=== PATIENT | female | born 1950 | race Caucasian/White ===

== ENCOUNTER 2016-11-01 07:11 | Emergency (ER) | payer OTHER ==
[~2016-11-01] VITALS: Ht 162.6 cm; Wt 115.5 kg
[~2016-11-01 07:11] MED LIST: ASPCH81X PO; CHOL100010 PO; CITA40TA12 PO; CLOP1TAB15 PO; CLR10 PO; CYCL10TA6 PO; FERR325T51 PO; GUAISYP5 PO; ISOS120T5 PO; LEVO100T PO; METO50TA16 PO; NTRGSL/4 UT; PANT1TAB48 PO; ROSU40TA PO; TRAM-10 PO
[2016-11-01 07:18] VITALS: TEMP 36.9; Ht 162.6 cm; Wt 115.5 kg
[2016-11-01] MEDS ORDERED: SODIUM CHLORIDE 0.9% 1000ML 1,000 ML IV STA (07:29)
[2016-11-01] MEDS ORDERED: ONDANSETRON INJ 2 MG/ML 2 ML VIAL IV STA (07:29)
--- NOTE | 2016-11-01 08:01 | DIAGNOSTIC IMAGING REPORT ---
CHEST ONE VIEW PORTABLE CLINICAL HISTORY: Evaluate Fever/Sepsis dyspnea COMPARISON STUDY: 04/14/2016 FINDINGS: Parenchymal infiltrate left base. Lungs otherwise are clear. Mild chronic elevation right hemidiaphragm. IMPRESSION: Infiltrate left base. Electronically signed by: Santiago Mora M.D. 11/01/2016 8:00 AM Dictated Date/Time: 11/01/2016 7:58 AM
[2016-11-01 08:02] LABS: BASO % 0.5 %; BASO ABS # 0.04 K/uL (0-0.2); COMPLETE YES; EOS % 2.7 %; HEMATOCRIT 40.7 % (37-47); IG% 0.7 %; LYMPH % 16.9 %; LYMPH ABS # 1.48 K/uL (1.2-3.4); MEAN CELL VOLUME 87.2 fL (80-100); MEAN CORPUSCULAR HEMOGLOBIN 29.1 pg (25-34); MEAN CORPUSCULAR HGB CONC 33.4 g/dl (32-36); MEAN PLATELET VOLUME 9.9 fL (7.4-10.4); MONO % 12.1 %; NEUT % 67.1 %; PLATELET COUNT 457 K/uL (130-400); RED BLOOD COUNT 4.67 M/uL (4.2-5.4); WHITE BLOOD COUNT 8.78 K/uL (4.8-10.8)
[2016-11-01 08:07] LABS: URINE APPEARANCE CLOUDY (CLEAR); URINE COLOR DK YELLOW; URINE EPITHELIAL CELL AUTO >30 /lpf (0-5); URINE NITRITE POS (NEG); URINE PH 5.5 (4.5-7.5); URINE SPECIFIC GRAVITY 1.042 (1.000-1.030); UROBILINOGEN NEG (NEG); ZZUR CULT IF INDIC CLEAN CATCH YES
[2016-11-01 08:12] LABS: MANUAL MICROSCOPIC REQUIRED? NO; REVIEW REQ? YES; URINE BILIRUBIN NEG (NEG)
[2016-11-01 08:17] LABS: URINE MUCUS PRESENT (NONE PRSENT)
[2016-11-01 08:19] LABS: CALCIUM 8.8 mg/dl (8.5-10.1)
[2016-11-01 08:23] LABS: ALKALINE PHOSPHATASE 70 U/L (45-117); ALT/SGPT 40 U/L (12-78); AST/SGOT 26 U/L (15-37); BLOOD UREA NITROGEN 8 mg/dl (7-18); CARBON DIOXIDE 26 mmol/L (21-32); CHLORIDE 105 mmol/L (98-107); CREATININE 0.84 mg/dl (0.60-1.20); GLUCOSE 131 mg/dl (70-99); POTASSIUM 3.5 mmol/L (3.5-5.1); SODIUM 139 mmol/L (136-145)
[2016-11-01] MEDS ORDERED: FERR325T5 PO (08:25)
[2016-11-01] MEDS ORDERED: CEFTRIAXONE SOD INJ 1 GM ADDVIAL IV STA (10:03)
[2016-11-01] MEDS ORDERED: LEVOFLOXACIN 250 MG TAB PO STA (10:06)
[2016-11-01] MEDS ORDERED: AMOX875T PO (10:21)
[2016-11-01] MEDS ORDERED: ONDA4TAB10 SL (10:22)
--- NOTE | 2016-11-01 10:22 | EMERGENCY ROOM VISIT NOTE ---
History Report prepared by Joslyn: Antony Lyon Under the Supervision of: Dr. César Garrett D.O. First contact with patient: 07:25 Chief Complaint: FLU LIKE SX Stated Complaint: FLU History of Present Illness The patient is a 66 year old female who presents to the Emergency Room with complaints of persistent flu-like symptoms that started a week ago. She states that she has had a high fever, chills, and body aches intermittently. Her highest fever was 102.8, per a family member. The patient also notes an occasional productive cough. She did start vomiting today with nausea. She vomited again a few minutes ago in the room. The patient notes that she knows it is cold in the room, but she feels hot. The patient denies any abdominal pain , diarrhea urinary symptoms, wounds, or infections. The patient states that she has seen 2 doctors for her illness, and has been given medications, but her illness has persisted and worsened. She has a history stent placement in her heart. Source of History: patient, family Onset: A week ago Position: other (global - flu-like symptoms) Timing: other (persistent) Associated Symptoms: + chills, + cough, + fevers, + nausea, + vomiting, No abdominal pain, No diarrhea, No urinary symptoms Note: Associated symptoms: Intermittent body aches. Feels hot in room. Denies wounds or infections. Review of Systems See HPI for pertinent positives & negatives. A total of 10 systems reviewed and were otherwise negative. Past Medical & Surgical Medical Problems: (1) CAD (coronary artery disease) (2) Chest pain (3) CKD (chronic kidney disease), stage III (4) Depression (5) Dyslipidemia (6) GERD (gastroesophageal reflux disease) (7) History of carpal tunnel surgery of right wrist (8) HTN (hypertension) (9) Hypothyroidism (10) Migraine (11) NAN (obstructive sleep apnea) Surgical Problems: (1) H/O arthroscopic knee surgery (2) Hx of tubal ligation (3) S/P AVELINA-BSO Family History Cancer FH: heart disease Social History Smoking Status: Former Smoker Alcohol Use: other Drug Use: none Marital Status: Housing Status: lives with significant other Occupation Status: employed Current/Historical Medications Scheduled Amoxicillin & Pot Clavulanate (Augmentin 875-125 mg), 875 MG PO BID Aspirin (Aspirin Chewable), 81 MG PO QAM Cholecalciferol (Vitamin D), 1,000 UNITS PO DAILY Citalopram Hydrobromide (Celexa), 40 MG PO DAILY Clopidogrel (Plavix), 75 MG PO QAM Ferrous Sulfate (Ferrous Sulfate), 325 MG PO BID Isosorbide Mononitrate Ext Rel (Imdur Ext Rel), 120 MG PO QAM Levothyroxine Sodium (Synthroid), 100 MCG PO QAM Metoprolol Tartrate (Lopressor) (Lopressor), 50 MG PO BID Nitroglycerin (Nitrostat), 0.4 MG UT PRN Ondasetron Odt (Zofran Odt), 4 MG SL Q6H Pantoprazole (Protonix), 80 MG PO DAILY Rosuvastatin Calcium (Crestor), 40 MG PO DAILY Scheduled PRN Cyclobenzaprine Hcl (Flexeril), 10 MG PO HS PRN for Muscle Spasms Loratadine (Claritin), 10 MG PO DAILY PRN for ALLERGIES Allergies Coded Allergies: No Known Allergies (Verified , 11/01/16) Physical Exam Vital Signs Date Time Temp Pulse Resp B/P Pulse Ox O2 Delivery O2 Flow Rate FiO2 11/01/16 10:11 82 18 113/66 93 Room Air 11/01/16 08:45 78 16 110/63 98 Room Air 11/01/16 07:18 36.9 94 19 113/82 94 Room Air Physical Exam CONSTITUTIONAL/VITAL SIGNS: Reviewed / noted above. GENERAL: Non-toxic in appearance. INTEGUMENTARY: Warm, dry, and [place]. HEAD: Normocephalic. EYES: without scleral icterus or trauma. ENT/OROPHARYNX: clear and moist. LYMPHADENOPATHY/NECK: Is supple without lymphadenopathy or meningismus. RESPIRATORY: Lungs clear and equal. CARDIOVASCULAR: Regular rate and rhythm. GI/ABDOMEN: Soft and nontender. No organomegaly or pulsatile mass. No rebound or guarding. Normal bowel sounds. EXTREMITIES: Warm and well perfused. BACK: No CVA tenderness. NEUROLOGICAL: Intact without focal deficits. PSYCHIATRIC: normal affect. MUSCULOSKELETAL: Normally developed with good muscle tone. Medical Decision & Procedures ER Provider Diagnostic Interpretation: X ray results and stated below per my interpretation and radiology interpretation. CHEST ONE VIEW PORTABLE CLINICAL HISTORY: Evaluate Fever/Sepsis dyspnea COMPARISON STUDY: 04/14/2016 FINDINGS: Parenchymal infiltrate left base. Lungs otherwise are clear. Mild chronic elevation right hemidiaphragm. IMPRESSION: Infiltrate left base. Electronically signed by: Santiago Mora M.D. 11/01/2016 8:00 AM Dictated Date/Time: 11/01/2016 7:58 AM Laboratory Results 11/01/16 07:40 Red Blood Count 4.67, Mean Corpuscular Volume 87.2, Mean Corpuscular Hemoglobin 29.1, Mean Corpuscular Hemoglobin Concent 33.4, Mean Platelet Volume 9.9, Neutrophils (%) (Auto) 67.1, Lymphocytes (%) (Auto) 16.9, Monocytes (%) (Auto) 12.1, Eosinophils (%) (Auto) 2.7, Basophils (%) (Auto) 0.5, Neutrophils # (Auto ) 5.90, Lymphocytes # (Auto) 1.48, Monocytes # (Auto) 1.06, Eosinophils # (Auto ) 0.24, Basophils # (Auto) 0.04 11/01/16 07:40 Test 11/01/16 07:40 11/01/16 07:42 11/01/16 07:43 White Blood Count 8.78 K/uL (4.8-10.8) Red Blood Count 4.67 M/uL (4.2-5.4) Hemoglobin 13.6 g/dL (12.0-16.0) Hematocrit 40.7 % (37-47) Mean Corpuscular Volume 87.2 fL (80-100) Mean Corpuscular Hemoglobin 29.1 pg (25-34) Mean Corpuscular Hemoglobin Concent 33.4 g/dl (32-36) Platelet Count 457 K/uL (130-400) Mean Platelet Volume 9.9 fL (7.4-10.4) Neutrophils (%) (Auto) 67.1 % Lymphocytes (%) (Auto) 16.9 % Monocytes (%) (Auto) 12.1 % Eosinophils (%) (Auto) 2.7 % Basophils (%) (Auto) 0.5 % Neutrophils # (Auto) 5.90 K/uL (1.4-6.5) Lymphocytes # (Auto) 1.48 K/uL (1.2-3.4) Monocytes # (Auto) 1.06 K/uL (0.11-0.59) Eosinophils # (Auto) 0.24 K/uL (0-0.5) Basophils # (Auto) 0.04 K/uL (0-0.2) RDW Standard Deviation 43.9 fL (36.4-46.3) RDW Coefficient of Variation 13.8 % (11.5-14.5) Immature Granulocyte % (Auto) 0.7 % Immature Granulocyte # (Auto) 0.06 K/uL (0.00-0.02) Anion Gap 8.0 mmol/L (3-11) Est Creatinine Clear Calc Drug Dose 83.3 ml/min Estimated GFR () 84.5 Estimated GFR (Non- 72.9 BUN/Creatinine Ratio 9.0 (10-20) Calcium Level 8.8 mg/dl (8.5-10.1) Total Bilirubin 0.4 mg/dl (0.2-1) Direct Bilirubin 0.1 mg/dl (0-0.2) Aspartate Amino Transf (AST/SGOT) 26 U/L (15-37) Alanine Aminotransferase (ALT/SGPT) 40 U/L (12-78) Alkaline Phosphatase 70 U/L (45-117) Total Creatine Kinase 52 U/L (26-192) Creatine Kinase MB < 0.5 ng/ml (0.5-3.6) Creatine Kinase MB Ratio (0-3.0) Total Protein 8.3 gm/dl (6.4-8.2) Albumin 3.0 gm/dl (3.4-5.0) Lipase 117 U/L (73-393) Influenza Type A Antigen Neg for Influ A (NEG) Influenza Type B Antigen Neg for Influ B (NEG) Urine Color DK YELLOW Urine Appearance CLOUDY (CLEAR) Urine pH 5.5 (4.5-7.5) Urine Specific [place] 1.042 (1.000-1.030) Urine Protein 2+ (NEG) Urine Glucose (UA) NEG (NEG) Urine Ketones 1+ (NEG) Urine Occult Blood 1+ (NEG) Urine Nitrite POS (NEG) Urine Bilirubin NEG (NEG) Urine Urobilinogen NEG (NEG) Urine Leukocyte Esterase SMALL (NEG) Urine WBC (Auto) 5-10 /hpf (0-5) Urine RBC (Auto) 0-4 /hpf (0-4) Urine Hyaline Casts (Auto) 1-5 /lpf (0-5) Urine Epithelial Cells (Auto) >30 /lpf (0-5) Urine Bacteria (Auto) NEG (NEG) Urine Renal Epithelial Cells /lpf (0-5) Urine Crystals CALCIUM OXALATE (NONE Urine Pathogenic Casts /lpf (0) Urine Mucus PRESENT (NONE PRSENT) Urine Yeast (Auto) BUDDING (NONE PRSENT) Laboratory results as stated above per my review. Medications Administered Medications (Trade) Dose Ordered Sig/Minal Route Start Time Stop Time Status Last Admin Dose Admin Sodium Chloride (Nss 1000ml) 1,000 ml @ 999 mls/hr Q1H1M STAT IV 11/01/16 07:29 11/01/16 08:29 DC 11/01/16 07:29 999 MLS/HR Ondansetron HCl (Zofran Inj) 4 mg NOW STAT IV 11/01/16 07:29 11/01/16 07:31 DC 11/01/16 08:03 4 MG Ceftriaxone Sodium (Rocephin Inj) 1 gm NOW STAT IV 11/01/16 10:03 11/01/16 10:04 DC 11/01/16 10:13 1 GM ED Course 0729: Ordered Zofran Inj 4 mg IV, NSS 1000 ml @ 999 mls/hr IV. 0758: Previous medical records were reviewed. The patient was evaluated in room B12B. A complete history and physical examination was performed. 1003: Ordered Rocephin Inj 1 gm IV. 1006: Ordered Levaquin Tab 500 mg PO. 1024: On reevaluation, the patient is resting comfortably. I discussed the results and findings with the patient. She verbalized agreement of the treatment plan. She will be discharged home. 1030: Ordered Augmentin Tab 875 mg PO. Medical Decision Prior records/ancillary studies reviewed. Triage Nursing notes reviewed. Additional history obtained from the family. Differential diagnosis: Etiologies such as gastroenteritis, food borne illness, infections, appendicitis , diverticulitis, inflammatory bowel disease, obstruction, GI bleed, biliary pathology, as well as others were entertained. This is a 66-year-old female who presents to the ED with a chief complaint of flulike symptoms. The patient has had some high fevers and body aches for the past week or so. She is also developed some nausea and vomiting today. She reports an intermittently productive cough. Her temperature has been up as high as 102.8. Her physical exam was relatively unremarkable. She did vomit just prior to me entering the room. Urine was suggestive of UTI. CBC was unremarkable. Complete metabolic panel was normal. Lipase is negative. Chest x-ray suggests a left base infiltrate. The patient is currently on Levaquin. She was started on Augmentin. She was given IV Rocephin. She was treated here with IV fluids and IV Zofran. She states she is feeling better. Flu swab was negative. She will be given a prescription for Zofran and Augmentin. She is felt to be stable for discharge. Impression Primary Impression: Pneumonia Additional Impression: UTI (urinary tract infection) Scribe Attestation The scribe's documentation has been prepared under my direction and personally reviewed by me in its entirety. I confirm that the note above accurately reflects all work, treatment, procedures, and medical decision making performed by me. Departure Information Dispostion Home / Self-Care Prescriptions Ondasetron Odt (ZOFRAN ODT) 4 Mg Tab 4 MG SL Q6H for Nausea, #20 TAB Prov: César Garrett D.O. 11/01/16 Amoxicillin & Pot Clavulanate (Augmentin 875-125 mg) 1 Tab Tab 875 MG PO BID, #14 TAB Prov: César Garrett D.O. 11/01/16 Referrals Santiago Pelayo M.D. (PCP) Patient Instructions My [facility], Pneumonia, UTI Additional Instructions Augmentin as prescribed. Zofran: Allow one tablet to dissolve under the tongue every 6 hours as needed for nausea or vomiting. Follow-up with your doctor for further care and evaluation in 1-2 days. Return to the emergency department for worsening or new symptoms or any concerns. You have been examined and treated today on an emergency basis only. This is not a substitute for, or an effort to provide, complete comprehensive medical care. It is impossible to recognize and treat all injuries or illnesses in a single emergency department visit. It is therefore important that you follow up closely with your doctor. Call as soon as possible for an appointment. Problem Qualifiers
[2016-11-01] MEDS ORDERED: AMOXICILLIN/CLAVULANATE TAB 875 MG TAB PO ONE (10:30)
[2016-11-01 11:03] VITALS: BP 94/70; PULSE 85; O2SAT 95
== END 2016-11-01 11:15 | disposition home or self-care (01) ==
LOC: C.EDB 07:12
DX: J18.9 Pneumonia, unspecified organism (principal); N39.0 Urinary tract infection, site not specified; I25.10 Atherosclerotic heart disease of native coronary artery without angina pectoris; N18.3 Chronic kidney disease, stage 3 (moderate); E78.5 Hyperlipidemia, unspecified; E03.9 Hypothyroidism, unspecified; I12.9 Hypertensive chronic kidney disease with stage 1 through stage 4 chronic kidney disease, or unspecified chronic kidney disease; G47.33 Obstructive sleep apnea (adult) (pediatric); K21.9 Gastro-esophageal reflux disease without esophagitis; F32.9 Major depressive disorder, single episode, unspecified; Z79.02 Long term (current) use of antithrombotics/antiplatelets; Z79.82 Long term (current) use of aspirin; Z79.899 Other long term (current) drug therapy; Z82.49 Family history of ischemic heart disease and other diseases of the circulatory system; F17.200 Nicotine dependence, unspecified, uncomplicated

== ENCOUNTER 2017-10-18 07:42 | Inpatient (IN) | payer OTHER ==
[~2017-10-18] VITALS: Ht 162.6 cm; Wt 115.8 kg
[2017-10-18] VITALS (11 sets, daily range): BP systolic 97–138; BP diastolic 58–79; PULSE 68–80; TEMP 36.5–36.7; O2SAT 98–100; Ht 162.6 cm; Wt 115.8 kg
[~2017-10-18 07:42] MED LIST changes: +FERR325T5 PO; -FERR325T51 PO; -GUAISYP5 PO; +PANT1TAB3 PO; -PANT1TAB48 PO; -TRAM-10 PO
[2017-10-18] MEDS ORDERED: NITROGLYCERIN 2% OINTMENT 30GM TUBE EXT STA (07:56)
[2017-10-18] MEDS ORDERED: MoRPHine SULFATE 4 MG/ML 1 ML CARP\\VIAL IV STA (07:56)
--- NOTE | 2017-10-18 08:00 | EMERGENCY ROOM VISIT NOTE ---
History First contact with patient: 07:48 Chief Complaint: CHEST PAIN Stated Complaint: CHEST PAIN Nursing Triage Summary: pt has cardiac hx with 4 stents placed in past pt reports not feeling well last few weeks, working a lot of over time pt has had intermittent chest pain today pt has had constant chest pain last few hours short of breath no nausea or vomiting pt reports getting diaphoretic before pain started pt given 4 baby asa prehospital History of Present Illness The patient is a 67 year old female who presents to the Emergency Room via ambulance accompanied by female with complaints of "chest pain". The patient states that she has a significant cardiac history to include 4 stent placements in the past. She states that she follows locally with Santiago Mckeon PA-C. She states that her last appointment was in July. She takes Plavix daily. She has not been feeling well over the past few weeks, noting intermittent chest pain. She states that today around 5 AM she developed chest pain and took 1 of her nitroglycerin sublingual tablets. This helped alleviate the pain slightly. The pain does not radiate and she points to the substernal region as the location of which she describes as more of a pressure and rates the severity as an 8/10. She has also had 4 baby aspirin today. She notes some shortness of breath of which is not new. Review of Systems A complete 10-point Review of Systems was discussed with the patient, with pertinent positives and negatives listed in the History of Present Illness. All remaining Review of Systems questions can be considered negative unless otherwise specified. Past Medical/Surgical History Medical Problems: (1) CAD (coronary artery disease) (2) Chest pain (3) CKD (chronic kidney disease), stage III (4) Depression (5) Dyslipidemia (6) GERD (gastroesophageal reflux disease) (7) History of carpal tunnel surgery of right wrist (8) HTN (hypertension) (9) Hypothyroidism (10) Migraine (11) NAN (obstructive sleep apnea) Surgical Problems: (1) H/O arthroscopic knee surgery (2) Hx of tubal ligation (3) S/P AVELINA-BSO Family History Cancer FH: heart disease Social History Smoking Status: Former Smoker Alcohol Use: other Drug Use: none Marital Status: Housing Status: lives with significant other Occupation Status: employed Current/Historical Medications Scheduled Aspirin (Aspirin Chewable), 81 MG PO QAM Cholecalciferol (Vitamin D), 1,000 UNITS PO DAILY Citalopram Hydrobromide (Celexa), 40 MG PO DAILY Clopidogrel (Plavix), 75 MG PO QAM Ferrous Sulfate (Ferrous Sulfate), 325 MG PO BID Isosorbide Mononitrate Ext Rel (Imdur Ext Rel), 120 MG PO QAM Levothyroxine Sodium (Synthroid), 100 MCG PO QAM Metoprolol Tartrate (Lopressor) (Lopressor), 50 MG PO BID Nitroglycerin (Nitrostat), 0.4 MG UT PRN Pantoprazole (Protonix), 80 MG PO DAILY Rosuvastatin Calcium (Crestor), 40 MG PO DAILY Scheduled PRN Cyclobenzaprine Hcl (Flexeril), 10 MG PO HS PRN for Muscle Spasms Loratadine (Claritin), 10 MG PO DAILY PRN for ALLERGIES Physical Exam Vital Signs Date Time Temp Pulse Resp B/P (MAP) Pulse Ox O2 Delivery O2 Flow Rate FiO2 10/18/17 07:58 100 Room Air 10/18/17 07:56 76 10/18/17 07:53 37.0 75 20 127/79 100 Room Air 10/18/17 07:53 100 Room Air Physical Exam VITAL SIGNS - Vital signs and nursing notes were reviewed. Stable. GENERAL -67-year-old female appearing her stated age who is in no acute distress. The patient is slightly tearful. Communicates well with provider and answers questions appropriately. SKIN - Without rashes. No meningeal or petechial rash. HEAD - NC/AT. EYES - PERRL with EOMI bilaterally. Sclera anicteric. EARS - No deformities of external structures noted on gross examination bilaterally. NOSE - Midline and without cyanosis. No epistaxis or purulent drainage noted. MOUTH/OROPHARYNX - Without perioral cyanosis. LUNGS - Chest wall symmetric without accessory muscle use, intercostals retractions, or central cyanosis. Normal vesicular breath sounds CTA B/L. No wheezes, rales, or rhonchi appreciated. CARDIAC - RRR with S1/S2. No murmur, rubs, or gallops appreciated. EXTREMITIES - No clubbing or peripheral cyanosis. No pretibial edema present.+5/ 5 strength noted in UE/LE bilaterally. NEUROLOGIC - Cranial nerves II through XII grossly intact. Sensory intact to light touch throughout. PSYCH - A&O, and cooperates fully with examiner. Pt is very pleasant and interacts well with examiner. Medical Decision & Procedures ER Provider Diagnostic Interpretation: CHEST ONE VIEW PORTABLE CLINICAL HISTORY: chest pain dyspnea COMPARISON STUDY: 11/01/2016 FINDINGS: Focal consolidative infiltrate medial aspect left base. Lungs otherwise are clear. Mild stable cardia megaly. Diaphragms are smooth. IMPRESSION: Focal consolidative infiltrate medial aspect left base. If this does not resolve following appropriate clinical treatment, CT of the chest would be suggested to exclude parenchymal nodule. The above report was generated using voice recognition software. It may contain grammatical, syntax or spelling errors. Electronically signed by: Santiago Mora M.D. 10/18/2017 8:29 AM Dictated Date/Time: 10/18/2017 8:28 AM Laboratory Results 10/18/17 08:10 Red Blood Count 3.38, Mean Corpuscular Volume 74.9, Mean Corpuscular Hemoglobin 22.5, Mean Corpuscular Hemoglobin Concent 30.0, Mean Platelet Volume 9.9, Neutrophils (%) (Auto) 61.4, Lymphocytes (%) (Auto) 27.9, Monocytes (%) (Auto) 7.5, Eosinophils (%) (Auto) 2.4, Basophils (%) (Auto) 0.6, Neutrophils # (Auto) 3.01, Lymphocytes # (Auto) 1.37, Monocytes # (Auto) 0.37, Eosinophils # (Auto) 0.12, Basophils # (Auto) 0.03 10/18/17 08:10 Test 10/18/17 08:10 10/18/17 08:30 10/18/17 09:03 White Blood Count 4.91 K/uL (4.8-10.8) Red Blood Count 3.38 M/uL (4.2-5.4) Hemoglobin 7.6 g/dL (12.0-16.0) Hematocrit 25.3 % (37-47) Mean Corpuscular Volume 74.9 fL (80-100) Mean Corpuscular Hemoglobin 22.5 pg (25-34) Mean Corpuscular Hemoglobin Concent 30.0 g/dl (32-36) Platelet Count 324 K/uL (130-400) Mean Platelet Volume 9.9 fL (7.4-10.4) Neutrophils (%) (Auto) 61.4 % Lymphocytes (%) (Auto) 27.9 % Monocytes (%) (Auto) 7.5 % Eosinophils (%) (Auto) 2.4 % Basophils (%) (Auto) 0.6 % Neutrophils # (Auto) 3.01 K/uL (1.4-6.5) Lymphocytes # (Auto) 1.37 K/uL (1.2-3.4) Monocytes # (Auto) 0.37 K/uL (0.11-0.59) Eosinophils # (Auto) 0.12 K/uL (0-0.5) Basophils # (Auto) 0.03 K/uL (0-0.2) RDW Standard Deviation 43.1 fL (36.4-46.3) RDW Coefficient of Variation 15.6 % (11.5-14.5) Immature Granulocyte % (Auto) 0.2 % Immature Granulocyte # (Auto) 0.01 K/uL (0.00-0.02) Large Platelets 1+ Hypochromasia PRESENT Absolute Reticulocyte Count 0.06 10^6/uL (0.02-0.10) Percent Reticulocyte Count 1.7 % (0.5-2.0) Prothrombin Time 10.4 SECONDS (9.0-12.0) Prothromb Time International Ratio 1.0 (0.9-1.1) Activated Partial Thromboplast Time 19.4 SECONDS (21.0-31.0) Partial Thromboplastin Ratio 0.7 Anion Gap 8.0 mmol/L (3-11) Est Creatinine Clear Calc Drug Dose 69.2 ml/min Estimated GFR () 66.4 Estimated GFR (Non- 57.3 BUN/Creatinine Ratio 11.0 (10-20) Calcium Level 8.3 mg/dl (8.5-10.1) Magnesium Level 2.0 mg/dl (1.8-2.4) Total Bilirubin 0.4 mg/dl (0.2-1) Aspartate Amino Transf (AST/SGOT) 28 U/L (15-37) Alanine Aminotransferase (ALT/SGPT) 29 U/L (12-78) Alkaline Phosphatase 55 U/L (45-117) Troponin I < 0.015 ng/ml (0-0.045) Pro-B-Type Natriuretic Peptide 204 pg/ml (0-900) Total Protein 6.9 gm/dl (6.4-8.2) Albumin 3.1 gm/dl (3.4-5.0) Globulin 3.8 gm/dl (2.5-4.0) Albumin/Globulin Ratio 0.8 (0.9-2) Thyroid Stimulating Hormone (TSH) 5.400 uIu/ml (0.300-4.500) Urine Color YELLOW Urine Appearance CLEAR (CLEAR) Urine pH 6.0 (4.5-7.5) Urine Specific [place] 1.011 (1.000-1.030) Urine Protein NEG (NEG) Urine Glucose (UA) NEG (NEG) Urine Ketones NEG (NEG) Urine Occult Blood NEG (NEG) Urine Nitrite NEG (NEG) Urine Bilirubin NEG (NEG) Urine Urobilinogen NEG (NEG) Urine Leukocyte Esterase LARGE (NEG) Urine WBC (Auto) >30 /hpf (0-5) Urine RBC (Auto) 0-4 /hpf (0-4) Urine Hyaline Casts (Auto) 1-5 /lpf (0-5) Urine Epithelial Cells (Auto) >30 /lpf (0-5) Urine Bacteria (Auto) 4+ (NEG) Transferrin % Saturation % (15-50) Medications Administered Medications (Trade) Dose Ordered Sig/Minal Route Start Time Stop Time Status Last Admin Dose Admin Nitroglycerin (Nitroglycerin 2% Oint) 0.5 inch NOW STAT EXT 10/18/17 07:56 10/18/17 07:59 DC 10/18/17 07:56 0.5 INCH Morphine Sulfate (MoRPHine SULFATE INJ) 2 mg STK-MED ONCE .ROUTE 10/18/17 08:20 10/18/17 08:21 DC 10/18/17 08:27 2 MG Medical Decision Patient was seen and evaluated as above in room a 12. Review was performed of nursing notes and vital signs. After obtaining a thorough history and physical examination the above work up was performed. Patient has an extensive cardiac history to include 4 stents. She has not been feeling well over the past few weeks. Chest pain since 5 AM. She had he had nitroglycerin and aspirin. She was given a small amount of Nitropaste and morphine here. Her hemoglobin was found to be significantly decreased. Rectal exam does not reveal any positive Hemoccult testing. There was a small blue rosendo which I do not believe to be positive. She was type and cross 1 unit. 1 unit Held. Chest x-ray does reveal a small infiltrate but she does not present with typical pneumonia symptoms. Metabolic panel reveals no emergent process. TSH is elevated. Urine reveals 4+ urine bacteria. No nitrites. She will be admitted for further evaluation and management of her chest pain, anemia, and presentation. Case was also discussed with the admission team. EKG per my interpretation reveals a normal sinus rhythm, rate of 75 bpm. No ectopy or ischemic change. Case was discussed with the attending physician. In the evaluation and treatment of this patient the following differential diagnoses were entertained: OR, PE, CHF, pneumonia, anemia, GI bleed, among others. Impression Primary Impression: Chest pain Additional Impressions: Anemia Infiltrate noted on imaging study Departure Information Dispostion Admitted as an inpatient Condition GOOD Referrals No Doctor, Assigned (PCP) Patient Instructions My [facility] Problem Qualifiers
[2017-10-18] MEDS ORDERED: MoRPHine SULFATE 2 MG/ML CARP ONE (08:20)
[2017-10-18 08:22] LABS: BASO % 0.6 %; BASO ABS # 0.03 K/uL (0-0.2); EOS % 2.4 %; EOS ABS # 0.12 K/uL (0-0.5); HEMATOCRIT 25.3 % (37-47); HEMOGLOBIN 7.6 g/dL (12.0-16.0); IG# 0.01 K/uL (0.00-0.02); LYMPH % 27.9 %; LYMPH ABS # 1.37 K/uL (1.2-3.4); MEAN CELL VOLUME 74.9 fL (80-100); MEAN CORPUSCULAR HEMOGLOBIN 22.5 pg (25-34); MEAN PLATELET VOLUME 9.9 fL (7.4-10.4); MONO % 7.5 %; MONO ABS # 0.37 K/uL (0.11-0.59); NEUT % 61.4 %; NEUT ABS # 3.01 K/uL (1.4-6.5); PLATELET COUNT 324 K/uL (130-400); RED CELL DISTRIBUTION WIDTH CV 15.6 % (11.5-14.5); RED CELL DISTRIBUTION WIDTH SD 43.1 fL (36.4-46.3); WHITE BLOOD COUNT 4.91 K/uL (4.8-10.8)
--- NOTE | 2017-10-18 08:31 | DIAGNOSTIC IMAGING REPORT ---
CHEST ONE VIEW PORTABLE CLINICAL HISTORY: chest pain dyspnea COMPARISON STUDY: 11/01/2016 FINDINGS: Focal consolidative infiltrate medial aspect left base. Lungs otherwise are clear. Mild stable cardia megaly. Diaphragms are smooth. IMPRESSION: Focal consolidative infiltrate medial aspect left base. If this does not resolve following appropriate clinical treatment, CT of the chest would be suggested to exclude parenchymal nodule. The above report was generated using voice recognition software. It may contain grammatical, syntax or spelling errors. Electronically signed by: Santiago Mora M.D. 10/18/2017 8:29 AM Dictated Date/Time: 10/18/2017 8:28 AM
[2017-10-18 08:38] LABS: ALBUMIN 3.1 gm/dl (3.4-5.0); ALT/SGPT 29 U/L (12-78); AST/SGOT 28 U/L (15-37); BLOOD UREA NITROGEN 11 mg/dl (7-18); CALCIUM 8.3 mg/dl (8.5-10.1); CARBON DIOXIDE 22 mmol/L (21-32); CREATININE 1.02 mg/dl (0.60-1.20); GLUCOSE 101 mg/dl (70-99); SODIUM 140 mmol/L (136-145)
[2017-10-18 08:49] LABS: ALKALINE PHOSPHATASE 55 U/L (45-117); TOTAL PROTEIN 6.9 gm/dl (6.4-8.2)
[2017-10-18 08:58] LABS: PTT PATIENT 19.4 SECONDS (21.0-31.0)
[2017-10-18 09:14] LABS: RETIC COUNT % 1.7 % (0.5-2.0)
[2017-10-18] MEDS ORDERED: ONDANSETRON INJ 2 MG/ML 2 ML VIAL IV PRN (09:45)
--- NOTE | 2017-10-18 11:07 | Gastrointestinal Consultation ---
Gastrointestinal Consultation Date of Consultation: Oct 18, 2017 Attending Physician: Steven Consulting Physician: Geovanna Reason for Consultation: anemia History of Present Illness Patient is a 67 year old female w/ history HTN, CKD and other below who presented to [facility] ED with CP, SOB, generalized weakness x 3 weeks. Found to have marked anemia w/ HGB 7.6 down from baseline 11 in June 2017. Pt was seen and evaluated, chart reviewed. Family at bedside. She notes she has chronic SOB, weakness which has progressively worsened over the past three weeks. She is on iron therapy for history of JOSE which she does have some compliance issues with but takes on most days. Does have dark stools, formed 2- 3 times daily. No report of melena. No BRBPR. No nausea, vomiting. She does have chronic upper abdominal pain, epigastric, worse after PO intake and with palpation. Does have regurgitation. No change in appetite. Continues to have mild CP, SOB. No fever, chills. NSAIDs: aleve 1-2 tabs once a month AC/Platelets: ASA daily, Plavix daily, ETOH: 5-6 beers 3-4 times a week Chest XR: Focal consolidative infiltrate medial aspect left base. If this does not resolve following appropriate clinical treatment, CT of the chest would be suggested to exclude parenchymal nodule. Colonoscopy 08/03/15: Diverticulosis in the sigmoid colon.One 3 mm polyp in the sigmoid colon. Resected and retrieved.The examined portion of the ileum was normal EGD 06/10/15: Mild ring. Hiatal hernia. The pt may have dysphagia due to ring, reflux related dysmotility, or food trapping in hiatal hernia. The ring was not dilated due to need for Plavix therapy. EGD 01/02/13: Esophagitis. Schatzki's ring. Hiatal hernia. Erosive duodenitis. EGD 09/04/12: Small ulcer at GE junction. Large hiatal hernia. Duodenitis. Past Medical/Surgical History Medical Problems: (1) Anemia Status: Acute (2) Coronary artery disease Status: Acute (3) Infiltrate noted on imaging study Status: Acute (4) Pneumonia Status: Acute (5) Unstable angina Status: Acute (6) UTI (urinary tract infection) Status: Acute Past Medical History: hypothyroidism, sleep apnea, HTN, CAD, HTN, obesity, GERD, vit-D deficiency, CKD , depression Past Surgical History: EGD Colonoscopy hysterectomy cholecystectomy cardiac cath breast biopsy carpal tunnel repair Family History Cancer FH: heart disease Social History Smoking Status: Former Smoker Alcohol Use: other Drug Use: none Marital Status: Housing Status: lives with significant other Occupation Status: employed Allergies Coded Allergies: No Known Allergies (Verified , 11/01/16) Current Medications Home Meds and Scripts Medications Dose Route/Sig Max Daily Dose Days Date Category Ferrous Sulfate 325 Mg Tab 325 Mg PO BID 11/01/16 Reported Vitamin D (Cholecalciferol) 1,000 Unit Tab 1,000 Units PO DAILY 04/14/16 Reported Protonix (Pantoprazole) 40 Mg Tab 80 Mg PO DAILY 30 04/14/16 Reported Celexa (Citalopram Hydrobromide) 40 Mg Tab 40 Mg PO DAILY 04/14/16 Reported Crestor (Rosuvastatin Calcium) 40 Mg Tab 40 Mg PO DAILY 04/14/16 Reported Flexeril (Cyclobenzaprine Hcl) 10 Mg Tab 10 Mg PO HS PRN 04/14/16 Reported Aspirin Chewable (Aspirin) 81 Mg Chew 81 Mg PO QAM 07/30/15 Reported Claritin (Loratadine) 10 Mg Tab 10 Mg PO DAILY PRN 07/30/15 Reported Synthroid (Levothyroxine Sodium) 100 Mcg Tab 100 Mcg PO QAM 07/30/15 Reported Imdur Ext Rel (Isosorbide Mononitrate) 120 Mg Ertab 120 Mg PO QAM 07/30/15 Reported Lopressor (Metoprolol Tartrate) 50 Mg Tab 50 Mg PO BID 07/30/15 Reported Plavix (Clopidogrel Bisulfate) 75 Mg Tab 75 Mg PO QAM 07/30/15 Reported Nitrostat (Nitroglycerin) 0.4 Mg Tab 0.4 Mg UT PRN 12/28/12 Reported Review of Systems Constitutional: + weakness, + fatigue, No fever, No chills Respiratory: + shortness of breath, No cough Cardiac: + chest pain, No edema Abdomen: + pain, No nausea, No vomiting, No diarrhea, No constipation, No GI bleeding Skin: No rash, No itch Physical Exam Date Time Temp Pulse Resp B/P (MAP) Pulse Ox O2 Delivery O2 Flow Rate FiO2 10/18/17 10:53 36.5 79 18 113/75 10/18/17 10:32 36.6 75 18 120/73 (89) 100 Room Air 10/18/17 10:01 78 16 109/74 95 Room Air 10/18/17 09:58 79 10/18/17 09:12 76 14 97 10/18/17 09:01 108/79 10/18/17 08:42 76 15 100 10/18/17 08:31 112/64 10/18/17 08:29 145/77 10/18/17 08:12 76 15 99 10/18/17 07:58 100 Room Air 10/18/17 07:56 76 10/18/17 07:53 37.0 75 20 127/79 100 Room Air 10/18/17 07:53 100 Room Air 10/18/17 07:49 127/79 General Appearance: no apparent distress, + pertinent finding (family at bedside, unit of RBCs transfusing) Eyes: PERRL ENT: hearing grossly normal Neck: supple, no adenopathy Respiratory/Chest: lungs clear, normal breath sounds Cardiovascular: regular rate, rhythm, no JVD Abdomen: normal bowel sounds, soft, no organomegaly, no pulsatile mass, + tenderness (mild epigastric pain w/ palpation) Neurologic/Psych: alert, normal mood/affect, oriented x 3 Skin: no jaundice, warm/dry, no rash, + pallor Laboratory Results Last 24 Hours Test 10/18/17 08:10 10/18/17 08:30 10/18/17 09:45 10/18/17 10:44 White Blood Count 4.91 K/uL Red Blood Count 3.38 M/uL Hemoglobin 7.6 g/dL Hematocrit 25.3 % Mean Corpuscular Volume 74.9 fL Mean Corpuscular Hemoglobin 22.5 pg Mean Corpuscular Hemoglobin Concent 30.0 g/dl Platelet Count 324 K/uL Mean Platelet Volume 9.9 fL Neutrophils (%) (Auto) 61.4 % Lymphocytes (%) (Auto) 27.9 % Monocytes (%) (Auto) 7.5 % Eosinophils (%) (Auto) 2.4 % Basophils (%) (Auto) 0.6 % Neutrophils # (Auto) 3.01 K/uL Lymphocytes # (Auto) 1.37 K/uL Monocytes # (Auto) 0.37 K/uL Eosinophils # (Auto) 0.12 K/uL Basophils # (Auto) 0.03 K/uL RDW Standard Deviation 43.1 fL RDW Coefficient of Variation 15.6 % Immature Granulocyte % (Auto) 0.2 % Immature Granulocyte # (Auto) 0.01 K/uL Large Platelets 1+ Hypochromasia PRESENT Absolute Reticulocyte Count 0.06 10^6/uL Percent Reticulocyte Count 1.7 % Prothrombin Time 10.4 SECONDS Prothromb Time International Ratio 1.0 Activated Partial Thromboplast Time 19.4 SECONDS Partial Thromboplastin Ratio 0.7 D-Dimer 470 ug/L FEU Sodium Level 140 mmol/L Potassium Level 4.0 mmol/L Chloride Level 110 mmol/L Carbon Dioxide Level 22 mmol/L Anion Gap 8.0 mmol/L Blood Urea Nitrogen 11 mg/dl Creatinine 1.02 mg/dl Est Creatinine Clear Calc Drug Dose 69.2 ml/min Estimated GFR () 66.4 Estimated GFR (Non- 57.3 BUN/Creatinine Ratio 11.0 Random Glucose 101 mg/dl Calcium Level 8.3 mg/dl Magnesium Level 2.0 mg/dl Iron Level 12 mcg/dl Total Iron Binding Capacity 470 mcg/dl Transferrin 359 mg/dl Transferrin % Saturation 2 % Ferritin 4.9 ng/ml Total Bilirubin 0.4 mg/dl Aspartate Amino Transf (AST/SGOT) 28 U/L Alanine Aminotransferase (ALT/SGPT) 29 U/L Alkaline Phosphatase 55 U/L Troponin I < 0.015 ng/ml Pro-B-Type Natriuretic Peptide 204 pg/ml Total Protein 6.9 gm/dl Albumin 3.1 gm/dl Globulin 3.8 gm/dl Albumin/Globulin Ratio 0.8 Thyroid Stimulating Hormone (TSH) 5.400 uIu/ml Urine Color YELLOW Urine Appearance CLEAR Urine pH 6.0 Urine Specific [place] 1.011 Urine Protein NEG Urine Glucose (UA) NEG Urine Ketones NEG Urine Occult Blood NEG Urine Nitrite NEG Urine Bilirubin NEG Urine Urobilinogen NEG Urine Leukocyte Esterase LARGE Urine WBC (Auto) >30 /hpf Urine RBC (Auto) 0-4 /hpf Urine Hyaline Casts (Auto) 1-5 /lpf Urine Epithelial Cells (Auto) >30 /lpf Urine Bacteria (Auto) 4+ Vitamin B12 Level 353 pg/mL Folate 8.02 ng/mL Impression Patient is a 67 year old female w/ CKD, CAD w/ history of cardiac cath presented to [facility] w/ CP, SOB, weakness admitted w/ marked anemia, hgb 7.8 down from baseline 11 in June. Is on chronic iron therapy, with intermittent formed black stools. No BRB, hematemesis, coffee ground emesis. No evidence of acute GI blood loss, heme negative stools in the ED. Negative troponin. Plan Daily H&H Transfuse PRN Continue iron therapy EGD, arranged as OP Colonoscopy as scheduled GI to sign off. Please call with any acute changes, questions or concerns. GI willing to arrange for inpatient evaluation if there is evidence of acute GI blood loss.
[2017-10-18] MEDS ORDERED: LEVO75TA5 PO (11:11)
--- NOTE | 2017-10-18 12:38 | History and Physical ---
History & Physical Date & Time of Service: Oct 18, 2017 ~ 0946 Chief Complaint: Chest Pain Primary Care Physician: Santiago Pelayo M.D. History of Present Illness Source: patient 67-year-old female who presents to the ED with chest pain. Patient reports she was up getting for work whenever she developed a midsternal chest pressure. She rates the pain as a #8/10. She denies any radiation of the pain into the jaw shoulder or arm. She reports associated diaphoresis. No lightheadedness, dizziness, shortness of breath, or nausea. Patient took a sublingual nitroglycerin at home and reports improvement in the pain however it did not resolve the pain. She was given nitroglycerin paste in the ED and then IV morphine and is currently chest pain-free. Patient reports she has not been feeling well for the past couple of weeks. She reports increasing fatigue and weakness. She has had a dry nonproductive cough for 2 weeks. She attributes this to sinus issues. No abdominal pain, vomiting, or diarrhea. She denies bright red bleeding per rectum. She has intermittently dark stools which she attributes to iron use. No fevers or chills. She denies any urinary symptoms. In the ED, patient was found to have a hemoglobin of 7.6, down from 10.9 on outpatient labs from June 2017. Stools are heme-negative in the ED. Initial troponin is negative and EKG does not show any acute ST changes. Vital signs are stable. Patient was given IV morphine and topical nitro. She reports she is currently chest pain-free. Past Medical/Surgical History Medical Problems: (1) CAD (coronary artery disease) Permanent Comment: per outpatient cardiology note: cath 05/2007 - 50% LAD lesion 10/2008 - abnormal coronary CT that lead to cath that showed 70% proximal mid and LAD stenosis, s/p 2 BMS to LAD Plavix held for colonoscopy 12/2008 which resulted in acute AK, cath at that times showed critical lesion in between the two stents and underwent PCI with BMS Plavix held again for colonscopy 06/2009 which resulted in acute AK again, cath at that time showed patent stents with jailed diagonal branch as likely culprit 10/2009 - presented with chest pain, cath at that times showed stable non occlusive CAD 10/2010 - unstable angina, cath at that time showed left main with mild luminal irregularities, LAD with extensive stenting, jailing of diagonal branch, moderate ostial stenosis of a septal operating room specialist, and an indeterminate stenosis distal to the stents not amendable to PCI, nondominant LCX with up to 30% disease, large dominant RCA with up to 30% proximal stenosis and mild luminal irregularities of the PDA and PLB's 05/2014 - unchanged CAD from prior cath Status: Chronic (2) CKD (chronic kidney disease), stage III Status: Chronic (3) Depression Status: Chronic (4) Dyslipidemia Status: Chronic (5) GERD (gastroesophageal reflux disease) Status: Chronic (6) History of carpal tunnel surgery of right wrist Status: Chronic (7) HTN (hypertension) Status: Chronic (8) Hypothyroidism Status: Chronic (9) Migraine Status: Chronic (10) NAN (obstructive sleep apnea) Status: Chronic Surgical Problems: (1) H/O arthroscopic knee surgery Status: Chronic (2) Hx of cholecystectomy Status: Chronic (3) Hx of tubal ligation Status: Chronic (4) S/P AVELINA-BSO Status: Chronic Family History FH: lung cancer FATHER FH: ovarian cancer MOTHER Social History Smoking Status: Former Smoker Alcohol Use: occasionally Immunizations History of Influenza Vaccine: Yes Influenza Vaccine Date: Apr 01, 2017 History of Tetanus Vaccine?: Yes Tetanus Immunization Date: Jan 05, 2009 History of Pneumococcal: Yes Pneumococcal Date: Jun 16, 2017 Allergies Coded Allergies: No Known Allergies (Verified , 11/01/16) Home Medications Scheduled Aspirin (Aspirin Chewable), 81 MG PO QAM Cholecalciferol (Vitamin D), 2,000 UNITS PO DAILY Citalopram Hydrobromide (Celexa), 40 MG PO DAILY Clopidogrel (Plavix), 75 MG PO QAM Ferrous Sulfate (Ferrous Sulfate), 325 MG PO TIDM Isosorbide Mononitrate Ext Rel (Imdur Ext Rel), 120 MG PO QAM Levofloxacin (Levaquin), 1 TAB PO DAILY Levothyroxine Sodium (Levothyroxine Sodium), 1 TAB PO DAILY Metoprolol Tartrate (Lopressor) (Lopressor), 50 MG PO BID Nitroglycerin (Nitrostat), 0.4 MG UT PRN Pantoprazole Sodium (Protonix), 40 MG PO BID Rosuvastatin Calcium (Crestor), 40 MG PO DAILY Scheduled PRN Loratadine (Claritin), 10 MG PO DAILY PRN for ALLERGIES Review of Systems ROS per HPI, all other systems reviewed and negative Physical Exam Vital Signs Date Time Temp Pulse Resp B/P (MAP) Pulse Ox O2 Delivery O2 Flow Rate FiO2 10/18/17 12:04 36.7 78 18 107/68 98 10/18/17 11:30 36.6 77 18 97/62 100 10/18/17 11:15 36.5 77 18 123/79 100 10/18/17 10:53 36.5 79 18 113/75 10/18/17 10:32 36.6 75 18 120/73 (89) 100 Room Air 10/18/17 10:01 78 16 109/74 95 Room Air 10/18/17 09:58 79 10/18/17 09:12 76 14 97 10/18/17 09:01 108/79 10/18/17 08:42 76 15 100 10/18/17 08:31 112/64 10/18/17 08:29 145/77 10/18/17 08:12 76 15 99 10/18/17 07:58 100 Room Air 10/18/17 07:56 76 10/18/17 07:53 37.0 75 20 127/79 100 Room Air 10/18/17 07:53 100 Room Air 10/18/17 07:49 127/79 General Appearance: WD/WN, no apparent distress, + obese Head: normocephalic, atraumatic Eyes: normal inspection, EOMI, sclerae normal ENT: hearing grossly normal, + pertinent finding (Mucous membranes moist) Neck: supple, no JVD, trachea midline Respiratory/Chest: no respiratory distress, + decreased breath sounds ( Bilateral bases), + pertinent finding (Midsternal chest wall tenderness on palpation) Cardiovascular: regular rate, rhythm, no edema, normal peripheral pulses Abdomen/GI: normal bowel sounds, non tender, soft, no organomegaly Extremities/Musculoskelatal: normal inspection, no calf tenderness, normal capillary refill Neurologic/Psych: no motor/sensory deficits, alert, normal mood/affect, oriented x 3 Skin: normal color, warm/dry Diagnostics Laboratory Results Results Past 24 Hours Test 10/18/17 08:10 10/18/17 08:30 10/18/17 09:45 Range/Units White Blood Count 4.91 4.8-10.8 K/uL Red Blood Count 3.38 4.2-5.4 M/uL Hemoglobin 7.6 12.0-16.0 g/dL Hematocrit 25.3 37-47 % Mean Corpuscular Volume 74.9 80-100 fL Mean Corpuscular Hemoglobin 22.5 25-34 pg Mean Corpuscular Hemoglobin Concent 30.0 32-36 g/dl Platelet Count 324 130-400 K/uL Mean Platelet Volume 9.9 7.4-10.4 fL Neutrophils (%) (Auto) 61.4 % Lymphocytes (%) (Auto) 27.9 % Monocytes (%) (Auto) 7.5 % Eosinophils (%) (Auto) 2.4 % Basophils (%) (Auto) 0.6 % Neutrophils # (Auto) 3.01 1.4-6.5 K/uL Lymphocytes # (Auto) 1.37 1.2-3.4 K/uL Monocytes # (Auto) 0.37 0.11-0.59 K/uL Eosinophils # (Auto) 0.12 0-0.5 K/uL Basophils # (Auto) 0.03 0-0.2 K/uL RDW Standard Deviation 43.1 36.4-46.3 fL RDW Coefficient of Variation 15.6 11.5-14.5 % Immature Granulocyte % (Auto) 0.2 % Immature Granulocyte # (Auto) 0.01 0.00-0.02 K/uL Large Platelets 1+ Hypochromasia PRESENT Absolute Reticulocyte Count 0.06 0.02-0.10 10^6/uL Percent Reticulocyte Count 1.7 0.5-2.0 % Prothrombin Time 10.4 9.0-12.0 SECONDS Prothromb Time International Ratio 1.0 0.9-1.1 Activated Partial Thromboplast Time 19.4 21.0-31.0 SECONDS Partial Thromboplastin Ratio 0.7 D-Dimer 470 0-500 ug/L FEU Sodium Level 140 136-145 mmol/L Potassium Level 4.0 3.5-5.1 mmol/L Chloride Level 110 98-107 mmol/L Carbon Dioxide Level 22 21-32 mmol/L Anion Gap 8.0 3-11 mmol/L Blood Urea Nitrogen 11 7-18 mg/dl Creatinine 1.02 0.60-1.20 mg/dl Est Creatinine Clear Calc Drug Dose 69.2 ml/min Estimated GFR () 66.4 Estimated GFR (Non- 57.3 BUN/Creatinine Ratio 11.0 10-20 Random Glucose 101 70-99 mg/dl Calcium Level 8.3 8.5-10.1 mg/dl Magnesium Level 2.0 1.8-2.4 mg/dl Iron Level 12 35-150 mcg/dl Total Iron Binding Capacity 470 250-450 mcg/dl Transferrin 359 200-360 mg/dl Transferrin % Saturation 2 15-50 % Ferritin 4.9 8.0-388.0 ng/ml Total Bilirubin 0.4 0.2-1 mg/dl Aspartate Amino Transf (AST/SGOT) 28 15-37 U/L Alanine Aminotransferase (ALT/SGPT) 29 12-78 U/L Alkaline Phosphatase 55 45-117 U/L Troponin I < 0.015 0-0.045 ng/ml Pro-B-Type Natriuretic Peptide 204 0-900 pg/ml Total Protein 6.9 6.4-8.2 gm/dl Albumin 3.1 3.4-5.0 gm/dl Globulin 3.8 2.5-4.0 gm/dl Albumin/Globulin Ratio 0.8 0.9-2 Thyroid Stimulating Hormone (TSH) 5.400 0.300-4.500 uIu/ml Free Thyroxine 1.12 0.80-1.60 ng/dl Urine Color YELLOW Urine Appearance CLEAR CLEAR Urine pH 6.0 4.5-7.5 Urine Specific [place] 1.011 1.000-1.030 Urine Protein NEG NEG Urine Glucose (UA) NEG NEG Urine Ketones NEG NEG Urine Occult Blood NEG NEG Urine Nitrite NEG NEG Urine Bilirubin NEG NEG Urine Urobilinogen NEG NEG Urine Leukocyte Esterase LARGE NEG Urine WBC (Auto) >30 0-5 /hpf Urine RBC (Auto) 0-4 0-4 /hpf Urine Hyaline Casts (Auto) 1-5 0-5 /lpf Urine Epithelial Cells (Auto) >30 0-5 /lpf Urine Bacteria (Auto) 4+ NEG Vitamin B12 Level 353 211-911 pg/mL Folate 8.02 >5.38 ng/mL Microbiology Results 10/18/17 Urine Culture, Received Pending Diagnostic Radiology CXR IMPRESSION: Focal consolidative infiltrate medial aspect left base. If this does not resolve following appropriate clinical treatment, CT of the chest would be suggested to exclude parenchymal nodule. Impression Assessment and Plan ANEMIA -Admit to telemetry -Patient presenting from home with an episode of chest pain; in the ED found to have a hemoglobin of 7.6 which is down from 10.9 in June 2017 -Stools heme-negative in the ED -No signs of GI bleeding -Has history of iron deficiency anemia, will increase iron replacement to 3 times daily -Recent GI studies: Colonoscopy 08/03/15: Diverticulosis in the sigmoid colon. One 3 mm polyp in the sigmoid colon which was resected. EGD 06/10/15: Mild ring. Hiatal hernia; ring was not dilated due to need for Plavix therapy -GI consulted, case discussed with Grecia ALLEN CHEST PAIN, HISTORY CAD -Noted reproducible pain on exam -Possibly due to symptomatic anemia -Initial troponin negative, EKG without acute ST changes -Continue to cycle cardiac enzymes, check resting echo -Noted negative d-dimer -Continue aspirin, Plavix, statin, beta-[place], nitrate POSSIBLE PNEUMONIA AND UTI -CXR shows a possible left basilar infiltrate, patient has been coughing 2 weeks -UA suggest possible UTI -Will place on Levaquin -Do not suspect sepsis HYPOTHYROIDISM -Mildly high TSH with normal free T4 -Continue levothyroxine DVT PROPHYLAXIS -SCDs due to anemia DISPO -In my clinical judgment this beneficiary meets acute admission criteria, established by [facility], that includes being hospitalized through two midnights. ATTENDING ADDENDUM Patient seen and examined care coordinated with Louisa Can PA-C In agreement with above H&P 67 yo presented with chest heaviness , DESOUZA EKG and cardiac markers remains negative HB~7 no report of GI bleed hx of chronic Fe deficiency anemia , on Fe supplement-pt say her stool been dark due to iron tablets monitor in tele follow H&H resting echo GI eval requested for Anemia work up Please refer to documentation by Louisa Can PA-C for further discussion of other issues Anita Harris MD Resuscitation Status VTE Prophylaxis Will order VTE Prophylaxis: Yes
[2017-10-18] MEDS: LEVOFLOXACIN 750 MG TAB PO SCH (13:08)
[2017-10-18] MEDS: ACETAMINOPHEN 325 MG TAB PO PRN (13:58)
--- NOTE | 2017-10-18 15:51 | ECHOCARDIOGRAM REPORT ---
*NOTICE TO RECEIVING REPUBLICAN AGENCY This information is strictly Confidential and protected under [place] law. [place] law prohibits you from making any further disclosure of this information unless further disclosure is expressly permitted by the written consent of the person to whom it pertains or is authorized by law. A general authorization for the release of medical or other information is not sufficient for this purpose. Hospital accepts no responsibility if the information is made available to any other person, INCLUDING THE PATIENT. Interpretation Summary * Name: JOHAN DONNELLY Study Date: 10/18/2017 01:21 PM BP: 108/61 mmHg * Patient Location: .MS2W\[id number]\W250\S\2 HR: 77 * : 1950 (M/d/yyyy) Gender: Female Height: 64 in * Age: 67 yrs Ethnicity: CA Weight: 264 lb * Ordering Physician: Louisa Can * Referring Physician: Self, Referred * Performed By: Sheela Marquis RDCS * * Reason For Study: Chest Pain * BSA: 2.2 m2 * -- Conclusions -- * No regional wall motion abnormalities noted. * Left ventricular systolic function is normal. * The left ventricular ejection Fraction = 60-65%. * There is normal left ventricular wall thickness. * Grade I diastolic dysfunction, (abnormal relaxation pattern). * There is mild mitral regurgitation. Procedure Details * A complete two-dimensional transthoracic echocardiogram was performed (2D, M-mode, Doppler and color flow Doppler). Left Ventricle * The left ventricle is normal in size. * There is normal left ventricular wall thickness. * Left ventricular systolic function is normal. * Ejection Fraction = 60-65%. * The left ventricular wall motion is normal. * No regional wall motion abnormalities noted. Right Ventricle * The right ventricle is normal size. * The right ventricular systolic function is normal as assessed by tricuspid annular plane systolic excursion (TAPSE) (normal >1.5 cm). Atria * The left atrial size is normal. * Right atrial size is normal. * There is no evidence of atrial septal defect, but resolution does not allow assessment for a patent foramen ovale. Mitral Valve * The mitral valve is normal. * There is no mitral valve stenosis. * There is mild mitral regurgitation. Tricuspid Valve * The tricuspid valve is normal. * There is no tricuspid stenosis. * Significant tricuspid regurgitation is absent. Aortic Valve * The aortic valve is trileaflet. * Aortic stenosis is absent. * There is no significant aortic regurgitation. Pulmonic Valve * The pulmonary valve is not well seen, but the Doppler examination is normal without significant regurgitation or stenosis. Great Vessels * The aortic root and proximal ascending aorta are normal sized. Pericardium/Pleural * There is no pericardial effusion. Great Vessels * Normal inferior vena cava diameter and respiratory variation suggests normal central venous pressure. Left Ventricular Diastolic Function * Grade I diastolic dysfunction, (abnormal relaxation pattern). MMode 2D Measurements and Calculations IVSd 1.1 cm IVSs 1.3 cm LVIDd 4.8 cm LVIDs 2.9 cm LVPWd 1.1 cm LVPWs 1.7 cm IVS/LVPW 1.0 FS 38.8 % EDV(Teich) 106.1 ml ESV(Teich) 32.7 ml EF(Teich) 69.1 % EDV(cubed) 108.7 ml ESV(cubed) 24.9 ml EF(cubed) 77.1 % % IVS thick 13.4 % % LVPW thick 46.0 % LV mass(C)d 201.6 grams LV mass(C)dI 91.6 grams/m\S\2 LV mass(C)s 148.4 grams LV mass(C)sI 67.4 grams/m\S\2 SV(Teich) 73.3 ml SI(Teich) 33.3 ml/m\S\2 SV(cubed) 83.8 ml SI(cubed) 38.1 ml/m\S\2 Ao root diam 2.8 cm Ao root area 6.1 cm\S\2 ACS 1.6 cm LA dimension 3.1 cm LA/Ao 1.1 LVAd ap4 27.8 cm\S\2 LVLd ap4 8.8 cm EDV(MOD-sp4) 73.4 ml EDV(sp4-el) 74.3 ml LVAs ap4 15.6 cm\S\2 LVLs ap4 7.0 cm ESV(MOD-sp4) 29.7 ml ESV(sp4-el) 29.8 ml EF(MOD-sp4) 59.6 % EF(sp4-el) 59.9 % LVAd ap2 32.8 cm\S\2 LVLd ap2 8.4 cm EDV(MOD-sp2) 106.6 ml EDV(sp2-el) 109.3 ml LVAs ap2 15.5 cm\S\2 LVLs ap2 6.0 cm ESV(MOD-sp2) 33.8 ml ESV(sp2-el) 34.0 ml EF(MOD-sp2) 68.3 % EF(sp2-el) 68.9 % LVLd %diff -5.20 % EDV(MOD-bp) 88.4 ml LVLs %diff -16.50 % ESV(MOD-bp) 34.2 ml EF(MOD-bp) 61.4 % SV(MOD-sp4) 43.7 ml SI(MOD-sp4) 19.9 ml/m\S\2 SV(MOD-sp2) 72.9 ml SI(MOD-sp2) 33.1 ml/m\S\2 SV(MOD-bp) 54.3 ml SI(MOD-bp) 24.7 ml/m\S\2 SV(sp4-el) 44.5 ml SI(sp4-el) 20.2 ml/m\S\2 SV(sp2-el) 75.3 ml SI(sp2-el) 34.2 ml/m\S\2 Doppler Measurements and Calculations MV E max finn 107.3 cm/sec MV A max finn 105.2 cm/sec MV E/A 1.0 MV dec time 0.21 sec Ao V2 max 167.2 cm/sec Ao max PG 11.2 mmHg Ao max PG (full) 7.2 mmHg LV V1 max PG 3.9 mmHg LV V1 max 99.3 cm/sec PA V2 max 85.7 cm/sec PA max PG 3.0 mmHg TR max finn 189.5 cm/sec
[2017-10-18] MEDS: FERROUS SULFATE 325 MG TAB PO SCH (16:42)
[2017-10-18] MEDS ORDERED: FERROUS SULFATE 325 MG TAB PO SCH (17:00)
[2017-10-18] MEDS: METOPROLOL TARTRATE 50 MG TAB PO SCH (20:38)
[2017-10-19 01:19] LABS: BASO % 0.7 %; BASO ABS # 0.04 K/uL (0-0.2); EOS % 2.2 %; EOS ABS # 0.13 K/uL (0-0.5); HEMATOCRIT 26.6 % (37-47); HEMOGLOBIN 8.2 g/dL (12.0-16.0); IG# 0.01 K/uL (0.00-0.02); LYMPH % 20.4 %; LYMPH ABS # 1.23 K/uL (1.2-3.4); MEAN CELL VOLUME 75.1 fL (80-100); MEAN CORPUSCULAR HEMOGLOBIN 23.2 pg (25-34); MEAN CORPUSCULAR HGB CONC 30.8 g/dl (32-36); MEAN PLATELET VOLUME 9.3 fL (7.4-10.4); MONO % 8.3 %; NEUT % 68.2 %; NEUT ABS # 4.12 K/uL (1.4-6.5); PLATELET COUNT 282 K/uL (130-400); RED CELL DISTRIBUTION WIDTH CV 15.9 % (11.5-14.5); WHITE BLOOD COUNT 6.03 K/uL (4.8-10.8)
[2017-10-19] MEDS ORDERED: LEVOTHYROXINE 75 MCG TAB PO SCH (06:30)
[2017-10-19 07:15] VITALS: BP 104/71; PULSE 62; TEMP 36.8; O2SAT 100
[2017-10-19 08:00] VITALS: O2SAT 98
[2017-10-19] MEDS: ACETAMINOPHEN 325 MG TAB PO PRN (08:25)
[2017-10-19] MEDS: FERROUS SULFATE 325 MG TAB PO SCH ×2 (08:26→11:28)
[2017-10-19] MEDS: METOPROLOL TARTRATE 50 MG TAB PO SCH (08:28)
[2017-10-19] MEDS ORDERED: CHOLECALCIFEROL 1000 INTER.UNIT TAB PO SCH (09:00)
[2017-10-19] MEDS ORDERED: ROSUVASTATIN CALCIUM 20 MG TAB PO SCH (09:00)
[2017-10-19] MEDS ORDERED: PANTOprazole SOD 40 MG TAB PO SCH (09:00)
[2017-10-19] MEDS ORDERED: ASPIRIN 81 MG ECTAB PO SCH (09:00)
[2017-10-19] MEDS ORDERED: CLOPIDOGREL BISULFATE 75 MG TAB PO SCH (09:00)
[2017-10-19] MEDS ORDERED: ISOSORBIDE MONONITRATE 60 MG TABCR PO SCH (09:00)
[2017-10-19] MEDS ORDERED: CITALOPRAM 40 MG TAB PO SCH (09:00)
[2017-10-19] MEDS: LEVOFLOXACIN 750 MG TAB PO SCH (11:27)
[2017-10-19 11:30] VITALS: BP 96/62; PULSE 61; TEMP 36.7; O2SAT 97
[2017-10-19 15:06] VITALS: BP 107/72; PULSE 59; TEMP 36.6; O2SAT 99
[2017-10-19] MEDS ORDERED: FRRS300 PO (15:25)
[2017-10-19] MEDS ORDERED: PANT40TA PO (15:25)
--- NOTE | 2017-10-19 15:28 | Discharge Instructions ---
Discharge Instructions Date of Service Oct 19, 2017. Admission Reason for Admission: Chest Pain, Anemia Discharge Discharge Diagnosis / Problem: IRON DEFICIENCY ANEMIA /UTI /LEFT LOWER LOBE PNEUMONIA Discharge Goals Goal(s): Increase independence, Diagnostic testing, Therapeutic intervention Activity Recommendations Activity Limitations: resume your previous activity . Instructions / Follow-Up Instructions / Follow-Up HOSPITAL FOLLOW UP WITH DR LESTER FRENCH ( DR EDWARDS'S SCHEDULE IS FULL ) ON Monday10/23/17 @ 12: 45 PM GASTROENTEROLOGY WILL CONTACT YOU FOR OUT PATIENT EGD PLEASE TAKE IRON TABLET 3 TIMES DAILY TAKE OVER THE COUNTER STOOL SOFTENER -COLACE /MIRALAX TO PREVENT CONSTIPATION DUE TO IRON SUPPLEMENT Current Hospital Diet Patient's current hospital diet: AHA Diet (Heart Healthy) Discharge Diet Recommended Diet: AHA Diet (Heart Healthy) Pending Studies Studies pending at discharge: no Medical Emergencies . Who to Call and When: Medical Emergencies: If at any time you feel your situation is an emergency, please call 911 immediately. . Non-Emergent Contact Non-Emergency issues call your: Primary Care Provider . . "Provider Documentation" section prepared by Anita Harris. .
--- NOTE | 2017-10-19 15:32 | Discharge Summary ---
Discharge Summary Date of Service Oct 19, 2017. Discharge Summary Admission Date: Oct 18, 2017 at 10:34 Discharge Date: Oct 19, 2017 Discharge Disposition: Home Principal Diagnosis: IRON DEFICIENCY ANEMIA /UTI/ COMMUNITY ACQUIRED PNEUMONIA /LEFT LOWER LOBE INVOLVEMENT Procedures: ECHO : No regional wall motion abnormalities noted. Left ventricular systolic function is normal. The left ventricular ejection Fraction = 60-65%. There is normal left ventricular wall thickness. Grade I diastolic dysfunction, (abnormal relaxation pattern). There is mild mitral regurgitation. Consultations: [facility]OLOG[facility] Medication Reconciliation New Medications: Levofloxacin (Levaquin) 500 Mg Tab 1 TAB PO DAILY for 5 Days, #5 TABS Pantoprazole Sodium (Protonix) 40 Mg Tab 40 MG PO BID, #30 TAB Ferrous Sulfate (Ferrous Sulfate) 325 Mg Tab 325 MG PO TIDM for 30 Days, #90 TAB take with food Continued Medications: Aspirin (Aspirin Chewable) 81 Mg Chew 81 MG PO QAM Cholecalciferol (Vitamin D) 1,000 Unit Tab 2000 UNITS PO DAILY Citalopram Hydrobromide (Celexa) 40 Mg Tab 40 MG PO DAILY Clopidogrel (Plavix) 75 Mg Tab 75 MG PO QAM, TAB Isosorbide Mononitrate Ext Rel (Imdur Ext Rel) 120 Mg Ertab 120 MG PO QAM, TAB Levothyroxine Sodium (Levothyroxine Sodium) 75 Mcg Tab 1 TAB PO DAILY for 30 Days, #30 TAB 5 Refills Loratadine (Claritin) 10 Mg Tab 10 MG PO DAILY PRN for ALLERGIES, TAB Metoprolol Tartrate (Lopressor) (Lopressor) 50 Mg Tab 50 MG PO BID, TAB Nitroglycerin (Nitrostat) 0.4 Mg Tab 0.4 MG UT PRN, BTL Rosuvastatin Calcium (Crestor) 40 Mg Tab 40 MG PO DAILY Discontinued Medications: Ferrous Sulfate (Ferrous Sulfate) 325 Mg Tab 325 MG PO BID Pantoprazole (Protonix) 40 Mg Tab 80 MG PO DAILY for 30 Days, #60 TAB 3 Refills Referrals At Discharge Follow up Referrals: Physician Referral - 10/23/17 with Eveline Eldridge D.O. Admission Information HPI (per Admitting provider): 67-year-old female who presents to the ED with chest pain. Patient reports she was up getting for work whenever she developed a midsternal chest pressure. She rates the pain as a #8/10. She denies any radiation of the pain into the jaw shoulder or arm. She reports associated diaphoresis. No lightheadedness, dizziness, shortness of breath, or nausea. Patient took a sublingual nitroglycerin at home and reports improvement in the pain however it did not resolve the pain. She was given nitroglycerin paste in the ED and then IV morphine and is currently chest pain-free. Patient reports she has not been feeling well for the past couple of weeks. She reports increasing fatigue and weakness. She has had a dry nonproductive cough for 2 weeks. She attributes this to sinus issues. No abdominal pain, vomiting, or diarrhea. She denies bright red bleeding per rectum. She has intermittently dark stools which she attributes to iron use. No fevers or chills. She denies any urinary symptoms. In the ED, patient was found to have a hemoglobin of 7.6, down from 10.9 on outpatient labs from June 2017. Stools are heme-negative in the ED. Initial troponin is negative and EKG does not show any acute ST changes. Vital signs are stable. Patient was given IV morphine and topical nitro. She reports she is currently chest pain-free. Physical Exam (per Admitting): General Appearance: WD/WN, no apparent distress, + obese Head: normocephalic, atraumatic Eyes: normal inspection, EOMI, sclerae normal ENT: hearing grossly normal, + pertinent finding (Mucous membranes moist) Neck: supple, no JVD, trachea midline Respiratory/Chest: no respiratory distress, + decreased breath sounds ( Bilateral bases), + pertinent finding (Midsternal chest wall tenderness on palpation) Cardiovascular: regular rate, rhythm, no edema, normal peripheral pulses Abdomen/GI: normal bowel sounds, non tender, soft, no organomegaly Extremities/Musculoskelatal: normal inspection, no calf tenderness, normal capillary refill Neurologic/Psych: no motor/sensory deficits, alert, normal mood/affect, oriented x 3 Skin: normal color, warm/dry Hospital Course ANEMIA -Admit to telemetry -Patient presenting from home with an episode of chest pain; in the ED found to have a hemoglobin of 7.6 which is down from 10.9 in June 2017 -Stools heme-negative in the ED -No signs of GI bleeding -Has history of iron deficiency anemia, will increase iron replacement to 3 times daily -Recent GI studies: Colonoscopy 08/03/15: Diverticulosis in the sigmoid colon. One 3 mm polyp in the sigmoid colon which was resected. EGD 06/10/15: Mild ring. Hiatal hernia; ring was not dilated due to need for Plavix therapy -GI consulted, case discussed with Grecia ALLEN CHEST PAIN, HISTORY CAD -Noted reproducible pain on exam -Possibly due to symptomatic anemia -Initial troponin negative, EKG without acute ST changes -Continue to cycle cardiac enzymes, check resting echo -Noted negative d-dimer -Continue aspirin, Plavix, statin, beta-saskia, nitrate POSSIBLE PNEUMONIA AND UTI -CXR shows a possible left basilar infiltrate, patient has been coughing 2 weeks -UA suggest possible UTI -Will place on Levaquin -Do not suspect sepsis HYPOTHYROIDISM -Mildly high TSH with normal free T4 -Continue levothyroxine DVT PROPHYLAXIS -SCDs due to anemia Total time spent on discharge = 35 MIN This includes examination of the patient, discharge planning, medication reconciliation, and communication with other providers. Discharge Instructions Discharge Instructions Date of Service Oct 19, 2017. Admission Reason for Admission: Chest Pain, Anemia Discharge Discharge Diagnosis / Problem: IRON DEFICIENCY ANEMIA / Discharge Goals Goal(s): Increase independence, Diagnostic testing, Therapeutic intervention Activity Recommendations Activity Limitations: resume your previous activity . Instructions / Follow-Up Instructions / Follow-Up HOSPITAL FOLLOW UP WITH DR EVELINE FRENCH ( DR EDWARDS'S SCHEDULE IS FULL ) ON Monday10/23/17 @ 12: 45 PM GASTROENTEROLOGY WILL CONTACT YOU FOR OUT PATIENT EGD PLEASE TAKE IRON TABLET 3 TIMES DAILY TAKE OVER THE COUNTER STOOL SOFTENER -COLACE /MIRALAX TO PREVENT CONSTIPATION DUE TO IRON SUPPLEMENT Current Hospital Diet Patient's current hospital diet: AHA Diet (Heart Healthy) Discharge Diet Recommended Diet: AHA Diet (Heart Healthy) Pending Studies Studies pending at discharge: no Medical Emergencies . Who to Call and When: Medical Emergencies: If at any time you feel your situation is an emergency, please call 911 immediately. . Non-Emergent Contact Non-Emergency issues call your: Primary Care Provider . . "Provider Documentation" section prepared by Anita Harris. .
[2017-10-19] MEDS ORDERED: LEVO-459 PO (15:44)
[2017-10-19 15:55] VITALS: BP 107/72; PULSE 59; TEMP 36.6; O2SAT 99
--- NOTE | 2017-10-21 14:08 | EDITING REQUIRED CODING QUERY ---
CODING QUERY To promote full compliance with coding requirements relating to patient care, provider participation is requested in all cases of home advisor uncertainty. Please assist us with the question(s) below: Coding Question(s): Dr. Harris, The H&P states, "POSSIBLE PNEUMONIA AND UTI -CXR shows a possible left basilar infiltrate, patient has been coughing x2 weeks -UA suggest possible UTI -Will place on Levaquin" Please clarify if: ( X ) Pneumonia was present and treated ( ) Pneumonia was ruled out ( ) Other, please explain And if: ( X ) UTI was present and treated ( ) UTI was ruled out ( ) Other, please explain. Physician's Response(s): Thank you for your time, JANELL Jacobson, [employer]
== END 2017-10-19 16:10 | disposition home or self-care (01) | DRG 811 ==
LOC: EDBD 07:42 → C.EDA 07:43 → UNDOADMIN 09:40 → C.MS2W 09:40 → ENRESERV 09:50 → C.MS2W 10:34
PROVIDERS: ADMIT Hospitalist; ATTEND Hospitalist
DX: D50.9 Iron deficiency anemia, unspecified (principal); J18.9 Pneumonia, unspecified organism; N39.0 Urinary tract infection, site not specified; R07.9 Chest pain, unspecified; I25.10 Atherosclerotic heart disease of native coronary artery without angina pectoris; I12.9 Hypertensive chronic kidney disease with stage 1 through stage 4 chronic kidney disease, or unspecified chronic kidney disease; N18.3 Chronic kidney disease, stage 3 (moderate); E03.9 Hypothyroidism, unspecified; Z91.14 Patient's other noncompliance with medication regimen; Z95.5 Presence of coronary angioplasty implant and graft; Z87.891 Personal history of nicotine dependence; Z79.82 Long term (current) use of aspirin; Z79.02 Long term (current) use of antithrombotics/antiplatelets; Z79.899 Other long term (current) drug therapy

== ENCOUNTER 2020-11-02 10:11 | Inpatient (IN) ==
--- NOTE | 2020-11-02 10:32 | Emergency Department Note ---
History of Present Illness General Chief complaint: Shortness of Breath/Dyspnea Stated complaint: RESPIRATORY DIFFICULTY Time Seen by Provider: 11/02/20 10:17 Source: patient History of Present Illness Provider complaint: Short of breath and chest discomfort Onset (ago): week(s) 1 Location: chest and left Radiation: non-radiation Severity: moderate Pain Consistency: + intermittent Quality: + other (Pressure) Relieved By: + none Associated symptoms: + chest pain, + cough (Dry cough for a week) and + shortness of breath; no fever/chills, no malaise and no nausea/vomiting This is a 70-year-old female who presents with chest discomfort and shortness of breath for the past week. Her symptoms have been intermittent but got worse today while sitting at work. She describes her chest discomfort as a pressure on the left side of her chest without radiation. No modifying factors. No associated diaphoresis or nausea or lightheadedness. She denies any history of lung disease. She does have a cardiac history. She has had swelling in her legs which is chronic and she takes Lasix. She denies any pain in her legs. She has had no fever, abdominal pain, vomiting, loss of taste or smell, diarrhea or urinary symptoms. She has had both of her COVID-19 vaccinations in August. She does state she has had a dry cough for the past week. She is not sure if her stool is discolored as it is always dark from taking iron. Home Medications Medication Instructions Recorded Confirmed Type aspirin 81 mg PO QAM 09/19/18 11/02/20 History cholecalciferol (vitamin D3) 2,000 unit PO QAM 09/19/18 11/02/20 History [Vitamin D3] citalopram 20 mg PO BID 09/19/18 11/02/20 History clopidogrel 75 mg PO QAM 09/19/18 11/02/20 History ferrous sulfate 325 mg PO BID 09/19/18 11/02/20 History isosorbide mononitrate 60 mg PO QAM 09/19/18 11/02/20 History levothyroxine 75 mcg PO QAM 09/19/18 11/02/20 History metoprolol tartrate 100 mg PO HS 09/19/18 11/02/20 History nitroglycerin 0.4 mg SUBLINGUAL UD PRN 09/19/18 11/02/20 History rosuvastatin 40 mg PO QAM 09/19/18 11/02/20 History ezetimibe [Zetia] 10 mg PO HS 11/15/18 11/02/20 History pantoprazole 40 mg PO BID 11/15/18 11/02/20 History furosemide 20 mg PO DAILY PRN 12/14/18 11/02/20 History potassium chloride 10 meq PO DAILY PRN 12/14/18 11/02/20 History ascorbic acid (vitamin C) [Vitamin 500 mg PO Q12H 11/02/20 11/02/20 History C] sucralfate 1 g PO BID 11/02/20 11/02/20 History Allergies Allergy/AdvReac Type Severity Reaction Status Date / Time No Known Allergies Allergy Verified 11/02/20 12:57 Past Med/Surg History Medical History (Updated 11/02/20 @ 16:40 by Alek Hernández MD) Anemia Anxiety CAD (coronary artery disease) "per outpatient cardiology note: cath 05/2007 - 50% LAD lesion 10/2008 - abnormal coronary CT that lead to cath that showed 70% proximal mid and LAD stenosis, s/p 2 BMS to LAD Plavix held for colonoscopy 12/2008 which resulted in acute AR, cath at that times showed critical lesion in between the two stents and underwent PCI with BMS Plavix held again for colonscopy 06/2009 which resulted in acute AR again, cath at that time showed patent stents with jailed diagonal branch as likely culprit 10/2009 - presented with chest pain, cath at that times showed stable non occlusive CAD 10/2010 - unstable angina, cath at that time showed left main with mild luminal irregularities, LAD with extensive stenting, jailing of diagonal branch, moderate ostial stenosis of a septal mother's helper, and an indeterminate stenosis distal to the stents not amendable to PCI, nondominant LCX with up to 30% disease, large dominant RCA with up to 30% proximal stenosis and mild luminal irregularities of the PDA and PLB's 05/2014 - unchanged CAD from prior cath " On 04/09/15 16:39 Louisa Can wrote "cath 05/2007 - 50% LAD lesion 10/2008 - abnormal coronary CT that lead to cath that showed 70% proximal mid and LAD stenosis, s/p 2 BMS to LAD Plavix held for colonoscopy 12/2008 which resulted in acute AR, cath at that times showed critical lesion in between the two stents and underwent PCI with BMS Plavix held again for colonscopy 06/2009 which resulted in acute AR again, cath at that time showed patent stents with jailed diagonal branch as likely culprit 10/2009 - presented with chest pain, cath at that times showed stable non o cclusive CAD 10/2010 - unstable angina, cath at that time showed left main with mild luminal irregularities, LAD with extensive stenting, jailing of diagonal branch, moderate ostial stenosis of a septal mother's helper, and an indeterminate stenosis distal to the stents not amendable to PCI, nondominant LCX with up to 30% disease, large dominant RCA with up to 30% proximal stenosis and mild luminal irregularities of the PDA and PLB's 05/2014 - unchanged CAD from prior cath " On 04/09/15 16:07 Louisa Can wrote "cath 05/2007 - 50% LAD lesion" Chronic kidney disease STAGE 3 CKD (chronic kidney disease), stage III Depression Depression GERD (gastroesophageal reflux disease) GERD (gastroesophageal reflux disease) Hiatal hernia History of bleeding ulcers History of colon polyps HTN (hypertension) Hyperlipidemia Hypertension Hypothyroidism Hypothyroidism Migraine Myocardial infarction x3--last 2011? follows with Dr. Mckeon On anticoagulant therapy plavix daily Sleep apnea does not use cpap as ordered Surgical History History of arthroscopy of left knee History of bilateral tubal ligation History of cardiac cath (multiple) last 2012? History of carpal tunnel surgery of right wrist History of cholecystectomy History of colonoscopy History of esophagogastroduodenoscopy (EGD) History of heart artery stent x3, last placed in 2012 History of left breast biopsy benign History of total hysterectomy with bilateral salpingo-oophorectomy (BSO) Family History Grandmother (Maternal) Family history of diabetes mellitus Grandfather (Maternal) Family history of diabetes mellitus Other Cancer Heart disease No family history of adverse response to anesthesia Social History Smoking Status: Former smoker Second Hand Exposure: Yes (ROOMMATE SMOKES); Hx Alcohol Use: Yes Alcohol type: beer Hx Substance Use: No Preferred Language: Maltese Communication Ability: Effective Tin Flopper Required: No Beliefs That Will Affect Care: None Current Living Situation: Spouse Current Living Situation Comment: Lives with a friend Other Information That Helps Us Care for You: No Feels Safe at Home: Yes Assistive Devices: Denture - Upper, Denture - Lower and Glasses Review of Systems See HPI for pertinent positives & negatives. and A total of 10 systems reviewed and were otherwise negative Physical Exam Vital Signs Vital Signs - 24 hr 11/02/20 10:13 11/02/20 10:18 11/02/20 10:28 Temperature 36.8 C Temperature Source Oral Pulse Rate 82 76 Pulse Rate from SpO2 Sensor 81 Pulse Rhythm Regular Pulse Strength Normal Respiratory Rate 15 20 20 Respiratory Effort / Characteristics Short of Breath SOB on Exertion Respiratory Depth Normal Respiratory Pattern Regular Blood Pressure 134/71 134/71 Blood Pressure Mean 92 92 Blood Pressure Position Lying Pulse Oximetry 95 100 99 Oxygen Delivery Method Room Air Room Air Sepsis Recent Fever Within 48 Hours No Sepsis New/Unexplained Change in Mental Status No Sepsis Action Taken by Nursing No Action Required 11/02/20 10:36 11/02/20 10:40 11/02/20 10:50 Temperature Temperature Source Pulse Rate 77 79 80 Pulse Rate from SpO2 Sensor 78 81 Pulse Rhythm Pulse Strength Respiratory Rate 16 19 23 Respiratory Effort / Characteristics Respiratory Depth Respiratory Pattern Blood Pressure Blood Pressure Mean Blood Pressure Position Pulse Oximetry 100 99 Oxygen Delivery Method Sepsis Recent Fever Within 48 Hours Sepsis New/Unexplained Change in Mental Status Sepsis Action Taken by Nursing 11/02/20 10:54 11/02/20 11:00 11/02/20 11:10 Temperature Temperature Source Pulse Rate 73 78 Pulse Rate from SpO2 Sensor 74 78 Pulse Rhythm Pulse Strength Respiratory Rate 17 14 Respiratory Effort / Characteristics Respiratory Depth Respiratory Pattern Blood Pressure Blood Pressure Mean Blood Pressure Position Pulse Oximetry 99 99 Oxygen Delivery Method Room Air Sepsis Recent Fever Within 48 Hours Sepsis New/Unexplained Change in Mental Status Sepsis Action Taken by Nursing 11/02/20 11:20 11/02/20 11:30 11/02/20 11:36 Temperature Temperature Source Pulse Rate 86 76 81 Pulse Rate from SpO2 Sensor 86 82 Pulse Rhythm Pulse Strength Respiratory Rate 27 H 13 25 H Respiratory Effort / Characteristics Respiratory Depth Respiratory Pattern Blood Pressure 120/76 Blood Pressure Mean 90 Blood Pressure Position Pulse Oximetry 100 100 Oxygen Delivery Method Sepsis Recent Fever Within 48 Hours Sepsis New/Unexplained Change in Mental Status Sepsis Action Taken by Nursing 11/02/20 11:40 11/02/20 11:50 11/02/20 12:00 Temperature Temperature Source Pulse Rate 76 82 85 Pulse Rate from SpO2 Sensor 76 81 82 Pulse Rhythm Pulse Strength Respiratory Rate 18 13 19 Respiratory Effort / Characteristics Respiratory Depth Respiratory Pattern Blood Pressure Blood Pressure Mean Blood Pressure Position Pulse Oximetry 97 99 99 Oxygen Delivery Method Sepsis Recent Fever Within 48 Hours Sepsis New/Unexplained Change in Mental Status Sepsis Action Taken by Nursing 11/02/20 12:10 11/02/20 12:15 11/02/20 12:20 Temperature Temperature Source Pulse Rate 78 87 81 Pulse Rate from SpO2 Sensor 79 82 80 Pulse Rhythm Pulse Strength Respiratory Rate 7 L 17 14 Respiratory Effort / Characteristics Respiratory Depth Respiratory Pattern Blood Pressure 119/92 Blood Pressure Mean 101 Blood Pressure Position Pulse Oximetry 99 100 99 Oxygen Delivery Method Sepsis Recent Fever Within 48 Hours Sepsis New/Unexplained Change in Mental Status Sepsis Action Taken by Nursing Constitutional: Vital signs reviewed. Eyes: Pupils are equal round reactive to light. Conjunctiva are noninjected. ENT: Pharynx is clear without erythema or exudate. Mucous membranes are dry. Neck supple without meningeal signs. Respiratory: Clear to auscultation bilaterally. Breath sounds are equal bilaterally. Cardiovascular: Regular rate and rhythm. No rubs or gallops. GI: Soft, nondistended and nontender. Bowel sounds are present. Musculoskeletal: Bilateral lower extremity edema. No lower extremity tenderness. Integumentary: No cyanosis. or jaundice. Neurological: The patient is awake and alert. No focal deficits. Psychiatric: Normal affect. Not anxious appearing. Critical Care Time Critical Care Time: Yes Total Critical Care Time: 35 I have personally spent approximately 35 minutes of critical care time in the direct management of this patient. This includes bedside care, interpretation of diagnostic studies, and testing, discussion with consultants, patient, and family members, and other required patient management activities. These minutes are in excess of all separately billable procedures. Medical Decision Making Differential Diagnosis Unstable angina, AR, pneumonia, COVID-19, CHF exacerbation Medical Records Attestation: I reviewed the patient's medical records. I did perform a limited focused review of portions of the patient's old chart on the electronic medical record. The patient was seen here by myself in August for shortness of breath and low hemoglobin. She was assessed in the emergency department and referred for outpatient treatment. Home Medications Current Medication List: was personally reviewed by me Laboratory Data Attestation: I reviewed the patient's lab results. Result diagrams: 11/02/20 10:55 11/02/20 10:55 Lab Results 11/02/20 11/02/20 11/02/20 Range/Units 10:45 10:45 10:55 WBC 5.71 (4.8-10.8) K/uL RBC 3.42 L (4.2-5.4) M/uL Hgb 6.6 L* (12.0-16.0) g/dL Hct 22.4 L (37-47) % MCV 65.5 L (80-100) fL MCH 19.3 L (25-34) pg MCHC 29.5 L (32-36) g/dL RDW Std Deviation 39.4 (36.4-46.3) fL RDW Coeff of Ree 16.4 H (11.5-14.5) % Plt Count 370 (130-400) K/uL MPV 9.9 (7.4-10.4) fL Immature Gran % (Auto) 0.2 % Neut % (Auto) 67.4 % Lymph % (Auto) 19.4 % Kinney % (Auto) 10.3 % Eos % (Auto) 1.8 % Baso % (Auto) 0.9 % Neut # (Auto) 3.85 (1.4-6.5) K/uL Lymph # (Auto) 1.11 L (1.2-3.4) K/uL Kinney # (Auto) 0.59 (0.11-0.59) K/uL Eos # (Auto) 0.10 (0-0.5) K/uL Baso # (Auto) 0.05 (0-0.2) K/uL Immature Gran # (Auto) 0.01 (0.00-0.02) K/uL Hypochromasia Present Microcytosis Present PT (9.0-12.0) Seconds INR (0.9-1.1) APTT (21.0-31.0) Seconds PTT Ratio Sodium (136-145) mmol/L Potassium (3.5-5.1) mmol/L Chloride (98-107) mmol/L Carbon Dioxide (21-32) mmol/L Anion Gap (3-11) BUN (7-18) mg/dl Creatinine (0.6-1.2) mg/dl Est Cr Clr Drug Dosing ml/min Est GFR ( Amer) Est GFR (Non-Af Amer) BUN/Creatinine Ratio (10-20) Glucose (70-99) mg/dl Calcium (8.5-10.1) mg/dl Total Bilirubin (0.2-1) mg/dl AST (15-37) U/L ALT (12-78) U/L Alkaline Phosphatase (45-117) U/L Troponin I (0-0.045) ng/ml NT-Pro-B Natriuret Pep (0-900) pg/ml Total Protein (6.4-8.2) gm/dl Albumin (3.4-5.0) gm/dl Globulin (2.5-4.0) gm/dl Albumin/Globulin Ratio (0.9-2) Urine Color Urine Appearance (Clear) Urine pH (4.5-7.5) Ur Specific [place] (1.000-1.030) Urine Protein (Negative) Urine Glucose (UA) (Negative) Urine Ketones (Negative) Urine Blood (Negative) Urine Nitrite (Negative) Urine Bilirubin (Negative) Urine Urobilinogen (Negative) Ur Leukocyte Esterase (Negative) Urine WBC (Auto) (0-5) /hpf Urine RBC (Auto) (0-4) /hpf U Hyaline Cast (Auto) (0-5) /lpf U Epithel Cells (Auto) (0-5) /lpf Urine Bacteria (Auto) (Negative) COVID-19 Eval Order CovFluRsv at [facility] SARS-CoV-2 (PCR) NEGATIVE (Negative) Influenza Type A (PCR) Negative (Neg) Influenza Type B (PCR) Negative (Neg) RSV (RT-PCR) Negative (Neg) Blood Type Antibody Screen Crossmatch 11/02/20 11/02/20 11/02/20 Range/Units 10:55 10:55 11:36 WBC (4.8-10.8) K/uL RBC (4.2-5.4) M/uL Hgb (12.0-16.0) g/dL Hct (37-47) % MCV (80-100) fL MCH (25-34) pg MCHC (32-36) g/dL RDW Std Deviation (36.4-46.3) fL RDW Coeff of Ree (11.5-14.5) % Plt Count (130-400) K/uL MPV (7.4-10.4) fL Immature Gran % (Auto) % Neut % (Auto) % Lymph % (Auto) % [place] % (Auto) % Eos % (Auto) % Baso % (Auto) % Neut # (Auto) (1.4-6.5) K/uL Lymph # (Auto) (1.2-3.4) K/uL [place] # (Auto) (0.11-0.59) K/uL Eos # (Auto) (0-0.5) K/uL Baso # (Auto) (0-0.2) K/uL Immature Gran # (Auto) (0.00-0.02) K/uL Hypochromasia Microcytosis PT 10.4 (9.0-12.0) Seconds INR 1.0 (0.9-1.1) APTT < 20.0 L (21.0-31.0) Seconds PTT Ratio 0.8 Sodium 139 (136-145) mmol/L Potassium 3.4 L (3.5-5.1) mmol/L Chloride 106 (98-107) mmol/L Carbon Dioxide 26 (21-32) mmol/L Anion Gap 7.0 (3-11) BUN 12 (7-18) mg/dl Creatinine 1.05 (0.6-1.2) mg/dl Est Cr Clr Drug Dosing 64.7 ml/min Est GFR ( Amer) 62.8 Est GFR (Non-Af Amer) 54.1 BUN/Creatinine Ratio 11.5 (10-20) Glucose 103 H (70-99) mg/dl Calcium 8.4 L (8.5-10.1) mg/dl Total Bilirubin 0.8 (0.2-1) mg/dl AST 16 (15-37) U/L ALT 23 (12-78) U/L Alkaline Phosphatase 64 (45-117) U/L Troponin I < 0.015 (0-0.045) ng/ml NT-Pro-B Natriuret Pep 313 (0-900) pg/ml Total Protein 7.4 (6.4-8.2) gm/dl Albumin 3.2 L (3.4-5.0) gm/dl Globulin 4.2 H (2.5-4.0) gm/dl Albumin/Globulin Ratio 0.8 L (0.9-2) Urine Color Yellow Urine Appearance Clear (Clear) Urine pH 6.0 (4.5-7.5) Ur Specific [place] 1.009 (1.000-1.030) Urine Protein Negative (Negative) Urine Glucose (UA) Negative (Negative) Urine Ketones Negative (Negative) Urine Blood Negative (Negative) Urine Nitrite Negative (Negative) Urine Bilirubin Negative (Negative) Urine Urobilinogen Negative (Negative) Ur Leukocyte Esterase Trace H (Negative) Urine WBC (Auto) 5-10 H (0-5) /hpf Urine RBC (Auto) 0-4 (0-4) /hpf U Hyaline Cast (Auto) 0 (0-5) /lpf U Epithel Cells (Auto) 10-20 H (0-5) /lpf Urine Bacteria (Auto) 2+ H (Negative) COVID-19 Eval Order SARS-CoV-2 (PCR) (Negative) Influenza Type A (PCR) (Neg) Influenza Type B (PCR) (Neg) RSV (RT-PCR) (Neg) Blood Type Antibody Screen Crossmatch 11/02/20 Range/Units 11:50 WBC (4.8-10.8) K/uL RBC (4.2-5.4) M/uL Hgb (12.0-16.0) g/dL Hct (37-47) % MCV (80-100) fL MCH (25-34) pg MCHC (32-36) g/dL RDW Std Deviation (36.4-46.3) fL RDW Coeff of Ree (11.5-14.5) % Plt Count (130-400) K/uL MPV (7.4-10.4) fL Immature Gran % (Auto) % Neut % (Auto) % Lymph % (Auto) % Kinney % (Auto) % Eos % (Auto) % Baso % (Auto) % Neut # (Auto) (1.4-6.5) K/uL Lymph # (Auto) (1.2-3.4) K/uL [place] # (Auto) (0.11-0.59) K/uL Eos # (Auto) (0-0.5) K/uL Baso # (Auto) (0-0.2) K/uL Immature Gran # (Auto) (0.00-0.02) K/uL Hypochromasia Microcytosis PT (9.0-12.0) Seconds INR (0.9-1.1) APTT (21.0-31.0) Seconds PTT Ratio Sodium (136-145) mmol/L Potassium (3.5-5.1) mmol/L Chloride (98-107) mmol/L Carbon Dioxide (21-32) mmol/L Anion Gap (3-11) BUN (7-18) mg/dl Creatinine (0.6-1.2) mg/dl Est Cr Clr Drug Dosing ml/min Est GFR ( Amer) Est GFR (Non-Af Amer) BUN/Creatinine Ratio (10-20) Glucose (70-99) mg/dl Calcium (8.5-10.1) mg/dl Total Bilirubin (0.2-1) mg/dl AST (15-37) U/L ALT (12-78) U/L Alkaline Phosphatase (45-117) U/L Troponin I (0-0.045) ng/ml NT-Pro-B Natriuret Pep (0-900) pg/ml Total Protein (6.4-8.2) gm/dl Albumin (3.4-5.0) gm/dl Globulin (2.5-4.0) gm/dl Albumin/Globulin Ratio (0.9-2) Urine Color Urine Appearance (Clear) Urine pH (4.5-7.5) Ur Specific [place] (1.000-1.030) Urine Protein (Negative) Urine Glucose (UA) (Negative) Urine Ketones (Negative) Urine Blood (Negative) Urine Nitrite (Negative) Urine Bilirubin (Negative) Urine Urobilinogen (Negative) Ur Leukocyte Esterase (Negative) Urine WBC (Auto) (0-5) /hpf Urine RBC (Auto) (0-4) /hpf U Hyaline Cast (Auto) (0-5) /lpf U Epithel Cells (Auto) (0-5) /lpf Urine Bacteria (Auto) (Negative) COVID-19 Eval Order SARS-CoV-2 (PCR) (Negative) Influenza Type A (PCR) (Neg) Influenza Type B (PCR) (Neg) RSV (RT-PCR) (Neg) Blood Type A Positive Antibody Screen NEGATIVE Crossmatch See Detail Imaging Data Radiologist's Impression: Chest X-Ray 11/02/20 10:25 XR chest 1V portable CLINICAL HISTORY: Dyspnea COMPARISON STUDY: 08/13/2020 FINDINGS: The heart is borderline enlarged. There is a persistent hiatal hernia. There is mild stable interstitial thickening. There is no lobar consolidation. There are no significant pleural effusions.[ IMPRESSION: 1. Stable borderline cardiomegaly and mild interstitial prominence. 2. No evidence of focal pulmonary consolidation 3. Hiatal hernia ACT 112: Negative or not required by law. Electronically signed by: Barney Koroma M.D. 11/02/2020 10:37 AM ECG Data Attestation: I personally reviewed and interpreted this ECG as follows: Indication: + chest pain and + SOB/dyspnea Rate (beats per minute): 69 Rhythm: + normal sinus ECG [place]: + Normal ECG ST segments: + Nonspecific ST abnormalities (Anterior laterally); no ST elevation ECG Findings: no PVCs Comparison ECG Date: from (August 13, 2020) Change: no significant change MDM Narrative I did evaluate the patient as noted above. The patient is presenting with shortness of breath for the past several days. She is also developed a cough for the past several days. She also has had intermittent chest pressure which she does not have currently. IV access was established. I did place an order for continuous cardiac monitoring. The monitor showed normal sinus rhythm at a rate of 70 bpm. I did order and personally review the patient's 12-lead EKG as described above. She has nonspecific ST-T wave changes which are unchanged from her previous EKG from August of this year. I did order and personally reviewed the images of the patient's chest x-ray as described above. She has mild stable cardiomegaly. No pneumonia is noted. I did order a urine analysis. She does not have an infection. I did order and review the patient's blood work as noted in the electronic medical record. The patient has a hemoglobin of 6.6. Electrolytes are unremarkable other than a potassium of 3.4. Troponin is negative. I did perform a rectal examination. She had trace heme positive stool on only one quarter of the Hemoccult. She had light brown stool and no gross blood was noted. I did discuss the test results with the patient. I did recommend transfusion. I did obtain informed consent from the patient. She has had transfusions in the past. I did order 2 units of packed RBCs. She remained hemodynamically stable in the emergency department. I did discuss the case with the hospitalist and behavioral health case manager. Covid testing was negative. Impression & Plan Severe anemia, Acute GI bleeding, Acute hypokalemia Discharge Plan Visit Data Chief Complaint: Shortness of Breath/Dyspnea Stated Complaint: RESPIRATORY DIFFICULTY ED Provider: Alek Hernández Discharge Problem: Severe anemia, Acute GI bleeding, Acute hypokalemia Patient Disposition: Admitted As Inpatient Discharge Instructions Interventions: ED Discharge Assessment Last Done: 11/02/20 13:49
--- NOTE | 2020-11-02 10:38 | XRay Report ---
XR chest 1V portable CLINICAL HISTORY: Dyspnea COMPARISON STUDY: 08/13/2020 FINDINGS: The heart is borderline enlarged. There is a persistent hiatal hernia. There is mild stable interstitial thickening. There is no lobar consolidation. There are no significant pleural effusions .[ IMPRESSION: 1. Stable borderline cardiomegaly and mild interstitial prominence. 2. No evidence of focal pulmonary consolidation 3. Hiatal hernia ACT 112: Negative or not required by law. Electronically signed by: Barney Koroma M.D. 11/02/2020 10:37 AM
[2020-11-02 11:09] LABS: Hematocrit (blood only) 22.4 % (37-47); Hemoglobin 6.6 g/dL (12.0-16.0); Mean Corpuscular Hemoglobin 19.3 pg (25-34); Mean Corpuscular Hgb Conc 29.5 g/dL (32-36); Mean Corpuscular Volume 65.5 fL (80-100); Mean Platelet Volume 9.9 fL (7.4-10.4); Platelet Count 370 K/uL (130-400); RDW Coefficient of Variation 16.4 % (11.5-14.5); RDW Standard Deviation 39.4 fL (36.4-46.3); Red Blood Count 3.42 M/uL (4.2-5.4); White Blood Count 5.71 K/uL (4.8-10.8)
[2020-11-02] MEDS ORDERED: SODIUM CHLORIDE 0.9% 250 ML IV PRN ×2 (11:13→14:59)
[2020-11-02 11:24] LABS: Partial Thromboplastin Ratio 0.8; Prothrombin Time 10.4 Seconds (9.0-12.0)
[2020-11-02 11:26] LABS: Alanine Aminotransferase 23 U/L (12-78); Albumin Level 3.2 gm/dl (3.4-5.0); Aspartate Aminotransferase 16 U/L (15-37); BUN Creatinine Ratio 11.5 (10-20); Blood Urea Nitrogen 12 mg/dl (7-18); Calcium 8.4 mg/dl (8.5-10.1); Carbon Dioxide 26 mmol/L (21-32); Chloride 106 mmol/L (98-107); Creatinine Clr Calc Pharmacy 64.7 ml/min; Est GFR (African American) 62.8; Est GFR (Non-African American) 54.1; Glucose 103 mg/dl (70-99); Potassium 3.4 mmol/L (3.5-5.1); Sodium 139 mmol/L (136-145)
[2020-11-02 11:29] LABS: Partial Thromboplastin Time < 20.0 Seconds (21.0-31.0)
[2020-11-02 11:31] LABS: Albumin Globulin Ratio 0.8 (0.9-2); Alkaline Phosphatase 64 U/L (45-117); Bilirubin,Total 0.8 mg/dl (0.2-1); Globulin 4.2 gm/dl (2.5-4.0); NT Pro B Type Natriuretic Pept 313 pg/ml (0-900); Total Protein 7.4 gm/dl (6.4-8.2); Troponin I < 0.015 ng/ml (0-0.045)
[2020-11-02 11:36] LABS: Basophils # (auto) 0.05 K/uL (0-0.2); Basophils % (auto) 0.9 %; Eosinophils % (auto) 1.8 %; Hypochromasia Present; Immature Granulocytes # (auto) 0.01 K/uL (0.00-0.02); Immature Granulocytes % (auto) 0.2 %; Lymphocytes # (auto) 1.11 K/uL (1.2-3.4); Lymphocytes % (auto) 19.4 %; Microcytosis Present; Monocytes # (auto) 0.59 K/uL (0.11-0.59); Monocytes % (auto) 10.3 %; Neutrophils # (auto) 3.85 K/uL (1.4-6.5); Neutrophils % (auto) 67.4 %
[2020-11-02 11:39] LABS: Influenza A virus by PCR Negative (Neg); Influenza B virus by PCR Negative (Neg); RSV by PCR Negative (Neg); SARS CoV2 RNA(COVID-19) InHosp NEGATIVE (Negative)
[2020-11-02 11:49] LABS: Appearance Urine Clear (Clear); Bacteria Urine Automated 2+ (Negative); Bilirubin Urine Negative (Negative); Blood Urine Negative (Negative); Cast Urine Automated 0 /lpf (0-5); Color Urine Yellow; Glucose Urine UA Negative (Negative); Ketones Urine Negative (Negative); Leukocyte Esterase Urine Trace (Negative); Nitrite Urine Negative (Negative); Protein Urine Negative (Negative); RBC Urine Automated 0-4 /hpf (0-4); Specific Gravity Urine 1.009 (1.000-1.030); Urobilinogen Urine Negative (Negative)
--- NOTE | 2020-11-02 12:29 | History & Physical Report ---
Date of Service November 02, 2020 Assessment & Plan (1) Symptomatic anemia: (2) UTI (urinary tract infection): (3) CAD (coronary artery disease): (4) HTN (hypertension): (5) CKD (chronic kidney disease), stage III: (6) GERD (gastroesophageal reflux disease): (7) Hypothyroidism: (8) Dyslipidemia: (9) Depression: (10) NAN (obstructive sleep apnea): This is a 70yo F with a PMH of chronic anemia in setting of known hiatal hernia, Jhon's ulcers, gastritis, duodenitis in the past, CAD status post stent on aspirin and Plavix, esophageal dysmotility, CKD 3, hypertension, depression, NAN and other medical problems listed below who presents with symptomatic anemia. Symptomatic anemia, multifactorial Hgb of 6.6 today (baseline hgb ~90 History of multifactorial anemia in setting of CKD, iron deficiency, dual antiplatelet therapy for CAD and suspected ETOH abuse Most recent EGD from 10/05/20 for dilatation of upper esophagus. No erosions noted in stomach or duodenum noted GI has discussed possible need for IV Venofer in the past. Currently taking ferrous sulfate twice daily ED physician consented for blood transfusion. We will transfuse 2 units PRBCs with 40 mg IV Lasix in between Repeat H&H scheduled for 1800 this evening Routine GI consult Urinary tract infection Abnormal UA. Started empiric Rocephin with urine culture pending CAD S/p bare metal stents in 2008 on aspirin and plavix Had recent negative cardiac stress test in August 2020 with resting echo revealing preserved EF, no evidence of valvular disease ECG with ST changes in V3-V6 noted on previous EKG. Initial troponin negative. Continue trending, monitor on telemetry Continue aspirin, Plavix, statin, beta-[place] Hypertension Normotensive. Continue metoprolol tartrate with hold parameters Hypothyroidism Continue levothyroxine Hyperlipidemia Continue statin Depression Continue SSRI NAN Not currently using DVT Ppx: SCDs only in setting of severe anemia Code status: FULL PCP: Pierce Dispo: Admitted to [facility]. Plan to return home once medically stable. Patient seen in collaboration with Dr. Giron. Please see addendum. History of Present Illness Chief Complaint: Shortness of breath Primary Care Provider: Santiago Pelayo MD This is a 70yo F with a PMH of chronic anemia in setting of known hiatal hernia, Jhon's ulcers, gastritis, duodenitis in the past, CAD status post stent on aspirin and Plavix, esophageal dysmotility, CKD 3, hypertension, depression, NAN and other medical problems listed below who presents with shortness of breath x4 days. History of multifactorial anemia in setting of CKD, iron deficiency, dual antiplatelet therapy for CAD and suspected ETOH abuse. Have discussed possible need for IV Venofer with GI in the past as well as possible hematology consult in the future. History of CAD s/p bare metal stents in 2008 on aspirin and plavix. Had recent negative cardiac stress test in August 2020 with resting echo revealing preserved EF, no evidence of valvular disease. Most recent EGD from 10/05/20 for dilatation of upper esophagus. No erosions noted in stomach or duodenum noted. For the past few days, patient has felt short of breath when doing basic chores like laundry. Also notes generalized weakness. Denies any lightheadedness, visual changes or chest pain. Stool is dark but patient takes chronic iron supplementation. Denies any bright red blood per rectum. No constipation or d iarrhea. Does experience some tightness in chest with exertion that is similar to times in the past when her blood count has been low and she is required transfusion. Denies any fever, chills, headache, palpitations, wheezing, nausea, vomiting, abdominal pain, dysuria or hematuria. Allergies Allergy/AdvReac Type Severity Reaction Status Date / Time No Known Allergies Allergy Verified 11/02/20 12:57 Home Medications Medication Instructions Recorded Confirmed Type aspirin 81 mg PO QAM 09/19/18 11/02/20 History cholecalciferol (vitamin D3) 2,000 unit PO QAM 09/19/18 11/02/20 History [Vitamin D3] citalopram 20 mg PO BID 09/19/18 11/02/20 History clopidogrel 75 mg PO QAM 09/19/18 11/02/20 History ferrous sulfate 325 mg PO BID 09/19/18 11/02/20 History isosorbide mononitrate 60 mg PO QAM 09/19/18 11/02/20 History levothyroxine 75 mcg PO QAM 09/19/18 11/02/20 History metoprolol tartrate 100 mg PO HS 09/19/18 11/02/20 History nitroglycerin 0.4 mg SUBLINGUAL UD PRN 09/19/18 11/02/20 History rosuvastatin 40 mg PO QAM 09/19/18 11/02/20 History ezetimibe [Zetia] 10 mg PO HS 11/15/18 11/02/20 History pantoprazole 40 mg PO BID 11/15/18 11/02/20 History furosemide 20 mg PO DAILY PRN 12/14/18 11/02/20 History potassium chloride 10 meq PO DAILY PRN 12/14/18 11/02/20 History ascorbic acid (vitamin C) [Vitamin 500 mg PO Q12H 11/02/20 11/02/20 History C] sucralfate 1 g PO BID 11/02/20 11/02/20 History Past Med/Surg History Medical History (Updated 11/02/20 @ 13:52 by Danica Momin PA-C) Anemia Anxiety CAD (coronary artery disease) "per outpatient cardiology note: cath 05/2007 - 50% LAD lesion 10/2008 - abnormal coronary CT that lead to cath that showed 70% proximal mid and LAD stenosis, s/p 2 BMS to LAD Plavix held for colonoscopy 12/2008 which resulted in acute AL, cath at that times showed critical lesion in between the two stents and underwent PCI with BMS Plavix held again for colonscopy 06/2009 which resulted in acute AL again, c ath at that time showed patent stents with jailed diagonal branch as likely culprit 10/2009 - presented with chest pain, cath at that times showed stable non occlusive CAD 10/2010 - unstable angina, cath at that time showed left main with mild luminal irregularities, LAD with extensive stenting, jailing of diagonal branch, moderate ostial stenosis of a septal dip guider stoves, and an indeterminate stenosis distal to the stents not amendable to PCI, nondominant LCX with up to 30% disease, large dominant RCA with up to 30% proximal stenosis and mild luminal irregularities of the PDA and PLB's 05/2014 - unchanged CAD from prior cath " On 04/09/15 16:39 Louisa Can wrote "cath 05/2007 - 50% LAD lesion 10/2008 - abnormal coronary CT that lead to cath that showed 70% proximal mid and LAD stenosis, s/p 2 BMS to LAD Plavix held for colonoscopy 12/2008 which resulted in acute AL, cath at that times showed critical lesion in between the two stents and underwent PCI with BMS Plavix held again for colonscopy 06/2009 which resulted in acute AL again, cath at that time showed patent stents with jailed diagonal branch as likely culprit 10/2009 - presented with chest pain, cath at that times showed stable non occlusive CAD 10/2010 - unstable angina, cath at that time showed left main with mild luminal irregularities, LAD with extensive stenting, jailing of diagonal branch, moderate ostial stenosis of a septal dip guider stoves, and an indeterminate stenosis distal to the stents not amendable to PCI, nondominant LCX with up to 30% disease, large dominant RCA with up to 30% proximal stenosis and mild luminal irregularities of the PDA and PLB's 05/2014 - unchanged CAD from prior cath " On 04/09/15 16:07 Louisa Can wrote "cath 05/2007 - 50% LAD lesion" Chronic kidney disease STAGE 3 CKD (chronic kidney disease), stage III Depression Depression GERD (gastroesophageal reflux disease) GERD (gastroesophageal reflux disease) Hiatal hernia History of bleeding ulcers History of colon polyps HTN (hypertension) Hyperlipidemia Hypertension Hypothyroidism Hypothyroidism Migraine Myocardial infarction x3--last 2011? follows with Dr. Mckeon On anticoagulant therapy plavix daily Sleep apnea does not use cpap as ordered Surgical History History of arthroscopy of left knee History of bilateral tubal ligation History of cardiac cath (multiple) last 2012? History of carpal tunnel surgery of right wrist History of cholecystectomy History of colonoscopy History of esophagogastroduodenoscopy (EGD) History of heart artery stent x3, last placed in 2012 History of left breast biopsy benign History of total hysterectomy with bilateral salpingo-oophorectomy (BSO) Family History Grandmother (Maternal) Family history of diabetes mellitus Grandfather (Maternal) Family history of diabetes mellitus Other Cancer Heart disease No family history of adverse response to anesthesia Social History Smoking Status: Former smoker Second Hand Exposure: Yes (ROOMMATE SMOKES); Hx Alcohol Use: Yes Alcohol type: beer Hx Substance Use: No Preferred Language: Italian Communication Ability: Effective Right Of Way Man Required: No Beliefs That Will Affect Care: None Current Living Situation: Spouse Current Living Situation Comment: Lives with a friend Other Information That Helps Us Care for You: No Feels Safe at Home: Yes Assistive Devices: Denture - Upper, Denture - Lower and Glasses Review of Systems Review of Systems: At least ten systems reviewed and negative except as noted in the HPI. Physical Exam Physical Exam: General Appearance: WD/WN, vitals as above, NAD, sitting up in bed, obese, pleasant, conversing easily Head: normocephalic, atraumatic Eyes: normal inspection, PERRL, conjunctivae normal, anicteric sclerae ENT: external ear and nose normal, oropharynx normal Neck: normal visual inspection, trachea midline, no thyromegaly Respiratory: normal respiratory effort, lungs clear to auscultation, no wheeze, rales, rhonchi. No accessory muscle use Cardiovascular: regular rate, rhythm, no murmur appreciated, normal peripheral pulses, no BLE edema. Vessels: no JVD Chest: normal inspection of chest Abdomen/GI: normal bowel sounds, soft, nontender, no hepatosplenomegaly Extremities/Musculoskeletal: no cyanosis or clubbing, extremities motor strength 5/5 Neurologic: PERRL, EOMI, accommodation nl, no face palsy, no dysarthria, CN's II-XI intact bilaterally and moves all extremities Psychiatric: A+Ox3, euthymic affect Skin: no rashes, normal color, warm/dry Results & Data Results & Data ([facility]) Vital Signs (Past 12 Hours) Vital Signs Temp Pulse Resp BP Pulse Ox 11/02/20 12:00 85 19 99 11/02/20 11:50 82 13 99 11/02/20 11:40 76 18 97 11/02/20 11:36 81 25 H 120/76 100 11/02/20 11:30 76 13 11/02/20 11:20 86 27 H 100 11/02/20 11:10 78 14 99 11/02/20 11:00 73 17 99 11/02/20 10:50 80 23 99 11/02/20 10:40 79 19 11/02/20 10:36 77 16 100 11/02/20 10:28 20 99 11/02/20 10:18 36.8 C 76 20 134/71 100 11/02/20 10:13 82 15 134/71 95 Laboratory Results Short CBC 11/02/20 11/02/20 Range/Units 10:55 10:55 WBC 5.71 (4.8-10.8) K/uL Hgb 6.6 L* (12.0-16.0) g/dL Hct 22.4 L (37-47) % Plt Count 370 (130-400) K/uL Creatinine 1.05 (0.6-1.2) mg/dl BMP 11/02/20 10:55 Sodium 139 Potassium 3.4 L Chloride 106 Carbon Dioxide 26 BUN 12 Creatinine 1.05 Glucose 103 H Calcium 8.4 L Cardiac Enzymes 11/02/20 Range/Units 10:55 Troponin I < 0.015 (0-0.045) ng/ml Liver Function 11/02/20 Range/Units 10:55 Total Bilirubin 0.8 (0.2-1) mg/dl AST 16 (15-37) U/L ALT 23 (12-78) U/L Alkaline Phosphatase 64 (45-117) U/L Albumin 3.2 L (3.4-5.0) gm/dl Urine 11/02/20 Range/Units 11:36 Urine Color Yellow Urine Appearance Clear (Clear) Urine pH 6.0 (4.5-7.5) Ur Specific [place] 1.009 (1.000-1.030) Urine Protein Negative (Negative) Urine Glucose (UA) Negative (Negative) Diagnostic Findings Chest X-Ray 11/02/20 10:25 XR chest 1V portable CLINICAL HISTORY: Dyspnea COMPARISON STUDY: 08/13/2020 FINDINGS: The heart is borderline enlarged. There is a persistent hiatal hernia. There is mild stable interstitial thickening. There is no lobar consolidation. There are no significant pleural effusions.[ IMPRESSION: 1. Stable borderline cardiomegaly and mild interstitial prominence. 2. No evidence of focal pulmonary consolidation 3. Hiatal hernia ACT 112: Negative or not required by law. Electronically signed by: Barney Koroma M.D. 11/02/2020 10:37 AM Code Status & VTE Plan VTE Prophylaxis Plan VTE Prophylaxis will be ordered: Yes Supervising Physician Co-Signing Physician Notes Attending addendum The patient was seen and examined in medical telemetry unit She was admitted with symptomatic anemia and the hemoglobin was noted to be 6.4 She has been having black stool but thinks that is due to iron pill that she has been taking She denies any chest pain or palpitation On examination No apparent distress at rest Hemodynamically stable Chestclear to auscultate bilaterally HeartS1-S2 regular Abdomenbenign Extremitiestrace edema bilaterally Admission labs, EKG and imaging studies reviewed Symptomatic anemia likely secondary to recurrent GI bleed and is complicated by CKD and use of aspirin and Plavix Has been receiving 2 units of blood transfusion GI has been consulted for possible EGD tomorrow Agree with assessment and plan as outlined above by BORA Andrews DR
[2020-11-02] MEDS ORDERED: POTASSIUM CHLORIDE CRTAB 20 MEQ TABCR PO STA (13:44)
--- NOTE | 2020-11-02 14:21 | Electrocardiogram Report ---
Test Reason : Blood Pressure : / mmHG Vent. Rate : 074 BPM Atrial Rate : 074 BPM P-R Int : 192 ms QRS Dur : 090 ms QT Int : 426 ms P-R-T Axes : 027 024 024 degrees QTc Int : 472 ms Normal sinus rhythm Normal ECG When compared with ECG of 13-AUG-2020 19:41, No significant change was found Confirmed by Vinicio Roberts ([id number]) on 11/02/2020 2:21:20 PM Referred By: REFERRED SELF Confirmed By:Vinicio Roberts
[2020-11-02] MEDS ORDERED: NITROGLYCERIN SL 0.4 MG/TAB TAB SL PRN (14:23)
[2020-11-02] MEDS ORDERED: POLYETHYLENE (MIRALAX) 17 GM PACK PO PRN (14:23)
[2020-11-02] MEDS ORDERED: ONDANSETRON INJ 2 MG/ML 2 ML VIAL IV PRN (14:23)
[2020-11-02] MEDS ORDERED: ACETAMINOPHEN 325 MG TAB PO PRN (14:23)
--- NOTE | 2020-11-02 14:50 | Gastrointestinal Consultation ---
Date of Consultation November 02, 2020 Assessment & Plan (1) Symptomatic anemia: NPO after midnight. EGD tomorrow. Appreciate primary care services management of fluid/electrolyte replacement and agree with PPI. Dependent on the results of the EGD, will likely have pt undergo colonoscopy on Monday. Attg add: I interviewed and examined pt, reviewed chart and labs. Pt underwent EGD with dilation on 10/15, dilation done on ASA and Plavix and resulted in appropriate mucosal tear. Pt with self limited oozing post dilation. She is now admit with symptomatic anemia. Will plan EGD eval for UGI source of anemia. No need to hold ASA and Plavix. Carafate BID and PPI BID. Present on Admission?: Yes History of Present Illness Reason for Consultation: Anemia Requesting Physician: Danica Thomas PA-C/Dr. Giron Attending Physician: Brit Giron MD History of Present Illness Ms. Shani Newton is a 70 yr old female pt of Dr. Pelayo with a hx of chronic anemia, large hiatal hernia with prior Jhon's ulcers, CAD status post stent on aspirin and Plavix, esophageal dysmotility, CKD 3, HTN, depression, NAN who presented to the ED today for SOB x 4 days. She denies any abd pain, nausea, vomiting, melena or hematochezia. On arrival, Hb is 6.6 (down from 10.2 in August and 9.1 on September 04). She is awake, alert, oriented, receiving a unit of blood and BID IV PPI. She denies any abdominal pain, nausea, vomiting, or blood in her BMs. She is on a po iron supplement, so stools are dark but no change in the stool form or consistency. Allergies Allergy/AdvReac Type Severity Reaction Status Date / Time No Known Allergies Allergy Verified 11/02/20 12:57 Home Medications Medication Instructions Recorded Confirmed Type aspirin 81 mg PO QAM 09/19/18 11/02/20 History cholecalciferol (vitamin D3) 2,000 unit PO QAM 09/19/18 11/02/20 History [Vitamin D3] citalopram 20 mg PO BID 09/19/18 11/02/20 History clopidogrel 75 mg PO QAM 09/19/18 11/02/20 History ferrous sulfate 325 mg PO BID 09/19/18 11/02/20 History isosorbide mononitrate 60 mg PO QAM 09/19/18 11/02/20 History levothyroxine 75 mcg PO QAM 09/19/18 11/02/20 History metoprolol tartrate 100 mg PO HS 09/19/18 11/02/20 History nitroglycerin 0.4 mg SUBLINGUAL UD PRN 09/19/18 11/02/20 History rosuvastatin 40 mg PO QAM 09/19/18 11/02/20 History ezetimibe [Zetia] 10 mg PO HS 11/15/18 11/02/20 History pantoprazole 40 mg PO BID 11/15/18 11/02/20 History furosemide 20 mg PO DAILY PRN 12/14/18 11/02/20 History potassium chloride 10 meq PO DAILY PRN 12/14/18 11/02/20 History ascorbic acid (vitamin C) [Vitamin 500 mg PO Q12H 11/02/20 11/02/20 History C] sucralfate 1 g PO BID 11/02/20 11/02/20 History Patient History Medical History (Updated 11/02/20 @ 16:40 by Alek Hernández MD) Anemia Anxiety CAD (coronary artery disease) "per outpatient cardiology note: cath 05/2007 - 50% LAD lesion 10/2008 - abnormal coronary CT that lead to cath that showed 70% proximal mid and LAD stenosis, s/p 2 BMS to LAD Plavix held for colonoscopy 12/2008 which resulted in acute OH, cath at that times showed critical lesion in between the two stents and underwent PCI with BMS Plavix held again for colonscopy 06/2009 which resulted in acute OH again, cath at that time showed patent stents with jailed diagonal branch as likely culprit 10/2009 - presented with chest pain, cath at that times showed stable non occlusive CAD 10/2010 - unstable angina, cath at that time showed left main with mild luminal irregularities, LAD with extensive stenting, jailing of diagonal branch, moderate ostial stenosis of a septal octave board assembler, and an indeterminate stenosis distal to the stents not amendable to PCI, nondominant LCX with up to 30% disease, large dominant RCA with up to 30% proximal stenosis and mild luminal irregularities of the PDA and PLB's 05/2014 - unchanged CAD from prior cath " On 04/09/15 16:39 Louisa Can wrote "cath 05/2007 - 50% LAD lesion 10/2008 - abnormal coronary CT that lead to cath that showed 70% proximal mid and LAD stenosis, s/p 2 BMS to LAD Plavix held for colonoscopy 12/2008 which resulted in acute OH, cath at that times showed critical lesion in between the two stents and underwent PCI with BMS Plavix held again for colonscopy 06/2009 which resulted in acute OH again, cath at that time showed patent stents with jailed diagonal branch as likely culprit 10/2009 - presented with chest pain, cath at that times showed stable non occlusive CAD 10/2010 - unstable angina, cath at that time showed left main with mild luminal irregularities, LAD with extensive stenting, jailing of diagonal branch, moderate ostial stenosis of a septal octave board assembler, and an indeterminate stenosis distal to the stents not amendable to PCI, nondominant LCX with up to 30% disease, large dominant RCA with up to 30% proximal stenosis and mild luminal irregularities of the PDA and PLB's 05/2014 - unchanged CAD from prior cath " On 04/09/15 16:07 Louisa Can wrote "cath 05/2007 - 50% LAD lesion" Chronic kidney disease STAGE 3 CKD (chronic kidney disease), stage III Depression Depression GERD (gastroesophageal reflux disease) GERD (gastroesophageal reflux disease) Hiatal hernia History of bleeding ulcers History of colon polyps HTN (hypertension) Hyperlipidemia Hypertension Hypothyroidism Hypothyroidism Migraine Myocardial infarction x3--last 2011? follows with Dr. Mckeon On anticoagulant therapy plavix daily Sleep apnea does not use cpap as ordered Surgical History History of arthroscopy of left knee History of bilateral tubal ligation History of cardiac cath (multiple) last 2012? History of carpal tunnel surgery of right wrist History of cholecystectomy History of colonoscopy History of esophagogastroduodenoscopy (EGD) History of heart artery stent x3, last placed in 2012 History of left breast biopsy benign History of total hysterectomy with bilateral salpingo-oophorectomy (BSO) Family History Grandmother (Maternal) Family history of diabetes mellitus Grandfather (Maternal) Family history of diabetes mellitus Other Cancer Heart disease No family history of adverse response to anesthesia Social History Smoking Status: Former smoker Second Hand Exposure: Yes (ROOMMATE SMOKES); Hx Alcohol Use: Yes Alcohol type: beer Hx Substance Use: No Preferred Language: Spanish Communication Ability: Effective 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 No fever or weight loss Eyes: No eye redness, or pain, no recent vision changes Resp: No SOB, no cough Cardio: No palpitations/irregular beats, no chest pain GI: No abdominal pain, no nausea/vomiting : Denies pain on urination Skin: No jaundice, itching or new rashes Physical Exam Constitutional: WD/WN, vitals as above + obese Eyes: PERRL, conjunctivae normal, anicteric sclerae ENMT: external ear and nose normal, oropharynx normal Neck: trachea midline, no thyromegaly Respiratory: normal respiratory effort, lungs clear to auscultation Cardiovascular: RRR, no murmur, no edema Gastrointestinal (Abdomen): normal bowel sounds, soft, nontender, no hepatosplenomegaly Musculoskeletal: no cyanosis or clubbing, extremities motor strength 5/5 Skin: no rashes, warm and dry Neurologic: patellar DTR's 2+ bilat, sensation intact Psychiatric: A+Ox3, euthymic affect Lymphatic: no cervical or axillary lymphadenopathy Results & Data ([facility]) Vital Signs (Past 12 Hours) Vital Signs Temp Pulse Resp BP Pulse Ox 11/02/20 14:30 36.5 C 74 18 110/70 99 11/02/20 14:07 36.7 C 80 18 123/79 100 11/02/20 13:47 36.8 C 11/02/20 13:46 74 16 102/51 L 100 11/02/20 13:40 74 14 97 11/02/20 13:30 81 12 115/72 94 11/02/20 13:26 36.8 C 77 18 111/65 95 11/02/20 13:24 80 15 111/65 97 11/02/20 13:10 80 24 97 11/02/20 13:00 83 15 97 11/02/20 12:50 85 23 92 11/02/20 12:40 82 23 98 11/02/20 12:30 82 15 99 11/02/20 12:20 81 14 99 11/02/20 12:15 87 17 119/92 100 11/02/20 12:10 78 7 L 99 11/02/20 12:00 85 19 99 11/02/20 11:50 82 13 99 11/02/20 11:40 76 18 97 11/02/20 11:36 81 25 H 120/76 100 11/02/20 11:30 76 13 11/02/20 11:20 86 27 H 100 11/02/20 11:10 78 14 99 11/02/20 11:00 73 17 99 11/02/20 10:50 80 23 99 11/02/20 10:40 79 19 11/02/20 10:36 77 16 100 11/02/20 10:28 20 99 11/02/20 10:18 36.8 C 76 20 134/71 100 11/02/20 10:13 82 15 134/71 95 Laboratory Results WBC 5.7, Hb 613, Hct 38, Plats 253, Na 143, K 2.7, Ch 107, CO2 31, BUN 7, Cr 1.13, glucose 120. Diagnostic Findings CXR: 1. Stable borderline cardiomegaly and mild interstitial prominence. 2. No evidence of focal pulmonary consolidation 3. Hiatal herni
[2020-11-02] MEDS ORDERED: FUROSEMIDE 40 MG in SYRINGE 0 ML IV ONE (15:30)
[2020-11-02] MEDS: cefTRIAXone SODIUM 2,000 MG in DEXTROSE 5% 50 ML IV SCH (17:29)
[2020-11-02] MEDS ORDERED: SUCRALFATE 1 GM TAB PO SCH (21:00)
[2020-11-02 21:19] LABS: Hematocrit (blood only) 29.3 % (37-47); Hemoglobin 8.9 g/dL (12.0-16.0)
[2020-11-02] MEDS: EZETIMIBE 10 MG TABLET PO SCH (21:58)
[2020-11-02] MEDS: CITALOPRAM 20 MG TAB PO SCH (21:58)
[2020-11-02] MEDS: ASCORBIC ACID 500 MG TAB PO SCH (21:58)
[2020-11-02] MEDS: FERROUS SULFATE 325 MG TAB PO SCH (21:59)
[2020-11-02] MEDS: PANTOprazole 40 MG TAB PO SCH (21:59)
[2020-11-02] MEDS: METOPROLOL TARTRATE 100 MG TAB PO SCH (21:59)
[2020-11-03] MEDS: LEVOTHYROXINE SODIUM 75 MCG TABLET PO SCH (05:55)
[2020-11-03 06:33] LABS: Hematocrit (blood only) 28.1 % (37-47); Hemoglobin 8.5 g/dL (12.0-16.0); Mean Corpuscular Hemoglobin 20.8 pg (25-34); Mean Corpuscular Hgb Conc 30.2 g/dL (32-36); Mean Corpuscular Volume 68.7 fL (80-100); Mean Platelet Volume 9.4 fL (7.4-10.4); Platelet Count 332 K/uL (130-400); Red Blood Count 4.09 M/uL (4.2-5.4); White Blood Count 5.87 K/uL (4.8-10.8)
[2020-11-03 07:22] LABS: BUN Creatinine Ratio 14.5 (10-20); Calcium 8.5 mg/dl (8.5-10.1); Creatinine Clr Calc Pharmacy 63.3 ml/min; Est GFR (Non-African American) 53.5; Potassium 4.1 mmol/L (3.5-5.1)
[2020-11-03] MEDS ORDERED: LIDOCAINE HCL 2% 2 ML VIAL/AMP(20MG/ML) INFIL ONE (08:25)
[2020-11-03] MEDS ORDERED: PROPOFOL IV EMULSION 10 MG/ML 20 ML VIAL IV ONE (08:25)
[2020-11-03] MEDS ORDERED: MIDAZOLAM HCL 1 MG/ML 2ML VIAL ONE (08:25)
[2020-11-03] MEDS ORDERED: ONDANSETRON INJ 2 MG/ML 2 ML VIAL ONE (08:27)
--- NOTE | 2020-11-03 08:35 | History & Physical Report ---
Date of Service November 03, 2020 Assessment & Plan Admission and Anticipated Discharge Date Admission Date: November 02, 2020 History of Present Illness Primary Care Provider: Santiago Pelayo MD No new complaints this am CV: RRR Resp: CTA Abd: soft Labs: Hgb 8's A/p: Anemia -- EGD Allergies Allergy/AdvReac Type Severity Reaction Status Date / Time No Known Allergies Allergy Verified 11/03/20 08:16 Home Medications Medication Instructions Recorded Confirmed Type aspirin 81 mg PO QAM 09/19/18 11/02/20 History cholecalciferol (vitamin D3) 2,000 unit PO QAM 09/19/18 11/02/20 History [Vitamin D3] citalopram 20 mg PO BID 09/19/18 11/02/20 History clopidogrel 75 mg PO QAM 09/19/18 11/02/20 History ferrous sulfate 325 mg PO BID 09/19/18 11/02/20 History isosorbide mononitrate 60 mg PO QAM 09/19/18 11/02/20 History levothyroxine 75 mcg PO QAM 09/19/18 11/02/20 History metoprolol tartrate 100 mg PO HS 09/19/18 11/02/20 History nitroglycerin 0.4 mg SUBLINGUAL UD PRN 09/19/18 11/02/20 History rosuvastatin 40 mg PO QAM 09/19/18 11/02/20 History ezetimibe [Zetia] 10 mg PO HS 11/15/18 11/02/20 History pantoprazole 40 mg PO BID 11/15/18 11/02/20 History furosemide 20 mg PO DAILY PRN 12/14/18 11/02/20 History potassium chloride 10 meq PO DAILY PRN 12/14/18 11/02/20 History ascorbic acid (vitamin C) [Vitamin 500 mg PO Q12H 11/02/20 11/02/20 History C] sucralfate 1 g PO BID 11/02/20 11/02/20 History Past Med/Surg History Medical History (Updated 11/02/20 @ 16:40 by Alek Hernández MD) Anemia Anxiety CAD (coronary artery disease) "per outpatient cardiology note: cath 05/2007 - 50% LAD lesion 10/2008 - abnormal coronary CT that lead to cath that showed 70% proximal mid and LAD stenosis, s/p 2 BMS to LAD Plavix held for colonoscopy 12/2008 which resulted in acute OK, cath at that times showed critical lesion in between the two stents and underwent PCI with BMS Plavix held again for colonscopy 06/2009 which resulted in acute OK again, c ath at that time showed patent stents with jailed diagonal branch as likely culprit 10/2009 - presented with chest pain, cath at that times showed stable non occlusive CAD 10/2010 - unstable angina, cath at that time showed left main with mild luminal irregularities, LAD with extensive stenting, jailing of diagonal branch, moderate ostial stenosis of a septal ceramic coater machine, and an indeterminate stenosis distal to the stents not amendable to PCI, nondominant LCX with up to 30% disease, large dominant RCA with up to 30% proximal stenosis and mild luminal irregularities of the PDA and PLB's 05/2014 - unchanged CAD from prior cath " On 04/09/15 16:39 Louisa Can wrote "cath 05/2007 - 50% LAD lesion 10/2008 - abnormal coronary CT that lead to cath that showed 70% proximal mid and LAD stenosis, s/p 2 BMS to LAD Plavix held for colonoscopy 12/2008 which resulted in acute OK, cath at that times showed critical lesion in between the two stents and underwent PCI with BMS Plavix held again for colonscopy 06/2009 which resulted in acute OK again, cath at that time showed patent stents with jailed diagonal branch as likely culprit 10/2009 - presented with chest pain, cath at that times showed stable non occlusive CAD 10/2010 - unstable angina, cath at that time showed left main with mild luminal irregularities, LAD with extensive stenting, jailing of diagonal branch, moderate ostial stenosis of a septal ceramic coater machine, and an indeterminate stenosis distal to the stents not amendable to PCI, nondominant LCX with up to 30% disease, large dominant RCA with up to 30% proximal stenosis and mild luminal irregularities of the PDA and PLB's 05/2014 - unchanged CAD from prior cath " On 04/09/15 16:07 Louisa Can wrote "cath 05/2007 - 50% LAD lesion" Chronic kidney disease STAGE 3 CKD (chronic kidney disease), stage III Depression Depression GERD (gastroesophageal reflux disease) GERD (gastroesophageal reflux disease) Hiatal hernia History of bleeding ulcers History of colon polyps HTN (hypertension) Hyperlipidemia Hypertension Hypothyroidism Hypothyroidism Migraine Myocardial infarction x3--last 2011? follows with Dr. Mckeon On anticoagulant therapy plavix daily Sleep apnea does not use cpap as ordered Surgical History History of arthroscopy of left knee History of bilateral tubal ligation History of cardiac cath (multiple) last 2012? History of carpal tunnel surgery of right wrist History of cholecystectomy History of colonoscopy History of esophagogastroduodenoscopy (EGD) History of heart artery stent x3, last placed in 2012 History of left breast biopsy benign History of total hysterectomy with bilateral salpingo-oophorectomy (BSO) Family History Grandmother (Maternal) Family history of diabetes mellitus Grandfather (Maternal) Family history of diabetes mellitus Other Cancer Heart disease No family history of adverse response to anesthesia Social History Smoking Status: Former smoker Second Hand Exposure: Yes (ROOMMATE SMOKES); Hx Alcohol Use: Yes Alcohol type: beer Hx Substance Use: No Preferred Language: Congolese Communication Ability: Effective Wheel Buffer Required: No Beliefs That Will Affect Care: None Current Living Situation: Spouse Current Living Situation Comment: Lives with a friend Other Information That Helps Us Care for You: No Feels Safe at Home: Yes Assistive Devices: None Results & Data ([facility]) Vital Signs (Past 12 Hours) Vital Signs Temp Pulse Pulse Pulse Resp BP BP 11/03/20 08:17 37 C 65 16 106/75 11/03/20 06:15 36.6 C 62 14 97/66 L 11/03/20 03:13 36.8 C 65 18 98/64 L 11/03/20 00:10 76 11/02/20 23:34 36.7 C 68 18 97/62 L Pulse Ox 11/03/20 08:17 96 11/03/20 06:15 96 11/03/20 03:13 97 11/03/20 00:10 11/02/20 23:34 97 Code Status & VTE Plan VTE Prophylaxis Plan VTE Prophylaxis will be ordered: Yes
--- NOTE | 2020-11-03 08:36 | Anesthesiology Consultation ---
Date of Service November 03, 2020 Assessment & Plan Chart Review Chart Review: Acceptable Risk for Surgery Consults Requested none pt had EGD/dilation recently with submucosal tear and resultant anemia. Here for repeat EGD ASA ASA4 Proposed Anesthesia Anesthesia Type: MAC History Surgery Operation Date: 11/03/20 16:55 Proposed Procedures p Esophagogastroduodenoscopy Dr Douglas - Criss Austin MD Height/Weight Height: 5 ft 4 in Weight: 118.2 kg Allergies Allergy/AdvReac Type Severity Reaction Status Date / Time No Known Allergies Allergy Verified 11/03/20 08:16 Medications Home Medications Medication Instructions Recorded Confirmed Last Taken aspirin 81 mg PO QAM 09/19/18 11/02/20 11/02/20 cholecalciferol (vitamin D3) 2,000 unit PO QAM 09/19/18 11/02/20 11/02/20 [Vitamin D3] citalopram 20 mg PO BID 09/19/18 11/02/20 11/01/20 clopidogrel 75 mg PO QAM 09/19/18 11/02/20 11/02/20 ferrous sulfate 325 mg PO BID 09/19/18 11/02/20 11/02/20 isosorbide mononitrate 60 mg PO QAM 09/19/18 11/02/20 11/02/20 levothyroxine 75 mcg PO QAM 09/19/18 11/02/20 11/02/20 metoprolol tartrate 100 mg PO HS 09/19/18 11/02/20 11/02/20 nitroglycerin 0.4 mg SUBLINGUAL UD PRN 09/19/18 11/02/20 Unknown rosuvastatin 40 mg PO QAM 09/19/18 11/02/20 11/02/20 ezetimibe [Zetia] 10 mg PO HS 11/15/18 11/02/20 11/02/20 pantoprazole 40 mg PO BID 11/15/18 11/02/20 11/02/20 furosemide 20 mg PO DAILY PRN 12/14/18 11/02/20 12/11/18 08:00 potassium chloride 10 meq PO DAILY PRN 12/14/18 11/02/20 12/17/18 08:00 ascorbic acid (vitamin C) [Vitamin 500 mg PO Q12H 11/02/20 11/02/20 Unknown C] sucralfate 1 g PO BID 11/02/20 11/02/20 Unknown Active Medications Generic Name Dose Route Start Last Admin Trade Name Samy PRN Reason Stop Dose Admin Ascorbic Acid 500 mg 11/02/20 21:00 11/02/20 21:58 Ascorbic Acid 500 Mg Tab PO 12/02/20 20:59 500 mg Q12 FUNMI Administration Citalopram Hydrobromide 20 mg 11/02/20 21:00 11/02/20 21:58 Citalopram 20 Mg Tab PO 12/02/20 20:59 20 mg BID FUNMI Administration Ezetimibe 10 mg 11/02/20 21:00 11/02/20 21:58 Ezetimibe 10 Mg Tablet PO 12/02/20 20:59 10 mg HS FUNMI Administration Ferrous Sulfate 325 mg 11/02/20 21:00 11/02/20 21:59 Ferrous Sulfate 325 Mg Tab PO 12/02/20 20:59 325 mg BID FUNMI Administration Ceftriaxone Sodium 2,000 mg/ 70 mls @ 100 mls/hr 11/02/20 14:30 11/02/20 19 :17 Dextrose IV 11/07/20 14:29 Infused Q24H FUNMI Infusion Protocol Levothyroxine Sodium 75 mcg 11/03/20 06:30 11/03/20 05:55 Levothyroxine Sodium 75 Mcg Tablet PO 12/03/20 06:29 75 mcg DAILYBB FUNMI Administration Metoprolol Tartrate 100 mg 11/02/20 21:00 11/02/20 21:59 Metoprolol Tartrate 100 Mg Tab PO 12/02/20 20:59 100 mg HS FUNMI Administration Pantoprazole Sodium 40 mg 11/02/20 21:00 11/02/20 21:59 Pantoprazole 40 Mg Tab PO 12/02/20 20:59 40 mg BID FUNMI Administration NPO Date Last Intake of Fluids: 11/03/20 Time Last Intake of Fluids: 06:00 Last Intake of Fluids Comment: small sip of water with medication Date Last Intake of Solids: 11/02/20 Time Last Intake of Solids: 17:00 Past Medical History Medical History (Updated 11/02/20 @ 16:40 by Alek Hernández MD) Anemia Anxiety CAD (coronary artery disease) "per outpatient cardiology note: cath 05/2007 - 50% LAD lesion 10/2008 - abnormal coronary CT that lead to cath that showed 70% proximal mid and LAD stenosis, s/p 2 BMS to LAD Plavix held for colonoscopy 12/[address] which resulted in acute [address], cath at that times showed critical lesion in between the two stents and underwent PCI with BMS Plavix held again for colonscopy 06/2009 which resulted in acute CT again, cath at that time showed patent stents with jailed diagonal branch as likely culprit 10/2009 - presented with chest pain, cath at that times showed stable non occlusive CAD 10/2010 - unstable angina, cath at that time showed left main with mild luminal irregularities, LAD with extensive stenting, jailing of diagonal branch, moderate ostial stenosis of a septal granite fabricator, and an indeterminate stenosis distal to the stents not amendable to PCI, nondominant LCX with up to 30% disease, large dominant RCA with up to 30% proximal stenosis and mild luminal irregularities of the PDA and PLB's 05/2014 - unchanged CAD from prior cath " On 04/09/15 16:39 Louisa Can wrote "cath 05/2007 - 50% LAD lesion 10/2008 - abnormal coronary CT that lead to cath that showed 70% proximal mid and LAD stenosis, s/p 2 BMS to LAD Plavix held for colonoscopy 12/2008 which resulted in acute CT, cath at that times showed critical lesion in between the two stents and underwent PCI with BMS Plavix held again for colonscopy 06/2009 which resulted in acute CT again, cath at that time showed patent stents with jailed diagonal branch as likely culprit 10/2009 - presented with chest pain, cath at that times showed stable non occlusive CAD 10/2010 - unstable angina, cath at that time showed left main with mild luminal irregularities, LAD with extensive stenting, jailing of diagonal branch, moderate ostial stenosis of a septal granite fabricator, and an indeterminate stenosis distal to the stents not amendable to PCI, nondominant LCX with up to 30% disease, large dominant RCA with up to 30% proximal stenosis and mild luminal irregularities of the PDA and PLB's 05/2014 - unchanged CAD from prior cath " On 04/09/15 16:07 Louisa Can wrote "cath 05/2007 - 50% LAD lesion" Chronic kidney disease STAGE 3 CKD (chronic kidney disease), stage III Depression Depression GERD (gastroesophageal reflux disease) GERD (gastroesophageal reflux disease) Hiatal hernia History of bleeding ulcers History of colon polyps HTN (hypertension) Hyperlipidemia Hypertension Hypothyroidism Hypothyroidism Migraine Myocardial infarction x3--last 2011? follows with Dr. Mckeon On anticoagulant therapy plavix daily Sleep apnea does not use cpap as ordered Exercise / Class Metabolic Activity II 4-5 Yardwork/Stairs/Walk up hill Past Family History Family History Grandmother (Maternal) Family history of diabetes mellitus Grandfather (Maternal) Family history of diabetes mellitus Other Cancer Heart disease No family history of adverse response to anesthesia Past Surgical History Surgical History History of arthroscopy of left knee History of bilateral tubal ligation History of cardiac cath (multiple) last 2012? History of carpal tunnel surgery of right wrist History of cholecystectomy History of colonoscopy History of esophagogastroduodenoscopy (EGD) History of heart artery stent x3, last placed in 2012 History of left breast biopsy benign History of total hysterectomy with bilateral salpingo-oophorectomy (BSO) Past Anesthesia History No Hx of Anesthesia Complications and No Family Hx of Anesthesia Complications History of PONV No Hx of PONV and No Hx of Motion Sickness Social History Smoking Status: Former smoker tobacco type: cigarettes Hx Alcohol Use: Yes Alcohol type: beer alcohol intake frequency: a few times a week Alcohol Intake Frequency Comment: once or twice a week Hx Substance Use: No substance use type: does not use Physical Exam Vital Signs Last Vital Signs Temp 37 C 11/03/20 08:17 Pulse 65 11/03/20 08:17 Resp 16 11/03/20 08:17 BP 106/75 11/03/20 08:17 Pulse Ox 96 11/03/20 08:17 Constitutional + obese ENMT Mouth: + dentures; no TMJ abnormality Thyromental Distance: > or= 3.5 Finger Breadths Mallampati Class: III Neck normal visual inspection, trachea midline, + short neck and + thick neck; neck extension not limited Respiratory normal respiratory effort Auscultation: lungs clear to auscultation bilaterally and + diminished lung sounds Cardiovascular Rate/Rhythm: regular rate and regular rhythm Heart Sounds: no murmur Musculoskeletal Spine: normal cervical ROM Extremities: full ROM of extremities Neurologic moves all extremities Psychiatric Orientation: alert and oriented x 3 Testing Laboratory Results 11/03/20 06:21 11/03/20 06:21 PT 10.4 Seconds (9.0-12.0) 11/02/20 10:55 INR 1.0 (0.9-1.1) 11/02/20 10:55 APTT < 20.0 Seconds (21.0-31.0) L 11/02/20 10:55 Urine Color Yellow 11/02/20 11:36 Urine Appearance Clear (Clear) 11/02/20 11:36 Urine pH 6.0 (4.5-7.5) 11/02/20 11:36 Ur Specific [place] 1.009 (1.000-1.030) 11/02/20 11:36 Urine Protein Negative (Negative) 11/02/20 11:36 Urine Glucose (UA) Negative (Negative) 11/02/20 11:36 Urine Ketones Negative (Negative) 11/02/20 11:36 Urine Nitrite Negative (Negative) 11/02/20 11:36 Ur Leukocyte Esterase Trace (Negative) H 11/02/20 11:36 Urine WBC (Auto) 5-10 /hpf (0-5) H 11/02/20 11:36 Urine RBC (Auto) 0-4 /hpf (0-4) 11/02/20 11:36 U Hyaline Cast (Auto) 0 /lpf (0-5) 11/02/20 11:36 U Epithel Cells (Auto) 10-20 /lpf (0-5) H 11/02/20 11:36 Urine Bacteria (Auto) 2+ (Negative) H 11/02/20 11:36 Blood Type A Positive 11/02/20 11:50 Antibody Screen NEGATIVE 11/02/20 11:50 11/02/20 COVID PCR neg Electrocardiogram Date: 11/02/20 Findings: + NSR @ (74) Chest X-Ray Date: 11/02/20 Findings: + NAD and + cardiomegaly +hiatal hernia Echocardiogram Date: 11/23/18 EF: >70% LV Function: normal (gr1 diastolic dysfunction) RWMA: + none Other Findings: + LVH Valvular Disease: + no significant valvular disease
[2020-11-03] MEDS ORDERED: ETOMIDATE 2 MG/ML 20 ML VIAL IV ONE (09:12)
--- NOTE | 2020-11-03 09:30 | Anesthesiology Progress Note ---
Date of Service November 03, 2020 Anesthesia Post Procedure Vital Signs Vital Signs: Temp Pulse Pulse Pulse Resp BP BP 11/03/20 09:17 69 16 118/72 11/03/20 09:05 67 11/03/20 08:17 37 C 65 16 106/75 11/03/20 06:15 36.6 C 62 14 97/66 L 11/03/20 03:13 36.8 C 65 18 11/03/20 00:10 76 11/02/20 23:34 36.7 C 68 18 97/62 L 11/02/20 19:18 79 11/02/20 19:00 37 C 70 20 100/59 L 11/02/20 18:00 37.4 C 75 14 119/78 11/02/20 17:34 37.0 C 84 14 113/75 11/02/20 17:15 36.4 C L 80 16 139/86 11/02/20 16:59 37.3 C 85 16 129/78 11/02/20 16:00 36.9 C 70 18 109/73 11/02/20 15:00 36.4 C L 79 18 116/76 11/02/20 14:30 36.5 C 74 18 110/70 11/02/20 14:07 36.7 C 80 18 123/79 11/02/20 13:47 36.8 C 11/02/20 13:46 74 16 102/51 L 11/02/20 13:40 74 14 11/02/20 13:30 81 12 115/72 11/02/20 13:26 36.8 C 77 18 111/65 11/02/20 13:24 80 15 111/65 11/02/20 13:10 80 24 11/02/20 13:00 83 15 11/02/20 12:50 85 23 11/02/20 12:40 82 23 11/02/20 12:30 82 15 11/02/20 12:20 81 14 11/02/20 12:15 87 17 119/92 11/02/20 12:10 78 7 L 11/02/20 12:00 85 19 11/02/20 11:50 82 13 11/02/20 11:40 76 18 11/02/20 11:36 81 25 H 120/76 11/02/20 11:30 76 13 11/02/20 11:20 86 27 H 11/02/20 11:10 78 14 11/02/20 11:00 73 17 11/02/20 10:50 80 23 11/02/20 10:40 79 19 11/02/20 10:36 77 16 11/02/20 10:28 20 11/02/20 10:18 36.8 C 76 20 134/71 11/02/20 10:13 82 15 134/71 BP Pulse Ox 11/03/20 09:17 99 11/03/20 09:05 11/03/20 08:17 96 11/03/20 06:15 96 11/03/20 03:13 98/64 L 97 11/03/20 00:10 11/02/20 23:34 97 11/02/20 19:18 11/02/20 19:00 96 11/02/20 18:00 98 11/02/20 17:34 98 11/02/20 17:15 100 11/02/20 16:59 98 11/02/20 16:00 97 11/02/20 15:00 99 11/02/20 14:30 99 11/02/20 14:07 100 11/02/20 13:47 11/02/20 13:46 100 11/02/20 13:40 97 11/02/20 13:30 94 11/02/20 13:26 95 11/02/20 13:24 97 11/02/20 13:10 97 11/02/20 13:00 97 11/02/20 12:50 92 11/02/20 12:40 98 11/02/20 12:30 99 11/02/20 12:20 99 11/02/20 12:15 100 11/02/20 12:10 99 11/02/20 12:00 99 11/02/20 11:50 99 11/02/20 11:40 97 11/02/20 11:36 100 11/02/20 11:30 11/02/20 11:20 100 11/02/20 11:10 99 11/02/20 11:00 99 11/02/20 10:50 99 11/02/20 10:40 11/02/20 10:36 100 11/02/20 10:28 99 11/02/20 10:18 100 11/02/20 10:13 95 Transfer of Care Handoff Completed per policy Notes Mental Status: alert / awake / arousable Patient Amnestic to Procedure: Yes Nausea / Vomiting: adequately controlled Pain: adequately controlled Airway Patency, RR, SpO2: stable & adequate BP & HR: stable & adequate Hydration State: stable & adequate Anesthetic Complications: no major complications apparent and Pt Satisfied with anesthetic care
--- NOTE | 2020-11-03 09:30 | GI REPORT ---
Patient Name: Shani Newton Procedure Date: 11/03/2020 8:53 AM Date of : 1950 Admit Type: Inpatient Age: 70 Gender: Female Attending MD: Criss Austin MD Procedure: Small bowel enteroscopy Providers: Criss Austin MD Referring MD: Brit Giron Indications: Iron deficiency anemia Medicines: See the Anesthesia note for documentation of the administered medications Complications: No immediate complications. Estimated Blood Loss: Estimated blood loss: none. Procedure: Pre-Anesthesia Assessment: - ASA Grade Assessment: IV - A patient with severe systemic disease that is a constant threat to life. After obtaining informed consent, the endoscope was passed under direct vision. Throughout the procedure, the patient's blood pressure, pulse, and oxygen saturations were monitored continuously. The Endoscope was introduced through the mouth, and advanced to the proximal jejunum. The scope was introduced through the mouth, and advanced to the. The Colonoscope was introduced through the and advanced to the. The small bowel enteroscopy was accomplished without difficulty. The patient tolerated the procedure well. Findings: The esophageal mucosa was normal. There was no evidence of the tear done during prior dilation. There was a faint ring at the GE junction. There was a large hiatal hernia. There were a few faint Jhon's erosions. The stomach mucosa was normal. The duodenum was normal. The jejunum was normal. Impression: It is unlikely that bleeding related to trauma from prior dilation caused pt's anemia. Jhon's erosions are mild, but this is also not a likely cause of pt's anemia. Recommendation: Discharge pt to floor. Given pt's long standing iron deficiency, it may be possible that pt has chronic bleeding from small bowel AVM's. Will plan for colonoscopy. Criss Austin M.D. Criss Austin MD 11/03/2020 9:29:45 AM This report has been signed electronically. Note Initiated On: 11/03/2020 8:53 AM Number of Addenda: 0 I attest to the content of the Intraoperative Record and orders documented therein, exceptions below {[id number]}
[2020-11-03] MEDS: ASCORBIC ACID 500 MG TAB PO SCH ×2 (10:15→21:07)
[2020-11-03] MEDS: FERROUS SULFATE 325 MG TAB PO SCH ×2 (10:15→21:07)
[2020-11-03] MEDS: PANTOprazole 40 MG TAB PO SCH ×2 (10:16→21:08)
[2020-11-03] MEDS: ASPIRIN 81 MG ECTAB PO SCH (10:27)
[2020-11-03] MEDS: CLOPIDOGREL BISULFATE 75 MG TAB PO SCH (10:27)
[2020-11-03] MEDS: ROSUVASTATIN CALCIUM 20 MG TAB PO SCH (10:27)
[2020-11-03] MEDS: CHOLECALCIFEROL 1,000 UNITS 25 MCG TAB PO SCH (10:27)
[2020-11-03] MEDS: ISOSORBIDE MONO EXTENDED REL 60 MG TABCR PO SCH (10:28)
[2020-11-03] MEDS: CITALOPRAM 20 MG TAB PO SCH ×2 (10:29→21:07)
--- NOTE | 2020-11-03 11:13 | Hospitalist Progress Note ---
Date of Service November 03, 2020 Assessment & Plan (1) Symptomatic anemia: Symptomatic anemia, multifactorial Hgb of 6.6 today (baseline hgb ~90 History of multifactorial anemia in setting of CKD, iron deficiency, dual antiplatelet therapy for CAD and suspected ETOH abuse Most recent EGD from 10/05/20 for dilatation of upper esophagus. No erosions noted in stomach or duodenum noted GI has discussed possible need for IV Venofer in the past. Currently taking ferrous sulfate twice daily ED physician consented for blood transfusion. We will transfuse 2 units PRBCs with 40 mg IV Lasix in between Received 2 unit of blood transfusion Hemoglobin is stable at 8.5 Has iron deficiency anemia with low iron, increasing TIBC and low ferritin. Vitamin B12 and folate level have been normal Will give iron sucrose infusion 300 mg today and recommended to have weekly infusion for couple of weeks Appreciate GI input and recommendation Status post EGD there any evidence of active bleeding areas Will have colonoscopy tomorrow (2) UTI (urinary tract infection): Urinary tract infection Abnormal UA. Started empiric Rocephin with urine culture pending (3) CAD (coronary artery disease): CAD S/p bare metal stents in 2008 on aspirin and plavix Had recent negative cardiac stress test in August 2020 with resting echo revealing preserved EF, no evidence of valvular disease ECG with ST changes in V3-V6 noted on previous EKG. Initial troponin negative. Continue trending, monitor on telemetry Continue aspirin, Plavix, statin, beta-[place] No acute cardiac symptoms (4) HTN (hypertension): Remains on the lower side of normal (5) CKD (chronic kidney disease), stage III: Creatinine remains normal and electrolytes are normal to (6) GERD (gastroesophageal reflux disease): (7) Hypothyroidism: (8) Dyslipidemia: (9) Depression: (10) NAN (obstructive sleep apnea): This is a 70yo F with a PMH of chronic anemia in setting of known hiatal hernia, Jhon's ulcers, gastritis, duodenitis in the past, CAD status post stent on aspirin and Plavix, esophageal dysmotility, CKD 3, hypertension, depression, NAN and other medical problems listed below who presents with symptomatic anemia. Hypertension Normotensive. Continue metoprolol tartrate with hold parameters BP remains lower side of normal Hypothyroidism Continue levothyroxine Hyperlipidemia Continue statin Depression Continue SSRI NAN Not currently using any CPAP and/or BiPAP DVT Ppx: SCDs only in setting of severe anemia Code status: FULL PCP: Pierce Dispo: Admitted to [facility]. Plan to return home once medically stable. Admission and Anticipated Discharge Date Admission Date: November 02, 2020 Subjective 11/03/2020 The patient was seen and examined in medical telemetry unit She is a status post EGD without any evidence of acute bleeding sites She denies any symptoms following the procedure She will have her colonoscopy tomorrow Review of Systems Review of Systems: All systems reviewed and are unremarkable except as noted below Gastrointestinal: no abdominal pain, no bloating, no nausea and no vomiting Physical Exam Physical Exam: Lying in bed comfortably Constitutional: well developed, well nourished and + obese; not ill appearing Eyes: PERRL, conjunctivae normal, anicteric sclerae ENMT: external ear and nose normal, oropharynx normal Neck: trachea midline, no thyromegaly Respiratory: no respiratory distress Auscultation: lungs clear to auscultation bilaterally Cardiovascular: Rate/Rhythm: regular rate and regular rhythm Heart Sounds: no murmur Extremities: + edema (Trace edema bilaterally) Gastrointestinal (Abdomen): Inspection/Auscultation: normal bowel sounds; abdomen not distended Percussion/Palpation: abdomen soft; abdomen nontender Musculoskeletal: No acute arthritis in any joint Neurologic: Alert, awake and oriented x3. No focal sensory and motor deficit appreciated Psychiatric: A+Ox3, euthymic affect Lymphatic: no cervical or axillary lymphadenopathy Results & Data Results & Data ([facility]) Vital Signs (Past 12 Hours) Vital Signs Temp Pulse Pulse Pulse Resp BP BP 11/03/20 09:56 85 18 116/69 11/03/20 09:48 62 20 119/71 11/03/20 09:31 62 18 110/64 11/03/20 09:17 69 16 118/72 11/03/20 09:05 67 11/03/20 08:17 37 C 65 16 106/75 11/03/20 06:15 36.6 C 62 14 97/66 L 11/03/20 03:13 36.8 C 65 18 98/64 L 11/03/20 00:10 76 11/02/20 23:34 36.7 C 68 18 97/62 L Pulse Ox 11/03/20 09:56 97 11/03/20 09:48 99 11/03/20 09:31 99 11/03/20 09:17 99 11/03/20 09:05 11/03/20 08:17 96 11/03/20 06:15 96 11/03/20 03:13 97 11/03/20 00:10 11/02/20 23:34 97 Laboratory Results Short CBC 11/02/20 11/02/20 11/03/20 Range/Units 10:55 20:53 06:21 WBC 5.71 5.87 (4.8-10.8) K/uL Hgb 6.6 L* 8.9 L 8.5 L (12.0-16.0) g/dL Hct 22.4 L 29.3 L 28.1 L (37-47) % Plt Count 370 332 (130-400) K/uL BMP 11/02/20 11/03/20 10:55 06:21 Sodium 139 139 Potassium 3.4 L 4.1 D Chloride 106 107 Carbon Dioxide 26 26 BUN 12 15 Creatinine 1.05 1.06 Glucose 103 H 100 H Calcium 8.4 L 8.5 Cardiac Enzymes 11/02/20 11/02/20 11/02/20 Range/Units 10:55 20:52 22:48 Troponin I < 0.015 < 0.015 < 0.015 (0-0.045) ng/ml Liver Function 11/02/20 Range/Units 10:55 Total Bilirubin 0.8 (0.2-1) mg/dl AST 16 (15-37) U/L ALT 23 (12-78) U/L Alkaline Phosphatase 64 (45-117) U/L Albumin 3.2 L (3.4-5.0) gm/dl Urine 11/02/20 Range/Units 11:36 Urine Color Yellow Urine Appearance Clear (Clear) Urine pH 6.0 (4.5-7.5) Ur Specific [place] 1.009 (1.000-1.030) Urine Protein Negative (Negative) Urine Glucose (UA) Negative (Negative) Medications Administered Current Inpatient Medications Acetaminophen (Acetaminophen 325 Mg Tab) 650 mg PO Q4H PRN PRN Reason: Pain or Fever Stop: 12/02/20 14:22 Ascorbic Acid (Ascorbic Acid 500 Mg Tab) 500 mg PO Q12 FUNMI Stop: 12/02/20 20:59 Last Admin: 11/03/20 10:15 Dose: Not Given Documented by: Aspirin (Aspirin 81 Mg Ectab) 81 mg PO [facility] Stop: 12/03/20 08:59 Last Admin: 11/03/20 10:27 Dose: 81 mg Documented by: Citalopram Hydrobromide (Citalopram 20 Mg Tab) 20 mg PO BID [facility] Stop: 12/02/20 20:59 Last Admin: 11/03/20 10:29 Dose: Not Given Documented by: Clopidogrel Bisulfate (Clopidogrel Bisulfate 75 Mg Tab) 75 mg PO [facility] Stop: 12/03/20 08:59 Last Admin: 11/03/20 10:27 Dose: 75 mg Documented by: Ezetimibe (Ezetimibe 10 Mg Tablet) [address] [facility] Stop: 12/02/20 20:59 Last Admin: 11/02/20 21:58 Dose: 10 mg Documented by: Ferrous Sulfate (Ferrous Sulfate 325 Mg Tab) 325 mg PO BID [facility] Stop: 12/02/20 20:59 Last Admin: 11/03/20 10:15 Dose: Not Given Documented by: Ceftriaxone Sodium 2,000 mg/ (Dextrose) 70 mls @ 100 mls/hr IV Q24H [facility]; Protocol Stop: 11/07/20 14:29 Last Infusion: 11/02/20 19:17 Dose: Infused Documented by: Isosorbide Mononitrate (Isosorbide [place] Extended Rel 60 Mg Tabcr) 60 mg PO [facility] Stop: 12/03/20 08:59 Last Admin: 11/03/20 10:28 Dose: 60 mg Documented by: Levothyroxine Sodium (Levothyroxine Sodium 75 Mcg Tablet) 75 mcg PO DAILYPSYCHIATRIC Stop: 12/03/20 06:29 Last Admin: 11/03/20 05:55 Dose: 75 mcg Documented by: Metoprolol Tartrate (Metoprolol Tartrate 100 Mg Tab) [address] [facility] Stop: 12/02/20 20:59 Last Admin: 11/02/20 21:59 Dose: 100 mg Documented by: Nitroglycerin (Nitroglycerin Sl 0.4 Mg/Tab Tab) 0.4 mg SL UD PRN PRN Reason: Chest Pain Stop: 12/02/20 14:22 Ondansetron HCl (Ondansetron Inj 2 Mg/Ml 2 Ml Vial) 4 mg IV Q6H PRN PRN Reason: Nausea Stop: 12/02/20 14:22 Pantoprazole Sodium (Pantoprazole 40 Mg Tab) 40 mg PO BID [facility] Stop: 12/02/20 20:59 Last Admin: 11/03/20 10:16 Dose: Not Given Documented by: Polyethylene Glycol (Polyethylene (Miralax) 17 Gm Pack) 17 gm PO DAILY PRN PRN Reason: Constipation Stop: 12/02/20 14:22 Rosuvastatin Calcium (Rosuvastatin Calcium 20 Mg Tab) [facility]: 12/03/20 08:59 Last Admin: 11/03/20 10:27 Dose: 40 mg Documented by: Vitamin D (Cholecalciferol 1,000 Units 25 Mcg Tab) 2,000 [facility] Stop: 12/03/20 08:59 Last Admin: 11/03/20 10:27 Dose: 2,000 units Documented by:
[2020-11-03] MEDS ORDERED: IRON SUCROSE 300 MG in SODIUM CHLORIDE 0.9% 250 ML IV ONE (11:30)
[2020-11-03] MEDS: cefTRIAXone SODIUM 2,000 MG in DEXTROSE 5% 50 ML IV SCH (13:17)
[2020-11-03] MEDS ORDERED: bisacodyL 5 MG TABEC PO ONE (13:29)
[2020-11-03] MEDS ORDERED: LAVAGE SOLUTION 4000ML PO SCH (13:30)
[2020-11-03] MEDS: METOPROLOL TARTRATE 100 MG TAB PO SCH (21:05)
[2020-11-03] MEDS: EZETIMIBE 10 MG TABLET PO SCH (21:07)
[2020-11-04] MEDS: LEVOTHYROXINE SODIUM 75 MCG TABLET PO SCH (06:13)
[2020-11-04 08:30] LABS: Hematocrit (blood only) 27.5 % (37-47); Hemoglobin 8.1 g/dL (12.0-16.0); Mean Corpuscular Hemoglobin 20.5 pg (25-34); Mean Corpuscular Hgb Conc 29.5 g/dL (32-36); Mean Corpuscular Volume 69.6 fL (80-100); Platelet Count 317 K/uL (130-400); RDW Coefficient of Variation 19.4 % (11.5-14.5); RDW Standard Deviation 47.9 fL (36.4-46.3); Red Blood Count 3.95 M/uL (4.2-5.4); White Blood Count 4.91 K/uL (4.8-10.8)
[2020-11-04 09:03] LABS: BUN Creatinine Ratio 10.6 (10-20); Calcium 8.6 mg/dl (8.5-10.1); Creatinine Clr Calc Pharmacy 67.2 ml/min; Est GFR (African American) 66.6; Est GFR (Non-African American) 57.4; Potassium 3.8 mmol/L (3.5-5.1)
[2020-11-04] MEDS: ISOSORBIDE MONO EXTENDED REL 60 MG TABCR PO SCH (09:03)
[2020-11-04] MEDS: PANTOprazole 40 MG TAB PO SCH ×2 (09:03→20:37)
[2020-11-04] MEDS: ASCORBIC ACID 500 MG TAB PO SCH ×2 (09:03→20:36)
[2020-11-04] MEDS: FERROUS SULFATE 325 MG TAB PO SCH ×2 (09:03→20:36)
[2020-11-04] MEDS: CITALOPRAM 20 MG TAB PO SCH ×2 (09:03→20:36)
[2020-11-04] MEDS: CHOLECALCIFEROL 1,000 UNITS 25 MCG TAB PO SCH (09:04)
[2020-11-04] MEDS: ROSUVASTATIN CALCIUM 20 MG TAB PO SCH (09:04)
--- NOTE | 2020-11-04 11:01 | Anesthesiology Consultation ---
Date of Service November 04, 2020 Assessment & Plan Chart Review Chart Review: Acceptable Risk for Surgery Consults Requested none ASA ASA4 Proposed Anesthesia Anesthesia Type: MAC Risk / Benefits Reviewed With: PT / POA / Parent / Guardian, Accepts Plan and Informed Consent Obtained History Surgery Operation Date: 11/03/20 16:55 Proposed Procedures p Esophagogastroduodenoscopy Dr Misael Austin MD Operation Date: 11/04/20 17:15 Proposed Procedures p Colonoscopy Dr Geovanna Austin MD Height/Weight Height: 5 ft 4 in Weight: 118.3 kg Allergies Allergy/AdvReac Type Severity Reaction Status Date / Time No Known Allergies Allergy Verified 11/03/20 08:16 Medications Home Medications Medication Instructions Recorded Confirmed Last Taken aspirin 81 mg PO QAM 09/19/18 11/02/20 11/02/20 cholecalciferol (vitamin D3) 2,000 unit PO QAM 09/19/18 11/02/20 11/02/20 [Vitamin D3] citalopram 20 mg PO BID 09/19/18 11/02/20 11/01/20 clopidogrel 75 mg PO QAM 09/19/18 11/02/20 11/02/20 ferrous sulfate 325 mg PO BID 09/19/18 11/02/20 11/02/20 isosorbide mononitrate 60 mg PO QAM 09/19/18 11/02/20 11/02/20 levothyroxine 75 mcg PO QAM 09/19/18 11/02/20 11/02/20 metoprolol tartrate 100 mg PO 09/19/18 11/02/20 11/02/20 nitroglycerin 0.4 mg SUBLINGUAL UD PRN 09/19/18 11/02/20 Unknown rosuvastatin 40 mg PO QAM 09/19/18 11/02/20 11/02/20 ezetimibe [Zetia] 10 mg PO HS 11/15/18 11/02/20 11/02/20 pantoprazole 40 mg PO BID 11/15/18 11/02/20 11/02/20 furosemide 20 mg PO DAILY PRN 12/14/18 11/02/20 12/11/18 08:00 potassium chloride 10 meq PO DAILY PRN 06/11/02/20 12/17/18 08:00 ascorbic acid (vitamin C) [Vitamin 500 mg PO Q12H 11/02/20 11/02/20 Unknown C] sucralfate 1 g PO BID 11/02/20 11/02/20 Unknown Active Medications Generic Name Dose Route Start Last Admin Trade Name Samy PRN Reason Stop Dose Admin Ascorbic Acid 500 mg 11/02/20 21:00 11/04/20 09:03 Ascorbic Acid 500 Mg Tab PO 12/02/20 20:59 500 mg Q12 FUNMI Administration Aspirin 81 mg 11/03/20 09:00 11/03/20 10:27 Aspirin 81 Mg Ectab PO 12/03/20 08:59 81 mg QAM FUNMI Administration Citalopram Hydrobromide 20 mg 11/02/20 21:00 11/04/20 09:03 Citalopram 20 Mg Tab PO 12/02/20 20:59 20 mg BID FUNMI Administration Clopidogrel Bisulfate 75 mg 11/03/20 09:00 11/03/20 10:27 Clopidogrel Bisulfate 75 Mg Tab PO 12/03/20 08:59 75 mg QAM FUNMI Administration Ezetimibe 10 mg 11/02/20 21:00 11/03/20 21:07 Ezetimibe 10 Mg Tablet PO 12/02/20 20:59 10 mg HS FUNMI Administration Ferrous Sulfate 325 mg 11/02/20 21:00 11/04/20 09:03 Ferrous Sulfate 325 Mg Tab PO 12/02/20 20:59 325 mg BID FUNMI Administration Ceftriaxone Sodium 2,000 mg/ 70 mls @ 100 mls/hr 11/02/20 14:30 11/03/20 14:04 Dextrose IV 11/07/20 14:29 Infused Q24H FUNMI Infusion Protocol Isosorbide Mononitrate 60 mg 11/03/20 09:00 11/04/20 09:03 Isosorbide [place] Extended Rel 60 Mg Tabcr PO 12/03/20 08:59 60 mg QAM FUNMI Administration Levothyroxine Sodium 75 mcg 11/03/20 06:30 11/04/20 06:13 Levothyroxine Sodium 75 Mcg Tablet PO 12/03/20 06:29 75 mcg DAILYBB FUNMI Administration Metoprolol Tartrate 100 mg 11/02/20 21:00 11/03/20 21:05 Metoprolol Tartrate 100 Mg Tab PO 12/02/20 20:59 Not Given HS FUNMI Pantoprazole Sodium 40 mg 11/02/20 21:00 11/04/20 09:03 Pantoprazole 40 Mg Tab PO 12/02/20 20:59 40 mg BID FUNMI Administration Rosuvastatin Calcium 40 mg 11/03/20 09:00 11/04/20 09:04 Rosuvastatin Calcium 20 Mg Tab PO 12/03/20 08:59 40 mg QAM FUNMI Administration Vitamin D 2,000 units 11/03/20 09:00 11/04/20 09:04 Cholecalciferol 1,000 Units 25 Mcg Tab PO 12/03/20 08:59 2,000 units QAM FUNMI Administration NPO Date Last Intake of Fluids: 11/04/20 Time Last Intake of Fluids: 09:00 Last Intake of Fluids Comment: SIP OF WATER WITH PILLS Date Last Intake of Solids: 11/02/20 Time Last Intake of Solids: 18:00 Past Medical History Medical History Anemia Anxiety CAD (coronary artery disease) "per outpatient cardiology note: cath 05/2007 - 50% LAD lesion 10/2008 - abnormal coronary CT that lead to cath that showed 70% proximal mid and LAD stenosis, s/p 2 BMS to LAD Plavix held for colonoscopy 12/2008 which resulted in acute OH, cath at that times showed critical lesion in between the two stents and underwent PCI with BMS Plavix held again for colonscopy 06/2009 which resulted in acute OH again, cath at that time showed patent stents with jailed diagonal branch as likely culprit 10/2009 - presented with chest pain, cath at that times showed stable non occlusive CAD 10/2010 - unstable angina, cath at that time showed left main with mild luminal irregularities, LAD with extensive stenting, jailing of diagonal branch, moderate ostial stenosis of a septal rn transplant, and an indeterminate stenosis distal to the stents not amendable to PCI, nondominant LCX with up to 30% disease, large dominant RCA with up to 30% proximal stenosis and mild luminal irregularities of the PDA and PLB's 05/2014 - unchanged CAD from prior cath " On 04/09/15 16:39 Louisa Can wrote "cath 05/2007 - 50% LAD lesion 10/2008 - abnormal coronary CT that lead to cath that showed 70% proximal mid and LAD stenosis, s/p 2 BMS to LAD Plavix held for colonoscopy 12/2008 which resulted in acute OH, cath at that times showed critical lesion in between the two stents and underwent PCI with BMS Plavix held again for colonscopy 06/2009 which resulted in acute OH again, cath at that time showed patent stents with jailed diagonal branch as likely culprit 10/2009 - presented with chest pain, cath at that times showed stable non occlusive CAD 10/2010 - unstable angina, cath at that time showed left main with mild luminal irregularities, LAD with extensive stenting, jailing of diagonal branch, moderate ostial stenosis of a septal rn transplant, and an indeterminate stenosis distal to the stents not amendable to PCI, nondominant LCX with up to 30% disease, large dominant RCA with up to 30% proximal stenosis and mild luminal irregularities of the PDA and PLB's 05/2014 - unchanged CAD from prior cath " On 04/09/15 16:07 Louisa Can wrote "cath 05/2007 - 50% LAD lesion" Chronic kidney disease STAGE 3 CKD (chronic kidney disease), stage III Depression Depression GERD (gastroesophageal reflux disease) GERD (gastroesophageal reflux disease) Hiatal hernia History of bleeding ulcers History of colon polyps HTN (hypertension) Hyperlipidemia Hypertension Hypothyroidism Hypothyroidism Migraine Myocardial infarction x3--last 2011? follows with Dr. Mckeon On anticoagulant therapy plavix daily Sleep apnea does not use cpap as ordered Exercise / Class Metabolic Activity II 4-5 Yardwork/Stairs/Walk up hill Past Family History Family History Grandmother (Maternal) Family history of diabetes mellitus Grandfather (Maternal) Family history of diabetes mellitus Other Cancer Heart disease No family history of adverse response to anesthesia Past Surgical History Surgical History History of arthroscopy of left knee History of bilateral tubal ligation History of cardiac cath (multiple) last 2012? History of carpal tunnel surgery of right wrist History of cholecystectomy History of colonoscopy History of esophagogastroduodenoscopy (EGD) History of heart artery stent x3, last placed in 2012 History of left breast biopsy benign History of total hysterectomy with bilateral salpingo-oophorectomy (BSO) Past Anesthesia History No Hx of Anesthesia Complications and No Family Hx of Anesthesia Complications History of PONV No Hx of PONV and No Hx of Motion Sickness Social History Smoking Status: Former smoker tobacco type: cigarettes Hx Alcohol Use: Yes Alcohol type: beer alcohol intake frequency: a few times a week Alcohol Intake Frequency Comment: once or twice a week Hx Substance Use: No substance use type: does not use Physical Exam Vital Signs Last Vital Signs Temp 37.0 C 11/04/20 10:53 Pulse 73 11/04/20 10:53 Resp 20 11/04/20 10:53 BP 109/73 11/04/20 10:53 Pulse Ox 94 11/04/20 10:53 Constitutional + obese ENMT Mouth: + dentures; no TMJ abnormality Thyromental Distance: > or= 3.5 Finger Breadths Mallampati Class: III Neck normal visual inspection, trachea midline, + short neck and + thick neck; neck extension not limited Respiratory normal respiratory effort Auscultation: lungs clear to auscultation bilaterally and + diminished lung sounds Cardiovascular Rate/Rhythm: regular rate and regular rhythm Heart Sounds: no murmur Musculoskeletal Spine: normal cervical ROM Extremities: full ROM of extremities Neurologic moves all extremities Psychiatric Orientation: alert and oriented x 3 Testing Laboratory Results 11/04/20 08:08 11/04/20 08:08 PT 10.4 Seconds (9.0-12.0) 11/02/20 10:55 INR 1.0 (0.9-1.1) 11/02/20 10:55 APTT < 20.0 Seconds (21.0-31.0) L 11/02/20 10:55 Urine Color Yellow 11/02/20 11:36 Urine Appearance Clear (Clear) 11/02/20 11:36 Urine pH 6.0 (4.5-7.5) 11/02/20 11:36 Ur Specific [place] 1.009 (1.000-1.030) 11/02/20 11:36 Urine Protein Negative (Negative) 11/02/20 11:36 Urine Glucose (UA) Negative (Negative) 11/02/20 11:36 Urine Ketones Negative (Negative) 11/02/20 11:36 Urine Nitrite Negative (Negative) 11/02/20 11:36 Ur Leukocyte Esterase Trace (Negative) H 11/02/20 11:36 Urine WBC (Auto) 5-10 /hpf (0-5) H 11/02/20 11:36 Urine RBC (Auto) 0-4 /hpf (0-4) 11/02/20 11:36 U Hyaline Cast (Auto) 0 /lpf (0-5) 11/02/20 11:36 U Epithel Cells (Auto) 10-20 /lpf (0-5) H 11/02/20 11:36 Urine Bacteria (Auto) 2+ (Negative) H 11/02/20 11:36 Blood Type A Positive 11/02/20 11:50 Antibody Screen NEGATIVE 11/02/20 11:50 11/02/20 11:36 Urine Culture - Final Urine,Clean Catch Escherichia coli Electrocardiogram Date: 11/02/20 Findings: + NSR @ (74) Chest X-Ray Date: 11/02/20 Findings: + NAD and + cardiomegaly +hiatal hernia Echocardiogram Date: 11/23/18 EF: >70% LV Function: normal (gr1 diastolic dysfunction) RWMA: + none Other Findings: + LVH Valvular Disease: + no significant valvular disease
--- NOTE | 2020-11-04 11:46 | History & Physical Bridge Note ---
Date of Service November 04, 2020 History & Physical Bridge Note I have examined the patient, reviewed the History & Physical and in the interval since the performance of the History & Physical I have noted the following changes of clinical significance: no changes noted
[2020-11-04] MEDS ORDERED: PROPOFOL IV EMULSION 10 MG/ML 20 ML VIAL IV ONE ×2 (11:47→12:45)
[2020-11-04] MEDS ORDERED: LIDOCAINE HCL 2% 2 ML VIAL/AMP(20MG/ML) INFIL ONE (11:47)
--- NOTE | 2020-11-04 13:01 | GI REPORT ---
Patient Name: Shani Newton Procedure Date: 11/04/2020 11:45 AM Date of : 1950 Admit Type: Inpatient Age: 70 Gender: Female Attending MD: Criss Austin MD Procedure: Colonoscopy Providers: Criss Austin MD Referring MD: BALA HAYES Indications: Iron deficiency anemia Medicines: See the Anesthesia note for documentation of the administered medications Complications: No immediate complications. Estimated Blood Loss: Estimated blood loss: none. Procedure: Pre-Anesthesia Assessment: - ASA Grade Assessment: IV - A patient with severe systemic disease that is a constant threat to life. After I obtained informed consent, the scope was passed under direct vision. Throughout the procedure, the patient's blood pressure, pulse, and oxygen saturations were monitored continuously. The Colonoscope was introduced through the anus and advanced to the terminal ileum. The colonoscopy was performed without difficulty. The patient tolerated the procedure. The quality of the bowel preparation was good. Findings: Hemorrhoids were found on perianal exam. Multiple small and large-mouthed diverticula were found in the entire colon. Tattoos in the ascending and transverse colon. There appeared to be a small polyp remnant at the tattoo site at the transverse colon that was removed by biopsy forceps. There was a medium sized non bleeding AVM in the cecum that was cauterized with APC. Two clips applied to APC site. There was a 5 mm polyp in the cecum removed with a cold snare. The ileum. Recommendation: - Discharge patient to floor. Criss Austin M.D. Criss Austin MD 11/04/2020 1:01:20 PM This report has been signed electronically. Note Initiated On: 11/04/2020 11:45 AM Number of Addenda: 0 I attest to the content of the Intraoperative Record and orders documented therein, exceptions below {[id number]}
--- NOTE | 2020-11-04 13:03 | Anesthesiology Progress Note ---
Date of Service November 04, 2020 Anesthesia Post Procedure Vital Signs Vital Signs: Temp Pulse Pulse Pulse Resp BP BP 11/04/20 12:49 73 16 114/55 L 11/04/20 10:53 37.0 C 73 20 109/73 11/04/20 07:30 73 11/04/20 06:31 36.7 C 69 12 156/83 H 11/04/20 03:55 36.9 C 74 14 135/73 11/03/20 23:59 78 11/03/20 22:34 36.9 C 70 16 105/64 11/03/20 21:08 67 93/63 L 11/03/20 19:36 36.9 C 71 12 130/86 11/03/20 16:32 68 11/03/20 15:14 36.5 C 69 18 103/66 Pulse Ox 11/04/20 12:49 94 11/04/20 10:53 94 11/04/20 07:30 11/04/20 06:31 90 11/04/20 03:55 93 11/03/20 23:59 11/03/20 22:34 96 11/03/20 21:08 11/03/20 19:36 98 11/03/20 16:32 11/03/20 15:14 97 Transfer of Care Handoff Completed per policy Notes Mental Status: alert / awake / arousable Patient Amnestic to Procedure: Yes Nausea / Vomiting: adequately controlled Pain: adequately controlled Airway Patency, RR, SpO2: stable & adequate BP & HR: stable & adequate Hydration State: stable & adequate Anesthetic Complications: no major complications apparent and Pt Satisfied with anesthetic care
[2020-11-04] MEDS: ASPIRIN 81 MG ECTAB PO SCH (13:46)
[2020-11-04] MEDS: CLOPIDOGREL BISULFATE 75 MG TAB PO SCH (13:46)
--- NOTE | 2020-11-04 13:56 | Hospitalist Progress Note ---
Date of Service November 04, 2020 Assessment & Plan (1) Symptomatic anemia: Symptomatic anemia, multifactorial Hgb of 6.6 today (baseline hgb ~90 History of multifactorial anemia in setting of CKD, iron deficiency, dual antiplatelet therapy for CAD and suspected ETOH abuse Most recent EGD from 10/05/20 for dilatation of upper esophagus. No erosions noted in stomach or duodenum noted GI has discussed possible need for IV Venofer in the past. Currently taking ferrous sulfate twice daily ED physician consented for blood transfusion. We will transfuse 2 units PRBCs with 40 mg IV Lasix in between Received 2 unit of blood transfusion Hemoglobin is stable at 8.1 Has iron deficiency anemia with low iron, increasing TIBC and low ferritin. 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 GI recommended to discharge on Augmentin 875mg BID for 3 days (2) UTI (urinary tract infection): Urinary tract infection Abnormal UA. Urine cx grew Ecoli. Continue IV Rocephin Will transition to PO on diascharge (3) CAD (coronary artery disease): CAD S/p bare metal stents in 2008 on aspirin and plavix Had recent negative cardiac stress test in August 2020 with resting echo revealing preserved EF, no evidence of valvular disease ECG with ST changes in V3-V6 noted on previous EKG. Initial troponin negative. Continue trending, monitor on telemetry Continue aspirin, Plavix, statin, beta-saskia No acute cardiac symptoms (4) HTN (hypertension): Remains on the lower side of normal (5) CKD (chronic kidney disease), stage III: Creatinine remains normal and electrolytes are normal to (6) GERD (gastroesophageal reflux disease): (7) Hypothyroidism: (8) Dyslipidemia: (9) Depression: (10) NAN (obstructive sleep apnea): This is a 70yo F with a PMH of chronic anemia in setting of known hiatal hernia, Jhon's ulcers, gastritis, duodenitis in the past, CAD status post stent on aspirin and Plavix, esophageal dysmotility, CKD 3, hypertension, depression, NAN and other medical problems listed below who presents with symptomatic anemia. Hypertension Normotensive. Continue metoprolol tartrate with hold parameters BP remains lower side of normal Hypothyroidism Continue levothyroxine Hyperlipidemia Continue statin Depression Continue SSRI NAN Not currently using any CPAP and/or BiPAP DVT Ppx: SCDs only in setting of severe anemia Code status: FULL PCP: Pierce Dispo: Admitted to [facility]. Plan to return home once medically stable. Admission and Anticipated Discharge Date Admission Date: November 02, 2020 Subjective Pt was seen and examined for follow up of weakness Sitting in bed with no distress Pt said that she feels fine Denies any chest pain, palpitation, dizziness and SOB Review of Systems Review of Systems: All systems reviewed & are unremarkable except as noted in Subjective Physical Exam Physical Exam: General- No acute distress Head- atraumatic Eyes- PERRL, EOMI, ENT- oropharynx clear Neck- supple, no JVD Lungs- clear to auscultation Heart- regular rhythm; no murmur Abdomen- normal bowel sounds, soft, nontender Extremities- no calf tenderness Neuro- alert, oriented x 3; PERRL, EOMI; no facial palsy; no dysarthria Skin- warm & dry Results & Data Results & Data ([facility]) Vital Signs (Past 12 Hours) Vital Signs Temp Pulse Pulse Pulse Resp BP BP 11/04/20 13:19 70 14 138/85 11/04/20 13:04 67 14 143/85 H 11/04/20 12:49 73 16 114/55 L 11/04/20 10:53 37.0 C 73 20 109/73 11/04/20 07:30 73 11/04/20 06:31 36.7 C 69 12 156/83 H 11/04/20 03:55 36.9 C 74 14 135/73 Pulse Ox 11/04/20 13:19 96 11/04/20 13:04 96 11/04/20 12:49 94 11/04/20 10:53 94 11/04/20 07:30 11/04/20 06:31 90 11/04/20 03:55 93
[2020-11-04] MEDS: metroNIDAZOLE 500 MG/100 ML BAG IV SCH ×2 (14:27→21:44)
[2020-11-04] MEDS ORDERED: IRON SUCROSE 300 MG in SODIUM CHLORIDE 0.9% 250 ML IV ONE (15:00)
[2020-11-04] MEDS: cefTRIAXone SODIUM 2,000 MG in DEXTROSE 5% 50 ML IV SCH (15:38)
[2020-11-04] MEDS: EZETIMIBE 10 MG TABLET PO SCH (20:36)
[2020-11-04] MEDS: METOPROLOL TARTRATE 100 MG TAB PO SCH (20:40)
[2020-11-05] MEDS: metroNIDAZOLE 500 MG/100 ML BAG IV SCH ×2 (06:05→13:16)
[2020-11-05] MEDS: LEVOTHYROXINE SODIUM 75 MCG TABLET PO SCH (06:06)
[2020-11-05] MEDS: PANTOprazole 40 MG TAB PO SCH (08:38)
[2020-11-05] MEDS: ISOSORBIDE MONO EXTENDED REL 60 MG TABCR PO SCH (08:39)
[2020-11-05] MEDS: CITALOPRAM 20 MG TAB PO SCH (08:39)
[2020-11-05] MEDS: ASCORBIC ACID 500 MG TAB PO SCH (08:39)
[2020-11-05] MEDS: FERROUS SULFATE 325 MG TAB PO SCH (08:39)
[2020-11-05] MEDS: ASPIRIN 81 MG ECTAB PO SCH (08:39)
[2020-11-05] MEDS: CLOPIDOGREL BISULFATE 75 MG TAB PO SCH (08:40)
[2020-11-05] MEDS: ROSUVASTATIN CALCIUM 20 MG TAB PO SCH (08:40)
[2020-11-05] MEDS: CHOLECALCIFEROL 1,000 UNITS 25 MCG TAB PO SCH (08:40)
--- NOTE | 2020-11-05 09:54 | Gastroenterology Progress Note ---
Date of Service November 05, 2020 Assessment & Plan Admission and Anticipated Discharge Date Admission Date: November 02, 2020 Subjective No complaints. No overt GIB overnight. No abd pain. Sharan clears. 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 Full liquids x1-2 days, then resume diet as tolerated. Iron/folic acid supplements, consider outpt IV iron. - Please discharge on Augmentin 875 BID x 3 days. - No need for f/u in GI clinic, but will arrange VCE to complete w/u Iron def anemia Results & Data ([facility]) Vital Signs (Past 12 Hours) Vital Signs Temp Pulse Pulse Resp BP BP Pulse Ox 11/05/20 08:04 37.2 C 70 19 110/64 96 11/05/20 07:30 67 11/05/20 04:19 37.1 C 97 H 20 98/53 L 94 11/05/20 00:00 70 11/04/20 22:52 36.9 C 73 18 96/51 L 92
--- NOTE | 2020-11-05 09:56 | Gastroenterology Progress Note ---
Date of Service November 05, 2020 Assessment & Plan (1) Symptomatic anemia: OP VCE to assess the small bowel for AVMs. Our office will contact her to arrange. OK for DC from GI standpoint. GI will sign off. Present on Admission?: Yes Admission and Anticipated Discharge Date Admission Date: November 02, 2020 Subjective 11/03/2020 Admitted for symptomatic anemia Hb 6.1 + 2 units of RBCs ->8.1 EGD with large hiatal hernia but w/o cause of anemia. Colonoscopy with bleeding cecal AVM cauterized and clipped, also 5mm cecal polyp removed. Pt feels "great." Review of Systems Review of Systems: ROS: Gen: Denies weakness, fevers, weight loss Eyes: No eye redness, or pain, no recent vision changes Resp: No SOB, no cough Cardio: No palpitations/irregular beats, no chest pain GI: No abdominal pain, no nausea/vomiting : Denies pain on urination Skin: No jaundice, itching or new rashes Physical Exam Constitutional: WD/WN, vitals as above + obese Eyes: PERRL, conjunctivae normal, anicteric sclerae ENMT: external ear and nose normal, oropharynx normal Neck: trachea midline, no thyromegaly Respiratory: normal respiratory effort, lungs clear to auscultation Cardiovascular: RRR, no murmur, no edema Gastrointestinal (Abdomen): normal bowel sounds, soft, nontender, no hepatosplenomegaly Musculoskeletal: no cyanosis or clubbing, extremities motor strength 5/5 Skin: no rashes, warm and dry Neurologic: patellar DTR's 2+ bilat, sensation intact Psychiatric: A+Ox3, euthymic affect Lymphatic: no cervical or axillary lymphadenopathy Results & Data ([facility]) Vital Signs (Past 12 Hours) Vital Signs Temp Pulse Pulse Resp BP BP Pulse Ox 11/05/20 08:04 37.2 C 70 19 110/64 96 11/05/20 07:30 67 11/05/20 04:19 37.1 C 97 H 20 98/53 L 94 11/05/20 00:00 70 11/04/20 22:52 36.9 C 73 18 96/51 L 92 Laboratory Results WBC 6.1, Hb 8.1, Hct 27, Plts 302.
[2020-11-05 10:35] LABS: Hematocrit (blood only) 27.4 % (37-47); Hemoglobin 8.1 g/dL (12.0-16.0); Mean Corpuscular Hemoglobin 20.9 pg (25-34); Mean Corpuscular Hgb Conc 29.6 g/dL (32-36); Mean Corpuscular Volume 70.8 fL (80-100); Mean Platelet Volume 9.5 fL (7.4-10.4); Platelet Count 302 K/uL (130-400); RDW Coefficient of Variation 19.9 % (11.5-14.5); RDW Standard Deviation 49.3 fL (36.4-46.3); Red Blood Count 3.87 M/uL (4.2-5.4); White Blood Count 6.49 K/uL (4.8-10.8)
[2020-11-05] MEDS: cefTRIAXone SODIUM 2,000 MG in DEXTROSE 5% 50 ML IV SCH (12:54)
--- NOTE | 2020-11-05 15:01 | Hospitalist Progress Note ---
Date of Service November 05, 2020 Assessment & Plan (1) Symptomatic anemia: Symptomatic anemia, multifactorial Hgb of 6.6 today (baseline hgb ~90 History of multifactorial anemia in setting of CKD, iron deficiency, dual antiplatelet therapy for CAD and suspected ETOH abuse Most recent EGD from 10/05/20 for dilatation of upper esophagus. No erosions noted in stomach or duodenum noted GI has discussed possible need for IV Venofer in the past. Currently taking ferrous sulfate twice daily ED physician consented for blood transfusion. We will transfuse 2 units PRBCs with 40 mg IV Lasix in between Received 2 unit of blood transfusion Hemoglobin is stable at 8.1 Has iron deficiency anemia with low iron, increasing TIBC and low ferritin. 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 GI recommended to discharge on Augmentin 875mg BID for 3 days (2) UTI (urinary tract infection): Urinary tract infection Abnormal UA. Urine cx grew Ecoli. Continue IV Rocephin Will transition to PO Augmentin on discharge on discharge (3) CAD (coronary artery disease): CAD S/p bare metal stents in 2008 on aspirin and plavix Had recent negative cardiac stress test in August 2020 with resting echo revealing preserved EF, no evidence of valvular disease ECG with ST changes in V3-V6 noted on previous EKG. Initial troponin negative. Continue trending, monitor on telemetry Continue aspirin, Plavix, statin, beta-saskia No acute cardiac symptoms (4) HTN (hypertension): Remains on the lower side of normal (5) CKD (chronic kidney disease), stage III: Creatinine remains normal and electrolytes are normal to (6) GERD (gastroesophageal reflux disease): (7) Hypothyroidism: (8) Dyslipidemia: (9) Depression: (10) NAN (obstructive sleep apnea): This is a 70yo F with a PMH of chronic anemia in setting of known hiatal hernia, Jhon's ulcers, gastritis, duodenitis in the past, CAD status post stent on aspirin and Plavix, esophageal dysmotility, CKD 3, hypertension, depression, NAN and other medical problems listed below who presents with symptomatic anemia. Hypertension Normotensive. Continue metoprolol tartrate with hold parameters BP remains lower side of normal Hypothyroidism Continue levothyroxine Hyperlipidemia Continue statin Depression Continue SSRI NAN Not currently using any CPAP and/or BiPAP DVT Ppx: SCDs only in setting of severe anemia Code status: FULL PCP: Pierce Dispo: Admitted to [facility]. Plan to return home once medically stable. Admission and Anticipated Discharge Date Admission Date: November 02, 2020 Subjective Pt was seen and examined for follow up of weakness Sitting in bed with no distress Denies any chest pain, palpitation, dizziness and SOB Review of Systems Review of Systems: All systems reviewed & are unremarkable except as noted in Subjective Physical Exam Physical Exam: General- No acute distress Head- atraumatic Eyes- PERRL, EOMI, ENT- oropharynx clear Neck- supple, no JVD Lungs- clear to auscultation Heart- regular rhythm; no murmur Abdomen- normal bowel sounds, soft, nontender Extremities- no calf tenderness Neuro- alert, oriented x 3; PERRL, EOMI; no facial palsy; no dysarthria Skin- warm & dry Results & Data Results & Data ([facility]) Vital Signs (Past 12 Hours) Vital Signs Temp Pulse Pulse Pulse Pulse Resp BP 11/05/20 13:52 37.2 C 68 70 69 19 98/53 L 11/05/20 08:04 37.2 C 70 19 11/05/20 07:30 67 11/05/20 04:19 37.1 C 97 H 20 98/53 L BP Pulse Ox 11/05/20 13:52 110/64 96 11/05/20 08:04 110/64 96 11/05/20 07:30 11/05/20 04:19 94
--- NOTE | 2020-11-08 08:20 | Discharge Summary ---
Date of Service November 05, 2020 Admission HPI Per Admitting Provider This is a 70yo F with a PMH of chronic anemia in setting of known hiatal hernia, Jhon's ulcers, gastritis, duodenitis in the past, CAD status post stent on aspirin and Plavix, esophageal dysmotility, CKD 3, hypertension, depression, NAN and other medical problems listed below who presents with shortness of breath x4 days. History of multifactorial anemia in setting of CKD, iron deficiency, dual antiplatelet therapy for CAD and suspected ETOH abuse. Have discussed possible need for IV Venofer with GI in the past as well as possible hematology consult in the future. History of CAD s/p bare metal stents in 2008 on aspirin and plavix. Had recent negative cardiac stress test in August 2020 with resting echo revealing preserved EF, no evidence of valvular disease. Most recent EGD from 10/05/20 for dilatation of upper esophagus. No erosions noted in stomach or duodenum noted. For the past few days, patient has felt short of breath when doing basic chores like laundry. Also notes generalized weakness. Denies any lightheadedness, visual changes or chest pain. Stool is dark but patient takes chronic iron supplementation. Denies any bright red blood per rectum. No constipation or diarrhea. Does experience some tightness in chest with exertion that is similar to times in the past when her blood count has been low and she is required transfusion. Denies any fever, chills, headache, palpitations, wheezing, nausea, vomiting, abdominal pain, dysuria or hematuria. Admission Exam Per Admitting Provider General Appearance: WD/WN, vitals as above, NAD, sitting up in bed, obese, pleasant, conversing easily Head: normocephalic, atraumatic Eyes: normal inspection, PERRL, conjunctivae normal, anicteric sclerae ENT: external ear and nose normal, oropharynx normal Neck: normal visual inspection, trachea midline, no thyromegaly Respiratory: normal respiratory effort, lungs clear to auscultation, no wheeze, rales, rhonchi. No accessory muscle use Cardiovascular: regular rate, rhythm, no murmur appreciated, normal peripheral pulses, no BLE edema. Vessels: no JVD Chest: normal inspection of chest Abdomen/GI: normal bowel sounds, soft, nontender, no hepatosplenomegaly Extremities/Musculoskeletal: no cyanosis or clubbing, extremities motor strength 5/5 Neurologic: PERRL, EOMI, accommodation nl, no face palsy, no dysarthria, CN's II-XI intact bilaterally and moves all extremities Psychiatric: A+Ox3, euthymic affect Skin: no rashes, normal color, warm/dry Principal Diagnosis Symptomatic anemia: UTI (urinary tract infection): CAD (coronary artery disease): HTN (hypertension): CKD (chronic kidney disease), stage III: Discharge Exam General- No acute distress Head- atraumatic Eyes- PERRL, EOMI, ENT- oropharynx clear Neck- supple, no JVD Lungs- clear to auscultation Heart- regular rhythm; no murmur Abdomen- normal bowel sounds, soft, nontender Extremities- no calf tenderness Neuro- alert, oriented x 3; PERRL, EOMI; no facial palsy; no dysarthria Skin- warm & dry Discharge Data Allergies Allergy/AdvReac Type Severity Reaction Status Date / Time No Known Allergies Allergy Verified 11/03/20 08:16 Consultations 11/02/20 11:59 ED Decision to Admit Stat 11/02/20 14:23 Consult Gastroenterology Routine Procedures Performed Operation Date: 11/03/20 16:55 Actual Procedures p Small Bowel Enteroscopy EGD(Left) - Criss Austin MD Operation Date: 11/04/20 17:15 Actual Procedures p Colonoscopy Polypectomy - Criss Austin MD Hospital Course (1) Symptomatic anemia: Symptomatic anemia, multifactorial Hgb of 6.6 today (baseline hgb ~90 History of multifactorial anemia in setting of CKD, iron deficiency, dual a ntiplatelet therapy for CAD and suspected ETOH abuse Most recent EGD from 10/05/20 for dilatation of upper esophagus. No erosions noted in stomach or duodenum noted GI has discussed possible need for IV Venofer in the past. Currently taking ferrous sulfate twice daily ED physician consented for blood transfusion. We will transfuse 2 units PRBCs with 40 mg IV Lasix in between Received 2 unit of blood transfusion Hemoglobin is stable at 8.1 Has iron deficiency anemia with low iron, increasing TIBC and low ferritin. 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 GI recommended to discharge on Augmentin 875mg BID for 3 days (2) UTI (urinary tract infection): Urinary tract infection Abnormal UA. Urine cx grew Ecoli. Continue IV Rocephin Will transition to PO Augmentin on discharge on discharge (3) CAD (coronary artery disease): CAD S/p bare metal stents in 2008 on aspirin and plavix Had recent negative cardiac stress test in August 2020 with resting echo revealing preserved EF, no evidence of valvular disease ECG with ST changes in V3-V6 noted on previous EKG. Initial troponin negative. Continue trending, monitor on telemetry Continue aspirin, Plavix, statin, beta-saskia No acute cardiac symptoms (4) HTN (hypertension): Remains on the lower side of normal (5) CKD (chronic kidney disease), stage III: Creatinine remains normal and electrolytes are normal to (6) GERD (gastroesophageal reflux disease): (7) Hypothyroidism: (8) Dyslipidemia: (9) Depression: (10) NAN (obstructive sleep apnea): This is a 70yo F with a PMH of chronic anemia in setting of known hiatal hernia, Jhon's ulcers, gastritis, duodenitis in the past, CAD status post stent on aspirin and Plavix, esophageal dysmotility, CKD 3, hypertension, depression, NAN and other medical problems listed below who presents with symptomatic anemia. Hypertension Normotensive. Continue metoprolol tartrate with hold parameters BP remains lower side of normal Hypothyroidism Continue levothyroxine Hyperlipidemia Continue statin Depression Continue SSRI NAN Not currently using any CPAP and/or BiPAP DVT Ppx: SCDs only in setting of severe anemia Code status: FULL PCP: Pierce Dispo: Admitted to [facility]. Plan to return home once medically stable. Total Time Total Time Spent Total Time Spent (In Minutes): 35 minutes Total Time Includes: Examination of the Patient, Discharge Planning, Medication Reconciliation, Communication With Other Providers and Other Discharge Plan Discharge Items Patient Disposition: Home - Self-Care Reason For Visit: SOB, SEVERE ANEMIA, CP Discharge Diagnosis: Symptomatic anemia: UTI (urinary tract infection): CAD (coronary artery disease): HTN (hypertension): CKD (chronic kidney disease), stage III: Activity: Resume your previous activity Non-emergency contact: Primary Care Provider Call non-emergency contact if: you have any medication questions Follow-up/Referrals: Santiago Pelayo MD [Primary Care Provider] - (Date & Time 11/09/2020 11:20 AM Provider Santiago Pelayo MD Department [facility] ) Diet: Full liquid and Heart Healthy Addtl Attending Provider Instructions: Follow up with your primary care provider Dr. Pelayo on 11/09/2020 11:20 AM at the [facility] Continue Full liquid diet for today and tomorrow then advanced diet as tolerated Your physician will need to arrange for iron infusion Continue monitor CBC outpatient Complete the course of the antibiotic Pending Studies at Discharge: No Stand-Alone Forms: [facility] [employer], Work/School Release (Inpt), Smoking Cessation Medications and DC Order Prescriptions: Continued pantoprazole 40 mg Tablet,Delayed Release (Dr/Ec) 40 mg PO BID RF: 0 ezetimibe [Zetia] 10 mg Tablet 10 mg PO HS RF: 0 clopidogrel 75 mg Tablet 75 mg PO QAM RF: 0 levothyroxine 75 mcg Tablet 75 mcg PO QAM RF: 0 ferrous sulfate 325 mg (65 mg iron) tablet,delayed release (DR/EC) 325 mg PO BID RF: 0 rosuvastatin 40 mg Tablet 40 mg PO QAM RF: 0 citalopram 40 mg Tablet 20 mg PO BID RF: 0 aspirin 81 mg Tablet,Delayed Release (Dr/Ec) 81 mg PO QAM RF: 0 cholecalciferol (vitamin D3) [Vitamin D3] 2,000 unit Tablet 2,000 unit PO QAM RF: 0 isosorbide mononitrate 60 mg Tablet Extended Release 24 Hr 60 mg PO QAM RF: 0 metoprolol tartrate 50 mg Tablet 100 mg PO HS RF: 0 nitroglycerin 0.4 mg Tablet, Sublingual 0.4 mg sublingual UD PRN (Reason: Chest Pain) RF: 0 potassium chloride 10 mEq Capsule, Extended Release 10 meq PO DAILY PRN (Reason: Edema) RF: 0 furosemide 20 mg Tablet 20 mg PO DAILY PRN (Reason: Edema) RF: 0 sucralfate 1 gram Tablet 1 g PO BID RF: 0 ascorbic acid (vitamin C) [Vitamin C] 500 mg Capsule, Extended Release 500 mg PO Q12H RF: 0 Discharge Orders: Discharge Order (Routine); Ordered 11/05/20 Ordered By: Chiqui Benjamin Admission Data Admit Date/Time: 11/02/20 12:28 Attending Provider: Chiqui Benjamin Admit Provider: Brit Giron Primary Care Provider: Santiago Pelayo Other Providers: Brit Giorn ; Criss Austin Other Interventions: Discharge Summary Assessment (RN) Last Done: 11/05/20 13:52
== END 2020-11-05 15:07 | disposition home or self-care (01) | DRG 300 ==
LOC: ED 10:11 → 2W 12:28 → SUATTDRO 12:28 → 2W 13:49
DX: Z87.19 Personal history of other diseases of the digestive system; E78.5 Hyperlipidemia, unspecified; I25.10 Atherosclerotic heart disease of native coronary artery without angina pectoris; I12.9 Hypertensive chronic kidney disease with stage 1 through stage 4 chronic kidney disease, or unspecified chronic kidney disease; K44.9 Diaphragmatic hernia without obstruction or gangrene; E87.6 Hypokalemia; E03.9 Hypothyroidism, unspecified; D62 Acute posthemorrhagic anemia; F32.9 Major depressive disorder, single episode, unspecified; G47.33 Obstructive sleep apnea (adult) (pediatric); K92.2 Gastrointestinal hemorrhage, unspecified; Z87.891 Personal history of nicotine dependence; N39.0 Urinary tract infection, site not specified; Q27.30 Arteriovenous malformation, site unspecified; K21.9 Gastro-esophageal reflux disease without esophagitis; B96.20 Unspecified Escherichia coli [E. coli] as the cause of diseases classified elsewhere; N18.30 Chronic kidney disease, stage 3 unspecified; Z79.82 Long term (current) use of aspirin

== ENCOUNTER 2024-01-07 16:36 | Inpatient (IN) ==
--- OUTSIDE RECORDS SUMMARY | 2024-01-07 16:41 | External Medical Summary | Summary of Care ---
Author Name Unknown Organization [facility] Address [address] [place] [address] Phone [phone] Care Team Providers Care Packing Clerk Name Role Phone Santiago Pelayo MD Primary Care Provider Reason for Visit * Reason Comments Follow Up Knee Pain L knee * Precert (Within 30 days (routine)) - Authorized Specialty Diagnoses / Procedures Referred By Contac t Referred To Contact Orthopedics Diagnoses Unilateral primary osteoarthritis, left knee Procedures NE GEL-SYN INJECTION 0.1 MG Adama Herrera MD [address] [facility] [place] [address] Adama Herrera MD [address] [facility] [place] [address] Referral ID Status Reason Start Date Expiration Date V isits Requested Visits Authorized [id number] Authorized Precert 10/24/2023 07/02/[phone] Encounter Details Date Type Department Care Team (Latest Contact Info) Description 12/15/2023 2:15 PM EDT Office Visit Orthopaedics [facility] [address] [place] [address] Adama Herrera MD [address] [facility] [place] [address] Primary osteoarthritis of left knee* Allergies No known active allergiesdocumented as of this encounter (statuses as of 12/15/2023) Medications Medication Sig Dispensed Refills Start Date End Date Status Vitamin C 500 MG Oral Tablet (Ascorbic Acid)Indications:Iron deficiency anemia, unspecified iron deficiency anemia type Take by mouth 1 Tablet in the morning AND 1 Tablet before bedtime. Take along with Iron pill (Ferrous Sulfate). 60 Tablet 5 04/07/2022 Active Cetirizine HCl 10 MG Oral Tablet (ZyrTEC) Take 1 Tablet by mouth in the morning. 90 Tablet 1 08/11/2022 Active valACYclovir HCl 1 GM Oral Tablet (Valtrex) Take 2 Tablets by mouth in the morning and 2 Tablets before bedtime. for cold sores. 4 Tablet 11 08/11/2022 Active Citalopram Hydrobromide 40 MG Oral Tablet (CeleXA)Indications:M ajor depressive disorder, single episode, in remission (HCC) TAKE ONE TABLET BY MOUTH EVERY MORNING. 90 Tablet 3 12/29/2022 4 Active Potassium Chloride Gertrudis ER 10 MEQ Oral Tablet Extended ReleaseIndications:Hy pokalemia TAKE ONE TABLET BY MOUTH EVERY TIME YOU TAKE FUROSEMIDE 100 Tablet 3 10/26/2022 4 Active Metoprolol Succinate ER 50 MG Oral Tablet Extended Release 24 Hour (toPROL XL)Indications:Athero sclerosis of [place] coronary artery of [place] heart without angina pectoris Take 2 Tablets by mouth daily in the morning. 180 Tablet 3 04/07/2023 Active Ferrous Sulfate 325 (65 Fe) MG Oral Tablet (Feosol) TAKE ONE TABLET BY MOUTH TWICE A DAY IN THE MORNING AND BEFORE BEDTIME 200 Tablet 3 04/18/2023 4 Active Levothyroxine Sodium 75 MCG Oral Tablet (Levoxyl)Indications: Hypothyroidism, unspecified type TAKE 1 TABLET BY MOUTH DAILY AT LEAST 30 MINUTES PRIOR TO FIRST MEAL OF THE DAY OR OTHER MEDICATIONS 90 Tablet 3 07/24/2023 5 Active Pantoprazole Sodium 40 MG Oral Tablet Delayed Release (Protonix)Indications :Gastroesophageal reflux disease with esophagitis and hemorrhage TAKE ONE TABLET BY MOUTH TWICE A DAY 180 Tablet 3 07/24/2023 5 Active Isosorbide Mononitrate ER 60 MG Oral Tablet Extended Release 24 Hour (Imdur)Indications:S/ P angioplasty with stent TAKE ONE TABLET BY MOUTH EVERY MORNING 90 Tablet 3 07/24/2023 5 Active Clopidogrel Bisulfate 75 MG Oral Tablet (pLAVix)Indications:S /P angioplasty with stent,Atypical chest pain TAKE ONE TABLET BY MOUTH EVERY MORNING 90 Tablet 3 07/24/2023 5 Active Rosuvastatin Calcium 40 MG Oral Tablet (Crestor)Indications: Dyslipidemia, goal LDL below 70 TAKE ONE TABLET BY MOUTH EVERY MORNING 90 Tablet 3 07/24/2023 5 Active Ezetimibe 10 MG Oral Tablet (Zetia)Indications:Dy slipidemia, goal LDL below 70 TAKE ONE TABLET BY MOUTH EVERY DAY 90 Tablet 3 08/25/2023 5 Active traMADol HCl 50 MG Oral Tablet (Ultram)Indications:O steoarthritis of left knee, unspecified osteoarthritis type Take 1 Tablet by mouth every 6 hours as needed for Pain, Moderate. 30 Tablet 10/12/2023 Active Nitroglycerin 0.4 MG Sublingual Tablet Sublingual (Nitrostat)Indication s:Coronary atherosclerosis due to calcified coronary lesion PLACE 1 TABLET UNDER THE TONGUE EVERY 5 MINUTES UP TO 3 DOSES NEEDED FOR CHEST PAIN. 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 2 tabs daily for 1 week then 1 daily 12/06/2023 Active Zepbound 2.5 MG/0.5ML Subcutaneous Solution Auto-injector (Tirzepatide-Weight Management)Indication s:Morbid obesity with BMI of 40.0-44.9, adult (HCC) Inject 2.5mg once per week 6 mL 3 12/06/2023 Active Hospital, Clinic, or Other Facility Administered Medication Ordered Dose Route Frequency Start Date End Date Status sodium hyaluronate (Gelsyn-3) 16.8 MG/2ML inj 16.8 mgIndications:Primary osteoarthritis of left knee 16.8 mg IX ONCE 12/15/2023 12/15/19 24 Ended documented as of this encounter (statuses as of 12/15/2023) Active Problems Problem Noted Date Diagnosed Date Morbid obesity with BMI of 40.0-44.9, adult 12/2022 Peripheral vascular disease 09/02/2022 Other specified hypothyroidism 08/11/2022 Angiodysplasia of the colon 04/06/2022 Prediabetes 10/11/2021 Overview: Per Prediabetes protocol 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 stage 3a chronic kidney disease 11/10/2020 Overview: Per CKD protocol Stage 3a chronic kidney disease 05/11/2020 Overview: Per CKD protocol Major depressive disorder, single episode, in [place] 04/25/2019 Gastroesophageal reflux disease with esophagitis 04/25/2019 [place] (myocardial infarction) 04/25/2019 Overview: NSTEMI 06/2009 Celiac disease 04/25/2019 Hiatal hernia 12/27/2017 Iron deficiency anemia 06/21/2017 Atherosclerosis of [place] co ronary artery without angina pectoris 06/22/2015 Vitamin D deficiency 11/11/2014 Hypothyroidism 11/11/2014 Generalized OA 11/22/2011 Other specified forms of chronic ischemic heart disease 07/02/2009 DYSLIPIDEMIA, GOAL LDL BELOW 100 06/16/2009 Overview: Per Lipid Taxonomy. S/P angioplasty with stent 10/31/2008 ADVANCE DIRECTIVE INFORMATION 10/12/2005 Overview: No, Advance Directive brochure given to patient. The patient is reassured that these symptoms do not appear to represent a serious or threatening condition. REVIEWED BY Dianna Walls LPN HTN, goal below 140/90 12/21/2001 Menopause 12/21/2001 Sleep apnea documented as of this encounter (statuses as of 12/15/2023) Resolved Problems Problem Noted Date Diagnosed Date Resolved Date Morbid obesity with body mas s index (BMI) of 45.0 to 49.9 in adult 10/29/2018 04/04/2022 Overview: Body Mass Index: 40.10 kg/mAbnormal 1.651 m (5' 5") as of 02/09/2022 109.3 kg (241 lb) as of 02/09/2022 Prediabetes 07/16/2018 08/13/2020 Overview: Per Prediabetes protocol #1 Body mass index (BMI) of 45. 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 0 to 44.9 in adult 04/03/2017 04/16/2018 Overview: Per Obesity protocol #1 Kidney disease, chronic, sta ge III (GFR 30-59 ml/min) 12/05/2014 02/06/2015 Kidney disease, chronic, sta ge III (GFR 30-59 ml/min) 08/26/2013 05/14/2020 Overview: Per CKD protocol #1 Benign neoplasm of colon 08/15/2011 Overview: hyperplastic/repeat colonoscopy in 3 years Hypopotassemia 03/28/2010 12/13/2016 Elevation of level of transa minase or lactic acid dehydrogenase (LDH) 03/28/2010 12/13/2016 Obesity, morbid (more than 1 00 lbs over ideal weight or BMI > 40) 09/29/2009 12/13/2016 Overview: Per Obesity Taxonomy ICD-10 update of inactive term Benign neoplasm of colon 07/21/2009 Overview: adenomatous polyp--repeat 2 years Herpes zoster 07/02/2009 12/13/2016 EXAMINATION OF PARTICIPANT I N CLINICAL TRIAL-Genomics 10/22/2008 10/16/2009 Overview: Renamed Per Clinical Trials Billing Project. Study Titile: Genomic Markers for Patients with Cardiovascular Disease Project #[id number] PI: Alma Smiley MD Please call [phone] with study related questions GENOMICS CARDIO RESEARCH OTHER*[id number] 10/22/2008 08/09/2016 Overview: Renamed Per Clinical Trials Billing Project. Study Titile: Genomic Markers for Patients with Cardiovascular Disease Project #[id number] PI: Alma Smiley MD Please call [phone] with study related questions Benign neoplasm of colon 10/26/2007 Overview: hyperplastic; repeat colonoscopy in 1 yr ACUTE CYSTITIS 05/30/2006 08/28/2008 Overview: Resolved per Benign Acute Dxs Protocol #3 Abdominal pain, generalized 05/30/2006 12/13/2016 Nausea with vomiting 05/30/2006 017 Esophageal reflux 05/30/2006 05/29/2019 Overview: history Overweight (BMI 25.0-29.9) 05/30/2006 0 09/29/2009 Overview: Per Obesity Taxonomy Menopause 10/12/2005 07/31/2008 Overview: Resolved per Duplicate Protocol #2. Dyslipidemia, goal to be determined 10/12/2005 06/16/2009 Overview: Per Lipid Taxonomy. Cholecystitis 07/01/2003 12/13/2016 Overview: ICD-10 update of inactive term Family history of malignant neoplasm of ovary 12/11/1912/13/2016 Overview: mother COMMON MIGRAINE WITHOUT MENT ION OF INTRACTABLE MIGRAINE 10/29/2018 documented as of this encounter (statuses as of 12/15/2023) Immunizations Name Administration Dates Next Due COVID-19 mRNA, LNP-s, No Pre serve, 2-Dose Series (Pfizer) 09/04/2020 H1N1 2009 Influenza, IM 07/13/2009 Influenza, Whole Virus 04/12/1999 Pneumococcal Conjugate Vacc, 13 Valent (Prevnar) 12/13/2016 Pneumococcal Polysaccharide PPV23 (Pneumovax) 06/16/2017,01/05/2009 Seasonal Influenza, PF, 6 M & above, IM , (FluLaval or Fluzone) 03/31/2021,03/22/2018 03/22/2019 Seasonal Influenza, Quadriva lent Hd (Fluzone Hd) 04/07/2023,04/01/2022 Seasonal Influenza, Quadriva lent, No Preserve, IM 03/27/2020,03/27/2019,04/01/2017 Seasonal Influenza, Split, I IV3, With Preserve, Inj 03/25/2016,03/16/2015,03/11/2014,06/04,03/11/2013,03/15/2012,03/21/20 11,04/20/2010,04/14/2009,05/03/2008,1 08/13/1999 Seasonal Influenza, Trivalen t, High Dose, No Preserve, IM 03/27/2019 TDAP (age 10 and older)(Boostrix) 10/29/2018 TDAP, Age 7 and older, IM (Adacel) 01/05/2009 Varicella Zoster Vaccine (Adult) 03/07/2013 Zoster Vaccine Recombinant (Shingrix) 09/24/2021 ,12/04/2020 documented as of this encounter Social History Tobacco Use Types Packs/Day Years Used Date Smoking Tobacco: Former Cigarettes 0.5 10 0 01/20/1971 - 01/20/1981 Smokeless Tobacco: Never Alcohol Use Standard Drinks/Week Comments Yes 0 (1 standard drink = 0.6 oz pur e alcohol) rarely a beer or vodka PHQ-2 Answer Date Recorded PHQ Adult Total Score 0 04/06/2022 Hunger Vital Sign Answer Date Recorded Within the past 12 months, y ou worried that your food would run out before you got the money to buy more. Never true 04/06/20 22 Within the past 12 months, t he food you bought just didn't last and you didn't have money to get more. Never true 04/06/2022 Sex and Gender Information Value Date Recorded Sex Assigned at Female 10/29/2018 8:17 AM EDT Gender Identity Female 10/29/2018 8:17 AM EDT Sexual Orientation Straight 10/29/2018 8: 17 AM EDT Job Start Date Occupation Industry Not on file Not on file Not on file documented as of this encounter Progress Notes * Adama Herrera MD - 12/15/2023 1:58 PM EDT For procedure only visit Pt Name: Shani Newton Diagnosis: OA left knee. The patient is here for the Third of a series of Gelsyn injections. There is no sign of infection in the injected knee. A timeout was called immediately prior to the procedure, to confirm the correct patient, procedure,and site. The site was marked by the physician prior to the procedure. Site was identified: knee: Left Procedure: Under sterile fashion, a 2 ml vial of Gelsyn was injected intra- articularly into the knee. Patient tolerated this well. Assessment: OA LEFT knee. Plan: The patient will follow up in 1 Week for reinjection. Note: prior to injection limited aspiration into the syringe performed on the L knee showed straw color joint fluid confirming intra-articular location of needle for injection. Patient was already experience benefit. Telephone follow-up 6-8 weeks Adama Herrera MD 11/28/2023 2:54 PM documented in this encounter Nursing Notes * Eveline Stahl LPN - 12/15/2023 1:52 PM EDT -f/u L Knee -THIRD of a series Gelsyn injection -Pt denies pain today Susanne Will LPN documented in this encounter Plan of Treatment Upcoming Encounters Date Type Department Care Team (Late st Contact Info) Description 01/11/2024 7:15 AM EDT Imaging Radiology [facility] [address] [facility] [place] [id number] 02/09/2024 10:20 AM EDT Office Visit Nutrition & Weight Management, [facility] [place] [address] Yaneth Liu PA-C [address] [place] [address] 02/09/2024 3:45 PM EDT Telemedicine Orthopaedics [facility] [address] [place] [address] Adama Herrera MD [address] [place] [address] 02/27/2024 2:30 PM EDT Imaging Radiology, [place] [address] [facility], [place] [address] Health Maintenance Due Date Last Done Comments Cologuard 1996 Fecal Occult Blood Test 1996 Sigmoidoscopy 1996 COVID-19 Vaccine ( season) 2023 09/25/2020, 09/04/2020 Depression Monitoring 04/06/2023 04/06/2022 DXA Scan 06/06/2023 06/06/2016, 10/01, 10/13/2007 CKD HGB USE SMARTSET 03347 08/03/202308/03, 02/17/2022, 09/24/2021, Additional history exists HbA1c 08/03/2023 08/03/2022, 09/01, 08/11/2020, Additional history exists TSH 08/03/2023 08/03/2022, 09/01, 08/04/2020, Additional history exists Mammogram 10/11/2023 10/10/2022, 10/01, 07/05/2019, Additional history exists Albumin/Creatinine Ratio 12/02/2023 023, 11/09/2020, 10/29/2018, Additional history exists CKD PHOS USE SMARTSET [id number] 12/02/2023 06/0 07/2022, 07/09/2018, 06/16/2017, Additional history exists GFR 12/05/2023 06/05/2023, 0 07/2022, 08/03/2022, Additional history exists DTaP,Tdap,and Td Vaccines (3 - Td or Tdap) 10/29/2028 10/29/2018, 01/05/2009 Colonoscopy 08/18/2033 08/18/2023, 08/03, 02/22/2022, Additional history exists Colorectal Cancer Screening 08/18/2033 Pneumococcal Vaccine: 65+ Years Completed 06/16/2017, 12/13/2016, 01/05/2009 Zoster Vaccines Completed 09/24/2021, 10/2020, 03/07/2013 Influenza Vaccine (FLU shot) Completed 04/07/2023, 04/01/2022, 03/31/2021, Additional history exists RETIRED - COLONOSCOPY-ANNUAL AGES 18-100 Discontinued 08/18/2023, 08/18/2023, 02/22/2022, Additional history exists GARDASIL-HPV IMMUNIZATION SERIES Aged Out No longer eligible based on patient's age to complete this topic Hepatitis B Aged Out No longer eligi ble based on patient's age to complete this topic MENINGOCOCCAL (MENACTRA/MENVEO) Aged Out No longer eligible based on patient's age to complete this topic documented as of this encounter Medical Devices Implanted Type Area Air Traffic Coordinator Device Identifier Shelf Expiration Date Model / Serial / Lot Lens Intraoc 21.0 - [id number] - [id number] Implanted:Qty: 1 on 02/04/2020 by Cedric Drew MD at OR [facility] Left: Eye [employer] 08/02/2024 [id number] / [id number] / [id number] Lens Intraoc 21.0 - [id number] - [id number] Implanted:Qty: 1 on 02/13/2020 by Cedric Drew MD at OR [facility] Right: Eye [employer] 08/30/2024 [id number] / [id number] / [id number] Clip Quick 2.8mm 230cm - [id number] Implanted:Qty: 1 on 02/22/2022 by Criss Austin MD at ENDOSCOPY [facility] [employer] 05/02/2024 HX-202UR.A / / 1YK Clip Quick 2.8mm 230cm - [id number] Implanted:Qty: 1 on 02/22/2022 by Criss Austin MD at ENDOSCOPY [facility] [employer] 05/02/2024 HX-202UR.A / / 1YK Clip Quick 2.8mm 230cm - [id number] Implanted:Qty: 1 on 02/22/2022 by Criss Austin MD at ENDOSCOPY [facility] [employer] 05/02/2024 HX-UR.A / / YK Clip Quick 2.8mm 230cm - [id number] Implanted:Qty: 1 on 02/22/2022 by Criss Austin MD at ENDOSCOPY [facility] [employer] 05/02/2024 HX-UR.A / / 1YK Clip Quick 2.8mm 230cm - [id number] Implanted:Qty: 1 on 02/22/2022 by Criss Austin MD at ENDOSCOPY [facility] [employer] 05/02/2024 HX-UR.A / / YK Clip Quick 2.8mm 230cm - [id number] Implanted:Qty: 1 on 02/22/2022 by Criss Austin MD at ENDOSCOPY [facility] [employer] 05/02/2024 HX-UR.A / / [id number] documented as of this encounter Visit Diagnoses Diagnosis Primary osteoarthritis of left knee- Primary Primary localized osteoarthrosis, lower leg documented in this encounter Administered Medications Inactive Administered Medications - up to 3 most recent administrations Medication Order MAR Action Action Date Dose Rate Site sodium hyaluronate (Gelsyn-3) 16.8 MG/2ML inj 16.8 mg 16.8 mg, Intra-Articular, ONCE, On Mon12/15/23 at 1430, For 1 dose Given 12/15/2023 2:17 PM EDT 16.8 mg K nee Left documented in this encounter Advance Directives * Full Code (Latest Code Status on File) Date Activated Date Inactivated Comments 10/31/2008 10:26 AM 11/01/2008 3:23 PM Care Teams Packing Clerk Relationship Specialty Start Date End Date Santiago Pelayo MD [address] [place] [address] PCP - General Family Medicine 08/27/18 documented as of this encounter
--- OUTSIDE RECORDS SUMMARY | 2024-01-07 16:41 | External Medical Summary | Summary of Care ---
Author Name Unknown Organization [facility] Address [address] [place] [address] Phone [phone] Care Team Providers Care Letter Stamping Machine Operator Name Role Phone Santiago Pelayo MD Primary Care Provider Reason for Visit * Reason Comments Follow Up L knee * Precert (Within 30 days (routine)) - Authorized Specialty Diagnoses / Procedures Referred By Contac t Referred To Contact Orthopedics Diagnoses Unilateral primary osteoarthritis, left knee Procedures OH GEL-SYN INJECTION 0.1 MG Adama Herrera MD [address] [place] [address] Adama Herrera MD [address] [place] [address] Referral ID Status Reason Start Date Expiration Date V isits Requested Visits Authorized [id number] Authorized Precert 10/24/2023 07/02/2099 [id number] Encounter Details Date Type Department Care Team (Latest Contact Info) Description 12/05/2023 2:15 PM EDT Office Visit Orthopaedics [facility] [address] [place] [address] Adama Herrera MD [address] [place] [address] Primary osteoarthritis of left knee* Allergies No known active allergiesdocumented as of this encounter (statuses as of 12/18/2023) Medications Medication Sig Dispensed Refills Start Date End Date Status Vitamin C 500 MG Oral Tablet (Ascorbic Acid)Indications:Ir on deficiency anemia, unspecified iron deficiency anemia type Take by mouth 1 Tablet in the morning AND 1 Tablet before bedtime. Take along with Iron pill (Ferrous Sulfate). 60 Tablet 5 2 Active Cetirizine HCl 10 MG Oral Tablet (ZyrTEC) Take 1 Tablet by mouth in the morning. 90 Tablet 1 3 Active valACYclovir HCl 1 GM Oral Tablet (Valtrex) Take 2 Tablets by mouth in the morning and 2 Tablets before bedtime. for cold sores. 4 Tablet 11 3 Active Citalopram Hydrobromide 40 MG Oral Tablet (CeleXA)Indications :Major depressive disorder, single episode, in remission (HCC) TAKE ONE TABLET BY MOUTH EVERY MORNING. 90 Tablet 3 3 01/28/20 24 Active Potassium Chloride Gertrudis ER 10 MEQ Oral Tablet Extended ReleaseIndications: Hypokalemia TAKE ONE TABLET BY MOUTH EVERY TIME YOU TAKE FUROSEMIDE 100 Tablet 3 3 01/05/20 24 Active Metoprolol Succinate ER 50 MG Oral Tablet Extended Release 24 Hour (toPROL XL)Indications:Athe rosclerosis of [place] coronary artery of [place] heart without angina pectoris Take 2 Tablets by mouth daily in the morning. 180 Tablet 3 3 Active Ferrous Sulfate 325 (65 Fe) MG Oral Tablet (Feosol) TAKE ONE TABLET BY MOUTH TWICE A DAY IN THE MORNING AND BEFORE BEDTIME 200 Tablet 3 3 04/17/20 24 Active Levothyroxine Sodium 75 MCG Oral Tablet (Levoxyl)Indication s:Hypothyroidism, unspecified type TAKE 1 TABLET BY MOUTH DAILY AT LEAST 30 MINUTES PRIOR TO FIRST MEAL OF THE DAY OR OTHER MEDICATIONS 90 Tablet 3 4 07/23/19 25 Active Pantoprazole Sodium 40 MG Oral Tablet Delayed Release (Protonix)Indicatio ns:Gastroesophageal reflux disease with esophagitis and hemorrhage TAKE ONE TABLET BY MOUTH TWICE A DAY 180 Tablet 3 4 07/23/19 25 Active Isosorbide Mononitrate ER 60 MG Oral Tablet Extended Release 24 Hour (Imdur)Indications: S/P angioplasty with stent TAKE ONE TABLET BY MOUTH EVERY MORNING 90 Tablet 3 4 07/23/19 25 Active Clopidogrel Bisulfate 75 MG Oral Tablet (pLAVix)Indications :S/P angioplasty with stent,Atypical chest pain TAKE ONE TABLET BY MOUTH EVERY MORNING 90 Tablet 3 4 07/23/19 25 Active Rosuvastatin Calcium 40 MG Oral Tablet (Crestor)Indication s:Dyslipidemia, goal LDL below 70 TAKE ONE TABLET BY MOUTH EVERY MORNING 90 Tablet 3 4 07/23/19 25 Active Ezetimibe 10 MG Oral Tablet (Zetia)Indications: Dyslipidemia, goal LDL below 70 TAKE ONE TABLET BY MOUTH EVERY DAY 90 Tablet 3 4 08/24/19 25 Active traMADol HCl 50 MG Oral Tablet (Ultram)Indications :Osteoarthritis of left knee, unspecified osteoarthritis type Take 1 Tablet by mouth every 6 hours as needed for Pain, Moderate. 30 Tablet 4 Active Nitroglycerin 0.4 MG Sublingual Tablet Sublingual (Nitrostat)Indicati ons:Coronary atherosclerosis due to calcified coronary lesion PLACE 1 TABLET UNDER THE TONGUE EVERY 5 MINUTES UP TO 3 DOSES NEEDED FOR CHEST PAIN. IF NO RELIEF CALL 911 OR GO TO ER 75 Tablet 1 4 Active Vitamin D3 1.25 MG (24458 UT) Oral CapsuleIndications: Hypovitaminosis D TAKE 1 CAPSULE BY MOUTH WEEKLY 12 Capsule 1 4 11/04/19 25 Active buPROPion HCl ER (XL) 300 MG Oral Tablet Extended Release 24 Hour (Wellbutrin XL)Indications:Adriana r depressive disorder, single episode, in remission (HCC) TAKE ONE TABLET BY MOUTH EVERY MORNING 90 Tablet 1 4 11/06/19 25 Active Furosemide 20 MG Oral Tablet (Lasix)Indications: Atypical chest pain,Edema of both lower legs due to peripheral venous insufficiency TAKE ONE TABLET BY MOUTH EVERY DAY NEEDED FOR FLUID RETENTION 100 Tablet 3 3 12/06/19 24 Discontinued Hospital, Clinic, or Other Facility Administered Medication Ordered Dose Route Frequency Start Date End Date Status sodium hyaluronate (Gelsyn-3) 16.8 MG/2ML inj 16.8 mgIndications:Primary osteoarthritis of left knee 16.8 mg IX ONCE 12/05/2023 12/05/2023 Discontinued documented as of this encounter (statuses as of 12/18/2023) Active Problems Problem Noted Date Diagnosed Date [...] Gastroesophageal reflux disease with esophagitis 04/25/2019 Old [place] (myocardial infarction) 04/25/2019 Overview: NSTEMI 06/2009 Celiac disease 04/25/2019 Hiatal hernia 12/27/2017 Iron deficiency anemia 06/21/2017 Atherosclerosis of [place] co ronary artery without angina pectoris 06/22/2015 [...] as of this encounter (statuses as of 12/18/2023) Resolved Problems Problem Noted Date Diagnosed Date [...] Markers for Patients with Cardiovascular Disease Project #[id number] PI: Alma Smiley MD Please call [phone] with study related questions GENOMICS CARDIO RESEARCH OTHER*[id number] 10/22/2008 08/09/2016 Overview: Renamed Per Clinical Trials Billing Project. Study Titile: Genomic Markers for Patients with Cardiovascular Disease Project #[id number] PI: Alma Smiley MD Please call [phone] with study related questions Benign neoplasm of [...] as of this encounter (statuses as of 12/18/2023) Immunizations Name Administration Dates Next Due COVID-19 mRNA, LNP-s, No Pre serve, 2-Dose Series (Hunite) 09/04/2020 H1N1 2009 Influenza, IM 07/13/2009 Influenza, [...] Progress Notes * Adama Herrera MD - 12/05/2023 2:15 PM EDT For procedure only visit Pt Name: Shani Newton Diagnosis: OA left knee. The patient is here for the SECOND of a series of Gelsyn injections. There [...] confirming intra-articular location of needle for injection. Adama Herrera MD 11/28/2023 2:54 PM documented in this encounter Nursing Notes * Eveline Stahl LPN - 12/05/2023 2:17 PM EDT R knee Gelsyn injection today Susanne Will LPN * Eveline Stahl LPN - 12/05/2023 2:04 PM EDT -f/u L Knee -10/02/23 steroid injection -SECOND of a series Gelsyn injection -Pt DENIES pain today L knee -Pt is unaccompanied today Susanne Will LPN documented in this encounter Miscellaneous Notes * Addendum Note - Eveline Stahl LPN - 12/05/2023 2:19 PM EDTAddended by: EVELINE STAHL on: 12/05/2023 02:19 PM Modules accepted: Orders documented in this encounter Plan of Treatment Upcoming Encounters Date Type Department Care Team (Late st Contact Info) Description 01/11/2024 7:15 AM EDT [facility] [address] [facility] [place] [address] 02/09/2024 10:20 AM EDT Office Visit Nutrition & Weight Management, [facility] [address] [facility] [place] [address] Yaneth Liu PA-C [address] [place] [address] 02/09/2024 3:45 PM EDT Telemedicine Orthopaedics [facility] [address] [facility] [place] [address] Adama Herrera MD [address] [place] [address] 02/27/2024 2:30 PM EDT Imaging Radiology, [place] [id number] [place] [address] Health Maintenance Due Date Last Done Comments Cologuard 1996 Fecal Occult Blood Test 1996 Sigmoidoscopy 1996 COVID-19 Vaccine ( season) 2023 09/25/2020, 09/04/2020 Depression Monitoring 04/06/2023 04/06/2022 DXA Scan 06/06/2023 06/06/2016, 10/01, 10/13/2007 CKD HGB USE SMARTSET 56289 08/03/202308/03, 02/17/2022, 09/24/2021, Additional history exists HbA1c 08/03/2023 08/03/2022, 2 10/2021, 08/11/2020, Additional history exists TSH 08/03/2023 08/03/2022, 09/01, 08/04/2020, Additional history exists Mammogram 10/11/2023 10/10/2022, 10/01, 07/05/2019, Additional history exists Albumin/Creatinine Ratio 12/02/2023 023, 11/09/2020, 10/29/2018, Additional history exists CKD PHOS USE SMARTSET 74143 12/02/2023 060 07/2022, 07/09/2018, 06/16/2017, Additional history exists GFR 12/05/2023 06/05/2023, 07/2022, 08/03/2022, Additional history exists DTaP,Tdap,and Td [...] this encounter Medical Devices Implanted Type Area Wood Heel Flap Inserter Device Identifier Shelf Expiration Date Model / Serial / Lot Lens Intraoc 21.0 - [id number] - [id number] Implanted:Qty: 1 on 02/04/2020 by Cedric Drew MD at OR [facility] Left: Eye [employer] 08/02/2024 [id number] / [id number] / [id number] Lens Intraoc 21.0 - [id number] - [id number] Implanted:Qty: 1 on 02/13/2020 by Cedric Drew MD at [facility] Right: Eye [employer] 08/30/2024 [id number] / [id number] / [id number] Clip Quick 2.8mm 230cm - [id number] Implanted:Qty: 1 on 02/22/2022 by Criss Austin MD at ENDOSCOPY [facility] [employer] [facility] 05/02/2024-UR.A / / 1YK Clip Quick 2.8mm 230cm - [id number] Implanted:Qty: 1 on 02/22/2022 by Criss Austin MD at ENDOSCOPY [facility] [employer] [facility] 05/02/2024-UR.A / / 1YK Clip Quick 2.8mm 230cm - [id number] Implanted:Qty: 1 on 02/22/2022 by Criss Austin MD at ENDOSCOPY [facility] [employer] [facility] 05/02/2024-UR.A / / 1YK Clip Quick 2.8mm 230cm - [id number] Implanted:Qty: 1 on 02/22/2022 by Criss Austin MD at ENDOSCOPY [facility] [employer] [facility] 05/02/2024-UR.A / / 1YK Clip Quick 2.8mm 230cm - [id number] Implanted:Qty: 1 on 02/22/2022 by Criss Austin MD at ENDOSCOPY [facility] [employer] [facility] 05/02/2024 HX-UR.A / / 1YK Clip Quick 2.8mm 230cm - [id number] Implanted:Qty: 1 on 02/22/2022 by Criss Austin MD at ENDOSCOPY [facility] [employer] [facility] 05/02/2024 HX-202UR.A YK documented as of this encounter Visit Diagnoses Diagnosis Primary osteoarthritis of left knee- Primary Primary localized osteoarthrosis, lower leg documented in this encounter Advance Directives * Full Code (Latest Code Status on File) Date Activated Date Inactivated Comments 10/31/2008 10:26 AM 11/01/2008 3:23 PM Care Teams Letter Stamping Machine Operator Relationship Specialty Start Date End Date Santiago Pelayo MD [address] [place] [address] PCP - General Family Medicine 08/27/18 documented as of this encounter
--- OUTSIDE RECORDS SUMMARY | 2024-01-07 16:41 | External Medical Summary | Summary of Care ---
Author Name Unknown Organization [facility] Address [address] [place] [place] [place] [address] Phone [phone] Care Team Providers Care Soil Sampler Name Role Phone Ranjith Pelayo MD Primary Care Provider [phone] Reason for Visit * Reason Comments Medication Refill Encounter Details Date Type Department Care Team (Late st Contact Info) Description 12/28/2023 Refill Cardiology, [facility] [address] [facility] [place] [address] Ranjith Loera PA-C [address] [place] [address] Hypokalemia Allergies No known active allergiesdocumented as of this encounter (statuses as of 12/28/2023) Medications Medication Sig Dispensed Refills Start Date End Date Status Vitamin C 500 MG Oral Tablet (Ascorbic Acid)Indications:Iro n deficiency anemia, unspecified iron deficiency anemia type [...] Active Citalopram Hydrobromide 40 MG Oral Tablet (CeleXA)Indications: Major depressive disorder, single episode, in remission (HCC) TAKE ONE TABLET BY MOUTH EVERY MORNING. 90 Tablet 3 12/29/2022 01/28/20 24 Active Metoprolol Succinate ER 50 MG Oral Tablet Extended Release 24 Hour (toPROL XL)Indications:Ather osclerosis of [place] coronary artery of [place] heart without angina pectoris Take 2 Tablets by mouth daily in the morning. 180 Tablet 3 04/07/2023 Active Ferrous Sulfate 325 (65 Fe) MG Oral Tablet (Feosol) TAKE ONE TABLET BY MOUTH TWICE A DAY IN THE MORNING AND BEFORE BEDTIME 200 Tablet 3 04/18/2023 04/17/20 24 Active Levothyroxine Sodium 75 MCG Oral Tablet (Levoxyl)Indications :Hypothyroidism, unspecified type TAKE 1 TABLET BY MOUTH DAILY AT LEAST 30 MINUTES PRIOR TO FIRST MEAL OF THE DAY OR OTHER MEDICATIONS 90 Tablet 3 07/24/2023 07/23/19 25 Active Pantoprazole Sodium 40 MG Oral Tablet Delayed Release (Protonix)Indication s:Gastroesophageal reflux disease with esophagitis and hemorrhage TAKE ONE TABLET BY MOUTH TWICE A DAY 180 Tablet 3 07/24/2023 07/23/19 25 Active Isosorbide Mononitrate ER 60 MG Oral Tablet Extended Release 24 Hour (Imdur)Indications:S /P angioplasty with stent TAKE ONE TABLET BY MOUTH EVERY MORNING 90 Tablet 3 07/24/2023 07/23/19 25 Active Clopidogrel Bisulfate 75 MG Oral Tablet (pLAVix)Indications: S/P angioplasty with stent,Atypical chest pain TAKE ONE TABLET BY MOUTH EVERY MORNING 90 Tablet 3 07/24/2023 07/23/19 25 Active Rosuvastatin Calcium 40 MG Oral Tablet (Crestor)Indications :Dyslipidemia, goal LDL below 70 TAKE ONE TABLET BY MOUTH EVERY MORNING 90 Tablet 3 07/24/2023 07/23/19 25 Active Ezetimibe 10 MG Oral Tablet (Zetia)Indications:D yslipidemia, goal LDL below 70 TAKE ONE TABLET BY MOUTH EVERY DAY 90 Tablet 3 08/25/2023 08/24/19 25 Active traMADol HCl 50 MG Oral Tablet (Ultram)Indications: Osteoarthritis of left knee, unspecified osteoarthritis type Take 1 Tablet by mouth every 6 hours as needed for Pain, Moderate. 30 Tablet 10/12/2023 Active Nitroglycerin 0.4 MG Sublingual Tablet Sublingual (Nitrostat)Indicatio ns:Coronary atherosclerosis due to calcified coronary lesion PLACE 1 TABLET UNDER THE TONGUE EVERY 5 MINUTES UP TO 3 DOSES NEEDED FOR CHEST PAIN. IF NO RELIEF CALL 911 OR GO TO ER 75 Tablet 1 10/12/2023 Active Vitamin D3 1.25 MG (64544 UT) Oral CapsuleIndications:H ypovitaminosis D TAKE 1 CAPSULE BY MOUTH WEEKLY 12 Capsule 1 11/04/2023 11/04/19 25 Active buPROPion HCl ER (XL) 300 MG Oral Tablet Extended Release 24 Hour (Wellbutrin XL)Indications:Major depressive disorder, single episode, in remission (HCC) TAKE ONE TABLET BY MOUTH EVERY MORNING 90 Tablet 1 11/06/2023 11/06/19 25 Active Furosemide 20 MG Oral Tablet (Lasix)Indications:A typical chest pain,Edema of both lower legs due to peripheral venous insufficiency 2 tabs daily for 1 week then 1 daily 12/06/2023 Active Zepbound 2.5 MG/0.5ML Subcutaneous Solution Auto-injector (Tirzepatide-Weight Management)Indicatio ns:Morbid obesity with BMI of 40.0-44.9, adult (HCC) Inject 2.5mg once per week 6 mL 3 12/06/2023 Active Potassium Chloride Gertrudis ER 10 MEQ Oral Tablet Extended ReleaseIndications:H ypokalemia TAKE ONE TABLET BY MOUTH EVERY TIME YOU TAKE FUROSEMIDE 100 Tablet 3 12/28/2023 12/28/19 25 Active Potassium Chloride Gertrudis ER 10 MEQ Oral Tablet Extended ReleaseIndications:H ypokalemia TAKE ONE TABLET BY MOUTH EVERY TIME YOU TAKE FUROSEMIDE 100 Tablet 3 10/26/2022 12/28/19 24 Discontinu ed(Refill) documented as of this encounter (statuses as of 12/28/2023) Active Problems Problem Noted Date Diagnosed Date [...] Gastroesophageal reflux disease with esophagitis 04/25/2019 Old [place] (myocardial infarction) 04/25/2019 Overview: NSTEMI 06/2009 Celiac disease 04/25/2019 Hiatal hernia 12/27/2017 Iron deficiency anemia 06/21/2017 Atherosclerosis of [place] co ronary artery without angina pectoris 06/22/2015 [...] as of this encounter (statuses as of 12/28/2023) Resolved Problems Problem Noted Date Diagnosed Date [...] Markers for Patients with Cardiovascular Disease Project #[id number] PI: Alma Smiley MD Please call [phone] with study related questions GENOMICS CARDIO RESEARCH OTHER*[id number] 10/22/2008 08/09/2016 Overview: Renamed Per Clinical Trials Billing Project. Study Titile: Genomic Markers for Patients with Cardiovascular Disease Project #[phone] PI: Alma Smiley MD Please call [phone] with study related questions Benign neoplasm of [...] as of this encounter (statuses as of 12/28/2023) Immunizations Name Administration Dates Next Due COVID-19 mRNA, LNP-s, No Pre serve, 2-Dose Series (OraMetrix) 09/04/2020 H1N1 2009 Influenza, IM 07/13/2009 Pneumococcal Conjugate Vacc, 13 Valent (Prevnar) 12/13/2016 Pneumococcal Polysaccharide PPV23 (Pneumovax) 06/16/2017,01/05/2009 Seasonal Influenza, PF, 6 M & above, IM , (FluLaval or Fluzone) 03/31/2021,03/22/2018 03/22/2019 Seasonal Influenza, Quadriva lent Hd (Fluzone Hd) 04/07/2023,04/01/2022 Seasonal Influenza, Quadriva lent, No Preserve, IM 03/27/2020,03/27/2019,04/01/2017 Seasonal Influenza, Split, I IV3, With Preserve, Inj 03/25/2016,03/16/2015,03/11/2014,06/04,03/11/2013,03/15/2012,03/21/20 11,04/20/2010,04/14/2009,05/03/2008 Seasonal Influenza, Trivalen t, High Dose, No [...] on file documented as of this encounter Miscellaneous Notes * Telephone Encounter - Ranjith Loera PA-C - 12/28/2023 9:06 AM EDTSigned Prescriptions: Disp Refills Potassium Chloride Gertrudis ER 10 MEQ Oral Tab*100 Ta*3 Sig: TAKE ONE TABLET BY MOUTH EVERY TIME YOU TAKE FUROSEMIDE Authorizing Provider: RANJITH LOERA S * Telephone Encounter - Lilliam Castillo CMA - 12/28/2023 8:21 AM EDTPending Prescriptions: Disp Refills Potassium Chloride Gertrudis ER 10 MEQ Oral Tab*100 Ta*3 Sig: TAKE ONE TABLET BY MOUTH EVERY TIME YOU TAKE FUROSEMIDE * Telephone Encounter - Lilliam Castillo CMA - 12/28/2023 8:20 AM EDT Did you pend patient's preferred pharmacy and medication before forwarding?yes Pharmacy: [facility] Pending Prescriptions: Disp Refills Potassium Chloride Gertrudis ER 10 MEQ Oral Ta*100 Ta*3 Sig: TAKE ONE TABLET BY MOUTH EVERY TIME YOU TAKE FUROSEMIDE Last Visit: 08/04/2023 (in office), 08/04/2020 (telemedicine) Next Visit: Visit date not found If no future appointments scheduled, and last appointment is greater than a year ago, please schedule patient for a follow-up appointment Last date the medication was ordered: 10-26-2022 Is this request for a controlled substance?No Urine Drug Screen:No results found. However, due to the size of the patient record, not all encounters were searched. Please check Results Review for a complete set of results. Patient Phone Numbers Labs: Lab Results Component Value Date/Time CREAT 1.1 (H) 06/05/2023 12:49 PM CREAT 1.2 (H) 02/28/2020 08:35 AM POTASSIUM 3.9 06/05/2023 12:49 PM POTASSIUM 4.2 02/28/2020 08:35 AM POTASSIUM 4.5 09/30/1996 11:10 AM TSH 2.37 08/03/2022 08:33 AM TSH 3.93 12/19/2018 03:32 PM TSH 3.88 09/30/1996 11:10 AM LDLCALC 128 12/01/2022 09:26 AM LDLCALC 160 (H) 07/09/2018 07:39 AM LDLDIRECT 114 02/17/2022 12:29 PM LDLDIRECT 172 (H) 02/28/2020 08:35 AM ALT 21 06/05/2023 12:49 PM ALT 29 02/28/2020 08:35 AM HGBA1C 5.8 (H) 08/03/2022 08:33 AM HGBA1C 5.6 02/28/2020 08:34 AM documented in this encounter Plan of Treatment Upcoming Encounters Date Type Department Care Team (Late st Contact Info) Description 01/11/2024 7:15 AM EDT [facility] [address] [place] [address] 02/09/2024 10:20 AM EDT Office Visit Nutrition & Weight Management, [facility] [address] [place] [address] Yaneth Liu PA-C [address] [place] [address] 02/09/2024 3:45 PM EDT Telemedicine Orthopaedics [facility] [address] [place] [address] Adama Herrera MD [address] [place] [address] 02/27/2024 2:30 PM EDT [address] [address] Health Maintenance Due Date Last Done Comments Cologuard 1996 Fecal Occult Blood Test 1996 Sigmoidoscopy 1996 COVID-19 Vaccine (3 2022- season) 2023 09/25/2020, 09/04/2020 Depression Monitoring 04/06/2023 04/06/2022 DXA Scan 06/06/2023 06/06/2016, 10/01, 10/13/2007 CKD HGB USE SMARTSET 13417 08/03/202308/03, 02/17/2022, 09/24/2021, Additional history exists HbA1c 08/03/2023 08/03/2022, 09/01, 08/11/2020, Additional history exists TSH 08/03/2023 08/03/2022, 09/01, 08/04/2020, Additional history exists Mammogram 10/11/2023 10/10/2022, 10/01, 07/05/2019, Additional history exists Albumin/Creatinine Ratio 12/02/2023 023, 11/09/2020, 10/29/2018, Additional history exists CKD PHOS USE SMARTSET 00909 12/02/2023 06/0 07/2022, 07/09/2018, 06/16/2017, Additional history exists GFR 12/05/2023 06/05/2023, 06/0 07/2022, 08/03/2022, Additional history exists DTaP,Tdap,and Td Vaccines (3 - Td or Tdap) 10/29/2028 10/29/2018, 01/05/2009 Colonoscopy 08/18/2033 08/18/2023, 08/03, 02/22/2022, Additional history exists Colorectal Cancer Screening 08/18/2033 Pneumococcal Vaccine: 65+ Years Completed 06/16/2017, 12/13/2016, 01/05/2009 Zoster Vaccines Completed 09/24/2021, 060 10/2020, 03/07/2013 Influenza Vaccine (FLU shot) Completed [...] this encounter Medical Devices Implanted Type Area Downstream Biomanufacturing Technician Device Identifier Shelf Expiration Date Model / Serial / Lot Lens Intraoc 21.0 - [id number] - [id number] Implanted:Qty: 1 on 02/04/2020 by Cedric Drew MD at [facility] Left: Eye [employer] 08/02/2024 [id number] / [id number] / [id number] Lens Intraoc 21.0 - [id number] - [id number] Implanted:Qty: 1 on 02/13/2020 by Cedric Drew MD at [facility] Right: Eye [employer] 08/30/2024 [id number] / [id number] / [id number] Clip Quick 2.8mm 230cm - [id number] Implanted:Qty: 1 on 02/22/2022 by Criss Austin MD at ENDOSCOPY [facility] [employer] 05/02/2024 HX-202UR.A / / 1YK Clip Quick 2.8mm 230cm - [id number] Implanted:Qty: 1 on 02/22/2022 by Criss Austin MD at ENDOSCOPY [facility] [employer] 05/02/2024 HX-202UR.A / / 1YK Clip Quick 2.8mm 230cm - [id number] Implanted:Qty: 1 on 02/22/2022 by Criss Austin MD at ENDOSCOPY [facility] [employer] 05/02/2024 HX-UR.A / / 1YK Clip Quick 2.8mm 230cm - [id number] Implanted:Qty: 1 on 02/22/2022 by Criss Austin MD at ENDOSCOPY [facility] [employer] 05/02/2024 HX-202UR.A / / 1YK Clip Quick 2.8mm 230cm - [id number] Implanted:Qty: 1 on 02/22/2022 by Criss Austin MD at ENDOSCOPY [facility] Colon [employer] 05/02/2024 HX-202UR.A / / 1YK Clip Quick 2.8mm 230cm - [id number] Implanted:Qty: 1 on 02/22/2022 by Criss Austin MD at ENDOSCOPY [facility] Colon [employer] 05/02/2024 HX-202UR.A / / [id number] documented as of this encounter Visit Diagnoses Diagnosis Hypokalemia Hypopotassemia documented in this encounter Advance Directives * Full Code (Latest Code Status on File) Date Activated Date Inactivated Comments 10/31/2008 10:26 AM 11/01/2008 3:23 PM Care Teams Soil Sampler Relationship Specialty Start Date End Date Ranjith Pelayo MD [address] [place] [address] PCP - General Family Medicine 08/27/18 documented as of this encounter
--- OUTSIDE RECORDS SUMMARY | 2024-01-07 16:41 | External Medical Summary | Summary of Care ---
Author Name Unknown Organization [facility] Address [address] [place] [address] Phone [phone] Care Team Providers Care Cementer Hand Name Role Phone Santiago Pelayo MD Primary Care Provider Reason for Visit * Reason Comments Follow Up L knee * Precert (Within 30 days (routine)) - Authorized Specialty Diagnoses / Procedures Referred By Contac t Referred To Contact Orthopedics Diagnoses Unilateral primary osteoarthritis, left knee Procedures [place] GEL-SYN INJECTION 0.1 MG Kelsie Herrera MD [address] [place] [address] Kelsie Herrera MD [address] [place] [address] Referral ID Status Reason Start Date Expiration Date V isits Requested Visits Authorized [id number] Authorized Precert 10/24/2023 07/02/[phone] Encounter Details Date Type Department Care Team (Latest Contact Info) Description 12/05/2023 2:15 PM EDT Office Visit Orthopaedics [facility] [address] [place] [address] Kelsie Herrera MD [address] [place] [address] Primary osteoarthritis of left knee* Allergies No known active allergiesdocumented as of this encounter (statuses as of 12/19/2023) Medications Medication Sig Dispensed Refills Start Date [...] Release 24 Hour (toPROL XL)Indications:Athe rosclerosis of [place] coronary artery of [place] heart without angina pectoris Take 2 Tablets [...] 1 4 Active Vitamin D3 1.25 MG (76874 UT) Oral CapsuleIndications: Hypovitaminosis D TAKE 1 [...] of left knee 16.8 mg IX ONCE 12/19/2023 12/19/2023 Active sodium hyaluronate (Gelsyn-3) 16.8 MG/2ML inj 16.8 mgIndications:Primary osteoarthritis of left knee 16.8 mg IX ONCE 12/05/2023 12/05/2023 Discontinued documented as of this encounter (statuses as of 12/19/2023) Active Problems Problem Noted Date Diagnosed Date [...] Gastroesophageal reflux disease with esophagitis 04/25/2019 Old [place] (myocardial infarction) 04/25/2019 Overview: NSTEMI 06/2009 Celiac disease 04/25/2019 Hiatal hernia 12/27/2017 Iron deficiency anemia 06/21/2017 Atherosclerosis of [place] co ronary artery without angina pectoris 06/22/2015 [...] as of this encounter (statuses as of 12/19/2023) Resolved Problems Problem Noted Date Diagnosed Date [...] Markers for Patients with Cardiovascular Disease Project #[id number] PI: Alma Smiley MD Please call [phone] with study related questions GENOMICS CARDIO RESEARCH OTHER*[id number] 10/22/2008 08/09/2016 Overview: Renamed Per Clinical Trials Billing Project. Study Titile: Genomic Markers for Patients with Cardiovascular Disease Project #[id number] PI: Alma Smiley MD Please call [phone] with study related questions Benign neoplasm of [...] as of this encounter (statuses as of 12/19/2023) Immunizations Name Administration Dates Next Due COVID-19 [...] as of this encounter Progress Notes * Kelsie Herrera MD - 12/05/2023 2:15 PM EDT [...] confirming intra-articular location of needle for injection. Kelsie Herrera MD 11/28/2023 2:54 PM documented in [...] encounter Miscellaneous Notes * Addendum Note - Kelsie Herrera MD - 12/19/2023 10:32 AM EDT Addended by: KELSIE HERRERA on: 12/19/2023 10:32 AM Modules accepted: Orders * Addendum Note - Eveline Stahl LPN - 12/18/2023 8:23 AM EDTAddended by: EVELINE STAHL on: 12/18/2023 08:23 AM Modules accepted: Orders * Addendum Note - Eveline Stahl LPN - 12/05/2023 2:19 PM EDTAddended by: EVELINE STAHL on: 12/05/2023 02:19 PM Modules accepted: Orders documented in this encounter Plan of Treatment Upcoming Encounters Date Type Department Care Team (Late st Contact Info) Description 01/11/2024 7:15 AM EDT Imaging Radiology [facility] [address] [place] [address] 02/09/2024 10:20 AM EDT Office Visit Nutrition & Weight Management, [facility] [address] [place] [address] Yaneth Liu PA-C [address] [place] [address] 02/09/2024 3:45 PM EDT Telemedicine [facility]opaedics [facility] [place] [address] Kelsie Herrera MD [address] [place] [address] 02/27/2024 2:30 PM EDT Imaging Radiology, [place] [address] [facility] [place] [address] Health Maintenance Due Date Last Done Comments Cologuard 1996 Fecal Occult Blood Test 1996 Sigmoidoscopy 1996 COVID-19 Vaccine ( season) 2023 09/25/2020, 09/04/2020 Depression Monitoring 04/06/2023 04/06/2022 DXA Scan 06/06/2023 06/06/2016, 10/01, 10/13/2007 CKD HGB USE SMARTSET 54079 08/03/202308/03, 02/17/2022, 09/24/2021, Additional history exists HbA1c 08/03/2023 08/03/2022, 09/01, 08/11/2020, Additional history exists TSH 08/03/2023 08/03/2022, 09/01, 08/04/2020, Additional history exists Mammogram 10/11/2023 10/10/2022, 10/01, 07/05/2019, Additional history exists Albumin/Creatinine Ratio 12/02/2023 023, 11/09/2020, 10/29/2018, Additional history exists CKD PHOS USE SMARTSET 26943 12/02/2023 06/0 07/2022, 07/09/2018, 06/16/2017, Additional history [...] this encounter Medical Devices Implanted Type Area Child Support Case Officer Device Identifier Shelf Expiration Date Model / Serial / Lot Lens Intraoc 21.0 - [id number] - [id number] Implanted:Qty: 1 on 02/04/2020 by Cedric Drew MD at OR [facility] Left: Eye [employer] 08/02/2024 [id number] / [id number] / [id number] Lens Intraoc 21.0 - [id number] - [id number] Implanted:Qty: 1 on 02/13/2020 by Cedric Drew MD at [facility] Right: Eye [employer] 08/30/2024 [id number] / [id number] / [id number] Clip Quick 2.8mm 230cm - [id number] Implanted:Qty: 1 on 02/22/2022 by Criss Austin MD at ENDOSCOPY [facility] Colon [employer] 05/02/2024 HX-202UR.A / / 1YK Clip Quick 2.8mm 230cm - [id number] Implanted:Qty: 1 on 02/22/2022 by Criss Austin MD at ENDOSCOPY [facility] Colon [employer] 05/02/2024 HX-202UR.A / / 1YK Clip Quick 2.8mm 230cm - [id number] Implanted:Qty: 1 on 02/22/2022 by Criss Austin MD at ENDOSCOPY [facility] Colon [employer] 05/02/2024 HX-202UR.A / / 1YK Clip Quick 2.8mm 230cm - [id number] Implanted:Qty: 1 on 02/22/2022 by Criss Austin MD at ENDOSCOPY [facility] Colon [employer] 05/02/2024 HX-202UR.A / / 1YK Clip Quick 2.8mm 230cm - [id number] Implanted:Qty: 1 on 02/22/2022 by Criss Austin MD at ENDOSCOPY [facility] Colon [employer] 05/02/2024 HX-202UR.A / / 1YK Clip Quick 2.8mm 230cm - [id number] Implanted:Qty: 1 on 02/22/2022 by Criss Austin MD at ENDOSCOPY [facility] Colon [employer] 05/02/2024 HX-202UR.A / / 1YK documented as of this encounter Visit Diagnoses Diagnosis Primary osteoarthritis of left knee- Primary Primary localized osteoarthrosis, lower leg documented in this encounter Advance Directives * Full Code (Latest Code Status on File) Date Activated Date Inactivated Comments 10/31/2008 10:26 AM 11/01/2008 3:23 PM Care Teams Cementer Hand Relationship Specialty Start Date End Date Santiago Pelayo MD [address] [place] [address] PCP - General Family Medicine 08/27/18 documented as of this encounter
--- OUTSIDE RECORDS SUMMARY | 2024-01-07 16:41 | External Medical Summary | Summary of Care ---
Author Name Unknown Organization [facility] Address [address] [place] [address] Phone [phone] Care Team Providers Care Oyster Grader Name Role Phone Santiago Pelayo MD Primary Care Provider Reason for Visit * Reason Comments Follow Up L knee * Precert (Within 30 days (routine)) - Authorized Specialty Diagnoses / Procedures Referred By Contac t Referred To Contact Orthopedics Diagnoses Unilateral primary osteoarthritis, left knee Procedures [place] GEL-SYN INJECTION 0.1 MG Adama Herrera MD [address] [place] [address] Adama Herrera MD [address] [place] [address] Referral ID Status Reason Start Date Expiration Date V isits Requested Visits Authorized [id number] Authorized Precert 10/24/2023 07/02/2099 999 999 Encounter Details Date Type Department Care Team (Latest Contact Info) Description 12/05/2023 2:15 PM EDT Office Visit Orthopaedics [facility] [address] [place] [address] Adama Herrera MD [address] [place] [address] Primary osteoarthritis of left knee* Allergies No [...] Release 24 Hour (toPROL XL)Indications:Athe rosclerosis of [place] coronary artery of [place] heart without angina pectoris Take 2 Tablets [...] 1 4 Active Vitamin D3 1.25 MG (09322 UT) Oral CapsuleIndications: Hypovitaminosis D TAKE 1 [...] Gastroesophageal reflux disease with esophagitis 04/25/2019 Old [place] (myocardial infarction) 04/25/2019 Overview: NSTEMI 06/2009 Celiac disease 04/25/2019 Hiatal hernia 12/27/2017 Iron deficiency anemia 06/21/2017 Atherosclerosis of [place] co ronary artery without angina pectoris 06/22/2015 [...] Markers for Patients with Cardiovascular Disease Project #[id number] PI: Alma Smiley MD Please call [phone] with study related questions GENOMICS CARDIO RESEARCH OTHER*[id number] 10/22/2008 08/09/2016 Overview: Renamed Per Clinical Trials Billing Project. Study Titile: Genomic Markers for Patients with Cardiovascular Disease Project #[id number] PI: Alma Smiley MD Please call [phone] with study related questions Benign neoplasm of [...] mRNA, LNP-s, No Pre serve, 2-Dose Series ([employer]) 09/04/2020 H1N1 2009 Influenza, IM 07/13/2009 Influenza, [...] 01/11/2024 7:15 AM EDT Imaging Radiology [facility] [address] [place] [address] 02/09/2024 10:20 AM EDT Office Visit Nutrition & Weight Management, [facility] [address] [place] [address] Yaneth Liu PA-C [address] [place] [address] 02/09/2024 3:45 PM EDT Telemedicine Orthopaedics [facility] [address] [place] [address] Adama Herrera MD [address] [place] [address] 02/27/2024 2:30 PM EDT [address] [address] Health Maintenance Due Date Last Done Comments Cologuard 1996 Fecal Occult Blood Test 1996 Sigmoidoscopy 1996 COVID-19 Vaccine ( season) 2023 09/25/2020, 09/04/2020 Depression Monitoring 04/06/2023 04/06/2022 DXA Scan 06/06/2023 06/06/2016, 10/01, 10/13/2007 CKD HGB USE SMARTSET 58978 08/03/202308/03, 02/17/2022, 09/24/2021, Additional history exists HbA1c 08/03/2023 08/03/2022, 09/01, 08/11/2020, Additional history exists TSH 08/03/2023 08/03/2022, 09/01, 08/04/2020, Additional history exists Mammogram 10/11/2023 10/10/2022, 10/01, 07/05/2019, Additional history exists Albumin/Creatinine Ratio 12/02/2023 023, 11/09/2020, 10/29/2018, Additional history exists CKD PHOS USE SMARTSET 50930 12/02/2023 06/0 07/2022, 07/09/2018, 06/16/2017, Additional history exists GFR 12/05/2023 06/05/2023, 06/0 07/2022, 08/03/2022, Additional history exists DTaP,Tdap,and Td Vaccines (3 - Td or Tdap) 10/29/2028 10/29/2018, 01/05/2009 Colonoscopy 08/18/2033 08/18/2023, 08/03, 02/22/2022, Additional history exists Colorectal Cancer Screening 08/18/2033 Pneumococcal Vaccine: 65+ Years Completed 06/16/2017, 12/13/2016, 01/05/2009 Zoster Vaccines Completed 09/24/2021, 06/0 10/2020, 03/07/2013 Influenza Vaccine (FLU shot) Completed [...] this encounter Medical Devices Implanted Type Area Ceramic Sprayer Device Identifier Shelf Expiration Date Model / Serial / Lot Lens Intraoc 21.0 - [id number] - [id number] Implanted:Qty: 1 on 02/04/2020 by Cedric Drew MD at [facility] Left: Eye [employer] 08/02/2024 [id number] / [id number] / [id number] Lens Intraoc 21.0 - [id number] - [id number] Implanted:Qty: 1 on 02/13/2020 by Cedric Drew MD at [facility] Right: Eye [employer] 08/30/2024 [id number] / [id number] / [id number] Clip Quick 2.8mm 230cm - [id number] Implanted:Qty: 1 on 02/22/2022 by Criss Austin MD at ENDOSCOPY [facility] [employer] [facility] 05/02/2024 HX-UR.A / / 1YK Clip Quick 2.8mm 230cm - [id number] Implanted:Qty: 1 on 02/22/2022 by Criss Austin MD at ENDOSCOPY [facility] [employer] [facility] 05/02/2024 HX-202UR.A / / 1YK Clip Quick 2.8mm 230cm - [id number] Implanted:Qty: 1 on 02/22/2022 by Criss Austin MD at ENDOSCOPY [facility] [address] Colon [employer] 05/02/2024 HX-202UR.A / / 1YK Clip Quick 2.8mm 230cm - [id number] Implanted:Qty: 1 on 02/22/2022 by Criss Austin MD at ENDOSCOPY [facility] [employer] 05/02/2024 HX-UR.A / / 1YK Clip Quick 2.8mm 230cm - [id number] Implanted:Qty: 1 on 02/22/2022 by Criss Austin MD at ENDOSCOPY [facility] Colon [employer] 05/02/2024 HX-202UR.A YK Clip Quick 2.8mm 230cm - [id number] Implanted:Qty: 1 on 02/22/2022 by Criss Austin MD at ENDOSCOPY [facility] [address] Colon [employer] 05/02/2024 HX-202UR.A / 1YK documented as of this encounter Visit Diagnoses Diagnosis Primary osteoarthritis of left knee- Primary Primary localized osteoarthrosis, lower leg documented in this encounter Advance Directives * Full Code (Latest Code Status on File) Date Activated Date Inactivated Comments 10/31/2008 10:26 AM 11/01/2008 3:23 PM Care Teams Oyster Grader Relationship Specialty Start Date End Date Santiago Pelayo MD [address] [place] [address] PCP - General Family Medicine 08/27/18 documented as of this encounter
--- OUTSIDE RECORDS SUMMARY | 2024-01-07 16:42 | External Medical Summary | Summary of Care ---
Author Name Unknown Organization [facility] Address [address] [place] [address] Phone [phone] Care Team Providers Care Telephone Sales Agent Name Role Phone Santiago Pelayo MD Primary Care Provider [phone] Reason for Visit * Reason Comments Follow Up Knee Pain L knee * Precert (Within 30 days (routine)) - Authorized Specialty Diagnoses / Procedures Referred By Contac t Referred To Contact Orthopedics Diagnoses Unilateral primary osteoarthritis, left knee Procedures [place] GEL-SYN INJECTION 0.1 MG Adama Herrera MD [address] [facility] [place] [address] Adama Herrera MD [address] [facility] [place] [address] Referral ID Status Reason Start Date Expiration Date V isits Requested Visits Authorized [id number] Authorized Precert 10/24/2023 07/02/2099 999 999 Encounter Details Date Type Department Care Team (Latest Contact Info) Description 12/15/2023 2:15 PM EDT Office Visit Orthopaedics [facility] [address] [place] [address] Adama Herrera MD [address] [facility] [place] [address] Primary osteoarthritis of left knee* Allergies No [...] Release 24 Hour (toPROL XL)Indications:Athero sclerosis of [place] coronary artery of [place] heart without angina pectoris Take 2 Tablets [...] 1 10/12/2023 Active Vitamin D3 1.25 MG (26707 UT) Oral CapsuleIndications:Hy povitaminosis D TAKE 1 [...] left knee 16.8 mg IX ONCE 12/15/2023 12/16/19 24 Active documented as of this encounter (statuses as [...] Gastroesophageal reflux disease with esophagitis 04/25/2019 Old [place] (myocardial infarction) 04/25/2019 Overview: NSTEMI 06/2009 Celiac disease 04/25/2019 Hiatal hernia 12/27/2017 Iron deficiency anemia 06/21/2017 Atherosclerosis of [place] co ronary artery without angina pectoris 06/22/2015 [...] Markers for Patients with Cardiovascular Disease Project #[id number] PI: Alma Smiley MD Please call [phone] with study related questions GENOMICS CARDIO RESEARCH OTHER*[id number] 10/22/2008 08/09/2016 Overview: Renamed Per Clinical Trials Billing Project. Study Titile: Genomic Markers for Patients with Cardiovascular Disease Project #[id number] PI: Alma Smiley MD Please call [phone] with study related questions Benign neoplasm of [...] ([employer]) 09/04/2020 H1N1 2009 Influenza, IM 07/13/2009 Pneumococcal [...] Description 01/11/2024 7:15 AM EDT Imaging Radiology [address], [place] [address] [place] [address] 02/09/2024 10:20 AM EDT Office Visit Nutrition & Weight Management, [facility] [address] [place] [address] Yaneth Liu PA-C [address] [place] [address] 02/09/2024 3:45 PM EDT Telemedicine Orthopaedics [facility] [address] [place] [address] Adama Herrera MD [address] [place] [address] 02/27/2024 2:30 PM EDT Imaging Radiology, [facility] [address] [address] Health Maintenance Due Date Last Done Comments Cologuard 1996 Fecal Occult Blood Test 1996 Sigmoidoscopy 1996 COVID-19 Vaccine ( season) 2023 09/25/2020, 09/04/2020 Depression Monitoring 04/06/2023 04/06/2022 DXA Scan 06/06/2023 06/06/2016, 10/01, 10/13/2007 CKD HGB USE SMARTSET 76836 08/03/202308/03, 02/17/2022, 09/24/2021, Additional history exists HbA1c 08/03/2023 08/03/2022, 09/01, 08/11/2020, Additional history exists TSH 08/03/2023 08/03/2022, 09/01, 08/04/2020, Additional history exists Mammogram 10/11/2023 10/10/2022, 10/01, 07/05/2019, Additional history exists Albumin/Creatinine Ratio 12/02/2023 023, 11/09/2020, 10/29/2018, Additional history exists CKD PHOS USE SMARTSET 44012 12/02/2023 060 07/2022, 07/09/2018, 06/16/2017, Additional history [...] this encounter Medical Devices Implanted Type Area Coverage Analyst Device Identifier Shelf Expiration Date Model / Serial / Lot Lens Intraoc 21.0 - [id number] - [id number] Implanted:Qty: 1 on 02/04/2020 by Cedric Drew MD at OR [facility] Left: Eye [employer] 08/02/2024 [id number] / [id number] / [id number] Lens Intraoc 21.0 - [id number] - [id number] Implanted:Qty: 1 on 02/13/2020 by Cedric Drew MD at OR [facility] Right: Eye [employer] 08/30/2024 [id number] / [id number] / [id number] Clip Quick 2.8mm 230cm - [id number] Implanted:Qty: 1 on 02/22/2022 by Criss Austin MD at ENDOSCOPY [facility] Colon [employer] 05/02/2024-UR.A / / 1YK Clip Quick 2.8mm 230cm - [id number] Implanted:Qty: 1 on 02/22/2022 by Criss Austin MD at ENDOSCOPY [facility] [employer] 05/02/2024-.A / / 1YK Clip Quick 2.8mm 230cm - [id number] Implanted:Qty: 1 on 02/22/2022 by Criss Austin MD at ENDOSCOPY [facility] [employer] 05/02/2024-.A / / YK Clip Quick 2.8mm 230cm - [id number] Implanted:Qty: 1 on 02/22/2022 by Criss Austin MD at ENDOSCOPY [facility] [employer] 05/02/2024 HX-UR.A / / 1YK Clip Quick 2.8mm 230cm - [id number] Implanted:Qty: 1 on 02/22/2022 by Criss Austin MD at ENDOSCOPY [facility] [employer] 05/02/2024-.A / / 1YK Clip Quick 2.8mm 230cm - [id number] Implanted:Qty: 1 on 02/22/2022 by Criss Austin MD at ENDOSCOPY [facility] [employer] 05/02/2024 HX-UR.A / / 1YK documented as of this encounter Visit Diagnoses Diagnosis Primary osteoarthritis of left knee- Primary Primary localized osteoarthrosis, lower leg documented in this encounter Advance Directives * Full Code (Latest Code Status on File) Date Activated Date Inactivated Comments 10/31/2008 10:26 AM 11/01/2008 3:23 PM Care Teams Telephone Sales Agent Relationship Specialty Start Date End Date Santiago Pelayo MD [address] [place] [address] PCP - General Family Medicine 08/27/18 documented as of this encounter
--- OUTSIDE RECORDS SUMMARY | 2024-01-07 16:42 | External Medical Summary | Summary of Care ---
Author Name Unknown Organization [facility] Address [address] [place] [address] Phone [phone] Care Team Providers Care Pressing Machine Tender Name Role Phone Santiago Pelayo MD Primary Care Provider Reason for Visit * Reason Comments Follow Up L knee * Precert (Within 30 days (routine)) - Authorized Specialty Diagnoses / Procedures Referred By Contac t Referred To Contact Orthopedics Diagnoses Unilateral primary osteoarthritis, left knee Procedures OR GEL-SYN INJECTION 0.1 MG Adama Herrera MD [address] [place] [address] Adama Herrera MD [address] [place] [address] Referral ID Status Reason Start Date Expiration Date V isits Requested Visits Authorized [id number] Authorized Precert 10/24/2023 07/02/2099 [id number] Encounter Details Date Type Department Care Team (Latest Contact Info) Description 12/05/2023 2:15 PM EDT Office Visit Orthopaedics [facility] [address] [place] [address] Adama Herrera MD [address] [place] [address] Primary osteoarthritis of left knee* Allergies No known active allergiesdocumented as of this encounter (statuses as of 12/05/2023) Medications Medication Sig Dispensed Refills Start Date [...] FUROSEMIDE 100 Tablet 3 10/26/2022 4 Active Furosemide 20 MG Oral Tablet (Lasix)Indications:At ypical chest pain,Edema of both lower legs due to peripheral venous insufficiency TAKE ONE TABLET BY MOUTH EVERY DAY NEEDED FOR FLUID RETENTION 100 Tablet 3 10/26/2022 4 Active Metoprolol Succinate ER 50 MG Oral Tablet Extended Release 24 Hour (toPROL XL)Indications:Athero sclerosis of [place] coronary artery of [place] heart without angina pectoris Take 2 Tablets [...] TWICE A DAY 180 Tablet 3 07/24/2023 Active Isosorbide Mononitrate ER 60 MG Oral Tablet Extended Release 24 Hour (Imdur)Indications:S/ P angioplasty with stent TAKE ONE TABLET BY MOUTH EVERY MORNING 90 Tablet 3 07/24/2023 Active Clopidogrel Bisulfate 75 MG Oral Tablet [...] MOUTH EVERY DAY 90 Tablet 3 08/25/2023 Active traMADol HCl 50 MG Oral Tablet [...] 1 10/12/2023 Active Vitamin D3 1.25 MG (47021 UT) Oral CapsuleIndications:Hy povitaminosis D TAKE 1 CAPSULE BY MOUTH WEEKLY 12 Capsule 1 11/04/2023 Active buPROPion HCl ER (XL) 300 MG Oral Tablet Extended Release 24 Hour (Wellbutrin XL)Indications:Major depressive disorder, single episode, in remission (HCC) TAKE ONE TABLET BY MOUTH EVERY MORNING 90 Tablet 1 11/06/2023 5 Active Hospital, Clinic, or Other Facility Administered Medication Ordered Dose Route Frequency Start Date End Date Status sodium hyaluronate (Gelsyn-3) 16.8 MG/2ML inj 16.8 mgIndications:Primary osteoarthritis of left knee 16.8 mg IX ONCE 12/05/2023 12/06/19 24 Active documented as of this encounter (statuses as of 12/05/2023) Active Problems Problem Noted Date Diagnosed Date [...] Gastroesophageal reflux disease with esophagitis 04/25/2019 [place] (myocardial infarction) 04/25/2019 Overview: NSTEMI 06/2009 Celiac disease 04/25/2019 Hiatal hernia 12/27/2017 Iron deficiency anemia 06/21/2017 Atherosclerosis of [place] co ronary artery without angina pectoris 06/22/2015 [...] as of this encounter (statuses as of 12/05/2023) Resolved Problems Problem Noted Date Diagnosed Date [...] Markers for Patients with Cardiovascular Disease Project #[id number] PI: Alma Smiley MD Please call [phone] with study related questions GENOMICS CARDIO RESEARCH OTHER*[id number] 10/22/2008 08/09/2016 Overview: Renamed Per Clinical Trials Billing Project. Study Titile: Genomic Markers for Patients with Cardiovascular Disease Project #[id number] PI: Alma Smiley MD Please call [phone] with study related questions Benign neoplasm of [...] as of this encounter (statuses as of 12/05/2023) Immunizations Name Administration Dates Next Due COVID-19 mRNA, LNP-s, No Pre serve, 2-Dose Series ([employer]ION) 09/04/2020 H1N1 2009 Influenza, IM 07/13/2009 Pneumococcal [...] Notes * Eveline Stahl LPN - 12/05/2023 2:04 PM EDT -f/u L Knee -10/02/23 steroid injection -SECOND of a series Gelsyn injection -Pt DENIES pain today L knee -Pt is unaccompanied today Susanne Will LPN documented in this encounter Plan of Treatment Upcoming Encounters Date Type Department Care Team (Late st Contact Info) Description 12/06/2023 6:00 PM EDT Office Visit [facility] [address] [place] [id number] Santiago Pelayo MD [address] [place] [address] 12/15/2023 2:15 PM EDT Office Visit Orthopaedics [facility] [address] [place] [address] Adama Herrera MD [address] [place] [address] 01/11/2024 7:15 AM EDT [facility] [address] [place] [address] 02/09/2024 10:20 AM EDT Office Visit Nutrition & Weight Management, [facility] [address] [place] [address] Yaneth Liu PA-C [address] [place] [address] 02/27/2024 2:30 PM EDT Imaging Radiology, [place] [address] [facility] [place] [address] Health Maintenance Due Date Last Done Comments Cologuard 1996 Fecal Occult Blood Test 1996 Sigmoidoscopy 1996 COVID-19 Vaccine ( season) 2023 09/25/2020, 09/04/2020 DXA Scan 06/06/2023 06/06/2016, 10/01, 10/13/2007 CKD HGB USE SMARTSET 22627 08/03/202308/03, 02/17/2022, 09/24/2021, Additional history exists HbA1c 08/03/2023 08/03/2022, 09/01, 08/11/2020, Additional history exists TSH 08/03/2023 08/03/2022, 09/01, 08/04/2020, Additional history exists Mammogram 10/11/2023 10/10/2022, 10/01, 07/05/2019, Additional history exists Albumin/Creatinine Ratio 12/02/20232 023, 11/09/2020, 10/29/2018, Additional history exists CKD PHOS USE SMARTSET 60758 12/02/2023 060 07/2022, 07/09/2018, 06/16/2017, Additional history [...] this encounter Medical Devices Implanted Type Area Counter Intelligence Agent Device Identifier Shelf Expiration Date Model / Serial / Lot Lens Intraoc 21.0 - [id number] - [id number] Implanted:Qty: 1 on 02/04/2020 by Cedric Drew MD at [facility] Left: Eye [employer] 08/02/2024 [id number] / [id number] / [id number] Lens Intraoc 21.0 - [id number] - [id number] Implanted:Qty: 1 on 02/13/2020 by Cedric Drew MD at OR [facility] Right: Eye [employer] 08/30/2024 [id number] / [id number] / [id number] Clip Quick 2.8mm 230cm - [id number] Implanted:Qty: 1 on 02/22/2022 by Criss Austin MD at ENDOSCOPY [facility] Colon [employer] 05/02/2024 HX-202UR.A / / 1YK Clip Quick 2.8mm 230cm - [id number] Implanted:Qty: 1 on 02/22/2022 by Criss Austin MD at ENDOSCOPY [facility] Colon [employer] 05/02/2024 HX-202UR.A / / 1YK Clip Quick 2.8mm 230cm - [id number] Implanted:Qty: 1 on 02/22/2022 by Criss Austin MD at ENDOSCOPY [facility] [employer] 05/02/2024 HX-202UR.A / / YK Clip Quick 2.8mm 230cm - [id number] Implanted:Qty: 1 on 02/22/2022 by Criss Austin MD at ENDOSCOPY [facility] Colon [employer] 05/02/2024 HX-202UR.A / / YK Clip Quick 2.8mm 230cm - [id number] Implanted:Qty: 1 on 02/22/2022 by Criss Austin MD at ENDOSCOPY [facility] Colon [employer] 05/02/2024 HX-202UR.A / / 1YK Clip Quick 2.8mm 230cm - [id number] Implanted:Qty: 1 on 02/22/2022 by Criss Austin MD at ENDOSCOPY [facility] Colon [employer] 05/02/2024 HX-202UR.A / / [id number] documented as of this encounter Visit Diagnoses Diagnosis Primary osteoarthritis of left knee- Primary Primary localized osteoarthrosis, lower leg documented in this encounter Advance Directives * Full Code (Latest Code Status on File) Date Activated Date Inactivated Comments 10/31/2008 10:26 AM 11/01/2008 3:23 PM Care Teams Pressing Machine Tender Relationship Specialty Start Date End Date Santiago Pelayo MD [address] [place] [address] PCP - General Family Medicine 08/27/18 documented as of this encounter
--- OUTSIDE RECORDS SUMMARY | 2024-01-07 16:42 | External Medical Summary | Summary of Care ---
Author Name Unknown Organization [facility] Address [address] [place] [address] Phone [phone] Care Team Providers Care Prize Coordinator Name Role Phone Santiago Pelayo MD Primary Care Provider Reason for Visit * Reason Comments Follow Up Pt states that he is here for a 2 months return Encounter Details Date Type Department Care Team (Late st Contact Info) Description 12/06/2023 6:00 PM EDT Office Visit [facility] [address] [place] [address] Santiago Pelayo MD [address] [place] [address] Morbid obesity with BMI of 40.0-44.9, adult (HCC)*; Atypical chest pain; Edema of both lower legs due to peripheral venous insufficiency; Other fatigue Allergies No known active allergiesdocumented as of this encounter (statuses as of 12/06/2023) Medications Medication Sig Dispensed Refills Start Date [...] Release 24 Hour (toPROL XL)Indications:Athe rosclerosis of [place] coronary artery of [place] heart without angina pectoris Take 2 Tablets [...] 1 4 Active Vitamin D3 1.25 MG (68851 UT) Oral CapsuleIndications: Hypovitaminosis D TAKE 1 [...] daily for 1 week then 1 daily 4 Active Zepbound 2.5 MG/0.5ML Subcutaneous Solution Auto-injector (Tirzepatide-Weight Management)Indicati ons:Morbid obesity with BMI of 40.0-44.9, adult (HCC) Inject 2.5mg once per week 6 mL 3 4 Active Furosemide 20 MG Oral Tablet (Lasix)Indications: Atypical chest pain,Edema of both lower legs due to peripheral venous insufficiency TAKE ONE TABLET BY MOUTH EVERY DAY NEEDED FOR FLUID RETENTION 100 Tablet 3 3 12/06/19 24 Discontinued documented as of this encounter (statuses as of 12/06/2023) Active Problems Problem Noted Date Diagnosed Date [...] Gastroesophageal reflux disease with esophagitis 04/25/2019 [place] (myocardial infarction) 04/25/2019 Overview: NSTEMI 06/2009 Celiac disease 04/25/2019 Hiatal hernia 12/27/2017 Iron deficiency anemia 06/21/2017 Atherosclerosis of [place] co ronary artery without angina pectoris 06/22/2015 [...] as of this encounter (statuses as of 12/06/2023) Resolved Problems Problem Noted Date Diagnosed Date [...] Markers for Patients with Cardiovascular Disease Project #[id number] PI: Alma Smiley MD Please call [phone] with study related questions GENOMICS CARDIO RESEARCH OTHER*[id number] 10/22/2008 08/09/2016 Overview: Renamed Per Clinical Trials Billing Project. Study Titile: Genomic Markers for Patients with Cardiovascular Disease Project #[id number] PI: Alma Smiley MD Please call [phone] with study related questions Benign neoplasm of [...] as of this encounter (statuses as of 12/06/2023) Immunizations Name Administration Dates Next Due COVID-19 mRNA, LNP-s, No Pre serve, 2-Dose Series ([employer]) 09/04/2020 H1N1 2009 Influenza, IM 07/13/2009 Pneumococcal [...] 0 01/20/1971 - 01/20/1981 Smokeless Tobacco: Never Tobacco Cessation:Counseling Given: Not Answered Alcohol Use Standard Drinks/Week Comments Yes 0 [...] on file documented as of this encounter Last Filed Vital Signs Vital Sign Reading Time Taken Comments Blood Pressure 102/78 12/06/2023 6:02 PM EDT Pulse 65 12/06/2023 6:02 PM EDT Temperature 35.9 C (96.6 F) 12/06/2023 6:02 PM ED T Respiratory Rate 16 12/06/2023 6:02 PM EDT Oxygen Saturation 96% 12/06/2023 6:02 PM EDT Inhaled Oxygen Concentration - - Weight 117.8 kg (259 lb 9.6 oz) 12/06/2023 6:02 PM EDT Height 165.1 cm (5' 5") 12/06/2023 6:02 PM EDT Body Mass Index 43.2 12/06/2023 6:02 PM EDT documented in this encounter Progress Notes * Santiago Pelayo MD - 12/06/2023 6:40 PM EDT Subjective: Shani Newton is a 73 year old female. Chief Complaint Patient presents with Follow Up Pt states that he is here for a 2 months return HPI: 73-year-old returns to further discuss the possibility of using a G LP 1 med. She has long history of obesity with current BMI of 43 and this has been pretty typical over the last few years. Shehas some concomitant diagnoses that include osteoarthritis in particular of her knees. She also hasa hiatal hernia which could potentially be less likely symptomatic should she lose weight. She alsohas a history of sleep apnea as determined by sleep study but she never started CPAP. She also hasknown pre diabetes but not diabetes. Um recently she has been retaining more fluid she notes it in her lower legs but also she feels as if there may be some increased fluid in her lungs as her breathing is not quite as good. She knows that the temperatures have been much higher and she questions whether that is playing a role. She does not feel that her diet has changed in particular salt intake. No change in medications other than she has been getting Synvisc injections in the left knee. 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 Take along with Iron pill (Ferrous Sulfate). 60 Tablet 5 Cetirizine HCl 10 MG Oral Tablet (ZyrTEC) Take 1 Tablet by mouth in the morning. 90 Tablet 1 valACYclovir HCl 1 GM Oral Tablet (Valtrex) Take 2 Tablets by mouth in the morning and 2 Tablets before bedtime. for cold sores. 4 Tablet 11 Citalopram Hydrobromide 40 MG Oral Tablet (CeleXA) TAKE ONE TABLET BY MOUTH EVERY MORNING. 90 Tablet 3 Potassium Chloride Gertrudis ER 10 MEQ Oral Tablet Extended Release TAKE ONE TABLET BY MOUTH EVERY TIME YOU TAKE FUROSEMIDE 100 Tablet 3 Metoprolol Succinate ER 50 MG Oral Tablet Extended Release 24 Hour (toPROL XL) Take 2 Tablets by mouth daily in the morning. 180 Tablet 3 Ferrous Sulfate 325 (65 Fe) MG Oral Tablet (Feosol) TAKE ONE TABLET BY MOUTH TWICE A DAY IN THE MORNING AND BEFORE BEDTIME 200 Tablet 3 Levothyroxine Sodium 75 MCG Oral Tablet (Levoxyl) TAKE 1 TABLET BY MOUTH DAILY AT LEAST 30 MINUTES PRIOR TO FIRST MEAL OF THE DAY OR OTHER MEDICATIONS 90 Tablet 3 Pantoprazole Sodium 40 MG Oral Tablet Delayed Release (Protonix) TAKE ONE TABLET BY MOUTH TWICE A DAY 180 Tablet 3 Isosorbide Mononitrate ER 60 MG Oral Tablet Extended Release 24 Hour (Imdur) TAKE ONE TABLET BY MOUTH EVERY MORNING 90 Tablet 3 Clopidogrel Bisulfate 75 MG Oral Tablet (pLAVix) TAKE ONE TABLET BY MOUTH EVERY MORNING 90 Tablet 3 Rosuvastatin Calcium 40 MG Oral Tablet (Crestor) TAKE ONE TABLET BY MOUTH EVERY MORNING 90 Tablet 3 Ezetimibe 10 MG Oral Tablet (Zetia) TAKE ONE TABLET BY MOUTH EVERY DAY 90 Tablet 3 traMADol HCl 50 MG Oral Tablet (Ultram) Take 1 Tablet by mouth every 6 hours as needed for Pain, Moderate. 30 Tablet 0 Nitroglycerin 0.4 MG Sublingual Tablet Sublingual (Nitrostat) PLACE 1 TABLET UNDER THE TONGUE EVERY5 MINUTES UP TO 3 DOSES NEEDED FOR CHEST PAIN. IF NO RELIEF CALL 911 OR GO TO ER 75 Tablet 1 Vitamin D3 1.25 MG (56163 UT) Oral Capsule TAKE 1 CAPSULE BY MOUTH WEEKLY 12 Capsule 1 buPROPion HCl ER (XL) 300 MG Oral Tablet Extended Release 24 Hour (Wellbutrin XL) TAKE ONE TABLET BY MOUTH EVERY MORNING 90 Tablet 1 Furosemide 20 MG Oral Tablet (Lasix) 2 tabs daily for 1 week then 1 daily Zepbound 2.5 MG/0.5ML Subcutaneous Solution Auto-injector (Tirzepatide-Weight Management) Inject 2.5mg once per week 6 mL 3 No current facility-administered medications for this visit. Review of patient's allergies indicates: No Known Allergies Objective: BP 102/78 | Pulse 65 | Temp 35.9 C (96.6 F) (Temporal Artery) | Resp 16 | Ht 1.651 m (5' 5") | Wt 117.8 kg (259 lb 9.6 oz) | LMP 09/23/2001 | SpO2 96% | BMI 43.20 kg/m | BSA 2.32 m Physical Exam: CONST: alert, pleasant, no acute distress OROPHARYNX: clear, no swelling or erythema, moist CV: regular rate and rhythm, no murmur CHEST: clear to auscultation bilaterally, no rales or wheezing ABD: soft, non tender, non distended, no masses or hepatosplenomegaly EXT: Trace to 1+ bilateral lower leg edema, no joint swelling or deformities, SKIN: no rash or significant lesions ASSESSMENT/PLAN: Morbid obesity with BMI of 40.0-44.9, adult (HCC) (Primary) - Zepbound 2.5 MG/0.5ML Subcutaneous Solution Auto-injector (Tirzepatide-Weight Management); Inject2.5mg once per week I discussed how she would take ZepBound. I discussed potential side effects. Discussed the theoretical dilemma of how long she would remain on medication if not indefinitely. will start with 2.5 mg and very slowly increase if tolerated. I asked that she get in touch with me after about 2 months of use so that we can discuss possibly increasing her dose. Edema of both lower legs due to peripheral venous insufficiency-I think this is probably due to venous insufficiency. I did not appreciate any significant fluid in the lungs. But she will increase her Lasix to 40 mg a day for the next 7 days then back down to 20 mg a day. She will continue with potassium chloride 10 mEq 1 a day whether she is doing 40 or 20 mg of the Lasix. Other fatigue - RETURN TO WORK OR SCHOOL Santiago Pelayo MD documented in this encounter Nursing Notes * Tracey Swanson LPN - 12/06/2023 6:02 PM EDT Shani Newton is a 73 year old female who presents today for Chief Complaint Patient presents with Follow Up Pt states that he is here for a 2 months return documented in this encounter Plan of Treatment Upcoming Encounters Date Type Department Care Team (Late st Contact Info) Description 12/15/2023 2:15 PM EDT Office Visit Orthopaedics [facility] [address] [place] [address] Adama Herrera MD [address] [place] [address] 01/11/2024 7:15 AM EDT [facility] [address] [place] [address] 02/09/2024 10:20 AM EDT Office Visit Nutrition & Weight Management, [facility] [address] [place] [address] Yaneth Liu PA-C [address] [place] [address] 02/27/2024 2:30 PM EDT [facility], [place] [address] [facility] [address] Health Maintenance Due Date Last Done Comments Cologuard 1996 Fecal Occult Blood Test 1996 Sigmoidoscopy 1996 COVID-19 Vaccine ( season) 2023 09/25/2020, 09/04/2020 DXA Scan 06/06/2023 06/06/2016, 10/01, 10/13/2007 CKD HGB USE SMARTSET 55132 08/03/202308/03, 02/17/2022, 09/24/2021, Additional history exists HbA1c 08/03/2023 08/03/2022, 09/01, 08/11/2020, Additional history exists TSH 08/03/2023 08/03/2022, 09/01, 08/04/2020, Additional history exists Mammogram 10/11/2023 10/10/2022, 10/01, 07/05/2019, Additional history exists Albumin/Creatinine Ratio 12/02/2023 023, 11/09/2020, 10/29/2018, Additional history exists CKD PHOS USE SMARTSET 79909 12/02/2023 06/0 07/2022, 07/09/2018, 06/16/2017, Additional history [...] this encounter Medical Devices Implanted Type Area Service Dispatcher Device Identifier Shelf Expiration Date Model / Serial / Lot Lens Intraoc 21.0 - [id number] - [id number] Implanted:Qty: 1 on 02/04/2020 by Cedric Drew MD at [facility] Left: Eye [employer] 08/02/2024 [id number] / [id number] / [id number] Lens Intraoc 21.0 - [id number] - [id number] Implanted:Qty: 1 on 02/13/2020 by Cedric Drew MD at [facility] Right: Eye [employer] 08/30/2024 [id number] / [id number] / [id number] Clip Quick 2.8mm 230cm - [id number] Implanted:Qty: 1 on 02/22/2022 by Criss Austin MD at ENDOSCOPY [facility] [employer] [facility] 05/02/2024 HX-UR.A / / 1YK Clip Quick 2.8mm 230cm - [id number] Implanted:Qty: 1 on 02/22/2022 by Criss Austin MD at ENDOSCOPY [facility] [employer] [facility] 05/02/2024 HX-202UR.A / / 1YK Clip Quick 2.8mm 230cm - [id number] Implanted:Qty: 1 on 02/22/2022 by Criss Austin MD at ENDOSCOPY [facility] [employer] [facility] 05/02/2024 HX-202UR.A / / 1YK Clip Quick 2.8mm 230cm - [id number] Implanted:Qty: 1 on 02/22/2022 by Criss Austin MD at ENDOSCOPY [facility] [employer] [facility] 05/02/2024 HX-UR.A / / 1YK Clip Quick 2.8mm 230cm - [id number] Implanted:Qty: 1 on 02/22/2022 by Criss Austin MD at ENDOSCOPY [facility] [employer] 05/02/2024 HX-202UR.A YK Clip Quick 2.8mm 230cm - [id number] Implanted:Qty: 1 on 02/22/2022 by Criss Austin MD at ENDOSCOPY [facility] Colon [employer] 05/02/2024 HX-202UR.A 1YK documented as of this encounter Visit Diagnoses Diagnosis Morbid obesity with BMI of 40.0-44.9, adult (HCC)- Primary Morbid obesity Atypical chest pain Other chest pain Edema of both lower legs due to peripheral venous insufficiency Other fatigue documented in this encounter Advance Directives * Full Code (Latest Code Status on File) Date Activated Date Inactivated Comments 10/31/2008 10:26 AM 11/01/2008 3:23 PM Care Teams Prize Coordinator Relationship Specialty Start Date End Date Santiago Pelayo MD [address] [place] [address] PCP - General Family Medicine 08/27/18 documented as of this encounter
--- OUTSIDE RECORDS SUMMARY | 2024-01-07 16:42 | External Medical Summary | Summary of Care ---
Author Name Unknown Organization [facility] Address [address] [place] [address] Phone [phone] Care Team Providers Care Solar Project Manager Name Role Phone Ranjith Pelayo MD Primary Care Provider [phone] Reason for Visit * Reason Comments Medication Refill Encounter Details Date Type Department Care Team (Late st Contact Info) Description 11/05/[address] [facility] [address] [place] [address] Kari Martinez MD [address] [place] [address] Major depressive disorder, single episode, in remission (HCC) Allergies No known active allergiesdocumented as of this encounter (statuses as of 11/06/2023) Medications Medication Sig Dispensed Refills Start Date [...] 90 Tablet 3 12/29/2022 01/28/20 24 Active Potassium Chloride Gertrudis ER 10 MEQ Oral Tablet Extended ReleaseIndications:H ypokalemia TAKE ONE TABLET BY MOUTH EVERY TIME YOU TAKE FUROSEMIDE 100 Tablet 3 10/26/2022 01/05/20 24 Active Furosemide 20 MG Oral Tablet (Lasix)Indications:A typical chest pain,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 30 Tablet 0 10/12/2023 Active Nitroglycerin 0.4 MG Sublingual Tablet Sublingual (Nitrostat)Indicatio ns:Coronary atherosclerosis due to calcified coronary lesion PLACE 1 TABLET UNDER THE TONGUE EVERY 5 MINUTES UP TO 3 DOSES NEEDED FOR CHEST PAIN. IF NO RELIEF CALL 911 OR GO TO ER 75 Tablet 1 10/12/2023 Active Vitamin D3 1.25 MG (92868 UT) Oral CapsuleIndications:H ypovitaminosis D TAKE 1 CAPSULE BY MOUTH WEEKLY 12 Capsule 1 11/04/2023 11/04/19 25 Active buPROPion HCl ER (XL) 300 MG Oral Tablet Extended Release 24 Hour (Wellbutrin XL)Indications:Major depressive disorder, single episode, in remission (HCC) TAKE ONE TABLET BY MOUTH EVERY MORNING 90 Tablet 1 11/06/2023 11/06/19 25 Active buPROPion HCl ER (XL) 300 MG Oral Tablet Extended Release 24 Hour (Wellbutrin XL)Indications:Major depressive disorder, single episode, in remission (HCC) TAKE ONE TABLET BY MOUTH EVERY MORNING 90 Tablet 3 12/01/2022 11/05/19 24 Discontinu ed(Refill) documented as of this encounter (statuses as of 11/06/2023) Active Problems Problem Noted Date Diagnosed Date [...] Gastroesophageal reflux disease with esophagitis 04/25/2019 Old [place] (myocardial infarction) 04/25/2019 Overview: NSTEMI 06/2009 Celiac disease 04/25/2019 Hiatal hernia 12/27/2017 Iron deficiency anemia 06/21/2017 Atherosclerosis of [place] co ronary artery without angina pectoris 06/22/2015 [...] as of this encounter (statuses as of 11/06/2023) Resolved Problems Problem Noted Date Diagnosed Date [...] Markers for Patients with Cardiovascular Disease Project #[id number] PI: Alma Smiley MD Please call [phone] with study related questions GENOMICS CARDIO RESEARCH OTHER*[id number] 10/22/2008 08/09/2016 Overview: Renamed Per Clinical Trials Billing Project. Study Titile: Genomic Markers for Patients with Cardiovascular Disease Project #[id number] PI: Alma Smiley MD Please call [phone] with study related questions Benign neoplasm of [...] as of this encounter (statuses as of 11/06/2023) Immunizations Name Administration Dates Next Due COVID-19 mRNA, LNP-s, No Pre serve, 2-Dose Series (ixigo) 09/04/2020 H1N1 2009 Influenza, IM 07/13/2009 Pneumococcal [...] 03/27/2019 TDAP (age 10 and older)(Boostrix) 10/29/2018 TDAP (age 11 and older)(Adacel) 01/05/2009 Varicella Zoster Vaccine (Adult) 03/07/2013 Zoster [...] encounter Miscellaneous Notes * Telephone Encounter - Daja Sterling, [facility] - 11/06/2023 11:53 AM EDT Signed Prescriptions: Disp Refills buPROPion HCl ER (XL) 300 MG Oral Tablet E*90 Tab*1 Sig: TAKE ONE TABLET BY MOUTH EVERY MORNINGAuthorizing Provider: RANJITH PELAYO User: DAJA STERLING documented in this encounter Plan of Treatment Upcoming Encounters Date Type Department Care Team (Late st Contact Info) Description 11/21/2023 3:00 PM EDT Office Visit Orthopaedics [facility] [address] [place] [address] Adama Herrera MD [address] [place] [address] 11/28/2023 3:00 PM EDT Office Visit Orthopaed[facility] [address] [place] [address] Adama Herrera MD [address] [place] [address] 12/05/2023 2:15 PM EDT Office Visit [facility]opa[facility] [address] [place] [address] Adama Herrera MD [address] [place] [address] 12/06/2023 6:00 PM EDT Office Visit [facility] [address] [place] [address] Ranjith Pelayo MD [address] [place] [address] 01/11/2024 7:15 AM EDT Imaging Radiology [facility] [facility] [address] [place] [address] 02/09/2024 10:20 AM EDT Office Visit Nutrition & Weight Management, [facility] [address] [place] [address] Yaneth Liu PA-C [address] [place] [address] 02/27/2024 2:30 PM EDT Imaging Radiology, [place] [id number] [facility] [place] [address] Health Maintenance Due Date Last Done Comments Cologuard 1996 Fecal Occult Blood Test 1996 Sigmoidoscopy 1996 COVID-19 Vaccine ( season) 2023 09/25/2020, 09/04/2020 DXA Scan 06/06/2023 06/06/2016, 10/01, 10/13/2007 CKD HGB USE SMARTSET 99486 08/03/202308/03, 02/17/2022, 09/24/2021, Additional history exists HbA1c 08/03/2023 08/03/2022, 09/01, 08/11/2020, Additional history exists TSH 08/03/2023 08/03/2022, 09/01, 08/04/2020, Additional history exists Mammogram 10/11/2023 10/10/2022, 10/01, 07/05/2019, Additional history exists Albumin/Creatinine Ratio 12/02/2023 023, 11/09/2020, 10/29/2018, Additional history exists CKD PHOS USE SMARTSET 93165 12/02/2023 06/0 07/2022, 07/09/2018, 06/16/2017, Additional history exists GFR 12/05/2023 06/05/2023, 0607/2022, 08/03/2022, Additional history exists DTaP,Tdap,and Td Vaccines [...] this encounter Medical Devices Implanted Type Area Director Of Primary Care Device Identifier Shelf Expiration Date Model / Serial / Lot Lens Intraoc 21.0 - [id number] - [id number] Implanted:Qty: 1 on 02/04/2020 by Cedric Drew MD at OR [facility] Left: Eye [employer] 08/02/2024 [id number] / [id number] / [id number] Lens Intraoc 21.0 - [id number] - [id number] Implanted:Qty: 1 on 02/13/2020 by Cedric Drew MD at OR [facility] Right: Eye [employer] 08/30/2024 [id number] / [id number] / [id number] Clip Quick 2.8mm 230cm - [id number] Implanted:Qty: 1 on 02/22/2022 by Criss Austin MD at ENDOSCOPY [facility] Colon [employer] 05/02/2024 HX-202UR.A / / 1YK Clip Quick 2.8mm 230cm - [id number] Implanted:Qty: 1 on 02/22/2022 by Criss Austin MD at ENDOSCOPY [facility] Colon [employer] 05/02/2024 HX-202UR.A / / 1YK Clip Quick 2.8mm 230cm - [id number] Implanted:Qty: 1 on 02/22/2022 by Criss Austin MD at ENDOSCOPY [facility] [employer] 05/02/2024 HX-202UR.A / / 1YK Clip Quick 2.8mm 230cm - [id number] Implanted:Qty: 1 on 02/22/2022 by Criss Austin MD at ENDOSCOPY [facility] Colon [employer] 05/02/2024 HX-202UR.A / / 1YK Clip Quick 2.8mm 230cm - [id number] Implanted:Qty: 1 on 02/22/2022 by Criss Austin MD at ENDOSCOPY [facility] Colon [employer] 05/02/2024 HX-202UR.A / / 1YK Clip Quick 2.8mm 230cm - [id number] Implanted:Qty: 1 on 02/22/2022 by Criss Austin MD at ENDOSCOPY [facility] Colon [employer] 05/02/2024 HX-202UR.A / / 1YK documented as of this encounter Visit Diagnoses Diagnosis Major depressive disorder, single episode, in remission (HCC) Major depressive disorder, single episode, in partial or unspecified remission documented in this encounter Advance Directives Latest Code Status on File Code Status Date Activated Date Inactivated Comments Full Code 10/31/2008 10:26 AM 11/01/2008 3:23 PM Care Teams Solar Project Manager Relationship Specialty Start Date End Date Ranjith Pelayo MD [address] [place] [address] PCP - General Family Medicine 08/27/18 documented as of this encounter
--- OUTSIDE RECORDS SUMMARY | 2024-01-07 16:42 | External Medical Summary | Summary of Care ---
Author Name Unknown Organization [facility] Address [address] [place] [address] Phone [phone] Care Team Providers Care Shipfitter Name Role Phone Santiago Pelayo MD Primary Care Provider Reason for Visit * Reason Comments Follow Up Knee Pain L knee * Precert (Within 30 days (routine)) - Authorized Specialty Diagnoses / Procedures Referred By Contac t Referred To Contact Orthopedics Diagnoses Unilateral primary osteoarthritis, left knee Procedures SC GEL-SYN INJECTION 0.1 MG Adama Herrera MD [address] [facility] [place] [address] Adama Herrera MD [address] [facility] [place] [address] Referral ID Status Reason Start Date Expiration Date V isits Requested Visits Authorized [id number] Authorized Precert 10/24/2023 07/02/2099 [id number] Encounter Details Date Type Department Care Team (Latest Contact Info) Description 11/28/2023 3:00 PM EDT Office Visit Orthopaedics [facility] [address] [place] [address] Adama Herrera MD [address] [place] [address] Primary osteoarthritis of left knee* Allergies No known active allergiesdocumented as of this encounter (statuses as of 11/28/2023) Medications Medication Sig Dispensed Refills Start Date [...] Release 24 Hour (toPROL XL)Indications:Athero sclerosis of [place] coronary artery of [place] heart without angina pectoris Take 2 Tablets [...] 1 10/12/2023 Active Vitamin D3 1.25 MG (32205 UT) Oral CapsuleIndications:Hy povitaminosis D TAKE 1 [...] of left knee 16.8 mg IX ONCE 11/28/2023 11/29/19 24 Active documented as of this encounter (statuses as of 11/28/2023) Active Problems Problem Noted Date Diagnosed Date [...] Gastroesophageal reflux disease with esophagitis 04/25/2019 Old [place] (myocardial infarction) 04/25/2019 Overview: NSTEMI 06/2009 Celiac disease 04/25/2019 Hiatal hernia 12/27/2017 Iron deficiency anemia 06/21/2017 Atherosclerosis of [place] co ronary artery without angina pectoris 06/22/2015 [...] as of this encounter (statuses as of 11/28/2023) Resolved Problems Problem Noted Date Diagnosed Date [...] Markers for Patients with Cardiovascular Disease Project #[id number] PI: Alma Smiley MD Please call [phone] with study related questions GENOMICS CARDIO RESEARCH OTHER*[id number] 10/22/2008 08/09/2016 Overview: Renamed Per Clinical Trials Billing Project. Study Titile: Genomic Markers for Patients with Cardiovascular Disease Project #[id number] PI: Alma Smiley MD Please call [phone] with study related questions Benign neoplasm of [...] as of this encounter (statuses as of 11/28/2023) Immunizations Name Administration Dates Next Due COVID-19 mRNA, LNP-s, No Pre serve, 2-Dose Series ([employer]) 09/04/2020 H1N1 2009 Influenza, IM 07/13/2009 Pneumococcal [...] Progress Notes * Adama Herrera MD - 11/28/2023 2:53 PM EDT For procedure only visit Pt Name: Shani Newton Diagnosis: OA left knee. The patient is here for the first of a series of Gelsyn injections. There [...] follow up in 1 Week for reinjection. Adama Herrera MD 11/28/2023 2:54 PM documented in this encounter Nursing Notes * Eveline Stahl LPN - 11/28/2023 2:46 PM EDT -f/u L Knee -PT: Pt has not attended -10/02/23 steroid injection -FIRST of a series Gelsyn injection -Pt c/o 12/10 pain today Susanne Will LPN documented in this encounter Plan of Treatment Upcoming Encounters Date Type Department Care Team (Late st Contact Info) Description 12/05/2023 2:15 PM EDT Office Visit Orthopaedics [facility] [address] [place] [address] Adama Herrera MD [address] [place] [address] 12/06/2023 6:00 PM EDT Office Visit [place] [address] [place] [address] Santiago Pelayo MD [address] [place] [address] 12/15/2023 2:15 PM EDT Office Visit Orthopaedics [facility] [address] [facility] [place] [address] Adama Herrera MD [address] [facility] [place] [address] 01/11/2024 7:15 AM EDT Imaging Rad[facility] [address] [facility] [place] [address] 02/09/2024 10:20 AM EDT Office Visit Nutrition & Weight Management, [facility] 132 [facility] [place] [address] Yaneth Liu PA-C 132 [facility] [place] [address] 02/27/2024 2:30 PM EDT Imaging Radiology, [address] [place] [address] Health Maintenance Due Date Last Done Comments Cologuard 1996 Fecal Occult Blood Test 1996 Sigmoidoscopy 1996 COVID-19 Vaccine ( season) 2023 09/25/2020, 09/04/2020 DXA Scan 06/06/2023 06/06/2016, 10/01, 10/13/2007 CKD HGB USE SMARTSET 70502 08/03/202308/03, 02/17/2022, 09/24/2021, Additional history exists HbA1c 08/03/2023 08/03/2022, 09/01, 08/11/2020, Additional history exists TSH 08/03/2023 08/03/2022, 09/01, 08/04/2020, Additional history exists Mammogram 10/11/2023 10/10/2022, 10/01, 07/05/2019, Additional history exists Albumin/Creatinine Ratio 12/02/2023 023, 11/09/2020, 10/29/2018, Additional history exists CKD PHOS USE SMARTSET 60905 12/02/2023 06/0 07/2022, 07/09/2018, 06/16/2017, Additional history exists GFR 12/05/2023 06/05/2023, 060 07/2022, 08/03/2022, Additional history exists DTaP,Tdap,and Td [...] this encounter Medical Devices Implanted Type Area Rfid Developer Device Identifier Shelf Expiration Date Model / Serial / Lot Lens Intraoc 21.0 - [id number] - [id number] Implanted:Qty: 1 on 02/04/2020 by Cedric Drew MD at OR [facility] Left: Eye [employer] 08/02/2024 [id number] / [id number] / [id number] Lens Intraoc 21.0 - [id number] - [id number] Implanted:Qty: 1 on 02/13/2020 by Cedric Drew MD at [facility] Right: Eye [employer] 08/30/2024 [id number] / [id number] / [id number] Clip Quick 2.8mm 230cm - [id number] Implanted:Qty: 1 on 02/22/2022 by Criss Austin MD at ENDOSCOPY [facility] [employer] 05/02/2024 HX-202UR.A / / YK Clip Quick 2.8mm 230cm - [id number] Implanted:Qty: 1 on 02/22/2022 by Criss Austin MD at ENDOSCOPY [facility] [employer] 05/02/2024 HX-UR.A / / YK Clip Quick 2.8mm 230cm - [id number] Implanted:Qty: 1 on 02/22/2022 by Criss Austin MD at ENDOSCOPY [facility] [employer] 05/02/2024 HX-202UR.A / / YK Clip Quick 2.8mm 230cm - [id number] Implanted:Qty: 1 on 02/22/2022 by Criss Austin MD at ENDOSCOPY [facility] [employer] 05/02/2024 HX-UR.A / / YK Clip Quick 2.8mm 230cm - [id number] Implanted:Qty: 1 on 02/22/2022 by Criss Austin MD at ENDOSCOPY [facility] [employer] 05/02/2024 HX-UR.A / / YK Clip Quick 2.8mm 230cm - [id number] Implanted:Qty: 1 on 02/22/2022 by Criss Austin MD at ENDOSCOPY [facility] [employer] 05/02/2024 HX-UR.A / / [id number] documented as of this encounter Visit Diagnoses Diagnosis Primary osteoarthritis of left knee- Primary Primary localized osteoarthrosis, lower leg documented in this encounter Advance Directives * Full Code (Latest Code Status on File) Date Activated Date Inactivated Comments 10/31/2008 10:26 AM 11/01/2008 3:23 PM Care Teams Shipfitter Relationship Specialty Start Date End Date Santiago Pelayo MD [address] [place] [address] PCP - General Family Medicine 08/27/18 documented as of this encounter
--- OUTSIDE RECORDS SUMMARY | 2024-01-07 16:42 | External Medical Summary | Summary of Care ---
Author Name Unknown Organization [facility] Address [address] [place] [address] Phone [phone] Care Team Providers Care Supervisor Road Administrator Name Role Phone Santiago Pelayo MD Primary Care Provider Reason for Visit * Reason Comments Follow Up L knee * Precert (Within 30 days (routine)) - Authorized Specialty Diagnoses / Procedures Referred By Contac t Referred To Contact Orthopedics Diagnoses Unilateral primary osteoarthritis, left knee Procedures RI GEL-SYN INJECTION 0.1 MG Adama Herrera MD [address] [place] [address] Adama Herrera MD [address] [place] [address] Referral ID Status Reason Start Date Expiration Date V isits Requested Visits Authorized [id number] Authorized Precert 10/24/2023 07/02/2099 999 [id number] Encounter Details Date Type Department Care Team (Latest Contact Info) Description 12/05/2023 2:15 PM EDT Office Visit Orthopaedics [facility] [address] [place] [address] Adama Herrera MD [address] [place] [address] Primary osteoarthritis of left knee* Allergies No [...] Release 24 Hour (toPROL XL)Indications:Athero sclerosis of [place] coronary artery of [place] heart without angina pectoris Take 2 Tablets [...] 1 10/12/2023 Active Vitamin D3 1.25 MG (92154 UT) Oral CapsuleIndications:Hy povitaminosis D TAKE 1 [...] Gastroesophageal reflux disease with esophagitis 04/25/2019 Old [place] (myocardial infarction) 04/25/2019 Overview: NSTEMI 06/2009 Celiac disease 04/25/2019 Hiatal hernia 12/27/2017 Iron deficiency anemia 06/21/2017 Atherosclerosis 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 Study Titile: Genomic Markers for Patients with Cardiovascular Disease Project #[id number] PI: Alma Smiley MD Please call [phone] with study related questions Benign neoplasm of [...] mRNA, LNP-s, No Pre serve, 2-Dose Series ([employer]) 09/04/2020 H1N1 2009 Influenza, IM 07/13/2009 Influenza, [...] Description 12/06/2023 6:00 PM EDT Office Visit [facility] [address] [place] [facility] [place] [address] Santiago Pelayo MD [address] [place] [address] 12/15/2023 2:15 PM EDT Office Visit Orthopaedics [facility] [address] [place] [address] Adama Herrera MD [address] [facility] [place] [address] 01/11/2024 7:15 AM EDT Imaging [facility] [address] [place] [address] 02/09/2024 10:20 AM EDT Office Visit Nutrition & Weight Management, [facility] [address] [place] [address] Yaneth Liu PA-C [address] [place] [address] 02/27/2024 2:30 PM EDT Imaging Radiology, [place] [address] [place] [address] Health Maintenance Due Date Last Done Comments Cologuard 1996 Fecal Occult Blood Test 1996 Sigmoidoscopy 1996 COVID-19 Vaccine ( season) 2023 09/25/2020, 09/04/2020 DXA Scan 06/06/2023 06/06/2016, 10/01, 10/13/2007 CKD HGB USE SMARTSET 73408 08/03/202308/03, 02/17/2022, 09/24/2021, Additional history exists HbA1c 08/03/2023 08/03/2022, 09/01, 08/11/2020, Additional history exists TSH 08/03/2023 08/03/2022, 09/01, 08/04/2020, Additional history exists Mammogram 10/11/2023 10/10/2022, 10/01, 07/05/2019, Additional history exists Albumin/Creatinine Ratio 12/02/2023 023, 11/09/2020, 10/29/2018, Additional history exists CKD PHOS USE SMARTSET 49182 12/02/2023 06/0 07/2022, 07/09/2018, 06/16/2017, Additional history [...] this encounter Medical Devices Implanted Type Area Manager Credit Risk Device Identifier Shelf Expiration Date Model / Serial / Lot Lens Intraoc 21.0 - [id number] - [id number] Implanted:Qty: 1 on 02/04/2020 by Cedric Drew MD at [facility] Left: Eye [employer] 08/02/2024 [id number] / [id number] / [id number] Lens Intraoc 21.0 - [id number] - [id number] Implanted:Qty: 1 on 02/13/2020 by Cedric Drew MD at [facility] Right: Eye [employer] 08/30/2024 [id number] / [id number] / [id number] Clip Quick 2.8mm 230cm - [id number] Implanted:Qty: 1 on 02/22/2022 by Criss Austin MD at ENDOSCOPY [facility] [employer] [facility] 05/02/2024 HX-202UR.A / / 1YK Clip Quick 2.8mm 230cm - [id number] Implanted:Qty: 1 on 02/22/2022 by Criss Austin MD at ENDOSCOPY [facility] [employer] [facility] 05/02/2024 HX-202UR.A / / 1YK Clip Quick 2.8mm 230cm - [id number] Implanted:Qty: 1 on 02/22/2022 by Criss Austin MD at ENDOSCOPY [facility] [employer] [facility] 05/02/2024 HX-202UR.A / / 1YK Clip Quick 2.8mm 230cm - [id number] Implanted:Qty: 1 on 02/22/2022 by Criss Austin MD at ENDOSCOPY [facility] [employer] [facility] 05/02/2024 HX-202UR.A / / 1YK Clip Quick 2.8mm 230cm - [id number] Implanted:Qty: 1 on 02/22/2022 by Criss Austin MD at ENDOSCOPY [facility] [employer] 05/02/2024 HX-202UR.A / YK Clip Quick 2.8mm 230cm - [id number] Implanted:Qty: 1 on 02/22/2022 by Criss Austin MD at ENDOSCOPY [facility] Colon [employer] 05/02/2024 HX-202UR.A / / 1YK documented as of this encounter Visit Diagnoses Diagnosis Primary osteoarthritis of left knee- Primary Primary localized osteoarthrosis, lower leg documented in this encounter Advance Directives * Full Code (Latest Code Status on File) Date Activated Date Inactivated Comments 10/31/2008 10:26 AM 11/01/2008 3:23 PM Care Teams Supervisor Road Administrator Relationship Specialty Start Date End Date Santiago Pelayo MD [address] [place] [address] PCP - General Family Medicine 08/27/18 documented as of this encounter
--- OUTSIDE RECORDS SUMMARY | 2024-01-07 16:42 | External Medical Summary | Summary of Care ---
Author Name Unknown Organization [facility] Address [address] [place] [address] Phone [phone] Care Team Providers Care Belt Brander Name Role Phone Santiago Pelayo MD Primary Care Provider Encounter Details Date Type Department Care Team (Late st Contact Info) Description 08/09/2023 Telephone OR [facility], Operating Room [facility] [address] [employer] [address] [place] [phone] Criss Austin MD [address] [employer] [place] [address] Allergies No known active allergiesdocumented as of this encounter (statuses as of 11/08/2023) Medications Medication Sig Dispensed Refills Start Date [...] Release 24 Hour (toPROL XL)Indications:Ather osclerosis of [place] coronary artery of [place] heart without angina pectoris Take 2 Tablets [...] 90 Tablet 3 07/24/2023 07/23/19 25 Active Nitroglycerin 0.4 MG Sublingual Tablet Sublingual (Nitrostat)Indicatio ns:Coronary atherosclerosis due to calcified coronary lesion PLACE 1 TABLET UNDER THE TONGUE EVERY 5 MINUTES UP TO 3 DOSES NEEDED FOR CHEST PAIN. IF NO RELIEF CALL 911 OR GO TO ER 75 Tablet 1 12/02/2021 10/12/19 24 Discontinu ed(Refill) buPROPion HCl ER (XL) 300 MG Oral Tablet Extended Release 24 Hour (Wellbutrin XL)Indications:Major depressive disorder, single episode, in remission (HCC) TAKE ONE TABLET BY MOUTH EVERY MORNING 90 Tablet 3 12/01/2022 11/05/19 24 Discontinu ed(Refill) Ezetimibe 10 MG Oral Tablet (Zetia)Indications:D yslipidemia, goal LDL below 70 TAKE ONE TABLET BY MOUTH EVERY DAY 100 Tablet 3 08/03/2022 08/25/19 24 Discontinu ed(Refill) traMADol HCl 50 MG Oral Tablet (Ultram)Indications: Osteoarthritis of left knee, unspecified osteoarthritis type Take 1 Tablet by mouth every 6 hours as needed for Pain, Moderate. 30 Tablet 0 05/05/2023 10/12/19 24 Discontinu ed(Refill) Vitamin D3 1.25 MG (83385 UT) Oral CapsuleIndications:H ypovitaminosis D TAKE 1 CAPSULE BY MOUTH WEEKLY 12 Capsule 1 05/16/2023 11/02/19 24 Discontinu ed(Refill) documented as of this encounter (statuses as of 11/08/2023) Active Problems Problem Noted Date Diagnosed Date Morbid obesity with BMI of 40.0-44.9, adult 0 12/2022 Peripheral vascular disease 09/02/2022 Other specified [...] Gastroesophageal reflux disease with esophagitis 04/25/2019 Old [place] (myocardial infarction) 04/25/2019 Overview: NSTEMI 06/2009 Celiac disease 04/25/2019 Hiatal hernia 12/27/2017 Iron deficiency anemia 06/21/2017 Atherosclerosis of [place] co ronary artery without angina pectoris 06/22/2015 [...] as of this encounter (statuses as of 11/08/2023) Resolved Problems Problem Noted Date Diagnosed Date [...] Markers for Patients with Cardiovascular Disease Project #[id number] PI: Alma Smiley MD Please call [phone] with study related questions GENOMICS CARDIO RESEARCH OTHER*[id number] 10/22/2008 08/09/2016 Overview: Renamed Per Clinical Trials Billing Project. Study Titile: Genomic Markers for Patients with Cardiovascular Disease Project #[id number] PI: Alma Smiley MD Please call [phone] with study related questions Benign neoplasm of [...] Family history of malignant neoplasm of ovary 12/11/19 02 12/13/2016 Overview: mother COMMON MIGRAINE WITHOUT MENT ION OF INTRACTABLE MIGRAINE 10/29/2018 documented as of this encounter (statuses as of 11/08/2023) Immunizations Name Administration Dates Next Due COVID-19 mRNA, LNP-s, No Pre serve, 2-Dose Series ([employer]) 09/04/2020 H1N1 2009 Influenza, IM 07/13/2009 Pneumococcal Conjugate Vacc, 13 Valent (Prevnar) 12/13/2016 Pneumococcal Polysaccharide PPV23 (Pneumovax) 06/16/2017,01/05/2009 Seasonal Influenza, PF, 6 M & above, IM , (FluLaval or Fluzone) 03/31/2021,03/22/2018 03/22/2019 Seasonal Influenza, Quadriva lent Hd (Fluzone Hd) 04/07/2023,04/01/2022 Seasonal Influenza, Quadriva lent, No Preserve, IM 03/27/2020,03/27/2019,04/01/2017 Seasonal Influenza, Split, I IV3, With Preserve, Inj 03/25/2016,03/16/2015,03/11/2014,12/,03/11/2013,03/15/2012,03/21/20 11,04/20/2010,04/14/2009,05/03/2008 Seasonal Influenza, Trivalen t, High Dose, [...] encounter Miscellaneous Notes * Telephone Encounter - Yessy Valero RN - 08/09/2023 1:35 PM EST Attempted to call for pre anesthesia evaluation. No answer. Voice mail left requesting return call documented in this encounter Plan of Treatment Upcoming Encounters Date Type Department Care Team (Late st Contact Info) Description 11/21/2023 3:00 PM EDT Office Visit [facility]opaed[facility] [place] [address] Adama Herrera MD [address] [place] [address] 11/28/2023 3:00 PM EDT Office Visit Orthopaedics [facility] 132 [facility] [place] [address] Adama Herrera MD [address] [place] [address] 12/05/2023 2:15 PM EDT Office Visit Orthopaedics [facility] 132 [facility] [place] [address] Adama Herrera MD 132 [facility] [place] [address] 12/06/2023 6:00 PM EDT Office Visit Family [facility] [address] [place] [address] Santiago Pelayo MD [address] [place] [address] 01/11/2024 7:15 AM EDT Imaging Radiology [facility] 1st Floor, [place] 132 [facility] [place] [address] 02/09/2024 10:20 AM EDT Office Visit Nutrition & Weight Management, [facility] 132 [facility] [place] [address] Yaneth Liu PA-C [address] [place] [address] 02/27/2024 2:30 PM EDT Imaging Radiology, [place] [id number] [facility] [address] Health Maintenance Due Date Last Done Comments Cologuard 1996 Fecal Occult Blood Test 1996 Sigmoidoscopy 1996 COVID-19 Vaccine ( season) 2023 09/25/2020, 09/04/2020 DXA Scan 06/06/2023 06/06/2016, 10/01, 10/13/2007 CKD HGB USE SMARTSET 27386 08/03/202308/03, 02/17/2022, 09/24/2021, Additional history exists HbA1c 08/03/2023 08/03/2022, 09/01, 08/11/2020, Additional history exists TSH 08/03/2023 08/03/2022, 09/01, 08/04/2020, Additional history exists Mammogram 10/11/2023 10/10/2022, 10/01, 07/05/2019, Additional history exists Albumin/Creatinine Ratio 12/02/2023 023, 11/09/2020, 10/29/2018, Additional history exists CKD PHOS USE SMARTSET 24381 12/02/2023 06/0 07/2022, 07/09/2018, 06/16/2017, Additional history [...] this encounter Medical Devices Implanted Type Area Drywall Taper Device Identifier Shelf Expiration Date Model / Serial / Lot Lens Intraoc 21.0 - [id number] - [id number] Implanted:Qty: 1 on 02/04/2020 by Cedric Drew MD at OR [facility] Left: Eye [employer] 08/02/2024 [id number] / [id number] / [id number] Lens Intraoc 21.0 - [id number] - [id number] Implanted:Qty: 1 on 02/13/2020 by Cedric Drew MD at [facility] Right: Eye [employer]CH [employer] LOMB 08/30/2024 [id number] / [id number] / [id number] Clip Quick 2.8mm 230cm - [id number] Implanted:Qty: 1 on 02/22/2022 by Criss Austin MD at ENDOSCOPY [facility] [employer] 05/02/2024 HX-UR.A / / YK Clip Quick 2.8mm 230cm - [id number] Implanted:Qty: 1 on 02/22/2022 by Criss Austin MD at ENDOSCOPY [facility] [employer] 05/02/2024 HX-202UR.A / / YK Clip Quick 2.8mm 230cm - [id number] Implanted:Qty: 1 on 02/22/2022 by Criss Austin MD at ENDOSCOPY [facility] Colon [employer] 05/02/2024 HX-202UR.A / / YK Clip Quick 2.8mm 230cm - [id number] Implanted:Qty: 1 on 02/22/2022 by Criss Austin MD at ENDOSCOPY [facility] Colon [employer] 05/02/2024 HX-202UR.A / / 1YK Clip Quick 2.8mm 230cm - [id number] Implanted:Qty: 1 on 02/22/2022 by Criss Austin MD at ENDOSCOPY [facility] Colon [employer] 05/02/2024 HX-202UR.A / / 1YK Clip Quick 2.8mm 230cm - [id number] Implanted:Qty: 1 on 02/22/2022 by Criss Austin MD at ENDOSCOPY [facility] Colon [employer] 05/02/2024 HX-202UR.A / / [id number] documented as of this encounter Advance Directives Latest Code Status on File Code Status Date Activated Date Inactivated Comments Full Code 10/31/2008 10:26 AM 11/01/2008 3:23 PM Care Teams Belt Brander Relationship Specialty Start Date End Date Santiago Pelayo MD [address], [place] [id number] PCP - General Family Medicine 08/27/18 documented as of this encounter
--- OUTSIDE RECORDS SUMMARY | 2024-01-07 16:42 | External Medical Summary | Summary of Care ---
Author Name Unknown Organization [facility] Address [address] [place] [address] Phone [phone] Care Team Providers Care Health Promotion Manager Name Role Phone Satniago Pelayo MD Primary Care Provider Reason for Visit * Reason Comments Follow Up Knee Pain L knee * Precert (Within 30 days (routine)) - Authorized Specialty Diagnoses / Procedures Referred By Contac t Referred To Contact Orthopedics Diagnoses Unilateral primary osteoarthritis, left knee Procedures SD GEL-SYN INJECTION 0.1 MG Adama Herrera MD [address] [facility] [place] [address] Adama Herrera MD [address] [facility] [place] [address] Referral ID Status Reason Start Date Expiration Date V isits Requested Visits Authorized [id number] Authorized Precert 10/24/2023 07/02/2099 999 999 Encounter Details Date Type Department Care Team (Latest Contact Info) Description 11/28/2023 3:00 PM EDT Office Visit Orthopaedics [facility] [address] [place] [address] Adama Herrera MD [address] [place] [address] Primary osteoarthritis of left knee* Allergies No [...] Release 24 Hour (toPROL XL)Indications:Athero sclerosis of [place] coronary artery of [place] heart without angina pectoris Take 2 Tablets [...] 1 10/12/2023 Active Vitamin D3 1.25 MG (25160 UT) Oral CapsuleIndications:Hy povitaminosis D TAKE 1 [...] left knee 16.8 mg IX ONCE 11/28/2023 11/28/19 24 Ended documented as of this encounter [...] Gastroesophageal reflux disease with esophagitis 04/25/2019 Old [place] (myocardial infarction) 04/25/2019 Overview: NSTEMI 06/2009 Celiac disease 04/25/2019 Hiatal hernia 12/27/2017 Iron deficiency anemia 06/21/2017 Atherosclerosis of [place] co ronary artery without angina pectoris 06/22/2015 [...] Markers for Patients with Cardiovascular Disease Project #[id number] PI: Alma Smiley MD Please call [phone] with study related questions GENOMICS CARDIO RESEARCH OTHER*[id number] 10/22/2008 08/09/2016 Overview: Renamed Per Clinical Trials Billing Project. Study Titile: Genomic Markers for Patients with Cardiovascular Disease Project #[id number] PI: Alma Smiley MD Please call [phone] with study related questions Benign neoplasm of [...] mRNA, LNP-s, No Pre serve, 2-Dose Series ([employer]) 09/04/2020 H1N1 2009 Influenza, IM 07/13/2009 Influenza, [...] 12/05/2023 2:15 PM EDT Office Visit Orthopa[facility]ics [facility] [address] [place] [address] Adama Herrera MD [address] [place] [address] 12/06/2023 6:00 PM EDT Office Visit Family [facility] [address] [place] [facility] [place] [phone] Santiago Pelayo MD [address] [place] [facility] [address] 12/15/2023 2:15 PM EDT Office Visit [facility]opa[facility] [address] [facility] [place] [address] Adama Herrera MD [address] [place] [address] 01/11/2024 7:15 AM EDT [facility] [place] [address] 02/09/2024 10:20 AM EDT Office Visit Nutrition & Weight Management, [facility] 132 [facility] [place] [address] Yaneth Liu PA-C [address] [place] [address] 02/27/2024 2:30 PM EDT Imaging Radiology, [address] [place] [address] Health Maintenance Due Date Last Done Comments Cologuard 1996 Fecal Occult Blood Test 1996 Sigmoidoscopy 1996 COVID-19 Vaccine ( season) 2023 09/25/2020, 09/04/2020 DXA Scan 06/06/2023 06/06/2016, 10/01, 10/13/2007 CKD HGB USE SMARTSET 97233 08/03/202308/03, 02/17/2022, 09/24/2021, Additional history exists HbA1c 08/03/2023 08/03/2022, 09/01, 08/11/2020, Additional history exists TSH 08/03/2023 08/03/2022, 03/10/2021, 08/04/2020, Additional history exists Mammogram 10/11/2023 10/10/2022, 10/01, 07/05/2019, Additional history exists Albumin/Creatinine Ratio 12/02/2023 023, 11/09/2020, 10/29/2018, Additional history exists CKD PHOS USE SMARTSET 52047 12/02/2023 06/0 07/2022, 07/09/2018, 06/16/2017, Additional history [...] this encounter Medical Devices Implanted Type Area Pe Teacher Device Identifier Shelf Expiration Date Model / Serial / Lot Lens Intraoc 21.0 - [id number] - [id number] Implanted:Qty: 1 on 02/04/2020 by Cedric Drew MD at OR [facility] Left: Eye [employer]OM[employer] 08/02/2024 [id number] / [id number] / [id number] Lens Intraoc 21.0 - [id number] - [id number] Implanted:Qty: 1 on 02/13/2020 by Cedric Drew MD at OR [facility] Right: Eye [employer]OM[employer] 08/30/2024 [id number] / [id number] / [id number] Clip Quick 2.8mm 230cm - [id number] Implanted:Qty: 1 on 02/22/2022 by Criss Austin MD at ENDOSCOPY [facility] [employer] 05/02/2024 HX-UR.A / / YK Clip Quick 2.8mm 230cm - [id number] Implanted:Qty: 1 on 02/22/2022 by Criss Austin MD at ENDOSCOPY [facility] [employer] 05/02/2024 HX-UR.A / / YK Clip Quick 2.8mm 230cm - [id number] Implanted:Qty: 1 on 02/22/2022 by Criss Austin MD at ENDOSCOPY [facility] [employer] 05/02/2024 HX-UR.A / / YK Clip Quick 2.8mm 230cm - [id number] Implanted:Qty: 1 on 02/22/2022 by Criss Austin MD at ENDOSCOPY [facility] [employer] 05/02/2024 HX-UR.A / / YK Clip Quick 2.8mm 230cm - [id number] Implanted:Qty: 1 on 02/22/2022 by Criss Austin MD at ENDOSCOPY [facility] [employer] 05/02/2024 HX-UR.A / / YK Clip Quick 2.8mm 230cm - [id number] Implanted:Qty: 1 on 02/22/2022 by Criss Austin MD at ENDOSCOPY [facility] [employer] 05/02/2024 HX-202UR.A / / YK documented as of this encounter Visit Diagnoses Diagnosis Primary osteoarthritis of left knee- Primary Primary localized osteoarthrosis, lower leg documented in this encounter Administered Medications Inactive Administered Medications - up to 3 most recent administrations Medication Order MAR Action Action Date Dose Rate Site sodium hyaluronate (Gelsyn-3) 16.8 MG/2ML inj 16.8 mg 16.8 mg, Intra-Articular, ONCE, On Mon11/28/23 at 1530, For 1 dose Given 11/28/2023 4:22 PM EDT 16.8 mg K nee Left documented in this encounter Advance Directives * Full Code (Latest Code Status on File) Date Activated Date Inactivated Comments 10/31/2008 10:26 AM 11/01/2008 3:23 PM Care Teams Health Promotion Manager Relationship Specialty Start Date End Date Santiago Pelayo MD [address] [place] [address] PCP - General Family Medicine 08/27/18 documented as of this encounter
--- OUTSIDE RECORDS SUMMARY | 2024-01-07 16:42 | External Medical Summary | Summary of Care ---
Author Name Unknown Organization [facility] Address [address] [place] [address] Phone [phone] Team [address] Care Ct Tech Name Role Phone Santiago Pelayo MD Primary Care Provider [phone] Reason for Visit * Reason Comments Follow Up Knee Pain L knee * Precert (Within 30 days (routine)) - Authorized Specialty Diagnoses / Procedures Referred By Contac t Referred To Contact Orthopedics Diagnoses Unilateral primary osteoarthritis, left knee Procedures [place] GEL-SYN INJECTION 0.1 MG Adama Herrera MD [address] [facility] [place] [address] Adama Herrera MD [address] [facility] [place] [address] Referral ID Status Reason Start Date Expiration Date V isits Requested Visits Authorized [id number] Authorized Precert 10/24/2023 07/02/2099 999 999 Encounter Details Date Type Department Care Team (Latest Contact Info) Description 12/15/2023 2:15 PM EDT Office Visit Orthopaedics [facility] [address] [place] [address] Adama Herrera MD [address] [facility] [place] [address] Primary osteoarthritis of left knee* Allergies No [...] Release 24 Hour (toPROL XL)Indications:Athero sclerosis of [place] coronary artery of [place] heart without angina pectoris Take 2 [...] 1 10/12/2023 Active Vitamin D3 1.25 MG (80013 UT) Oral CapsuleIndications:Hy povitaminosis D TAKE 1 [...] Gastroesophageal reflux disease with esophagitis 04/25/2019 Old [place] (myocardial infarction) 04/25/2019 Overview: NSTEMI 06/2009 Celiac disease 04/25/2019 Hiatal hernia 12/27/2017 Iron deficiency anemia 06/21/2017 Atherosclerosis of [place] co ronary artery without angina pectoris [...] Markers for Patients with Cardiovascular Disease Project #[id number] PI: Alma Smiley MD Please call [phone] with study related questions GENOMICS CARDIO RESEARCH OTHER*[id number] 10/22/2008 08/09/2016 Overview: Renamed Per Clinical Trials Billing Project. Study Titile: Genomic Markers for Patients with Cardiovascular Disease Project #[id number] PI: Alma Smiley MD Please call [phone] with study related questions Benign neoplasm of [...] Description 01/11/2024 7:15 AM EDT Imaging Radiology [address], [place] [address] [place] [address] 02/09/2024 10:20 AM EDT Office Visit Nutrition & Weight Management, [facility] [address] [place] [address] Yaneth Liu PA-C [address] [place] [address] 02/09/2024 3:45 PM EDT Telemedicine Orthopaedics [facility] [address] [place] [address] Adama Herrera MD [address] [place] [address] 02/27/2024 2:30 PM EDT Imaging Radiology, [facility] [address] [facility] [address] Health Maintenance Due Date Last Done Comments Cologuard 1996 Fecal Occult Blood Test 1996 Sigmoidoscopy 1996 COVID-19 Vaccine ( season) 2023 09/25/2020, 09/04/2020 Depression Monitoring 04/06/2023 04/06/2022 DXA Scan 06/06/2023 06/06/2016, 10/01, 10/13/2007 CKD HGB USE SMARTSET 82347 08/03/202308/03, 02/17/2022, 09/24/2021, Additional history exists HbA1c 08/03/2023 08/03/2022, 09/01, 08/11/2020, Additional history exists TSH 08/03/2023 08/03/2022, 09/01, 08/04/2020, Additional history exists Mammogram 10/11/2023 10/10/2022, 10/01, 07/05/2019, Additional history exists Albumin/Creatinine Ratio 12/02/2023 023, 11/09/2020, 10/29/2018, Additional history exists CKD PHOS USE SMARTSET 44793 12/02/2023 060 07/2022, 07/09/2018, 06/16/2017, Additional history [...] this encounter Medical Devices Implanted Type Area Scalper Operator Device Identifier Shelf Expiration Date Model / Serial / Lot Lens Intraoc 21.0 - [id number] - [id number] Implanted:Qty: 1 on 02/04/2020 by Cedric Drew MD at OR [facility] Left: Eye [employer] 08/02/2024 [id number] / [id number] / [id number] Lens Intraoc 21.0 - [id number] - [id number] Implanted:Qty: 1 on 02/13/2020 by Cedric Drew MD at OR [facility] Right: Eye [employer]OM[employer] 08/30/2024 [id number] / [id number] / [id number] Clip Quick 2.8mm 230cm - [id number] Implanted:Qty: 1 on 02/22/2022 by Criss Austin MD at ENDOSCOPY [facility] Colon [employer] 05/02/2024-UR.A / / 1YK Clip Quick 2.8mm 230cm - [id number] Implanted:Qty: 1 on 02/22/2022 by Criss Austin MD at ENDOSCOPY [facility] [employer] 05/02/2024-.A / / 1YK Clip Quick 2.8mm 230cm - [id number] Implanted:Qty: 1 on 02/22/2022 by Criss Austin MD at ENDOSCOPY [facility] [employer] 05/02/2024-.A / / YK Clip Quick 2.8mm 230cm - [id number] Implanted:Qty: 1 on 02/22/2022 by Criss Austin MD at ENDOSCOPY [facility] [employer] 05/02/2024 HX-UR.A / / 1YK Clip Quick 2.8mm 230cm - [id number] Implanted:Qty: 1 on 02/22/2022 by Criss Austin MD at ENDOSCOPY [facility] [employer] 05/02/2024-.A / / 1YK Clip Quick 2.8mm 230cm - [id number] Implanted:Qty: 1 on 02/22/2022 by Criss Austni MD at ENDOSCOPY [facility] [employer] 05/02/2024 HX-UR.A / / 1YK documented as of this encounter Visit Diagnoses Diagnosis Primary osteoarthritis of left knee- Primary Primary localized osteoarthrosis, lower leg documented in this encounter Advance Directives * Full Code (Latest Code Status on File) Date Activated Date Inactivated Comments 10/31/2008 10:26 AM 11/01/2008 3:[address] Tech Relationship Specialty Start Date End Date Santiago Pelayo MD [address] [place] [address] PCP - General Family Medicine 08/27/18 documented as of this encounter
--- OUTSIDE RECORDS SUMMARY | 2024-01-07 16:42 | External Medical Summary | Summary of Care ---
Author Name Unknown Organization [facility] Address [address] [place] [address] Phone [phone] Care Team Providers Care Coil Tier Name Role Phone Santiago Pelayo MD Primary Care Provider Reason for Visit * Reason Comments Follow Up L knee * Precert (Within 30 days (routine)) - Authorized Specialty Diagnoses / Procedures Referred By Contac t Referred To Contact Orthopedics Diagnoses Unilateral primary osteoarthritis, left knee Procedures SD GEL-SYN INJECTION 0.1 MG Adama Herrera MD [address] [place] [id number] Adama Herrera MD [address] [place] [address] Referral ID Status Reason Start Date Expiration Date V isits Requested Visits Authorized [id number] Authorized Precert 10/24/2023 07/02/2099 [id number] Encounter Details Date Type Department Care Team (Latest Contact Info) Description 12/05/2023 2:15 PM EDT Office Visit Orthopaedics [facility] [address] [place] [address] Adama Herrera MD [address] [place] [address] Primary osteoarthritis of left knee* Allergies No [...] Release 24 Hour (toPROL XL)Indications:Athero sclerosis of [place] coronary artery of [place] heart without angina pectoris Take 2 Tablets [...] 1 10/12/2023 Active Vitamin D3 1.25 MG (09005 UT) Oral CapsuleIndications:Hy povitaminosis D TAKE 1 [...] Gastroesophageal reflux disease with esophagitis 04/25/2019 [place] (myocardial infarction) 04/25/2019 Overview: NSTEMI 06/2009 Celiac disease 04/25/2019 Hiatal hernia 12/27/2017 Iron deficiency anemia 06/21/2017 Atherosclerosis of [place] co ronary artery without angina pectoris 06/22/2015 [...] Markers for Patients with Cardiovascular Disease Project #[id number] PI: Alma Smiley MD Please call [phone] with study related questions GENOMICS CARDIO RESEARCH OTHER*[id number] 10/22/2008 08/09/2016 Overview: Renamed Per Clinical Trials Billing Project. Study Titile: Genomic Markers for Patients with Cardiovascular Disease Project #[id number] PI: Alma Smiley MD Please call [phone] with study related questions Benign neoplasm of [...] mRNA, LNP-s, No Pre serve, 2-Dose Series (SENSIMED) 09/04/2020 H1N1 2009 Influenza, IM 07/13/2009 Influenza, [...] Description 12/06/2023 6:00 PM EDT Office Visit [facility] [address] [place] [address] Santiago Pelayo MD [address] [place] [address] 12/15/2023 2:15 PM EDT Office Visit Orthopaedics [facility] [address] [place] [address] Adama Herrera MD [address] [facility] [place] [address] 01/11/2024 7:15 AM EDT [facility] [address] [place] [address] 02/09/2024 10:20 AM EDT Office Visit Nutrition & Weight Management, [facility] [address] [place] [address] Yaneth Liu PA-C [address] [place] [address] 02/27/2024 2:30 PM EDT Imaging Radiology, [place] [address] [place] [address] Health Maintenance Due Date Last Done Comments Cologuard 1996 Fecal Occult Blood Test 1996 Sigmoidoscopy 1996 COVID-19 Vaccine ( season) 2023 09/25/2020, 09/04/2020 DXA Scan 06/06/2023 06/06/2016, 10/01, 10/13/2007 CKD HGB USE SMARTSET 58640 08/03/202308/03, 02/17/2022, 09/24/2021, Additional history exists HbA1c 08/03/2023 08/03/2022, 09/01, 08/11/2020, Additional history exists TSH 08/03/2023 08/03/2022, 09/01, 08/04/2020, Additional history exists Mammogram 10/11/2023 10/10/2022, 10/01, 07/05/2019, Additional history exists Albumin/Creatinine Ratio 12/02/2023 023, 11/09/2020, 10/29/2018, Additional history exists CKD PHOS USE SMARTSET 42234 12/02/2023 06/0 07/2022, 07/09/2018, 06/16/2017, Additional history [...] this encounter Medical Devices Implanted Type Area Baggage Handler Device Identifier Shelf Expiration Date Model / Serial / Lot Lens Intraoc 21.0 - [id number] - [id number] Implanted:Qty: 1 on 02/04/2020 by Cedric Drew MD at [facility] Left: Eye [employer] 08/02/2024 [id number] / [id number] / [id number] Lens Intraoc 21.0 - [id number] - [id number] Implanted:Qty: 1 on 02/13/2020 by Cedric Drew MD at [facility] Right: Eye [employer] 08/30/2024 [id number] / [id number] / [id number] Clip Quick 2.8mm 230cm - [id number] Implanted:Qty: 1 on 02/22/2022 by Criss Austin MD at [facility] [employer] [facility] 05/02/2024 HX-202UR.A / / 1YK Clip Quick 2.8mm 230cm - [id number] Implanted:Qty: 1 on 02/22/2022 by Criss Austin MD at [facility] [employer] [facility] 05/02/2024 HX-202UR.A / / 1YK Clip Quick 2.8mm 230cm - [id number] Implanted:Qty: 1 on 02/22/2022 by Criss Austin MD at [facility] [employer] [facility] 05/02/2024 HX-202UR.A / / 1YK Clip Quick 2.8mm 230cm - [id number] Implanted:Qty: 1 on 02/22/2022 by Criss Austin MD at [facility] [employer] [facility] 05/02/2024 HX-202UR.A / / 1YK Clip Quick 2.8mm 230cm - [id number] Implanted:Qty: 1 on 02/22/2022 by Criss Austin MD at ENDOSCOPY [facility] [employer] 05/02/2024 HX-202UR.A / YK Clip Quick 2.8mm 230cm - [id number] Implanted:Qty: 1 on 02/22/2022 by Criss Austin MD at [facility] [employer] 05/02/2024 HX-202UR.A / / 1YK documented as of this encounter Visit Diagnoses Diagnosis Primary osteoarthritis of left knee- Primary Primary localized osteoarthrosis, lower leg documented in this encounter Advance Directives * Full Code (Latest Code Status on File) Date Activated Date Inactivated Comments 10/31/2008 10:26 AM 11/01/2008 3:23 PM Care Teams Coil Tier Relationship Specialty Start Date End Date Santiago Pelayo MD [address] [place] [address] PCP - General Family Medicine 08/27/18 documented as of this encounter
--- OUTSIDE RECORDS SUMMARY | 2024-01-07 16:42 | External Medical Summary | Summary of Care ---
Author Name Unknown Organization [facility] Address [address] [place] [address] Phone [phone] Care Team Providers Care Embedded Systems Software Developer Name Role Phone Santiago Pelayo MD Primary Care Provider Reason for Visit * Reason Comments Follow Up Pt states that he is here for a 2 months return Encounter Details Date Type Department Care Team (Late st Contact Info) Description 12/06/2023 6:00 PM EDT Office Visit [facility] [address] [place] [address] Santiago Pelayo MD [address] [place] [address] Morbid obesity with BMI of [...] Release 24 Hour (toPROL XL)Indications:Athe rosclerosis of [place] coronary artery of [place] heart without angina pectoris Take 2 Tablets [...] 1 4 Active Vitamin D3 1.25 MG (13520 UT) Oral CapsuleIndications: Hypovitaminosis D TAKE 1 [...] 12/27/2017 Iron deficiency anemia 06/21/2017 Atherosclerosis of [place] co ronary artery without angina pectoris 06/22/2015 [...] Markers for Patients with Cardiovascular Disease Project #[id number] PI: Alma Smiley MD Please call [phone] with study related questions GENOMICS CARDIO RESEARCH OTHER*[id number] 10/22/2008 08/09/2016 Overview: Renamed Per Clinical Trials Billing Project. Study Titile: Genomic Markers for Patients with Cardiovascular Disease Project #[id number] PI: Alma Smiley MD Please call [phone] with study related questions Benign neoplasm of [...] mRNA, LNP-s, No Pre serve, 2-Dose Series ([place]) 09/04/2020 H1N1 2009 Influenza, IM 07/13/2009 Pneumococcal [...] but she never started CPAP. She also has known pre diabetes but not diabetes. 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 [address] [place] [address] 02/09/2024 10:20 AM EDT Office Visit Nutrition & Weight Management, [facility] [address] [place] [address] Yaneth Liu PA-C [address] [place] [address] 02/27/2024 2:30 PM EDT Imaging Radiology, [place] [address] [facility] [place] [address] Health Maintenance Due Date Last Done Comments Cologuard 1996 Fecal Occult Blood Test 1996 Sigmoidoscopy 1996 COVID-19 Vaccine ( season) 2023 09/25/2020, 09/04/2020 DXA Scan 06/06/2023 06/06/2016, 10/01, 10/13/2007 CKD HGB USE SMARTSET 28578 08/03/202308/03, 02/17/2022, 09/24/2021, Additional history exists HbA1c 08/03/2023 08/03/2022, 09/01, 08/11/2020, Additional history exists TSH 08/03/2023 08/03/2022, 09/01, 08/04/2020, Additional history exists Mammogram 10/11/2023 10/10/2022, 10/01, 07/05/2019, Additional history exists Albumin/Creatinine Ratio 12/02/2023 023, 11/09/2020, 10/29/2018, Additional history exists CKD PHOS USE SMARTSET 32189 12/02/2023 06/0 07/2022, 07/09/2018, 06/16/2017, Additional history [...] this encounter Medical Devices Implanted Type Area Grass Farmer Device Identifier Shelf Expiration Date Model / Serial / Lot Lens Intraoc 21.0 - [id number] - [id number] Implanted:Qty: 1 on 02/04/2020 by Cedric Drew MD at [facility] Left: Eye [employer] 08/02/2024 [id number] / [id number] / [id number] Lens Intraoc 21.0 - [id number] - [id number] Implanted:Qty: 1 on 02/13/2020 by Cedric Drew MD at [facility] Right: Eye [employer] 08/30/2024 [id number] / [id number] / [id number] Clip Quick 2.8mm 230cm - [id number] Implanted:Qty: 1 on 02/22/2022 by Criss Austin MD at ENDOSCOPY [facility] [employer] [facility] 05/02/2024 HX-UR.A / / 1YK Clip Quick 2.8mm 230cm - [id number] Implanted:Qty: 1 on 02/22/2022 by Criss Austin MD at ENDOSCOPY [facility] [employer] [facility] 05/02/2024 HX-202UR.A / / 1YK Clip Quick 2.8mm 230cm - [id number] Implanted:Qty: 1 on 02/22/2022 by Criss Austin MD at ENDOSCOPY [facility] [employer] [facility] 05/02/2024 HX-202UR.A / / 1YK Clip Quick 2.8mm 230cm - [id number] Implanted:Qty: 1 on 02/22/2022 by Criss Austin MD at ENDOSCOPY [facility] [employer] [facility] 05/02/2024 HX-UR.A / / 1YK Clip Quick 2.8mm 230cm - [id number] Implanted:Qty: 1 on 02/22/2022 by Criss Austin MD at ENDOSCOPY [facility] [employer] 05/02/2024 HX-202UR.A YK Clip Quick 2.8mm 230cm - [id number] Implanted:Qty: 1 on 02/22/2022 by Criss Austin MD at ENDOSCOPY [facility] [employer] 05/02/2024 HX-202UR.A / 1YK documented as [...] 10:26 AM 11/01/2008 3:23 PM Care Teams Embedded Systems Software Developer Relationship Specialty Start Date End Date Santiago Pelayo MD [address] [place] [address] PCP - General Family Medicine 08/27/18 documented as of this encounter
--- OUTSIDE RECORDS SUMMARY | 2024-01-07 16:43 | External Medical Summary | Summary of Care ---
Author Name Unknown Organization [facility] Address [address] [place] [address] Phone [phone] Care Team Providers Care Field Handyman Name Role Phone Santiago Pelayo MD Primary Care Provider [phone] Reason for Visit * Reason Comments Follow Up Knee Pain Left knee Encounter Details Date Type Department Care Team (Latest Contact Info) Description 10/02/2023 10:30 AM EDT Office Visit Orthopaedics [facility] [address] [place] [address] Adama Herrera MD [address] [place] [id number] Primary osteoarthritis of left knee* Allergies No known active allergiesdocumented as of this encounter (statuses as of 10/02/2023) Medications Medication Sig Dispensed Refills Start Date End Date Status Nitroglycerin 0.4 MG Sublingual Tablet Sublingual (Nitrostat)Indication s:Coronary atherosclerosis due to calcified coronary lesion PLACE 1 TABLET UNDER THE TONGUE EVERY 5 MINUTES UP TO 3 DOSES NEEDED FOR CHEST PAIN. IF NO RELIEF CALL 911 OR GO TO ER 75 Tablet 1 12/02/2021 Active Additional Information Patient not taking.Reported on 08/04/2023 Vitamin C 500 MG Oral Tablet (Ascorbic Acid)Indications:Iron deficiency anemia, unspecified iron deficiency anemia type Take by mouth 1 Tablet in the morning AND 1 Tablet before bedtime. Take along with Iron pill (Ferrous Sulfate). 60 Tablet 5 04/07/2022 Active Cetirizine HCl 10 MG Oral Tablet (ZyrTEC) Take 1 Tablet by mouth in the morning. 90 Tablet 1 08/11/2022 Active Additional Information Patient not taking.Reported on 08/04/2023 valACYclovir HCl 1 GM Oral Tablet (Valtrex) Take 2 Tablets by mouth in the morning and 2 Tablets before bedtime. for cold sores. 4 Tablet 11 08/11/2022 Active Additional Information Patient not taking.Reported on 05/05/2023 Citalopram Hydrobromide 40 MG Oral Tablet (CeleXA)Indications:M ajor depressive disorder, single episode, in remission (HCC) TAKE ONE TABLET BY MOUTH EVERY MORNING. 90 Tablet 3 12/29/2022 4 Active buPROPion HCl ER (XL) 300 MG Oral Tablet Extended Release 24 Hour (Wellbutrin XL)Indications:Major depressive disorder, single episode, in remission (HCC) TAKE ONE TABLET BY MOUTH EVERY MORNING 90 Tablet 3 12/01/2022 4 Active Potassium Chloride Gertrudis ER 10 [...] Release 24 Hour (toPROL XL)Indications:Athero sclerosis of paimiut coronary artery of paimiut heart without angina pectoris Take 2 Tablets by mouth daily in the morning. 180 Tablet 3 04/07/2023 Active Ferrous Sulfate 325 (65 Fe) MG Oral Tablet (Feosol) TAKE ONE TABLET BY MOUTH TWICE A DAY IN THE MORNING AND BEFORE BEDTIME 200 Tablet 3 04/18/2023 4 Active traMADol HCl 50 MG Oral Tablet (Ultram)Indications:O steoarthritis of left knee, unspecified osteoarthritis type Take 1 Tablet by mouth every 6 hours as needed for Pain, Moderate. 30 Tablet 0 05/05/2023 Active Additional Information Patient not taking.Reported on 08/04/2023 Vitamin D3 1.25 MG (95843 UT) Oral CapsuleIndications:Hy povitaminosis D TAKE 1 CAPSULE BY MOUTH WEEKLY 12 Capsule 1 05/16/2023 4 Active Levothyroxine Sodium 75 MCG Oral [...] DAY 90 Tablet 3 08/25/2023 5 Active Hospital, Clinic, or Other Facility Administered Medication Ordered Dose Route Frequency Start Date End Date Status lidocaine 1% 1 mL - triamcinolone acetonide 40 mg/mL 1 mL inj 2 mLIndications:Primary osteoarthritis of left knee 2 mL IJ ONCE 10/02/2023 10/02/19 24 Ended documented as of this encounter (statuses as of 10/02/2023) Active Problems Problem Noted Date Diagnosed Date [...] Gastroesophageal reflux disease with esophagitis 04/25/2019 Old PR (myocardial infarction) 04/25/2019 Overview: NSTEMI 06/2009 Celiac disease 04/25/2019 Hiatal hernia 12/27/2017 Iron deficiency anemia 06/21/2017 Atherosclerosis of paimiut co ronary artery without angina pectoris 06/22/2015 [...] as of this encounter (statuses as of 10/02/2023) Resolved Problems Problem Noted Date Diagnosed Date [...] Markers for Patients with Cardiovascular Disease Project #[id number] PI: Alma Smiley MD Please call [phone] with study related questions GENOMICS CARDIO RESEARCH OTHER*[id number] 10/22/2008 08/09/2016 Overview: Renamed Per Clinical Trials Billing Project. Study Titile: Genomic Markers for Patients with Cardiovascular Disease Project #[id number] PI: Alma Smiley MD Please call [phone] with study related questions Benign neoplasm of [...] as of this encounter (statuses as of 10/02/2023) Immunizations Name Administration Dates Next Due COVID-19 mRNA, LNP-s, No Pre serve, 2-Dose Series (Project Repat) 09/04/2020 H1N1 2009 Influenza, IM 07/13/2009 Influenza, Whole Virus 04/12/1999 Pneumococcal Conjugate Vacc, 13 Valent (Prevnar) 12/13/2016 Pneumococcal Polysaccharide PPV23 (Pneumovax) 06/16/2017,01/05/2009 Seasonal Influenza, PF, 6 M & above, IM , (FluLaval or Fluzone) 03/31/2021,03/22/2018 03/22/2019 Seasonal Influenza, Quadriva lent Hd (Fluzone Hd) 04/07/2023,04/01/2022 Seasonal Influenza, Quadriva lent, No Preserve, IM 03/27/2020,03/27/2019,04/01/2017 Seasonal Influenza, Split, I IV3, With Preserve, Inj 03/25/2016,03/16/2015,03/11/2014,/,03/11/2013,03/15/2012,03/21/20 11,04/20/2010,04/14/2009,05/03/2008,1 08/13/1999 Seasonal Influenza, Trivalen t, High [...] Progress Notes * Adama Herrera MD - 10/02/2023 10:30 AM EDT Shani Newton [id number] recommend NSAIDs. 3 Shani Newton is a 73 year old female who [facility] for f/u of left knee injury/pain. I saw her initially for left knee pain on 06/05/2023 Most recent visit for left knee pain was on 07/10/2023 Shani Newton is here unaccompanied Quality: reviewed and agree with Nursing Notes for HPI elements History: History on 06/05/2023 - left knee pain x 2 weeks and swelling Tramadol Patient denies any PT or injections or injury or bracing H/o surgery left knee Dr. Jones arthroscopic knee meniscectomy of the left knee, 1989' Additional history 07/10/2023: Left knee pain Substantial improvement following the steroid injection 2. Locking fingers -intermittent Notices in the right hand index and middle finger. She is middle finger. Has noted for least a year. Reports previous history for trigger finger on the right middle finger by Dr. Islas (orthopaedicssurgery, hand) Since that visit: steroid injection L knee 06/05/23 -Pt was seen in UC on 09/28/23 and was given a referral for PT -PT: Pt did not go to PT -Pt has been using voltaren gel and did offer pain relief ROS: ROS per HPI otherwise non-contributory Past Medical History: Diagnosis Date Benign neoplasm of colon 07/21/09 adenomatous polyp--repeat 2 years Benign neoplasm of colon 08/15/11 hyperplastic/repeat colonoscopy in 3 years Body mass index 40 and over, adult 09/29/2009 Per Obesity Taxonomy Coronary atherosclerosis of paimiut coronary artery 05/09 50% LAD Depressive disorder, not elsewhere classified Esophageal reflux 05/30/2006 Generalized OA 11/22/2011 HTN, goal below 140/90 Iron deficiency anemia Kidney disease, chronic, stage III (GFR 30-59 ml/min) 08/26/2013 Per CKD protocol #1 Menopause Migraine with aura Morbid obesity with body mass index (BMI) of 45.0 to 49.9 in adult ([facility]) 10/29/2018 Body Mass Index: 40.10 kg/m Abnormal 1.651 m (5' 5") as of 02/09/2022 109.3 kg (241 lb) as of 02/09/2022 Other specified forms of chronic ischemic heart disease 07/02/2009 Paraesophageal hernia S/P angioplasty with stent 10/31/2008 Sleep apnea Family History Problem Relation Age of Onset Ovarian cancer Mother 55 Blood Disorder Mother bleeding, vaginal that lead to diagnosis of uterine cancer Uterine cancer Mother Arthritis Father 53 bad arthritis, crippled hands (?RA) Heart Disorder Father several PR's, no stents Lung cancer Father 59 smoker Osteoarthritis Brother Other (mentally "slow") Brother Diabetes Grandmother (Maternal) Diabetes Grandfather (Maternal) Heart Disorder Grandfather (Paternal) Osteoarthritis Son Rheum arthritis Son Stroke No significant family history Thyroid Disorder No significant family history Social History Socioeconomic History Marital status: Spouse name: Not on file Number of children: 1 Years of education: Not on file Highest education level: Not on file Occupational History Employer: [employer] Tobacco Use Smoking status: Former Current packs/day: 0.00 Average packs/day: 0.5 packs/day for 10.0 years (5.0 ttl pk-yrs) Types: Cigarettes Start date: 01/20/1971 Quit date: 01/20/1981 Years since quittin.7 Smokeless tobacco: Never Vaping Use Vaping Use: Never used Substance and Sexual Activity Alcohol use: Yes Comment: rarely a beer or vodka Drug use: No Sexual activity: Not Currently Other Topics Concern Service Not Asked Blood Transfusions Not Asked Caffeine Concern Not Asked Occupational Exposure Not Asked Hobby Hazards Not Asked Sleep Concern No Stress Concern Not Asked Weight Concern Yes Comment: cutting down on food Special Diet Not Asked Back Care Not Asked Exercise Not Asked Bike Helmet Not Asked Seat Belt Yes Self-Exams Not Asked Social History Narrative [employer], sedentary work Social Determinants of Health Financial Resource Strain: Not on file Food Insecurity: No Food Insecurity (04/06/2022) Hunger Vital Sign Worried About Running Out of Food in the Last Year: Never true Ran Out of Food in the Last Year: Never true Transportation Needs: Not on file Physical Activity: Not on file Stress: Not on file Social Connections: Not on file Intimate Partner Violence: Not on file Housing Stability: Not on file Physical Exam Constitutional: Generally well-nourished and in no acute distress Psychiatric: Mood and Affect normal Eyes: EOMI Respiratory: Normal respiratory effort with regular rate and rhythm Limited left knee evaluation: No erythema no effusion Radiology (I have personally reviewed the following films): 06/05/2023: Four view x-ray left knee Bones/joints: There is osteopenia. Mild medial compartment narrowing is seen. There is prominence of the tibial spines. There is enthesophyte formation on the anterior patella. There is an ossific density lateral to the patellofemoral joint seen on the sunrise view which may be from prior remote injury Soft tissues: Normal. IMPRESSION IMPRESSION: No acute change Assessment and Plan: 1) acute left knee pain Suspect secondary to arthritis Discussed options Intra-articular steroid injection performed 06/05/2023 help significantly for about 3 months. Repeated today 10/02/2023 Discussed the possibility of viscosupplementation in the future and that repetitive steroid injections over time can increase the rate of development/progression of arthritis. Patient willing to try viscosupplementation with 3 shot. Scheduled to start with Gelsyn in 6-8 weeks Note: Patient has history of myocardial infarction as well as CKD stage 3. Did not recommend NSAIDs Procedure note (knee injection), left : Time out: Prior to injection, a time out was called to confirm the administration of appropriate medicine, patient name, procedure and confirm to the best of our ability and knowledge the presence of any necessary risks and benefits. Patient verbalizes understanding. Sterile techinique applied. Skin sterilized with alcohol swab. Knee injected using 1.5 inch, 22 gauge needle. Injected with 1 ml lidocaine 1%, triamcinolone acetonide 40mg/ml 1 ml. Patient toleratedprocedure with no significant bleeding or adverse reaction. Patient instructed to call or return to clinic for fever or warmth and redness at injection site for potential infection. Patient also advised as to potential for steroid flare reaction including increased pain and redness at injection site which should be treated with ice and resolve within 24 hours. Adama Herrera MD Primary Care Sports Medicine Orthopaedics [address] [address] documented in this encounter Nursing Notes * Eveline Stahl LPN - 10/02/2023 10:31 AM EDT F/u for L knee pain -steroid injection L knee 06/05/23 -Pt was seen in UC on 09/28/23 and was given a referral for PT -PT: Pt did not go to PT -Pt has been using voltaren gel and did offer pain relief -Xray L knee 06/05/23 Susanne Will LPN documented in this encounter Plan of Treatment Upcoming Encounters Date Type Department Care Team (Late st Contact Info) Description 10/12/2023 7:40 AM EDT Office Visit [facility] [address] [place] [address] Santiago Pelayo MD [address] [place] [address] 11/21/2023 3:00 PM EDT Office Visit [facility] [address] [place] [address] Adama Herrera MD [address] [place] [address] 11/28/2023 3:00 PM EDT Office Visit [facility] [address] [place] [address] Adama Herrera MD [address] [place] [address] 12/05/2023 2:15 PM EDT Office Visit [facility] [address] [place] [address] Adama Herrera MD [address] [place] [address] 02/09/2024 10:20 AM EDT Office Visit Nutrition & Weight Management, [facility] [address] [place] [address] Yaneth Liu PA-C [address] [place] [address] Health Maintenance Due Date Last Done Comments Cologuard 1996 Fecal Occult Blood Test 1996 Sigmoidoscopy 1996 COVID-19 Vaccine ( season) 2023 09/25/2020, 09/04/2020 Depression Screening 04/06/2023 04/06/2022 DXA Scan 06/06/2023 06/06/2016, 10/01, 10/13/2007 CKD HGB USE SMARTSET 88789 08/03/202308/03, 02/17/2022, 09/24/2021, Additional history exists HbA1c 08/03/2023 08/03/2022, 09/01, 08/11/2020, Additional history exists TSH 08/03/2023 08/03/2022, 09/01, 08/04/2020, Additional history exists Mammogram 10/11/2023 10/10/2022, 10/01, 07/05/2019, Additional history exists Albumin/Creatinine Ratio 12/02/2023 023, 11/09/2020, 10/29/2018, Additional history exists CKD PHOS USE SMARTSET 56189 12/02/2023 06/0 07/2022, 07/09/2018, 06/16/2017, Additional history [...] Completed 04/07/2023, 04/01/2022, 03/31/2021, Additional history exists COLONOSCOPY-ANNUAL AGES 18-100 Discontinued 08/18/2023, 08/18/2023, 02/22/2022, Additional history exists COLONOSCOPY-EVERY 3 YRS AGES 18-100 Discontinued 08/18/2023, 08/18/2023, 02/22/2022, Additional [...] this encounter Medical Devices Implanted Type Area Gridcap Machine Operator Device Identifier Shelf Expiration Date Model / Serial / Lot Lens Intraoc 21.0 - [id number] - [id number] Implanted:Qty: 1 on 02/04/2020 by Cedric Drew MD at OR [facility] Left: Eye [employer] 08/02/2024 [id number] / [id number] / [id number] Lens Intraoc 21.0 - [id number] - [id number] Implanted:Qty: 1 on 02/13/2020 by Cedric Drew MD at OR [facility] Right: Eye [employer] 08/30/2024 [id number] / [id number] / [id number] Clip Quick 2.8mm 230cm - [id number] Implanted:Qty: 1 on 02/22/2022 by Criss [place] MD at ENDOSCOPY [facility] Colon [employer] 05/02/2024 HX-202UR.A / / YK Clip Quick 2.8mm 230cm - [id number] Implanted:Qty: 1 on 02/22/2022 by Criss [place] MD at ENDOSCOPY [facility] Colon [employer] 05/02/2024 [id number]-202UR.A / / 1YK Clip Quick 2.8mm 230cm - [id number] Implanted:Qty: 1 on 02/22/2022 by Criss [place] MD at ENDOSCOPY [facility] Colon [employer] 05/02/2024 HX-202UR.A / / 1YK Clip Quick 2.8mm 230cm - [id number] Implanted:Qty: 1 on 02/22/2022 by Criss [place] MD at ENDOSCOPY [facility] Colon [employer] 05/02/2024 HX-202UR.A / / 1YK Clip Quick 2.8mm 230cm - [id number] Implanted:Qty: 1 on 02/22/2022 by Criss [place] MD at ENDOSCOPY [facility] Colon [employer] 05/02/2024 HX-202UR.A / / 1YK Clip Quick 2.8mm 230cm - [id number] Implanted:Qty: 1 on 02/22/2022 by Criss [place] MD at ENDOSCOPY [facility] Colon [employer] 05/02/2024 HX-202UR.A / / [id number] documented as of this encounter Visit Diagnoses Diagnosis Primary osteoarthritis of left knee- Primary Primary localized osteoarthrosis, lower leg documented in this encounter Administered Medications Inactive Administered Medications - up to 3 most recent administrations Medication Order MAR Action Action Date Dose Rate Site lidocaine 1% 1 mL - triamcinolone acetonide 40 mg/mL 1 mL inj 2 mL 2 mL, Injection, ONCE, On 10/02/23 at 1300, For 1 dose, Lidocaine 1% 1mL Triamcinolone Acetonide 40 mg/mL 1 mL (Final concentration = 20 mg/mL) REFRIGERATE and SHAKE WELL Given 10/02/2023 12:48 PM EDT 2 mL Knee Left documented in this encounter Advance Directives Latest Code Status on File Code Status Date Activated Date Inactivated Comments Full Code 10/31/2008 10:26 AM 11/01/2008 3:23 PM Care Teams Field Handyman Relationship Specialty Start Date End Date Santiago Pelayo MD [address] [place] [address] PCP - General Family Medicine 08/27/18 documented as of this encounter
--- OUTSIDE RECORDS SUMMARY | 2024-01-07 16:43 | External Medical Summary | Summary of Care ---
Author Name Unknown Organization [facility] Address [address] [place] [address] Phone [phone] Care Team Providers Care Production Honing Machine Operator Name Role Phone Santiago Pelayo MD Primary Care Provider [phone] Reason for Visit * Reason Comments Follow Up Knee Pain Left knee Encounter Details Date Type Department Care Team (Latest Contact Info) Description 10/02/2023 10:30 AM EDT Office Visit Orthopaedics [facility] [address] [place] [address] Adama Herrera MD [address] [place] [address] Primary osteoarthritis of left knee* Allergies No [...] Release 24 Hour (toPROL XL)Indications:Athero sclerosis of [place] coronary artery of [place] heart without angina pectoris Take 2 Tablets [...] taking.Reported on 08/04/2023 Vitamin D3 1.25 MG (08712 UT) Oral CapsuleIndications:Hy povitaminosis D TAKE 1 [...] left knee 2 mL IJ ONCE 10/02/2023 10/03/19 24 Active documented as of this encounter [...] Gastroesophageal reflux disease with esophagitis 04/25/2019 Old OR (myocardial infarction) 04/25/2019 Overview: NSTEMI 06/2009 Celiac disease 04/25/2019 Hiatal hernia 12/27/2017 Iron deficiency anemia 06/21/2017 Atherosclerosis of [place] co ronary artery without angina pectoris 06/22/2015 [...] Markers for Patients with Cardiovascular Disease Project #[id number] PI: Alma Smiley MD Please call [phone] with study related questions GENOMICS CARDIO RESEARCH OTHER*[id number] 10/22/2008 08/09/2016 Overview: Renamed Per Clinical Trials Billing Project. Study Titile: Genomic Markers for Patients with Cardiovascular Disease Project #[id number] PI: Alma Smiley MD Please call [phone] with study related questions Benign neoplasm of [...] mRNA, LNP-s, No Pre serve, 2-Dose Series ([employer]) 09/04/2020 H1N1 2009 Influenza, IM 07/13/2009 Pneumococcal [...] - 10/02/2023 10:30 AM EDT Shani Newton [id number] recommend NSAIDs. 3 Shani Newton is a 73 year old female who presents for f/u to [facility] for f/u of left knee injury/pain. I saw her initially for left knee pain on 06/05/2023 Most recent visit for left knee pain was on 07/10/2023 Shani Sumit Newton is here unaccompanied Quality: reviewed and [...] L knee 06/05/23 -Pt was seen in on 09/28/23 and was given a referral [...] 09/29/2009 Per Obesity Taxonomy Coronary atherosclerosis of [place] coronary artery 05/09 50% LAD Depressive disorder, not elsewhere classified Esophageal reflux 05/30/2006 Generalized OA 11/22/2011 HTN, goal below 140/90 Iron deficiency anemia Kidney disease, chronic, stage III (GFR 30-59 ml/min) 08/26/2013 Per CKD protocol #1 Menopause Migraine with aura Morbid obesity with body mass index (BMI) of 45.0 to 49.9 in adult ([facility]) 10/29/2018 Body Mass Index: 40.10 kg/m Abnormal [...] crippled hands (?RA) Heart Disorder Father several OR's, no stents Lung cancer Father 59 smoker [...] 1%, triamcinolone acetonide 40mg/ml 1 ml. Patient tolerated procedure with no significant bleeding or adverse reaction. [...] Herrera MD Primary Care Sports Medicine Orthopaedics [address] [address] documented in this encounter Nursing Notes * Eveline Stahl LPN - 10/02/2023 10:31 AM EDT F/u for L knee pain -steroid injection L knee 06/05/23 -Pt was seen in on 09/28/23 and was given a referral for PT -PT: Pt did not go to PT -Pt has been using voltaren gel and did offer pain relief -Xray L knee 06/05/23 Susanne Will LPN documented in this encounter Plan of Treatment Upcoming Encounters Date Type Department Care Team (Late st Contact Info) Description 10/12/2023 7:40 AM EDT Office Visit [facility] [address] [facility] [place] [phone] Santiago Pelayo MD [address] [place] [address] 11/21/2023 3:00 PM EDT Office Visit [facility] [address] [place] [address] Adama Herrera MD [address] [place] [address] 11/28/2023 3:00 PM EDT Office Visit Orthopaedics [facility] [address] [place] [address] Adama Herrera MD [address] [place] [address] 12/05/2023 2:15 PM EDT Office Visit Orthopaedics [facility] [address] [place] [address] Adama Herrera MD [address] [place] [address] 02/09/2024 10:20 AM EDT Office Visit Nutrition & Weight Management, [facility] [address] [place] [address] Yaneth Liu PA-C [address] [place] [address] Health Maintenance Due Date Last Done Comments Cologuard 1996 Fecal Occult Blood Test 1996 Sigmoidoscopy 1996 COVID-19 Vaccine ( season) 2023 09/25/2020, 09/04/2020 Depression Screening 04/06/2023 04/06/2022 DXA Scan 06/06/2023 06/06/2016, 10/01, 10/13/2007 CKD HGB USE SMARTSET 92642 08/03/202308/03, 02/17/2022, 09/24/2021, Additional history exists HbA1c 08/03/2023 08/03/2022, 09/01, 08/11/2020, Additional history exists TSH 08/03/2023 08/03/2022, 09/01, 08/04/2020, Additional history exists Mammogram 10/11/2023 10/10/2022, 10/01, 07/05/2019, Additional history exists Albumin/Creatinine Ratio 12/02/2023 023, 11/09/2020, 10/29/2018, Additional history exists CKD PHOS USE SMARTSET 93800 12/02/2023 06/0 07/2022, 07/09/2018, 06/16/2017, Additional history [...] this encounter Medical Devices Implanted Type Area Coal Shoveler Device Identifier Shelf Expiration Date Model / Serial / Lot Lens Intraoc 21.0 - [id number] - [id number] Implanted:Qty: 1 on 02/04/2020 by Cedric Drew MD at OR [facility] Left: Eye [employer] 08/02/2024 [id number] / [id number] / [id number] Lens Intraoc 21.0 - [id number] - [id number] Implanted:Qty: 1 on 02/13/2020 by Cedric Drew MD at [facility] Right: Eye [employer]OM[employer] 08/30/2024 [id number] / [id number] / [id number] Clip Quick 2.8mm 230cm - [id number] Implanted:Qty: 1 on 02/22/2022 by Criss Austin MD at ENDOSCOPY [facility] Colon [employer] [facility] 05/02/2024 HX-202UR.A / / 1YK Clip Quick 2.8mm 230cm - [id number] Implanted:Qty: 1 on 02/22/2022 by Criss Austin MD at ENDOSCOPY [facility] Colon [employer] [facility] 05/02/2024 HX-202UR.A / / 1YK Clip Quick 2.8mm 230cm - [id number] Implanted:Qty: 1 on 02/22/2022 by Criss Austin MD at ENDOSCOPY [facility] Colon [employer] 05/02/2024 HX-202UR.A / / 1YK Clip Quick 2.8mm 230cm - [id number] Implanted:Qty: 1 on 02/22/2022 by Criss Austin MD at ENDOSCOPY [facility] Colon [employer] 05/02/2024 HX-202UR.A / / 1YK Clip Quick 2.8mm 230cm - [id number] Implanted:Qty: 1 on 02/22/2022 by Criss Austin MD at ENDOSCOPY [facility] Colon [employer] 05/02/2024 HX-202UR.A / / 1YK Clip Quick 2.8mm 230cm - [id number] Implanted:Qty: 1 on 02/22/2022 by Criss Austin MD at ENDOSCOPY [facility] Colon [employer] 05/02/2024 HX-202UR.A / / 1YK documented as of this encounter Visit Diagnoses Diagnosis Primary osteoarthritis of left knee- Primary Primary localized osteoarthrosis, lower leg documented in this encounter Advance Directives Latest Code Status on File Code Status Date Activated Date Inactivated Comments Full Code 10/31/2008 10:26 AM 11/01/2008 3:23 PM Care Teams Production Honing Machine Operator Relationship Specialty Start Date End Date Santiago Pelayo MD [address] [place] [address] PCP - General Family Medicine 08/27/18 documented as of this encounter
--- OUTSIDE RECORDS SUMMARY | 2024-01-07 16:43 | External Medical Summary | Summary of Care ---
Author Name Unknown Organization [facility] Address [address] [place] [address] Phone [phone] Care Team Providers Care Cinema Or Theatre Manager Name Role Phone Santiago Pelayo MD Primary Care Provider [phone] Reason for Visit * Reason Comments NEW PATIENT Right hand * Evaluate & Treat - Unlimited Visits (Within 10 days (routine)) - Authorized Specialty Diagnoses / Procedures Referred By Connie prakash Referred To Contact Orthopaedic Surgery / Orthopedics Diagnoses Hand pain, right Sharon, Adama Bella MD [address] [place] [address] Referral ID Status Reason Start Date Expiration Date Visits Requested Visits Authorized [id number] Authorized Specialty Services Required 07/10/[phone] Encounter Details Date Type Department Care Team (Late st Contact Info) Description 08/07/2023 3:00 PM EST Office Visit Orthopaedics [facility] [address] [place] [address] Rodriguez Islas MD [address] [place] [address] Trigger index finger of right hand* Allergies No known active allergiesdocumented as of this encounter (statuses as of 08/07/2023) Medications Medication Sig Dispensed Refills Start Date [...] RETENTION 100 Tablet 3 10/26/2022 4 Active Ezetimibe 10 MG Oral Tablet (Zetia)Indications:Dy slipidemia, goal LDL below 70 TAKE ONE TABLET BY MOUTH EVERY DAY 100 Tablet 3 08/03/2022 4 Active Metoprolol Succinate ER 50 MG Oral Tablet Extended Release 24 Hour (toPROL XL)Indications:Athero sclerosis of mentasta coronary artery of mentasta heart without angina pectoris Take 2 Tablets by mouth in the morning. 180 Tablet 3 04/07/2023 [...] taking.Reported on 08/04/2023 Vitamin D3 1.25 MG (11958 UT) Oral CapsuleIndications:Hy povitaminosis D TAKE 1 [...] MORNING 90 Tablet 3 07/24/2023 5 Active Hospital, Clinic, or Other Facility Administered Medication Ordered Dose Route Frequency Start Date End Date Status Triamcinolone Acetonide (Kenalog) 40 MG/ML inj 40 mgIndications:Trigger index finger of right hand 40 mg IX ONCE 08/07/2023 08/07/2023 Ende d documented as of this encounter (statuses as of 08/07/2023) Active Problems Problem Noted Date Diagnosed Date [...] Gastroesophageal reflux disease with esophagitis 04/25/2019 Old AR (myocardial infarction) 04/25/2019 Overview: NSTEMI 06/2009 Celiac disease 04/25/2019 Hiatal hernia 12/27/2017 Iron deficiency anemia 06/21/2017 Atherosclerosis of mentasta co ronary artery without angina pectoris 06/22/2015 [...] as of this encounter (statuses as of 08/07/2023) Resolved Problems Problem Noted Date Diagnosed Date [...] Markers for Patients with Cardiovascular Disease Project #[id number] PI: Alma Smiley MD Please call [phone] with study related questions GENOMICS CARDIO RESEARCH OTHER*[id number] 10/22/2008 08/09/2016 Overview: Renamed Per Clinical Trials Billing Project. Study Titile: Genomic Markers for Patients with Cardiovascular Disease Project #[id number] PI: Alma Smiley MD Please call [phone] with study related questions Benign neoplasm of [...] as of this encounter (statuses as of 08/07/2023) Immunizations Name Administration Dates Next Due COVID-19 mRNA, LNP-s, No Pre serve, 2-Dose Series ([place]) 09/04/2020 H1N1 2009 Influenza, IM 07/13/2009 Influenza, [...] Date Smoking Tobacco: Former Cigarettes 0.5 10 Q uit: 01/20/1981 Smokeless Tobacco: Never Alcohol Use Standard [...] on file documented as of this encounter H&P Notes * Rodriguez Islas MD - 08/07/2023 2:59 PM EST HISTORY & PHYSICAL EXAMINATION - Hand Surgery Name: Shani Newton Date: 08/07/2023 Time: 2:59 PM Date and Time Patient was Seen: 08/07/2023 at 2:59 PM PRESENTING PROBLEM: Locking of the right index and middle fingers HPI: The patient is a 73-year-old [id number] female who is seen today at the recommendation of Dr. Adama Herrera for evaluation of locking of her right index and middle fingers. This been going on for several months. She has not a diabetic. I had released her right carpal tunnel in 1993. PAST MEDICAL HISTORY: Past Medical History: Diagnosis Date Benign neoplasm of colon 07/21/09 adenomatous polyp--repeat 2 years Benign neoplasm of colon 08/15/11 hyperplastic/repeat colonoscopy in 3 years Body mass index 40 and over, adult 09/29/2009 Per Obesity Taxonomy Coronary atherosclerosis of mentasta coronary artery 05/09 50% LAD Depressive disorder, not elsewhere classified Esophageal reflux 05/30/2006 Generalized OA 11/22/2011 HTN, goal below 140/90 Iron deficiency anemia Kidney disease, chronic, stage III (GFR 30-59 ml/min) 08/26/2013 Per CKD protocol #1 Menopause Migraine with aura Morbid obesity with body mass index (BMI) of 45.0 to 49.9 in adult ([facility]) 10/29/2018 Body Mass Index: 40.10 kg/m Abnormal 1.651 m (5' 5") as of 02/09/2022 109.3 kg (241 lb) as of 02/09/2022 Other specified forms of chronic ischemic heart disease 07/02/2009 Paraesophageal hernia S/P angioplasty with stent 10/31/2008 Sleep apnea Patient Active Problem List Diagnosis Code HTN, goal below 140/90 I10 Menopause Z78.0 ADVANCE DIRECTIVE INFORMATION S/P angioplasty with stent Z95.820 DYSLIPIDEMIA, GOAL LDL BELOW 100 E78.5 Other specified forms of chronic ischemic heart disease I25.89 Generalized OA M15.9 Vitamin D deficiency E55.9 Hypothyroidism E03.9 Sleep apnea G47.30 Atherosclerosis of mentasta coronary artery without angina pectoris I25.10 Iron deficiency anemia D50.9 Hiatal hernia K44.9 Major depressive disorder, single episode, in remission (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) I73.9 Morbid obesity with BMI of 40.0-44.9, adult ([facility]) E66.01, Z68.41 PAST SURGICAL HISTORY: Past Surgical History: Procedure Laterality Date BIOPSY OF BREAST, OPEN Left benign CARDIAC CATH SCANNED RESULT 05/2007 CARDIAC CATH-CARDIOLOGY ONLY 10/2008 70% PROXIMAL & MID LAD, 30% CIRC, NO OTHER SIGNIFICANT DISEASE, EF 60% CARPAL TUNNEL SURGERY right hand COLONOSCOPY THRU STOMA, W/BIOPSY 07/2000 hyperplastic polyps. Next colo [id number] COLONOSCOPY THRU STOMA, W/BIOPSY 08/10/2006 villous adenomas -- repeat 6 months COLONOSCOPY THRU STOMA, W/BIOPSY 07/21/2009 adenomatous polyp--repeat 2 years COLONOSCOPY THRU STOMA, W/BIOPSY 08/15/2011 hyperplastic/repeat colonoscopy in 3 years COLONOSCOPY, DIAGNOSTIC (RECTUM) 09/01/2014 benign polyps, repeat 1 yr/[facility] COLONOSCOPY, DIAGNOSTIC (RECTUM) 08/03/2015 adenomatous polyp, diverticulosis, repeat 3 yrs/ COLONOSCOPY, DIAGNOSTIC (RECTUM) 12/18/2018 diverticulosis/[facility] COLONOSCOPY, DIAGNOSTIC (RECTUM) 11/04/2020 serrated polyps, repeat 3 yrs / [facility] COLONOSCOPY, DIAGNOSTIC (RECTUM) 02/22/2022 benign adenomatous polyp, repeat 1 yr / COLONOSCOPY FLEXIBLE PROXIMAL DIAGNOSTIC performed by Criss Austin MD at [facility] CORONARY ARTERY DILATION, BALLOON 10/31/2008 PTCA, SINGLE VESSEL performed by ZACHERY NEELY at [facility] EGD, FLEXIBLE, DIAGNOSTIC 06/10/2015 mild ring, HH/[facility] EGD, FLEXIBLE, DIAGNOSTIC 10/31/2017 Jhon ulcers, hiatal hernia, repeat 3 mo/ESOPHAGOGASTRODUODENOSCOPY (EGD), FLEXIBLE, TRANSORAL, DIAGNOSTIC performed by Susanna Esteban MD at [facility] EGD, FLEXIBLE, DIAGNOSTIC 01/23/2018 gastritis, duodenitis, hiatal hernia/ESOPHAGOGASTRODUODENOSCOPY (EGD), FLEXIBLE, TRANSORAL, DIAGNOSTIC performed by Susanna Esteban MD at [facility] EGD, FLEXIBLE, DIAGNOSTIC 12/18/2018 ? celiac disease, hiatal hernia/[facility] EGD, FLEXIBLE, DIAGNOSTIC 10/15/2020 lg hiatal hernia / ESOPHAGOGASTRODUODENOSCOPY (EGD), FLEXIBLE, TRANSORAL, DIAGNOSTIC performed by Criss Austin MD at [facility] EGD, FLEXIBLE, DIAGNOSTIC 11/03/2020 Jhon's erosions / INPT [facility] EGD, FLEXIBLE, DIAGNOSTIC 02/22/2022 hiatal hernia / ESOPHAGOGASTRODUODENOSCOPY (EGD), FLEXIBLE, TRANSORAL, DIAGNOSTIC performed by Criss Austin MD at [facility] KNEE ARTHROSCOPY/MENISCUS REPAIR left knee LAPAROSCOPY; CHOLECYSTECTOMY 2002 LIGATE/CUT OVIDUCT(S) METACAR FX (1) W/MAN EA BONE Right 05/09/2018 CLOSED TREATMENT METACARPAL FRACTURE MANIPULATION performed by Ciro Mcmillan DO at [facility] REMOVE CATARACT, INSERT LENS PROSTH Left 02/04/2020 LEFT EXTRACAPSULAR CATARACT REMOVAL WITH INTRAOCULAR LENS performed by Cedric Drew MD at [facility] REMOVE CATARACT, INSERT LENS PROSTH Right 02/13/2020 RIGHT EXTRACAPSULAR CATARACT REMOVAL WITH INTRAOCULAR LENS performed by Cedric Drew MD at [facility] TOTAL ABD HYSTERECTOMY W/WO REMOVAL OF TUBE(S) 04/2008 AVELINA/BSO Hemmer FAMILY HISTORY: Family History Problem Relation Age of Onset Ovarian cancer Mother 55 Blood Disorder Mother bleeding, vaginal that lead to diagnosis of uterine cancer Uterine cancer Mother Arthritis Father 53 bad arthritis, crippled hands (?RA) Heart Disorder Father several AR's, no stents Lung cancer Father 59 smoker Osteoarthritis Brother Other (mentally "slow") Brother Diabetes Grandmother (Maternal) Diabetes Grandfather (Maternal) Heart Disorder Grandfather (Paternal) Osteoarthritis Son Rheum arthritis Son Stroke No significant family history Thyroid Disorder No significant family history SOCIAL HISTORY: Social History Tobacco Use Smoking status: Former Packs/day: 0.50 Years: 10.00 Additional pack years: 0.00 Total pack years: 5.00 Types: Cigarettes Quit date: 01/20/1981 Years since quittin.5 Smokeless tobacco: Never Vaping Use Vaping Use: Never used Substance Use Topics Alcohol use: Yes Comment: rarely a beer or vodka Drug use: No MARITAL STATUS: Divorce CURRENT MEDICATIONS: Current Outpatient Medications Medication Sig Dispense Refill Nitroglycerin 0.4 MG Sublingual Tablet Sublingual (Nitrostat) PLACE 1 TABLET UNDER THE TONGUE EVERY5 MINUTES UP TO 3 DOSES NEEDED FOR CHEST PAIN. IF NO RELIEF CALL 911 OR GO TO ER (Patient not taking: Reported on 08/04/2023) 75 Tablet 1 Vitamin C 500 MG Oral Tablet (Ascorbic Acid) Take by mouth 1 Tablet in the morning AND 1 Tablet before bedtime. Take along with Iron pill (Ferrous Sulfate). 60 Tablet 5 Cetirizine HCl 10 MG Oral Tablet (ZyrTEC) Take 1 Tablet by mouth in the morning. (Patient not taking: Reported on 08/04/2023) 90 Tablet 1 valACYclovir HCl 1 GM Oral Tablet (Valtrex) Take 2 Tablets by mouth in the morning and 2 Tablets before bedtime. for cold sores. (Patient not taking: Reported on 05/05/2023) 4 Tablet 11 Citalopram Hydrobromide 40 MG Oral Tablet (CeleXA) TAKE ONE TABLET BY MOUTH EVERY MORNING. 90 Tablet 3 buPROPion HCl ER (XL) 300 MG Oral Tablet Extended Release 24 Hour (Wellbutrin XL) TAKE ONE TABLET BY MOUTH EVERY MORNING 90 Tablet 3 Potassium Chloride Gertrudis ER 10 MEQ Oral Tablet Extended Release TAKE ONE TABLET BY MOUTH EVERY TIME YOU TAKE FUROSEMIDE 100 Tablet 3 Furosemide 20 MG Oral Tablet (Lasix) TAKE ONE TABLET BY MOUTH EVERY DAY NEEDED FOR FLUID RETENTION 100 Tablet 3 Ezetimibe 10 MG Oral Tablet (Zetia) TAKE ONE TABLET BY MOUTH EVERY DAY 100 Tablet 3 Metoprolol Succinate ER 50 MG Oral Tablet Extended Release 24 Hour (toPROL XL) Take 2 Tablets by mouth in the morning. 180 Tablet 3 Ferrous Sulfate 325 (65 Fe) MG Oral Tablet (Feosol) TAKE ONE TABLET BY MOUTH TWICE A DAY IN THE MORNING AND BEFORE BEDTIME 200 Tablet 3 traMADol HCl 50 MG Oral Tablet (Ultram) Take 1 Tablet by mouth every 6 hours as needed for Pain, Moderate. (Patient not taking: Reported on 08/04/2023) 30 Tablet 0 Vitamin D3 1.25 MG (31384 UT) Oral Capsule TAKE 1 CAPSULE BY MOUTH WEEKLY 12 Capsule 1 Levothyroxine Sodium 75 MCG Oral Tablet (Levoxyl) [...] BY MOUTH EVERY MORNING 90 Tablet 3 No current facility-administered medications for this visit. ALLERGIES: Patient has no known allergies. ROS: Negative for GI, , Cardiac, Respioratory and Neurologic complains. Remainder of systems negative. PHYSICAL EXAMINATION: General: Well developed, well obese. Neuro: Awake, alert, and oriented. Heart & Lungs OK Extremities: There is point tenderness over the A1 pulleys of the right index and middle fingers. There is soft clicking of the index finger. I do not demonstrate locking of either digit. Skin is intact. Sensation is intact. There is good capillary refill. IMPRESSION: Trigger fingers right index and middle fingers. PLAN: I gave her handout regarding the condition. We discussed options. At her request, I injected the flexor sheath of the right index finger with 40 mg of Kenalog. This was done as follows: An informed consent was obtained. An appropriate time-out was performed. I injected 1 mL containing 40 mg of Kenalog and a small amount of 1% lidocaine into the index finger flexor sheath. Alcohol prep was used. Icould palpate the sheath to inflate during the course of the injection. A light dressing was applied. There were no complications. Follow-up will be in 2 months. Thank you for the kindness of this referral. Patient Active Problem List Diagnosis Code HTN, goal below 140/90 I10 Menopause Z78.0 ADVANCE DIRECTIVE INFORMATION S/P angioplasty with stent Z95.820 DYSLIPIDEMIA, GOAL LDL BELOW 100 E78.5 Other specified forms of chronic ischemic heart disease I25.89 Generalized OA M15.9 Vitamin D deficiency E55.9 Hypothyroidism E03.9 Sleep apnea G47.30 Atherosclerosis of mentasta coronary artery without angina pectoris I25.10 Iron deficiency anemia D50.9 Hiatal hernia K44.9 Major depressive disorder, single episode, in remission (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) E66.01, Z68.41 Rodriguez Islas MD documented in this encounter Nursing Notes * Lacey Reyes, RN - 08/07/2023 2:48 PM EST Pt presents today for right index and middle finger locking. Has to manually unlock fingers. Deniesinjections in past for hand. RHD.Pain 5/10 when locking occurs burining sensation . CTR sx Dr. Hernandez. Lacey Reyes RN documented in this encounter Plan of Treatment Upcoming Encounters Date Type Department Care Team (Late st Contact Info) Description 08/17/2023 11:00 AM EST Office Visit Nutrition & Weight Management, [facility] [address] [place] [address] Vanessa Lincoln PA-C [address] [place] [address] 08/18/2023 10:45 AM EST Hospital Encounter [facility], Endoscopy Room [facility] [address] [place] [phone] Criss Austin MD [address] [place] [address] 08/18/2023 10:45 AM EST - 08/18/2023 11:15 AM EST Surgery [facility] [address] [place] [phone] Criss Austin MD [address] [place] [address] COLONOSCOPY FLEXIBLE PROXIMAL DIAGNOSTIC 10/06/2023 9:30 AM EDT Office Visit Orthopaedics [facility] [address] [place] [phone] Rodriguez Islas MD [address] [place] [address] 10/12/2023 7:40 AM EDT Office Visit [facility] [address] [place] [address] Santiago Pelayo MD [address] [place] [address] Scheduled Procedures Name Priority Associated Diagnoses Date/Ti me COLONOSCOPY FLEXIBLE PROXIMAL DIAGNOSTIC Recall History of colon polyps Angiodysplasia of the colon Adenomatous polyp of colon, unspecified part of colon 08/18/2023 10:45 AM EST Health Maintenance Due Date Last Done Comments COLONOSCOPY-ANNUAL AGES 18-100 02/22/2023 02/22/2022, 02/22/2022, 11/04/2020, Additional history exists COVID-19 Vaccine ( season) 2023 09/25/2020, 09/04/2020 Depression Screening 04/06/2023 04/06/2022 DXA Scan 06/06/2023 06/06/2016, 10/01, 10/13/2007 CKD HGB USE SMARTSET 11814 08/03/202308/03, 02/17/2022, 09/24/2021, Additional history exists HbA1c 08/03/2023 08/03/2022, 09/01, 08/11/2020, Additional history exists TSH 08/03/2023 08/03/2022, 09/01, 08/04/2020, Additional history exists Mammogram 10/11/2023 10/10/2022, 10/01, 07/05/2019, Additional history exists Albumin/Creatinine Ratio 12/02/2023 023, 11/09/2020, 10/29/2018, Additional history exists CKD PHOS USE SMARTSET 01542 12/02/2023 06/0 07/2022, 07/09/2018, 06/16/2017, Additional history exists GFR 12/05/2023 06/05/2023, 060 07/2022, 08/03/2022, Additional history exists DTaP,Tdap,and Td Vaccines (3 - Td or Tdap) 10/29/2028 10/29/2018, 01/05/2009 Pneumococcal Vaccine: 65+ Years Completed 06/16/2017, 12/13/2016, 01/05/2009 Zoster Vaccines Completed 09/24/2021, 06/0 10/2020, 03/07/2013 COLONOSCOPY-EVERY 3 YRS AGES 18-100 Discontinued 02/22/2022, 02/22/2022, 11/04/2020, Additional history exists Influenza Vaccine (FLU shot) Completed 04/07/2023, 04/01/2022, 03/31/2021, Additional history exists GARDASIL-HPV IMMUNIZATION SERIES Aged Out No longer eligible based on patient's age to complete this topic Hepatitis B Aged Out No longer eligi ble based on patient's age to complete this topic MENINGOCOCCAL (MENACTRA/MENVEO) Aged Out No longer eligible based on patient's age to complete this topic documented as of this encounter Medical Devices Implanted Type Area Copy Chief Device Identifier Shelf Expiration Date Model / Serial / Lot Lens Intraoc 21.0 - [id number] - [id number] Implanted:Qty: 1 on 02/04/2020 by Cedric Drew MD at [facility] Left: Eye BAUSCH & LOMB 08/02/2024 [id number] / [id number] / [id number] Lens Intraoc 21.0 - [id number] - [id number] Implanted:Qty: 1 on 02/13/2020 by Cedric Drew MD at [facility] Right: Eye BAUSCH [employer] LOMB 08/30/2024 [id number] / [id number] / [id number] Clip Quick 2.8mm 230cm - [id number] Implanted:Qty: 1 on 02/22/2022 by Criss Austin MD at [facility] Colon Plug.dj 05/02/2024 [id number] / [id number] documented as of this encounter Visit Diagnoses Diagnosis Trigger index finger of right hand- Primary Trigger finger (acquired) History of colon polyps Personal history of colonic polyps Angiodysplasia of the colon Angiodysplasia of intestine (without mention of hemorrhage) Adenomatous polyp of colon, unspecified part of colon documented in this encounter Administered Medications Inactive Administered Medications - up to 3 most recent administrations Medication Order MAR Action Action Date Dose Rate Site Triamcinolone Acetonide (Kenalog) 40 MG/ML inj 40 mg 40 mg, Intra-Articular, ONCE, On 08/07/23 at 1545, For 1 dose Given 08/07/2023 3:07 PM EST 40 mg Hand Right documented in this encounter Advance Directives Latest Code Status on File Code Status Date Activated Date Inactivated Comments Full Code 10/31/2008 10:26 AM 11/01/2008 3:23 PM Care Teams Cinema Or Theatre Manager Relationship Specialty Start Date End Date Santiago Pelayo MD [address] [place] [address] PCP - General Family Medicine 08/27/18 documented as of this encounter
--- OUTSIDE RECORDS SUMMARY | 2024-01-07 16:43 | External Medical Summary | Summary of Care ---
Author Name Unknown Organization [facility] Address [address] [place] [place] [address] Phone [phone] Care Team Providers Care Military Education Coordinator Name Role Phone Ranjith Pelayo MD Primary Care Provider [phone] Reason for Visit * Reason Comments Medication Refill Encounter Details Date Type Department Care Team (Late st Contact Info) Description 08/25/2023 Refill [address]iology, [facility] [address] [facility] [place] [address] Ranjith Loera, PA-C [address] [place] [address] Dyslipidemia, goal LDL below 70 Allergies No known active allergiesdocumented as of this encounter (statuses as of 08/25/2023) Medications Medication Sig Dispensed Refills Start Date End Date Status Nitroglycerin 0.4 MG Sublingual Tablet Sublingual (Nitrostat)Indicatio [...] 05/05/2023 Citalopram Hydrobromide 40 MG Oral Tablet (CeleXA)Indications: Major depressive disorder, single episode, in remission (HCC) TAKE ONE TABLET BY MOUTH EVERY MORNING. 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 180 Tablet 3 04/07/2023 Active Ferrous Sulfate 325 (65 Fe) MG Oral Tablet (Feosol) TAKE ONE TABLET BY MOUTH TWICE A DAY IN THE MORNING AND BEFORE BEDTIME 200 Tablet 3 04/18/2023 04/17/20 24 Active traMADol HCl 50 MG Oral Tablet (Ultram)Indications: Osteoarthritis of left knee, unspecified osteoarthritis type Take 1 Tablet by mouth every 6 hours as needed for Pain, Moderate. 30 Tablet 0 05/05/2023 Active Additional Information Patient not taking.Reported on 08/04/2023 Vitamin D3 1.25 MG (20188 UT) Oral CapsuleIndications:H ypovitaminosis D TAKE 1 CAPSULE BY MOUTH WEEKLY 12 Capsule 1 05/16/2023 05/15/20 24 Active Levothyroxine Sodium 75 MCG Oral [...] 90 Tablet 3 08/25/2023 08/24/19 25 Active Ezetimibe 10 MG Oral Tablet (Zetia)Indications:D yslipidemia, goal LDL below 70 TAKE ONE TABLET BY MOUTH EVERY DAY 100 Tablet 3 08/03/2022 08/25/19 24 Discontinu ed(Refill) documented as of this encounter (statuses as of 08/25/2023) Active Problems Problem Noted Date Diagnosed Date [...] Gastroesophageal reflux disease with esophagitis 04/25/2019 Old [place] (myocardial infarction) 04/25/2019 Overview: NSTEMI 06/2009 Celiac disease 04/25/2019 Hiatal hernia 12/27/2017 Iron deficiency anemia 06/21/2017 Atherosclerosis of [place] co ronary artery without angina pectoris [...] as of this encounter (statuses as of 08/25/2023) Resolved Problems Problem Noted Date Diagnosed Date [...] Markers for Patients with Cardiovascular Disease Project #[id number] PI: Alma Smiley MD Please call [phone] with study related questions GENOMICS CARDIO RESEARCH OTHER*[id number] 10/22/2008 08/09/2016 Overview: Renamed Per Clinical Trials Billing Project. Study Titile: Genomic Markers for Patients with Cardiovascular Disease Project #[id number] PI: Alma Smiley MD Please call [phone] with study related questions Benign neoplasm of [...] as of this encounter (statuses as of 08/25/2023) Immunizations Name Administration Dates Next Due COVID-19 mRNA, LNP-s, No Pre serve, 2-Dose Series (Proviation) 09/04/2020 H1N1 2009 Influenza, IM 07/13/2009 Pneumococcal [...] Telephone Encounter - Ranjith Loera PA-C - 08/25/2023 5:15 PM ESTSigned Prescriptions: Disp Refills Ezetimibe 10 MG Oral Tablet (Zetia) 90 Tab*3 Sig: TAKE ONE TABLET BY MOUTH EVERY DAY Authorizing Provider: RANJITH LOERA * Telephone Encounter - Lilliam Castillo COT - 08/25/2023 2:08 PM ESTPending Prescriptions: Disp Refills Ezetimibe 10 MG Oral Tablet (Zetia) 90 Tab*3 Sig: TAKE ONE TABLET BY MOUTH EVERY DAY * Telephone Encounter - Lilliam Castillo COT - 08/25/2023 2:08 PM EST Did you pend patient's preferred pharmacy and medication before forwarding?yes Pharmacy: [facility] Pending Prescriptions: Disp Refills Ezetimibe 10 MG Oral Tablet (Zetia) 90 Tab*3 Sig: TAKE ONE TABLET BY MOUTH EVERY DAY Last Visit: 08/04/2023 (in office), 08/04/2020 (telemedicine) Next Visit: Visit date not found If no future appointments scheduled, and last appointment is greater than a year ago, please schedule patient for a follow-up appointment Last date the medication was ordered: 08-03-2022 Is this request for a controlled substance?No [...] Care Team (Late st Contact Info) Description 10/06/2023 9:30 AM EDT Office Visit Orthopaedics [facility] [address] [address] Rodriguez Islas MD [address] [place] [address] 10/12/2023 7:40 AM EDT Office Visit [place] [address] [place] [address] Ranjith Pelayo MD [address] [place] [address] 02/09/2024 10:20 AM EDT Office Visit Nutrition & Weight Management, [facility] [address] [address] Yaneth Liu PA-C [address] [place] [address] Health Maintenance Due Date Last Done Comments COVID-19 Vaccine (3 2022-24 season) 2023 09/25/2020, 09/04/2020 Depression Screening 04/06/2023 04/06/2022 DXA Scan 06/06/2023 06/06/2016, 10/01, 10/13/2007 CKD HGB USE SMARTSET 98143 08/03/202308/03, 02/17/2022, 09/24/2021, Additional history exists HbA1c 08/03/2023 08/03/2022, 09/01, 08/11/2020, Additional history exists TSH 08/03/2023 08/03/2022, 09/01, 08/04/2020, Additional history exists Mammogram 10/11/2023 10/10/2022, 10/01, 07/05/2019, Additional history exists Albumin/Creatinine Ratio 12/02/2023 023, 11/09/2020, 10/29/2018, Additional history exists CKD PHOS USE SMARTSET 02950 12/02/2023 06/0 07/2022, 07/09/2018, 06/16/2017, Additional history exists GFR 12/05/2023 06/05/2023, 06/0 07/2022, 08/03/2022, Additional history exists COLONOSCOPY-ANNUAL AGES 18-100 08/18/2024 08/18/2023, 02/22/2022, 02/22/2022, Additional history exists DTaP,Tdap,and Td Vaccines (3 - Td or Tdap) 10/29/2028 10/29/2018, 01/05/2009 Pneumococcal Vaccine: 65+ Years Completed 06/16/2017, 12/13/2016, 01/05/2009 Zoster Vaccines Completed 09/24/2021, 06/0 10/2020, 03/07/2013 Influenza Vaccine (FLU shot) Completed 04/07/2023, 04/01/2022, 03/31/2021, Additional history exists COLONOSCOPY-EVERY 3 YRS AGES 18-100 Discontinued 08/18/2023, 02/22/2022, 02/22/2022, Additional history exists GARDASIL-HPV IMMUNIZATION SERIES Aged Out No longer eligible based on patient's age to complete this topic Hepatitis B Aged Out No longer eligi ble based on patient's age to complete this topic MENINGOCOCCAL (MENACTRA/MENVEO) Aged Out No longer eligible based on patient's age to complete this topic documented as of this encounter Medical Devices Implanted Type Area Radiologic Tech Device Identifier Shelf Expiration Date Model / Serial / Lot Lens Intraoc 21.0 - [id number] - [id number] Implanted:Qty: 1 on 02/04/2020 by Cedric Drew MD at OR [facility] Left: Eye [employer] 08/02/2024 [id number] / [id number] / [id number] Lens Intraoc 21.0 - [id number] - [id number] Implanted:Qty: 1 on 02/13/2020 by Cedric Drew MD at [facility] Right: Eye [employer]OM[employer] 08/30/2024 [id number] / [id number] / [id number] Clip Quick 2.8mm 230cm - [id number] Implanted:Qty: 1 on 02/22/2022 by Criss Austin MD at ENDOSCOPY [facility] Colon [employer] 05/02/2024 HX-UR.A / / YK Clip Quick 2.8mm 230cm - [id number] Implanted:Qty: 1 on 02/22/2022 by Criss Austin MD at ENDOSCOPY [facility] Colon [employer] 05/02/2024 HX-202UR.A / / YK Clip Quick 2.8mm 230cm - [id number] Implanted:Qty: 1 on 02/22/2022 by Criss Austin MD at ENDOSCOPY [facility] Colon [employer] 05/02/2024 HX-202UR.A / / 1YK Clip Quick 2.8mm 230cm - [id number] Implanted:Qty: 1 on 02/22/2022 by Criss Austin MD at ENDOSCOPY [facility] Colon [employer] 05/02/2024 HX-202UR.A / / 1YK Clip Quick 2.8mm 230cm - [id number] Implanted:Qty: 1 on 02/22/2022 by Criss Austin MD at [facility]COPY [facility] Colon [employer] 05/02/2024 HX-202UR.A / / 1YK Clip Quick 2.8mm 230cm - [id number] Implanted:Qty: 1 on 02/22/2022 by Criss Austin MD at ENDOSCOPY [facility] Colon [employer] 05/02/2024 HX-202UR.A / / 1YK documented as of this encounter Visit Diagnoses Diagnosis Dyslipidemia, goal LDL below 70 Other and unspecified hyperlipidemia documented in this encounter Advance Directives Latest Code Status on File Code Status Date Activated Date Inactivated Comments Full Code 10/31/2008 10:26 AM 11/01/2008 3:23 PM Care Teams Military Education Coordinator Relationship Specialty Start Date End Date Ranjith Pelayo MD [address] [place] [address] PCP - General Family Medicine 08/27/18 documented as of this encounter
--- OUTSIDE RECORDS SUMMARY | 2024-01-07 16:43 | External Medical Summary | Summary of Care ---
Author Name Unknown Organization [facility] Address [address] [facility] [place] [address] Phone [phone] Care Team Providers Care Paralegal Internship Name Role Phone Santiago Pelayo MD Primary Care Provider [phone] Encounter Details Date Type Department Care Team (Late st Contact Info) Description 10/14/2023 Orders Only PATIENT PORTAL DO NOT DELETE THIS DEPT USED BY [place] [id number] Allergies No known active allergiesdocumented as of this encounter (statuses as of 10/14/2023) Medications Medication Sig Dispensed Refills Start Date [...] Release 24 Hour (toPROL XL)Indications:Athero sclerosis of [place] coronary artery of [place] heart without angina pectoris Take 2 Tablets by mouth daily in the morning. 180 Tablet 3 04/07/2023 Active Ferrous Sulfate 325 (65 Fe) MG Oral Tablet (Feosol) TAKE ONE TABLET BY MOUTH TWICE A DAY IN THE MORNING AND BEFORE BEDTIME 200 Tablet 3 04/18/2023 4 Active Vitamin D3 1.25 MG (40943 UT) Oral CapsuleIndications:Hy povitaminosis D TAKE 1 [...] TO ER 75 Tablet 1 10/12/2023 Active documented as of this encounter (statuses as of 10/14/2023) Active Problems Problem Noted Date Diagnosed Date [...] Gastroesophageal reflux disease with esophagitis 04/25/2019 Old [place] (myocardial infarction) 04/25/2019 Overview: NSTEMI 06/2009 Celiac disease 04/25/2019 Hiatal hernia 12/27/2017 Iron deficiency anemia 06/21/2017 Atherosclerosis of [place] co ronary artery without angina pectoris 06/22/2015 [...] as of this encounter (statuses as of 10/14/2023) Resolved Problems Problem Noted Date Diagnosed Date [...] Markers for Patients with Cardiovascular Disease Project #[id number] PI: Alma Smiley MD Please call [phone] with study related questions GENOMICS CARDIO RESEARCH OTHER*[id number] 10/22/2008 08/09/2016 Overview: Renamed Per Clinical Trials Billing Project. Study Titile: Genomic Markers for Patients with Cardiovascular Disease Project #[id number] PI: Alma Smiley MD Please call [phone] with study related questions Benign neoplasm of [...] as of this encounter (statuses as of 10/14/2023) Immunizations Name Administration Dates Next Due COVID-19 mRNA, LNP-s, No Pre serve, 2-Dose Series (Infinite.ly) 09/04/2020 H1N1 2009 Influenza, IM 07/13/2009 Pneumococcal [...] on file documented as of this encounter Plan of Treatment Upcoming Encounters Date Type Department Care Team (Late st Contact Info) Description 11/21/2023 3:00 PM EDT Office Visit [facility] [address] [place] [address] Adama Herrera MD [address] [place] [address] 11/28/2023 3:00 PM EDT Office Visit [facility] [address] [facility] [place] [address] Adama Herrera MD [address] [place] [address] 12/05/2023 2:15 PM EDT Office Visit [facility] [address] [facility] [place] [address] Adama Herrera MD [address] [place] [address] 12/06/2023 6:00 PM EDT Office Visit [facility], [place] [address] [facility] [id number] Santiago Pelayo MD [address] [facility] [place] [address] 01/11/2024 7:15 AM EDT [facility] [address] [place] [address] 02/09/2024 10:20 AM EDT Office Visit Nutrition & Weight Management, [facility] [address] [place] [address] Yaneth Liu PA-C [address] [place] [address] Health Maintenance Due Date Last Done Comments Cologuard 1996 Fecal Occult Blood Test 1996 Sigmoidoscopy 1996 COVID-19 Vaccine ( season) 2023 09/25/2020, 09/04/2020 DXA Scan 06/06/2023 06/06/2016, 10/01, 10/13/2007 CKD HGB USE SMARTSET 91414 08/03/202308/03, 02/17/2022, 09/24/2021, Additional history exists HbA1c 08/03/2023 08/03/2022, 09/01, 08/11/2020, Additional history exists TSH 08/03/2023 08/03/2022, 09/01, 08/04/2020, Additional history exists Mammogram 10/11/2023 10/10/2022, 10/01, 07/05/2019, Additional history exists Albumin/Creatinine Ratio 12/02/2023 023, 11/09/2020, 10/29/2018, Additional history exists CKD PHOS USE SMARTSET 35698 12/02/2023 060 07/2022, 07/09/2018, 06/16/2017, Additional history [...] this encounter Medical Devices Implanted Type Area Campus Executive Director Device Identifier Shelf Expiration Date Model / Serial / Lot Lens Intraoc 21.0 - [id number] - [id number] Implanted:Qty: 1 on 02/04/2020 by Cedric Drew MD at OR [facility] Left: Eye [employer]OM[employer] 08/02/2024 [id number] / [id number] / [id number] Lens Intraoc 21.0 - [id number] - [id number] Implanted:Qty: 1 on 02/13/2020 by Cedric Drew MD at [facility] Right: Eye [employer]OM[employer] 08/30/2024 [id number] / [id number] / [id number] Clip Quick 2.8mm 230cm - [id number] Implanted:Qty: 1 on 02/22/2022 by Criss Austin MD at ENDOSCOPY [facility] Colon [employer] 05/02/2024 HX-202UR.A / / 1YK Clip Quick 2.8mm 230cm - [id number] Implanted:Qty: 1 on 02/22/2022 by Criss Austin MD at ENDOSCOPY [facility] [employer] 05/02/2024 HX-202UR.A / / 1YK Clip Quick 2.8mm 230cm - [id number] Implanted:Qty: 1 on 02/22/2022 by Criss Austin MD at ENDOSCOPY [facility] [employer] 05/02/2024 HX-UR.A / / YK Clip Quick 2.8mm 230cm - [id number] Implanted:Qty: 1 on 02/22/2022 by Criss Austin MD at ENDOSCOPY [facility] [employer] 05/02/2024 HX-UR.A / / 1YK Clip Quick 2.8mm 230cm - [id number] Implanted:Qty: 1 on 02/22/2022 by Criss Austin MD at ENDOSCOPY [facility] [employer] 05/02/2024 HX-UR.A / / 1YK Clip Quick 2.8mm 230cm - [id number] Implanted:Qty: 1 on 02/22/2022 by Criss Austin MD at ENDOSCOPY [facility] [employer] 05/02/2024 HX-UR.A / / 1YK documented as of this encounter Advance Directives Latest Code Status on File Code Status Date Activated Date Inactivated Comments Full Code 10/31/2008 10:26 AM 11/01/2008 3:23 PM Care Teams Paralegal Internship Relationship Specialty Start Date End Date Santiago Pelayo MD [address] [place] [address] PCP - General Family Medicine 08/27/18 documented as of this encounter
--- OUTSIDE RECORDS SUMMARY | 2024-01-07 16:43 | External Medical Summary | Summary of Care ---
Author Name Unknown Organization [facility] Address [address] [place] [address] Phone [phone] Care Team Providers Care Right Of Way Cutter Name Role Phone Santiago Pelayo MD Primary Care Provider [phone] Encounter Details Date Type Department Care Team (Late st Contact Info) Description 10/17/2023 Telephone [facility] [address] [place] [address] Santiago Pelayo MD [address] [place] [address] Allergies No known active allergiesdocumented as of this encounter (statuses as of 10/17/2023) Medications Medication Sig Dispensed Refills Start Date [...] Release 24 Hour (toPROL XL)Indications:Athero sclerosis of [place] coronary artery of [place] heart without angina pectoris Take 2 Tablets by mouth daily in the morning. 180 Tablet 3 04/07/2023 Active Ferrous Sulfate 325 (65 Fe) MG Oral Tablet (Feosol) TAKE ONE TABLET BY MOUTH TWICE A DAY IN THE MORNING AND BEFORE BEDTIME 200 Tablet 3 04/18/2023 4 Active Vitamin D3 1.25 MG (93876 UT) Oral CapsuleIndications:Hy povitaminosis D TAKE 1 [...] as of this encounter (statuses as of 10/17/2023) Active Problems Problem Noted Date Diagnosed Date [...] Gastroesophageal reflux disease with esophagitis 04/25/2019 Old [place] (myocardial infarction) 04/25/2019 Overview: NSTEMI 06/2009 Celiac disease 04/25/2019 Hiatal hernia 12/27/2017 Iron deficiency anemia 06/21/2017 Atherosclerosis of [place] co ronary artery without angina pectoris 06/22/2015 [...] as of this encounter (statuses as of 10/17/2023) Resolved Problems Problem Noted Date Diagnosed Date [...] Markers for Patients with Cardiovascular Disease Project #[id number] PI: Alma Smiley MD Please call [phone] with study related questions GENOMICS CARDIO RESEARCH OTHER*[id number] 10/22/2008 08/09/2016 Overview: Renamed Per Clinical Trials Billing Project. Study Titile: Genomic Markers for Patients with Cardiovascular Disease Project #[id number] PI: Alma mSiley MD Please call [phone] with study related questions Benign neoplasm of [...] as of this encounter (statuses as of 10/17/2023) Immunizations Name Administration Dates Next Due COVID-19 [...] Influenza, Split, I IV3, With Preserve, Inj 03/25/2016,03/16/2015,03/11/2014,06/04,03/11/2013,03/15/2012,03/21/20,04/20/2010,04/14/2009,05/03/2008 Seasonal Influenza, Trivalen t, High Dose, No [...] encounter Miscellaneous Notes * Telephone Encounter - Louisa Holland OSA - 10/17/2023 10:22 AM EDT LMOM to schedule Dexa Scan. 10/17/2023 documented in this encounter Plan of Treatment Upcoming Encounters Date Type Department Care Team (Late st Contact Info) Description 11/21/2023 3:00 PM EDT Office Visit [facility] [address] [address] Adama Herrera MD [address] [place] [address] 11/28/2023 3:00 PM EDT Office Visit [facility] [address] [address] Adama Herrera MD [address] [place] [address] 12/05/2023 2:15 PM EDT Office Visit Orthopaedics [facility] [address] [place] [address] Adama Herrera MD [address] [place] [address] 12/06/2023 6:00 PM EDT Office Visit Family [facility] [address] [place] [phone] Santiago Pelayo MD [address] [place] [address] 01/11/2024 7:15 AM EDT Imaging Radiology [facility] [address] [place] [address] 02/09/2024 10:20 AM EDT Office Visit Nutrition & Weight Management, [facility] [place] [address] Yaneth Liu PA-C [address] [place] [address] Health Maintenance Due Date Last Done Comments Cologuard 1996 Fecal Occult Blood Test 1996 Sigmoidoscopy 1996 COVID-19 Vaccine ( season) 2023 09/25/2020, 09/04/2020 DXA Scan 06/06/2023 06/06/2016, 10/01, 10/13/2007 CKD HGB USE SMARTSET 71679 08/03/202308/03, 02/17/2022, 09/24/2021, Additional history exists HbA1c 08/03/2023 08/03/2022, 2 10/2021, 08/11/2020, Additional history exists TSH 08/03/2023 08/03/2022, 09/01, 08/04/2020, Additional history exists Mammogram 10/11/2023 10/10/2022, 10/01, 07/05/2019, Additional history exists Albumin/Creatinine Ratio 12/02/2023 023, 11/09/2020, 10/29/2018, Additional history exists CKD PHOS USE SMARTSET 48384 12/02/2023 06/0 07/2022, 07/09/2018, 06/16/2017, Additional history [...] this encounter Medical Devices Implanted Type Area Muck Farmer Device Identifier Shelf Expiration Date Model / Serial / Lot Lens Intraoc 21.0 - [id number] - [id number] Implanted:Qty: 1 on 02/04/2020 by Cedric Drew MD at OR [facility] Left: Eye [employer]OM[employer] 08/02/2024 [id number] / [id number] / [id number] Lens Intraoc 21.0 - [id number] - [id number] Implanted:Qty: 1 on 02/13/2020 by Cedric Drew MD at OR [facility] Right: Eye [employer]CH [employer]OMB 08/30/2024 [id number] / [id number] / [id number] Clip Quick 2.8mm 230cm - [id number] Implanted:Qty: 1 on 02/22/2022 by Criss Austin MD at ENDOSCOPY [facility] [email or web address] 05/02/2024 HX-202UR.A / / YK Clip Quick 2.8mm 230cm - [id number] Implanted:Qty: 1 on 02/22/2022 by Criss Austin MD at ENDOSCOPY [facility] Colon [employer] 05/02/2024 HX-202UR.A / / YK Clip Quick 2.8mm 230cm - [id number] Implanted:Qty: 1 on 02/22/2022 by Criss Austin MD at ENDOSCOPY [facility] [email or web address] 05/02/2024 HX-202UR.A / / YK Clip Quick 2.8mm 230cm - [id number] Implanted:Qty: 1 on 02/22/2022 by Criss Austin MD at ENDOSCOPY [facility] Colon [employer] 05/02/2024 HX-202UR.A / / YK Clip Quick 2.8mm 230cm - [id number] Implanted:Qty: 1 on 02/22/2022 by Criss Austin MD at ENDOSCOPY [facility] Colon [employer] 05/02/2024 HX-202UR.A / / YK Clip Quick 2.8mm 230cm - [id number] Implanted:Qty: 1 on 02/22/2022 by Criss Austin MD at ENDOSCOPY [facility] Colon [email or web address] 05/02/2024 HX-202UR.A / [id number] documented as of this encounter Advance Directives Latest Code Status on File Code Status Date Activated Date Inactivated Comments Full Code 10/31/2008 10:26 AM 11/01/2008 3:23 PM Care Teams Right Of Way Cutter Relationship Specialty Start Date End Date Santiago Pelayo MD [address] [place] [address] PCP - General Family Medicine 08/27/18 documented as of this encounter
--- OUTSIDE RECORDS SUMMARY | 2024-01-07 16:43 | External Medical Summary | Summary of Care ---
Author Name Unknown Organization [facility] Address [address] [place] [address] Phone [phone] Care Team Providers Care Mail Processor Name Role Phone Santiago Pelayo MD Primary Care Provider Reason for Visit * Reason Onset Date Comments Referral 10/12/2023 Encounter Details Date Type Department Care Team (Late st Contact Info) Description 10/12/[address] [facility] [address] [place] [address] Santiago Pelayo MD [address] [place] [address] Referral Allergies No known active allergiesdocumented as of this encounter (statuses as of 10/12/2023) Medications Medication Sig Dispensed Refills Start Date [...] Citalopram Hydrobromide 40 MG Oral Tablet (CeleXA)Indications:M kbor depressive disorder, single episode, in remission (HCC) [...] Release 24 Hour (toPROL XL)Indications:Athero sclerosis of seminole coronary artery of seminole heart without angina pectoris Take 2 Tablets by mouth daily in the morning. 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 Study Titile: Genomic Markers for Patients with Cardiovascular Disease Project #[id number] PI: Alma Smiley MD Please call [phone] with study related questions Benign neoplasm of colon 10/26/2007 Overview: hyperplastic; repeat colonoscopy in 1 yr ACUTE CYSTITIS 05/30/2006 08/28/2008 Overview: Resolved per Benign Acute Dxs Protocol #3 Abdominal pain, generalized 05/30/2006 12/13/2016 Nausea with vomiting 05/30/2006 06/13/2 017 Esophageal reflux 05/30/2006 05/29/2019 Overview: history [...] as of this encounter (statuses as of 10/12/2023) Immunizations Name Administration Dates Next Due COVID-19 mRNA, LNP-s, No Pre serve, 2-Dose Series ([employer]) 09/04/2020 H1N1 2009 Influenza, IM 07/13/2009 Pneumococcal [...] encounter Miscellaneous Notes * Telephone Encounter - Vanessa Chavez LPN - 10/12/2023 10:40 AM EDT Can a new order be placed? Thank you! * Telephone Encounter - China Dupree OSA - 10/12/2023 10:24 AM EDT Please send a new Dexa Scan referral. The referral in chart today. Please call to schedule. documented in this encounter Plan of Treatment Upcoming Encounters Date Type Department Care Team (Late st Contact Info) Description 11/21/2023 3:00 PM EDT Office Visit [facility]opa[facility] [address] [place] [address] Adama Herrera MD [address] [place] [address] 11/28/2023 3:00 PM EDT Office Visit [facility] [address] [place] [address] Adama Herrera MD [address] [place] [address] 12/05/2023 2:15 PM EDT Office Visit [facility] [address] [place] [address] Adama Herrera MD [address] [place] [address] 12/06/2023 6:00 PM EDT Office Visit [facility] [address] [place] [address] Santiago Pelayo MD [address] [place] [address] 01/11/2024 7:15 AM EDT Imaging Radiology [facility] [address] [facility] [place] [address] 02/09/2024 10:20 AM EDT Office Visit Nutrition & Weight Management, [facility] [address] [place] [address] Yaneth Liu PA-C [address] [place] [address] Scheduled Orders Name Type Priority Associated Diagnoses Orde r Schedule DEXA SCAN/BONE MINERAL AXIAL Medical Imaging Routine Menopause Expected: 10/13/2023, Expires: 04/12/2024 Health Maintenance Due Date Last Done Comments Cologuard 1996 Fecal Occult Blood Test 1996 Sigmoidoscopy 1996 COVID-19 Vaccine ( season) 2023 09/25/2020, 09/04/2020 DXA Scan 06/06/2023 06/06/2016, 10/01, 10/13/2007 CKD HGB USE SMARTSET 91678 08/03/202308/03, 02/17/2022, 09/24/2021, Additional history exists HbA1c 08/03/2023 08/03/2022, 09/01, 08/11/2020, Additional history exists TSH 08/03/2023 08/03/2022, 09/01, 08/04/2020, Additional history exists Mammogram 10/11/2023 10/10/2022, 10/01, 07/05/2019, Additional history exists Albumin/Creatinine Ratio 12/02/2023 023, 11/09/2020, 10/29/2018, Additional history exists CKD PHOS USE SMARTSET 41687 12/02/2023 06/0 07/2022, 07/09/2018, 06/16/2017, Additional history [...] this encounter Medical Devices Implanted Type Area Potato Seed Cutter Device Identifier Shelf Expiration Date Model / Serial / Lot Lens Intraoc 21.0 - [id number] - [id number] Implanted:Qty: 1 on 02/04/2020 by Cedric Drew MD at OR [facility] Left: Eye [employer] 08/02/2024 [id number] / [id number] / [id number] Lens Intraoc 21.0 - [id number] - [id number] Implanted:Qty: 1 on 02/13/2020 by Cedric Drew MD at OR [facility] Right: Eye [employer]OMB 08/30/2024 [id number] / [id number] / [id number] Clip Quick 2.8mm 230cm - [id number] Implanted:Qty: 1 on 02/22/2022 by Criss Austin MD at ENDOSCOPY [facility] Colon [employer] 05/02/2024 HX-202UR.A / / 1YK Clip Quick 2.8mm 230cm - [id number] Implanted:Qty: 1 on 02/22/2022 by Criss Austin MD at ENDOSCOPY [facility] Colon [employer] 05/02/2024 HX-202UR.A / / 1YK Clip Quick 2.8mm 230cm - [id number] Implanted:Qty: 1 on 02/22/2022 by Criss Austin MD at ENDOSCOPY [facility] Colon [employer] 05/02/2024 HX-202UR.A / / 1YK Clip Quick 2.8mm 230cm - [id number] Implanted:Qty: 1 on 02/22/2022 by Criss Austin MD at ENDOSCOPY [facility] Colon [employer] 05/02/2024 HX-UR.A / / 1YK Clip Quick 2.8mm 230cm - [id number] Implanted:Qty: 1 on 02/22/2022 by Criss Austin MD at ENDOSCOPY [facility] Colon [employer] 05/02/2024 HX-UR.A / / 1YK Clip Quick 2.8mm 230cm - [id number] Implanted:Qty: 1 on 02/22/2022 by Criss Austin MD at ENDOSCOPY [facility] Colon [employer] 05/02/2024 HX-UR.A / / 1YK documented as of this encounter Visit Diagnoses Diagnosis Menopause- Primary Asymptomatic postmenopausal status (age-related) (natural) documented in this encounter Advance Directives Latest Code Status on File Code Status Date Activated Date Inactivated Comments Full Code 10/31/2008 10:26 AM 11/01/2008 3:23 PM Care Teams Mail Processor Relationship Specialty Start Date End Date Santiago Pelayo MD [address] [place] [address] PCP - General Family Medicine 08/27/18 documented as of this encounter
--- OUTSIDE RECORDS SUMMARY | 2024-01-07 16:43 | External Medical Summary | Summary of Care ---
Author Name Unknown Organization [facility] Address [address] [place] [facility] [place] [facility] [place] [address] Phone [phone] Care Team Providers Care Molecular Biology Scientist Name Role Phone Santiago Pelayo MD Primary Care Provider [phone] Reason for Visit * Reason Comments Follow Up Knee Pain Left knee Encounter Details Date Type Department Care Team (Latest Contact Info) Description 10/02/2023 10:30 AM EDT Office Visit Orthopaedics [facility] [address] [place] [address] Adama Herrera MD [address] [place] [address] Primary osteoarthritis of left knee* Allergies No [...] Release 24 Hour (toPROL XL)Indications:Athero sclerosis of del[place] tribe coronary artery of [place] tribe heart without angina pectoris Take 2 Tablets [...] taking.Reported on 08/04/2023 Vitamin D3 1.25 MG (32908 UT) Oral CapsuleIndications:Hy povitaminosis D TAKE 1 [...] Gastroesophageal reflux disease with esophagitis 04/25/2019 Old [place] (myocardial infarction) 04/25/2019 Overview: NSTEMI 06/2009 Celiac disease 04/25/2019 Hiatal hernia 12/27/2017 Iron deficiency anemia 06/21/2017 Atherosclerosis of del[place] tribe co ronary artery without angina pectoris 06/22/2015 [...] Markers for Patients with Cardiovascular Disease Project #[id number] PI: Alma Smiley MD Please call [phone] with study related questions GENOMICS CARDIO RESEARCH OTHER*[id number] 10/22/2008 08/09/2016 Overview: Renamed Per Clinical Trials Billing Project. Study Titile: Genomic Markers for Patients with Cardiovascular Disease Project #[id number] PI: Alma Smiley MD Please call [phone] with study related questions Benign neoplasm of [...] mRNA, LNP-s, No Pre serve, 2-Dose Series ([employer]) 09/04/2020 H1N1 2009 Influenza, IM 07/13/2009 Influenza, [...] - 10/02/2023 10:30 AM EDT Shani Newton [address] recommend NSAIDs. 3 Shani Newton is a 73 year old female who [facility] and Sports Medicine for f/u of [...] 09/29/2009 Per Obesity Taxonomy Coronary atherosclerosis of del[place] tribe coronary artery 05/09 50% LAD Depressive disorder, not elsewhere classified Esophageal reflux 05/30/2006 Generalized OA 11/22/2011 HTN, goal below 140/90 Iron deficiency anemia Kidney disease, chronic, stage III (GFR 30-59 ml/min) 08/26/2013 Per CKD protocol #1 Menopause Migraine with aura Morbid obesity with body mass index (BMI) of 45.0 to 49.9 in adult ([facility]) 10/29/2018 Body Mass Index: 40.10 kg/m [...] crippled hands (?RA) Heart Disorder Father several NV's, no stents Lung cancer Father 59 smoker [...] Herrera MD Primary Care Sports Medicine Orthopaedics [address] [address] documented in this encounter Nursing Notes * [...] Description 10/12/2023 7:40 AM EDT Office Visit [facility] [address] [place] [address] Santiago Pelayo MD [address] [place] [address] 11/21/2023 3:00 PM EDT Office Visit [facility] [address] [place] [address] Adama Herrera MD [address] [place] [address] 11/28/2023 3:00 PM EDT Office Visit [facility] [address] [place] [address] Adama Herrera MD [address] [place] [address] 12/05/2023 2:15 PM EDT Office Visit [facility] [address] [place] [address] Adama Herrera MD [address] [place] [address] 02/09/2024 10:20 AM EDT Office Visit Nutrition & Weight Management, [facility] [address] [place] [address] Yaneth Liu PA-C [address] [place] [address] Health Maintenance Due Date Last Done Comments Cologuard 1996 Fecal Occult Blood Test 1996 Sigmoidoscopy 1996 COVID-19 Vaccine ( season) 2023 09/25/2020, 09/04/2020 Depression Screening 04/06/2023 04/06/2022 DXA Scan 06/06/2023 06/06/2016, 10/01, 10/13/2007 CKD HGB USE SMARTSET 13013 08/03/202308/03, 02/17/2022, 09/24/2021, Additional history exists HbA1c 08/03/2023 08/03/2022, 09/01, 08/11/2020, Additional history exists TSH 08/03/2023 08/03/2022, 09/01, 08/04/2020, Additional history exists Mammogram 10/11/2023 10/10/2022, 10/01, 07/05/2019, Additional history exists Albumin/Creatinine Ratio 12/02/2023 023, 11/09/2020, 10/29/2018, Additional history exists CKD PHOS USE SMARTSET 60239 12/02/2023 06/0 07/2022, 07/09/2018, 06/16/2017, Additional history [...] this encounter Medical Devices Implanted Type Area Rental Manager Device Identifier Shelf Expiration Date Model / Serial / Lot Lens Intraoc 21.0 - [id number] - [id number] Implanted:Qty: 1 on 02/04/2020 by Cedric Drew MD at OR [facility] Left: Eye [employer] 08/02/2024 [id number] / [id number] / [id number] Lens Intraoc 21.0 - [id number] - [id number] Implanted:Qty: 1 on 02/13/2020 by Cedric Drew MD at OR [facility] Right: Eye [employer] 08/30/2024 [id number] / [id number] / [id number] Clip Quick 2.8mm 230cm - [id number] Implanted:Qty: 1 on 02/22/2022 by Criss Austin MD at ENDOSCOPY [facility] Colon [employer] 05/02/2024 HX-202UR.A / / YK Clip Quick 2.8mm 230cm - [id number] Implanted:Qty: 1 on 02/22/2022 by Criss Austin MD at ENDOSCOPY [facility] Colon [employer] 05/02/2024 HX-202UR.A / / 1YK Clip Quick 2.8mm 230cm - [id number] Implanted:Qty: 1 on 02/22/2022 by Criss Austin MD at ENDOSCOPY [facility] Colon [employer] 05/02/2024 HX-202UR.A / / 1YK Clip Quick 2.8mm 230cm - [id number] Implanted:Qty: 1 on 02/22/2022 by Criss Austin MD at ENDOSCOPY [facility] Colon [employer] 05/02/2024 HX-202UR.A / / 1YK Clip Quick 2.8mm 230cm - [id number] Implanted:Qty: 1 on 02/22/2022 by Criss Austin MD at ENDOSCOPY [facility] Colon [employer] 05/02/2024 HX-202UR.A / / 1YK Clip Quick 2.8mm 230cm - [id number] Implanted:Qty: 1 on 02/22/2022 by Criss Austin MD at ENDOSCOPY [facility] Colon [employer] 05/02/2024 HX-202UR.A / / 1YK [...] 10:26 AM 11/01/2008 3:23 PM Care Teams Molecular Biology Scientist Relationship Specialty Start Date End Date Santiago Pelayo MD [address] [place] [address] PCP - General Family Medicine 08/27/18 documented as of this encounter
--- OUTSIDE RECORDS SUMMARY | 2024-01-07 16:43 | External Medical Summary | Summary of Care ---
Author Name Unknown Organization [facility] Address [address] [place] [address] Phone [phone] Care Team Providers Care Tractor Operator Name Role Phone Santiago Pelayo MD Primary Care Provider Reason for Visit * Reason Comments Status Check Return in 6 months Encounter Details Date Type Department Care Team (Latest Contact Info) Description 10/12/2023 7:40 AM EDT Office Visit [facility] [address] [place] [phone] Santiago Pelayo MD [address] [place] [address] Risk and functional assessment*; Osteoarthritis of left knee, unspecified osteoarthritis type; Morbid obesity with BMI of 40.0-44.9, adult (HCC); Major depressive disorder, single episode, in remission (HCC); Acquired hypothyroidism; Gastroesophageal reflux disease with esophagitis, unspecified whether hemorrhage; 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 180 Tablet 3 04/07/2023 Active Ferrous Sulfate 325 (65 Fe) MG Oral Tablet (Feosol) TAKE ONE TABLET BY MOUTH TWICE A DAY IN THE MORNING AND BEFORE BEDTIME 200 Tablet 3 04/18/2023 04/17/20 24 Active Vitamin D3 1.25 MG (44889 UT) Oral CapsuleIndications:H ypovitaminosis D TAKE 1 CAPSULE BY MOUTH WEEKLY 12 Capsule 1 05/16/2023 05/15/20 24 Active Levothyroxine Sodium 75 MCG Oral Tablet (Levoxyl)Indications :Hypothyroidism, unspecified type TAKE 1 TABLET BY MOUTH DAILY AT LEAST 30 MINUTES PRIOR TO FIRST MEAL OF THE DAY OR OTHER MEDICATIONS 90 Tablet 07/24/2023 07/23/19 25 Active Pantoprazole Sodium 40 MG Oral Tablet Delayed Release (Protonix)Indication s:Gastroesophageal reflux disease with esophagitis and hemorrhage TAKE ONE TABLET BY MOUTH TWICE A DAY 180 Tablet 07/24/2023 07/23/19 25 Active Isosorbide Mononitrate ER 60 MG Oral Tablet Extended Release 24 Hour (Imdur)Indications:S /P angioplasty with stent TAKE ONE TABLET BY MOUTH EVERY MORNING 90 Tablet 07/24/2023 07/23/19 25 Active Clopidogrel Bisulfate 75 MG Oral Tablet (pLAVix)Indications: S/P angioplasty with stent,Atypical chest pain TAKE ONE TABLET BY MOUTH EVERY MORNING 90 Tablet 07/24/2023 07/23/19 25 Active Rosuvastatin Calcium 40 MG Oral Tablet (Crestor)Indications :Dyslipidemia, goal LDL below 70 TAKE ONE TABLET BY MOUTH EVERY MORNING 90 Tablet 07/24/2023 07/23/19 25 Active Ezetimibe 10 MG Oral Tablet (Zetia)Indications:D yslipidemia, goal LDL below 70 TAKE ONE TABLET BY MOUTH EVERY DAY 90 Tablet 08/25/2023 08/24/19 25 Active traMADol HCl 50 [...] TO ER 75 Tablet 1 10/12/2023 Active Nitroglycerin 0.4 MG Sublingual Tablet Sublingual (Nitrostat)Indicatio ns:Coronary atherosclerosis due to calcified coronary lesion PLACE 1 TABLET UNDER THE TONGUE EVERY 5 MINUTES UP TO 3 DOSES NEEDED FOR CHEST PAIN. IF NO RELIEF CALL 911 OR GO TO ER 75 Tablet 1 12/02/2021 10/12/19 24 Discontinu ed(Refill) traMADol HCl 50 MG Oral Tablet (Ultram)Indications: Osteoarthritis of left knee, unspecified osteoarthritis type Take 1 Tablet by mouth every 6 hours as needed for Pain, Moderate. 30 Tablet 0 05/05/2023 10/12/19 24 Discontinu ed(Refill) documented as of this [...] Gastroesophageal reflux disease with esophagitis 04/25/2019 [place] (myocardial infarction) 04/25/2019 Overview: NSTEMI 06/2009 Celiac disease 04/25/2019 Hiatal hernia 12/27/2017 Iron deficiency anemia 06/21/2017 Atherosclerosis of gulkana co ronary artery without angina pectoris 06/22/2015 [...] Markers for Patients with Cardiovascular Disease Project #[id number] PI: Alma Smiley MD Please call [phone] with study related questions GENOMICS CARDIO RESEARCH OTHER*[id number] 10/22/2008 08/09/2016 Overview: Renamed Per Clinical Trials Billing Project. Study Titile: Genomic Markers for Patients with Cardiovascular Disease Project #[id number] PI: Alma Smiley MD Please call [phone] with study related questions Benign neoplasm of [...] Sign Reading Time Taken Comments Blood Pressure 112/70 10/12/2023 7:23 AM EDT Pulse 69 10/12/2023 7:23 AM EDT Temperature 36.3 C (97.3 F) 10/12/2023 7:23 AM ED T Respiratory Rate 18 10/12/2023 7:23 AM EDT Oxygen Saturation 98% 10/12/2023 7:23 AM EDT Inhaled Oxygen Concentration - - Weight 116.6 kg (257 lb) 10/12/2023 7:23 AM EDT Height 165.1 cm (5' 5") 10/12/2023 7:23 AM EDT Body Mass Index 42.77 10/12/2023 7:23 AM EDT documented in this encounter Patient Instructions * Patient Instructions* Mildred Quiroz LPN - 10/12/2023 7:22 AM EDT Patient Instructions - Fall Prevention (This education is for all patients over 65 regardless of symptoms) Remember to take your current medications as prescribed. In order to prevent falls, you are encouraged to: Exercise Utilize assistive/adaptive devices Avoid multifocal lenses when walking Avoid hazards in home Maintain a regular toileting schedule Any questions please contact our office. Preventing Falls in the Home (This education is for all patients over 65 regardless of symptoms) As you get older, falls are more likely. Thats because your reaction time slows. Your muscles and joints may also get stiffer, making them less flexible. Illness, medications, and vision changes can also affect your balance. A fall could leave you unable to live on your own. To make your home safer, follow these tips: Floors Put nonskid pads under area rugs Remove throw rugs Replace worn floor coverings Tack carpets firmly to each step on carpeted stairs. Put nonskid strips on the edges of uncarpeted stairs Keep floors and stairs free of clutter and cords Arrange furniture so there are clear pathways Clean up any spills right away Bathrooms Install grab bars in the tub or shower Apply nonskid strips or put a nonskid rubber mat in the tub or shower Sit on a bath chair to bathe Use bathmats with nonskid backing Lighting Keep a flashlight in each room Put a nightlight along the pathway between the bedroom and the bathroom [employer] Patient Education Copyright 2008 - 2010 Lisa except where otherwise noted Preventing Falls: Exercises to Improve Balance, Flexibility, Strength, and Staying Power (This education is for all patients over 65 regardless of symptoms) Certain types of exercises may help make you less likely to fall. Try the ones below. Or do other exercises that your healthcare provider suggests. Depending on your health, you may need to start slowly. Dont let that stop you. Even small amounts of exercise can help you. Be sure to talk to yourhealthcare provider before starting any exercise program. Improve Balance Many types of exercise can help improve balance. Jcarlos chi and yoga are good examples. Heres another one to try. You can do it anytime and almost anywhere. Stand next to a counter or solid support. Push yourself up onto your tiptoes. Hold for 5 seconds. If you start to lose your balance, hold on to the counter. Rest and repeat 5 times. Work up to holding for 20 to 30 seconds, if you can. Increase Flexibility Being more flexible makes it easier for you to move around safely. Try exercises like the seated hamstring stretch. Sit in a chair and put one foot on a stool. Straighten your leg and reach with both hands down either side of your leg. Reach as far down your leg as you can. Hold for about 20 seconds. Go back to the starting position. Then repeat 5 times. Switch legs. Build Strength Resistance exercises help build strength. You can do them without equipment. Or you can use weights, elastic bands, or special machines. One such exercise is called the biceps curl. You can hold a 1 pound weight or even a can of soup. Do this exercise at least 3 times a week. Strive for everyday. Sit up straight in a chair. Keep your elbow close to your body and your wrist straight. Bend your arm, moving your hand up to your shoulder. Then slowly lower your arm. Repeat 5 times. Switch to the other arm. Build Your Staying Power Aerobic exercises make your heart and lungs stronger so you can keep moving longer. Walking and swimming are two of the best types of exercises you can do. Using a stationary bike is great, too. Find an aerobic exercise that you enjoy. Start slowly and build up. Even 5 minutes is helpful. Aimfor a goal of 30 minutes, at least 3 times a week. You dont have to do 30 minutes in one session. Break it up and walk a little throughout the day. More Helpful Tips Start easy. Slowly work up to doing more. Talk with your healthcare provider about the best exercises for you. Call senior centers or health clubs about exercise programs. If needed, have a family member watch you walk every so often to check your stability. Exercise with a friend. Choose an activity you both enjoy. Try exercises that you can do anytime, anywhere. Here are two examples. Have someone with you when you first try these: Practice walking by placing one foot right in front of the other. Stand up and sit down 10 times. Repeat this throughout the day. [employer] Patient Education Copyright 2008 - 2010 [employer] except where otherwise noted. Preventing Falls: Moving Safely Using a Cane or Walker (This education is for all patients over 65 regardless of symptoms) Keep the cane away from your feet so you dont trip. A walking aid, such as a cane or walker, can help you stay more independent and avoid falls. Remember to keep your walking aid within easy reach when youre in a chair or in bed. And learn how to use it safely so you dont injure yourself. Using a Cane If you have a stronger side, hold the cane on that side. Get your balance. Move the cane and your weaker leg forward. Support your weight on both the cane and your weaker side. Step with your stronger leg. Start again from step 1. If youre using a folding walker, be sure you know how to lock it open. Check that its locked open before each use. Using a Walker Roll the walker (or lift it, if youre using one without wheels) forward about 12 inches. Step forward with your weaker leg first. Use the walker to help keep your balance. Bring your other foot forward to the center of the walker. Start again from step 1. Helpful Tips Check with your healthcare provider about the right walking aid to use. Ask about a walker with a seat attached. Check the tips of your cane or walker to make sure they have nonskid covers. Move slowly from room to room. Dont gonzáles. Sit down to get dressed. Use a zane pack or backpack to keep your hands free. Get help for jobs that mean climbing, even on a stepstool. Lisa Patient Education Copyright 2008 - 2010 Lisa except where otherwise noted. Urinary Incontinence Plan of Care Documentation: (This education is for all patients over 65 regardless of symptoms) Current medications reconciled. Patient encouraged to: Practice kegal exercises Provide education materials Use the restroom every 2 hours throughout the day Limit caffeine, alcohol, spicy foods and acidic foods Keep a bladder diary Limit fluid intake 3-4 hours before bed Lose weight Prevent constipation Take fluid pills at a time when you can get to the bathroom quickly Control sugar better if diabetic Limit fluid intake to 60 oz. per day Wear support stockings (TEDs)if you have edema Mildred Quiroz LPN 10/12/2023 Kegel Exercises Kegel exercises dont require special clothing or equipment. Theyre easy to learn and simple to do. And if you do them right, no one can tell youre doing them, so they can be done almost anywhere. Your doctor, nurse, or physical therapist can answer any questions you have and help you get started. A Weak Pelvic Floor The pelvic floor muscles may weaken due to aging, and vaginal childbirth, injury, surgery, chronic cough, or lack of exercise. If the pelvic floor is weak, your bladder and other pelvic organs may sag out of place. The urethra may also open too easily and allow urine to leak out. Kegel exercises can help you strengthen your pelvic floor muscles so they can better support the pelvic organs and control urine flow. How Kegel Exercises Are Done Try each of the Kegel exercises described below. When youre doing them, try not to move your leg, buttock, or stomach muscles. While youre urinating, try to stop the flow of urine. Start and stop it as often as you can. Contract as if you were stopping your urine stream, but do it when youre not urinating. Tighten your rectum as if trying not to pass gas. Contract your anus, but dont move your buttocks. Helpful Hints Do your Kegels as often as you can. The more you do them, the faster youll feel the results. Pick an activity you do often as a reminder. For instance, do your Kegels every time you sit down. Tighten your pelvic floor before you sneeze, get up from a chair, cough, laugh, or lift. This protects your pelvic floor from injury and can help prevent urine leakage. Try to hold each Kegel for a slow count to five. You probably wont be able to hold them for thatlong at first, but keep practicing. It will get easier as your pelvic floor gets stronger. Eventually, special weights that you place in your vagina may be recommended to help make your Kegels even more effective. [employer] Patient Education Copyright 2008 - 2010 [employer] except where otherwise noted. Here are some helpful tips for your urinary incontinence: (This education is for all patients over 65 regardless of symptoms) Practice Kegel exercises Use the restroom every 2 hours throughout the day Limit caffeine, alcohol, spicy foods, and acidic foods Keep a bladder diary Limit fluid intake 3-4 hours before bed Lose weight Prevent constipation Take fluid pills at a time when can get to the bathroom quickly Control sugar better if diabetic Limit fluid intake to 60 oz. per day Any questions, please feel free to contact our office. documented in this encounter Progress Notes * Santiago Pelayo MD - 10/12/2023 7:36 AM EDT Subjective: Shani Newton is a 73 year old female. Chief Complaint Patient presents with Status Check Return in 6 months HPI: 73-year-old seen today for routine recheck -6 months. Also follows on an annual basis with Santiago Mckeon in cardiology. Past medical history notable for Ischemic heart disease status post myocardial infarction, hypertension, dyslipidemia, hypothyroidism,CKD 3, sleep apnea, gastroesophageal shereflux, angiodysplasia of the colon has led to GI bleed a couple occasions,depression. She carriesa diagnosis of celiac disease although tells me she questions that diagnosis. I suspect she has a very mild case. Her biggest issue right now is left knee pain. She has been dealing with Sports Medicine has had 2 steroid injections with minimal improvement. She is anticipating Synvisc injections in a couple months time. I believe she is anticipating knee replacement surgery in not to distant future. She typically uses Tylenol up to a maximum of 3 g a day but usually much less than that. She was provided witha prescription for tramadol 30 tablets in May 2023. She may have a couple tablets left but sheasked if that might be renewed as she has found it helpful to have the tramadol in situations with the Tylenol has not been of any help.She does not have any history of substance abuse. She is felt to be low risk for opioid use disorder. She has not had drug testing in get that done today or tomorrow. Questions whether she had be a candidate for a G LP 1 med. She points out the she knows the G LP 1 meds have cardiovascular benefit. She has not on any medication for diabetes and nor has she been inthe past. But, she is known to have pre diabetes with a slightly elevated hemoglobin A1c. Overall mood is good. She is working when she wants to which is typically a day or 2 per week. Patient Active Problem List Diagnosis Code HTN, goal below 140/90 I10 Menopause Z78.0 ADVANCE DIRECTIVE INFORMATION S/P angioplasty with stent Z95.820 DYSLIPIDEMIA, GOAL LDL BELOW 100 E78.5 Other specified forms of chronic ischemic heart disease I25.89 Generalized OA M15.9 Vitamin D deficiency E55.9 Hypothyroidism E03.9 Sleep apnea G47.30 Atherosclerosis of g[place] coronary artery without angina pectoris I25.10 Iron deficiency anemia D50.9 Hiatal hernia K44.9 Major depressive disorder, single episode, in remission (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) E66.01, Z68.41 Current Outpatient Medications Medication Sig Dispense Refill [...] NEEDED FOR FLUID RETENTION 100 Tablet 3 Metoprolol Succinate ER 50 MG Oral Tablet Extended Release 24 Hour (toPROL XL) Take 2 Tablets by mouth daily in the morning. 180 Tablet 3 Ferrous Sulfate 325 (65 Fe) MG Oral Tablet (Feosol) TAKE ONE TABLET BY MOUTH TWICE A DAY IN THE MORNING AND BEFORE BEDTIME 200 Tablet 3 Vitamin D3 1.25 MG (14863 UT) Oral Capsule TAKE 1 CAPSULE BY [...] OR GO TO ER 75 Tablet 1 No current facility-administered medications for this visit. Review of patient's allergies indicates: No Known Allergies Objective: BP 112/70 | Pulse 69 | Temp 36.3 C (97.3 F) (Temporal Artery) | Resp 18 | Ht 1.651 m (5' 5") | Wt 116.6 kg (257 lb) | LMP 09/23/2001 | SpO2 98% | BMI 42.77 kg/m | BSA 2.31 m Physical Exam: CONST: alert, pleasant, no acute distress HEAD: normocephalic, atraumatic Eyes - PERRLA, EOM'I OROPHARYNX: clear, no swelling or erythema, moist CV: regular rate and rhythm, no murmur CHEST: clear to auscultation bilaterally, no rales or wheezing ABD: soft, non tender, non distended, no masses or hepatosplenomegaly EXT: no edema, no joint swelling or deformities, NEURO: AAOx3, no gross focal deficits, cerebellar signs normal, affect appropriate MENTAL STATUS: no evidence of thought disorder, no delusional thought, no evidence of paranoia, thought is non-tangential. ASSESSMENT/PLAN: Osteoarthritis of left knee, unspecified osteoarthritis type : She will continue to follow with Sports Medicine. Intense dissipate hyaluronic acid injections in the near future. I renewed her tramadol to use 1 tablet every 6 hours although up to this point she really has not use more than 1 in any 24 hour Time span. I have reviewed the patients controlled substance dispensing history in the Prescription Drug Monitoring Program in compliance with the [facility] regulations before prescribing a controlled substance. Last Tox Screen Results: No results found. However, due to the size of the patient record, not all encounters were searched.Please check Results Review for a complete set of results. - traMADol HCl 50 MG Oral Tablet (Ultram); Take 1 Tablet by mouth every 6 hours as needed for Pain,Moderate. - TOXICOLOGY, URINE SCREEN W/ CONFIRMATION; Future; Expected date: 10/12/2023 Morbid obesity with BMI of 40.0-44.9, adult ([facility]) patient signed a medication use agreement-patientwould be reasonable candidate for a G LP 1 med. I started discussion about this category of medications. She is going to return in 2 months to go over information in more detail and make a decision whether to attempt going on a G LP 1 med. Major depressive disorder, single episode, in remission ([facility])-stable. 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 IF NO RELIEF CALL 911 OR GO TO ER Encounter for screening mammogram for breast cancer - MAMMOGRAM SCREENING SURJIT BILATERAL; Future; Expected date: 01/11/2024 Menopause - DEXA SCAN/BONE MINERAL AXIAL; Future; Expected date: 10/13/2023 Other iron deficiency anemia-her iron studies done 3-4 months ago did show iron- deficiency. She hasbeen on iron supplementation since. - IRON SCREEN, INCLUDING TIBC; Future; Expected date: 10/12/2023 Prediabetes - HEMOGLOBIN A1C; Future; Expected date: 10/12/2023 Follow Up: Return in about 2 months (around 12/12/2023) for Return with Physician. | For: Return with Physician Santiago Pelayo MD documented in this encounter Nursing Notes * Mildred Quiroz LPN - 10/12/2023 7:22 AM EDT The patient has been properly identified by confirmation of name and date of . Chief Complaint Patient presents with Status Check Return in 6 months documented in this encounter Plan of Treatment Upcoming Encounters Date Type Department Care Team (Late st Contact Info) Description 11/21/2023 3:00 PM EDT Office Visit [facility] [address] [address] Adama Herrera MD [address] [address] 11/28/2023 3:00 PM EDT [facility] [place] [address] Adama Herrera MD [address] [place] [address] 12/05/2023 2:15 PM EDT Office Visit [facility] [address] [facility] [place] [address] Adama Herrera MD [address] [place] [address] 12/06/2023 6:00 PM EDT Office Visit [facility] [address] [place] [phone] Santiago Pelayo MD [address] [place] [address] 01/11/2024 7:15 AM EDT Imaging Radiology [facility] [address] [facility] [place] [address] 02/09/2024 10:20 AM EDT Office Visit Nutrition & Weight Management, [facility] [address] [facility] [place] [address] Yaneth Liu PA-C [address] [place] [address] Scheduled Orders Name Type Priority Associated Diagnoses Orde r Schedule MAMMOGRAM SCREENING SURJIT BILATERAL Medical Imaging Routine Encounter for screening mammogram for breast cancer Expected: 01/11/2024, Expires: 11/10/2024 DEXA SCAN/BONE MINERAL AXIAL Medical Imaging Routine Menopause Expected: 10/13/2023, Expires: 01/11/2024 LIPID PANEL WITH DIRECT LDL IF TG IS HIGH Lab Routine Coronary atherosclerosis due to calcified coronary lesion Expected: 10/12/2023, Expires: 10/11/2024 IRON SCREEN, INCLUDING TIBC Lab Routine Other iron deficiency anemia Expected: 10/12/2023 (Approximate), Expires: 10/11/2024 TSH WITH FREE T4 IF INDICATED Lab Routine Acquired hypothyroidism Expected: 10/12/2023 (Approximate), Expires: 10/11/2024 HEMOGLOBIN A1C Lab Routine Prediabetes Expected: 10/12/2023 (Approximate), Expires: 10/11/2024 TOXICOLOGY, URINESCREEN W/ CONFIRMATION Lab Routine Osteoarthritis of left knee, unspecified osteoarthritis type Expected: 10/12/2023, Expires: 10/11/2024 Health Maintenance Due Date Last Done Comments Cologuard 1996 Fecal Occult Blood Test 1996 Sigmoidoscopy 1996 COVID-19 Vaccine ( season) 2023 09/25/2020, 09/04/2020 DXA Scan 06/06/2023 06/06/2016, 10/01, 10/13/2007 CKD HGB USE SMARTSET 78902 08/03/202308/03, 02/17/2022, 09/24/2021, Additional history exists HbA1c 08/03/2023 08/03/2022, 09/01, 08/11/2020, Additional history exists TSH 08/03/2023 08/03/2022, 09/01, 08/04/2020, Additional history exists Mammogram 10/11/2023 10/10/2022, 10/01, 07/05/2019, Additional history exists Albumin/Creatinine Ratio 12/02/2023 023, 11/09/2020, 10/29/2018, Additional history exists CKD PHOS USE SMARTSET [id number] 12/02/2023 06/0 07/2022, 07/09/2018, 06/16/2017, Additional history [...] this encounter Medical Devices Implanted Type Area Ripper Operator Device Identifier Shelf Expiration Date Model / Serial / Lot Lens Intraoc 21.0 - [id number] - [id number] Implanted:Qty: 1 on 02/04/2020 by Cedric Drew MD at OR [facility] Left: Eye [employer]OM[employer] 08/02/2024 [id number] / [id number] / [id number] Lens Intraoc 21.0 - [id number] - [id number] Implanted:Qty: 1 on 02/13/2020 by Cedric Drew MD at OR [facility] Right: Eye [employer]CH [employer] LOMB 08/30/2024 [id number] / [id number] / [id number] Clip Quick 2.8mm 230cm - [id number] Implanted:Qty: 1 on 02/22/2022 by Criss Austin MD at ENDOSCOPY [facility] Colon [employer] 05/02/2024 HX-202UR.A / / 1YK Clip Quick 2.8mm 230cm - [id number] Implanted:Qty: 1 on 02/22/2022 by Criss Austin MD at ENDOSCOPY [facility] Colon [employer] 05/02/2024 HX-UR.A / / YK Clip Quick 2.8mm 230cm - [id number] Implanted:Qty: 1 on 02/22/2022 by Criss Austin MD at ENDOSCOPY [facility] Colon [employer] 05/02/2024 HX-UR.A / YK Clip Quick 2.8mm 230cm - [id number] Implanted:Qty: 1 on 02/22/2022 by Criss Austin MD at ENDOSCOPY [facility] Colon [employer] 05/02/2024 HX-UR.A / / YK Clip Quick 2.8mm 230cm - [id number] Implanted:Qty: 1 on 02/22/2022 by Criss Austin MD at ENDOSCOPY [facility] Colon [employer] 05/02/2024 HX-UR.A / / YK Clip Quick 2.8mm 230cm - [id number] Implanted:Qty: 1 on 02/22/2022 by Criss Austin MD at ENDOSCOPY [facility] [employer] 05/02/2024 HX-UR.A documented as of this encounter Visit Diagnoses Diagnosis Risk and functional assessment- Primary Screening for unspecified condition Osteoarthritis of left knee, unspecified osteoarthritis type Morbid obesity with BMI of 40.0-44.9, adult (HCC) Morbid obesity Major depressive disorder, single episode, in remission (HCC) Major depressive disorder, single episode, in partial or unspecified remission Acquired hypothyroidism Unspecified hypothyroidism Gastroesophageal reflux disease with esophagitis, unspecified whether hemorrhage 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) Celiac disease Coronary atherosclerosis due to calcified coronary lesion Coronary atherosclerosis of unspecified type of vessel, [place] or graft Encounter for screening mammogram for breast cancer Menopause Asymptomatic postmenopausal status (age-related) (natural) Other iron deficiency anemia Prediabetes Other abnormal glucose documented in this encounter Advance Directives Latest Code Status on File Code Status Date Activated Date Inactivated Comments Full Code 10/31/2008 10:26 AM 11/01/2008 3:23 PM Care Teams Tractor Operator Relationship Specialty Start Date End Date Santiago Pelayo MD [address] [place] [address] PCP - General Family Medicine 08/27/18 documented as of this encounter
--- OUTSIDE RECORDS SUMMARY | 2024-01-07 16:43 | External Medical Summary | Summary of Care ---
Author Name Unknown Organization [facility] Address [address] [place] [place] [place] [address] Phone [phone] Care Team Providers Care Assistant Dean Of Students Name Role Phone Santiago Pelayo MD Primary Care Provider [phone] Reason for Referral * Evaluate & Treat - Unlimited Visits (Within 10 days (routine)) - Authorized Specialty Diagnoses / Procedures Referred By Connie prakash Referred To Contact Physical Therapy / Physical Medicine And Rehab Diagnoses Primary osteoarthritis of left knee Viktoria Mixon PA-C [address] [place] [phone] Referral ID Status Reason Start Date Expiration Date Visits Requested Visits Authorized [id number] Authorized Specialty Services Required 09/28/2023 999 999 Question Answer Referral Priority Within 10 days (routine) Where should this appointment be scheduled? External Reason for Visit * Reason Comments NEW PATIENT Left knee pain Encounter Details Date Type Department Care Team (Latest Contact Info) Description 09/28/2023 8:15 AM EDT Office Visit Orthopaedics [facility] [address] [place] [address] Viktoria Mixon PA-C [address] [place] [address] Primary osteoarthritis of left knee* Allergies No known active allergiesdocumented as of this encounter (statuses as of 09/28/2023) Medications Medication Sig Dispensed Refills Start Date [...] Release 24 Hour (toPROL XL)Indications:Athero sclerosis of [place] coronary artery of [place] heart without angina pectoris Take 2 Tablets [...] taking.Reported on 08/04/2023 Vitamin D3 1.25 MG (84653 UT) Oral CapsuleIndications:Hy povitaminosis D TAKE 1 [...] DAY 90 Tablet 3 08/25/2023 5 Active documented as of this encounter (statuses as of 09/28/2023) Active Problems Problem Noted Date Diagnosed Date [...] 12/27/2017 Iron deficiency anemia 06/21/2017 Atherosclerosis of [place] co ronary artery without angina pectoris 06/22/2015 [...] as of this encounter (statuses as of 09/28/2023) Resolved Problems Problem Noted Date Diagnosed Date [...] Markers for Patients with Cardiovascular Disease Project #[id number] PI: Alma Smiley MD Please call [phone] with study related questions GENOMICS CARDIO RESEARCH OTHER*[id number] 10/22/2008 08/09/2016 Overview: Renamed Per Clinical Trials Billing Project. Study Titile: Genomic Markers for Patients with Cardiovascular Disease Project #[id number] PI: Alma Smiley MD Please call [phone] with study related questions Benign neoplasm of [...] as of this encounter (statuses as of 09/28/2023) Immunizations Name Administration Dates Next Due COVID-19 mRNA, LNP-s, No Pre serve, 2-Dose Series ([place]) 09/04/2020 H1N1 2009 Influenza, IM 07/13/2009 Pneumococcal [...] on file documented as of this encounter Patient Instructions * Patient Instructions* Viktoria Mixon PA-C - 09/28/2023 8:29 AM EDT Encounter Diagnoses Name Primary? Primary osteoarthritis of left knee Yes [email or web address] PT Try over the counter topical Voltaren gel (Diclofenac Sodium) up to 4 times per day Ice documented in this encounter Progress Notes * Viktoria Mixon PA-C - 09/28/2023 8:22 AM EDT Shani Newton is a 73 year old female who presents for consultation to [facility] for left knee injury/pain. Consult requested by Self. Shani Newton is here unaccompanied History: Shani Newton left knee pain. She denies any injury. Patient has a history of osteoarthritis of the left knee and underwent an injection 06/2023. Injection provided significant relief until the pastfew weeks. She localizes her pain along the anterior medial aspect of the left knee. She denies anyinstability. Notes associated swelling. She is applying ice with some relief. Review of systems: All others negative except those noted above in HPI. Review of patient's allergies indicates: No Known Allergies Current Outpatient Medications Medication Sig Dispense Refill [...] 30 Tablet 0 Vitamin D3 1.25 MG (20062 UT) Oral Capsule TAKE 1 CAPSULE BY [...] BY MOUTH EVERY DAY 90 Tablet 3 No current facility-administered medications for this visit. Past Medical History: Diagnosis Date Benign neoplasm of colon 07/21/09 adenomatous polyp--repeat 2 years Benign neoplasm of colon 08/15/11 hyperplastic/repeat colonoscopy in 3 years Body mass index 40 and over, adult 09/29/2009 Per Obesity Taxonomy Coronary atherosclerosis of [place] coronary artery 05/09 50% LAD Depressive disorder, not elsewhere classified Esophageal reflux 05/30/2006 Generalized OA 11/22/2011 HTN, goal below 140/90 Iron deficiency anemia Kidney disease, chronic, stage III (GFR 30-59 ml/min) 08/26/2013 Per CKD protocol #1 Menopause Migraine with aura Morbid obesity with body mass index (BMI) of 45.0 to 49.9 in adult ([facility]) 10/29/2018 Body Mass Index: 40.10 [...] Hypothyroidism E03.9 Sleep apnea G47.30 Atherosclerosis of [place] coronary artery without angina pectoris I25.10 Iron deficiency anemia D50.9 Hiatal hernia K44.9 Major depressive disorder, single episode, in remission ([facility]) F32.5 Gastroesophageal reflux disease with esophagitis K21.00 Old VT (myocardial infarction) I25.2 Celiac disease K90.0 Stage 3a chronic kidney disease N18.31 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 ([facility]) I13.10, N18.31 Prediabetes R73.03 Angiodysplasia of the colon K55.20 Other specified hypothyroidism E03.8 Peripheral vascular disease ([facility]) I73.9 Morbid obesity with BMI of 40.0-44.9, adult ([facility]) E66.01, Z68.41 Past Surgical History: Procedure Laterality Date BIOPSY OF BREAST, OPEN Left benign CARDIAC CATH SCANNED RESULT 05/2007 CARDIAC CATH-CARDIOLOGY ONLY 10/2008 70% PROXIMAL & MID LAD, 30% CIRC, NO OTHER SIGNIFICANT DISEASE, EF 60% CARPAL TUNNEL SURGERY right hand COLONOSCOPY THRU STOMA, W/BIOPSY 07/2000 hyperplastic polyps. Next colo [id number] COLONOSCOPY THRU STOMA, W/BIOPSY 08/10/2006 villous adenomas -- repeat 6 months COLONOSCOPY THRU STOMA, W/BIOPSY 07/21/2009 adenomatous polyp--repeat 2 years COLONOSCOPY THRU STOMA, W/BIOPSY 08/15/2011 hyperplastic/repeat colonoscopy in 3 years COLONOSCOPY, DIAGNOSTIC (RECTUM) 09/01/2014 benign polyps, repeat 1 yr/[facility] COLONOSCOPY, DIAGNOSTIC (RECTUM) 08/03/2015 adenomatous polyp, diverticulosis, repeat 3 yrs/ COLONOSCOPY, DIAGNOSTIC (RECTUM) 12/18/2018 diverticulosis/[facility] COLONOSCOPY, DIAGNOSTIC (RECTUM) 11/04/2020 serrated polyps, repeat 3 yrs / [facility] COLONOSCOPY, DIAGNOSTIC (RECTUM) 02/22/2022 benign adenomatous polyp, repeat 1 yr / COLONOSCOPY FLEXIBLE PROXIMAL DIAGNOSTIC performed by Criss Austin MD at ENDOSCOPY [facility] COLONOSCOPY, DIAGNOSTIC (RECTUM) N/A 08/18/2023 multiple small and large mouthed diverticula/hemorrhoids/biopsies show adenomatous polyps/recall/Colonoscopy COLONOSCOPY, DIAGNOSTIC (RECTUM) 08/18/2023 COLONOSCOPY FLEXIBLE PROXIMAL DIAGNOSTIC performed by Criss Austin MD at ENDOSCOPY [facility] CORONARY ARTERY DILATION, BALLOON 10/31/2008 PTCA, SINGLE VESSEL performed by ZACHERY NEELY at [facility] EGD, FLEXIBLE, DIAGNOSTIC 06/10/2015 mild ring, HH/[facility] EGD, FLEXIBLE, DIAGNOSTIC 10/31/2017 Jhon ulcers, hiatal hernia, repeat 3 mo/ESOPHAGOGASTRODUODENOSCOPY (EGD), FLEXIBLE, TRANSORAL, DIAGNOSTIC performed by Susanna Esteban MD at ENDOSCOPY [facility] EGD, FLEXIBLE, DIAGNOSTIC 01/23/2018 gastritis, duodenitis, hiatal hernia/ESOPHAGOGASTRODUODENOSCOPY (EGD), FLEXIBLE, TRANSORAL, DIAGNOSTIC performed by Susanna Esteban MD at ENDOSCOPY [facility] EGD, FLEXIBLE, DIAGNOSTIC 12/18/2018 ? celiac disease, hiatal hernia/[facility] EGD, FLEXIBLE, DIAGNOSTIC 10/15/2020 lg hiatal hernia / ESOPHAGOGASTRODUODENOSCOPY (EGD), FLEXIBLE, TRANSORAL, DIAGNOSTIC performed by Criss Austin MD at ENDOSCOPY [facility] EGD, FLEXIBLE, DIAGNOSTIC 11/03/2020 Jhon's erosions / INPT [facility] EGD, FLEXIBLE, DIAGNOSTIC 02/22/2022 hiatal hernia / ESOPHAGOGASTRODUODENOSCOPY (EGD), FLEXIBLE, TRANSORAL, DIAGNOSTIC performed by Criss Austin MD at ENDOSCOPY [facility] KNEE ARTHROSCOPY/MENISCUS REPAIR left knee LAPAROSCOPY; CHOLECYSTECTOMY 2002 LIGATE/CUT OVIDUCT(S) METACAR FX (1) W/MAN EA BONE Right 05/09/2018 CLOSED TREATMENT METACARPAL FRACTURE MANIPULATION performed by Ciro Mcmillan DO at OR [facility] REMOVE CATARACT, INSERT LENS PROSTH Left 02/04/2020 LEFT EXTRACAPSULAR CATARACT REMOVAL WITH INTRAOCULAR LENS performed by Cedric Drew MD at OR [facility] REMOVE CATARACT, INSERT LENS PROSTH Right 02/13/2020 RIGHT EXTRACAPSULAR CATARACT REMOVAL WITH INTRAOCULAR LENS performed by Cedric Drew MD at OR [facility] TOTAL ABD HYSTERECTOMY W/WO REMOVAL OF TUBE(S) 04/2008 AVELINA/BSO Hemmer Social History Socioeconomic History Marital status: Spouse [...] on file Housing Stability: Not on file Family History Problem Relation Age of Onset Ovarian cancer Mother 55 Blood Disorder Mother bleeding, vaginal that lead to diagnosis of uterine cancer Uterine cancer Mother Arthritis Father 53 bad arthritis, crippled hands (?RA) Heart Disorder Father several VT's, no stents Lung cancer Father 59 smoker Osteoarthritis Brother Other (mentally "slow") Brother Diabetes Grandmother (Maternal) Diabetes Grandfather (Maternal) Heart Disorder Grandfather (Paternal) Osteoarthritis Son Rheum arthritis Son Stroke No significant family history Thyroid Disorder No significant family history Family History; none relevant to today's HPI Objective: Physical Exam There were no vitals filed for this visit. Estimated body mass index is 42.27 kg/m as calculated from the following: Height as of 08/18/23: 1.651 m (5' 5"). Weight as of 08/18/23: 115.2 kg (254 lb). General: generally well-nourished and in no acute distress HEENT: normocephalic, atraumatic, sclera anicteric. Psych: mood and affect normal , cooperative Card: Peripheral pulses: normal in affected extremity (s) Resp: equal chest rise, non-tachypneic, non-labored breathing Skin: no rash, normal Neuro: Sensation: normal on affected extremity (s) MSK: Gait/station/stance: normal reciprocal gait, non antalgic without an assistive device on smooth flat indoor surface. Knee Exam, Bilateral Inspection: No obvious deformity, no redness, swelling, warmth, bruising, abrasion. Palpation: tenderness to palpation at medial joint line on the left ROM: Flexion/Neutral/Extension: L - 120/0/0, R - 120/0/0 Popliteal Angle (Hamstring Flexibility): 30 Bilateral Strength: R- Strength: Extension - 5/5 Flexion - 5/5 L - Strength: Extension - 5/5 Flexion - 5/5 Special Tests: ACL: Kane - negative Bilateral Ant Drawer - negative Bilateral PCL: Sag - negative Bilateral Post Drawer - negative Bilateral MCL: Medial Opening @ 30: negative Bilateral LCL: Lateral Opening @ 30: negative Bilateral Hip exam, bilateral: passive internal and external rotation reproduces no pain. Full ROM B/L Hip abduction strength: R- 5/5 L - 5/5 Assessment and Plan: Primary osteoarthritis of left knee (Primary) - PHYSICAL THERAPY REFERRAL OP Advised trial of PT and Voltaren gel. Encouraged ice. She will follow up with Dr. Herrera to consideranother injection. Follow Up: Return for Left knee OA - First Available with Dr Herrera . | For: Left knee OA - First [facility] [address] [place] [address] documented in this encounter Nursing Notes * Alix Rashid ATC - 09/28/2023 8:22 AM EDT Left knee pain. States that she has not fallen in the past few weeks. Saw Sharon for injection in June- was helpful. States that knee is now black and blue. Is on blood thinners. Pain is 8/10. documented in this encounter Plan of Treatment Upcoming Encounters Date Type Department Care Team (Late st Contact Info) Description 10/02/2023 10:30 AM EDT Office Visit [facility]opaed[facility] [address] [place] [address] Adama Herrera MD [address] [facility] [place] [address] 10/12/2023 7:40 AM EDT Office Visit [facility] [address] [phone] Santiago Pelayo MD [address] [place] [address] 02/09/2024 10:20 AM EDT Office Visit Nutrition & Weight Management, [facility] [address] [place] [address] Yaneth Liu PA-C [address] [place] [address] Scheduled Referrals Name Type Priority Associated Diagnoses Orde r Schedule PHYSICAL THERAPY REFERRAL OP Referral Within 10 days (routine) Primary osteoarthritis of left knee Ordered: 09/28/2023 Health Maintenance Due Date Last Done Comments Cologuard 1996 Fecal Occult Blood Test 1996 Sigmoidoscopy 1996 COVID-19 Vaccine ( season) 2023 09/25/2020, 09/04/2020 Depression Screening 04/06/2023 04/06/2022 DXA Scan 06/06/2023 06/06/2016, 10/01, 10/13/2007 CKD HGB USE SMARTSET 05152 08/03/202308/03, 02/17/2022, 09/24/2021, Additional history exists HbA1c 08/03/2023 08/03/2022, 09/01, 08/11/2020, Additional history exists TSH 08/03/2023 08/03/2022, 09/01, 08/04/2020, Additional history exists Mammogram 10/11/2023 10/10/2022, 10/01, 07/05/2019, Additional history exists Albumin/Creatinine Ratio 12/02/2023 023, 11/09/2020, 10/29/2018, Additional history exists CKD PHOS USE SMARTSET 49087 12/02/2023 06/0 07/2022, 07/09/2018, 06/16/2017, Additional history [...] this encounter Medical Devices Implanted Type Area Photograph Developer Device Identifier Shelf Expiration Date Model / Serial / Lot Lens Intraoc 21.0 - [id number] - [id number] Implanted:Qty: 1 on 02/04/2020 by Cedric Drew MD at OR [facility] Left: Eye [employer]OM[employer] 08/02/2024 [id number] / [id number] / [id number] Lens Intraoc 21.0 - [id number] - [id number] Implanted:Qty: 1 on 02/13/2020 by Cedric Drew MD at OR [facility] Right: Eye [employer]OM[employer] 08/30/2024 [id number] / [id number] / [id number] Clip Quick 2.8mm 230cm - [id number] Implanted:Qty: 1 on 02/22/2022 by Criss Austin MD at ENDOSCOPY [facility] Colon [employer] 05/02/2024 HX-202UR.A / / 1YK Clip Quick 2.8mm 230cm - [id number] Implanted:Qty: 1 on 02/22/2022 by Criss Austin MD at ENDOSCOPY [facility] Colon [employer] 05/02/2024 HX-202UR.A / / 1YK Clip Quick 2.8mm 230cm - [id number] Implanted:Qty: 1 on 02/22/2022 by Criss Austin MD at ENDOSCOPY [facility] Colon [employer] 05/02/2024 HX-202UR.A / / 1YK Clip Quick 2.8mm 230cm - [id number] Implanted:Qty: 1 on 02/22/2022 by Criss Austin MD at ENDOSCOPY [facility] Colon [employer] 05/02/2024 HX-202UR.A / / 1YK Clip Quick 2.8mm 230cm - [id number] Implanted:Qty: 1 on 02/22/2022 by Criss Austin MD at ENDOSCOPY [facility] Colon [employer] 05/02/2024 HX-202UR.A / / 1YK Clip Quick 2.8mm 230cm - [id number] Implanted:Qty: 1 on 02/22/2022 by Criss Austin MD at ENDOSCOPY [facility] Colon [employer] 05/02/2024 HX-202UR.A / / [id number] documented as of this encounter Visit Diagnoses Diagnosis Primary osteoarthritis of left knee- Primary Primary localized osteoarthrosis, lower leg documented in this encounter Advance Directives Latest Code Status on File Code Status Date Activated Date Inactivated Comments Full Code 10/31/2008 10:26 AM 11/01/2008 3:23 PM Care Teams Assistant Dean Of Students Relationship Specialty Start Date End Date Santiago Pelayo MD [address] [place] [address] PCP - General Family Medicine 08/27/18 documented as of this encounter
--- OUTSIDE RECORDS SUMMARY | 2024-01-07 16:43 | External Medical Summary | Summary of Care ---
Author Name Unknown Organization [facility] Address [address] [place] [address] Phone [phone] Care Team Providers Care Skin Installer Name Role Phone Santiago Pelayo MD Primary Care Provider [phone] Reason for Visit * Auth/Cert Specialty Diagnoses / Procedures Referred By Contac t Referred To Contact Diagnoses History of colon polyps Angiodysplasia of the colon Adenomatous polyp of colon, unspecified part of colon History of colon polyps [Z86.010] Angiodysplasia of the colon [K55.20] Adenomatous polyp of colon, unspecified part of colon [D12.6] Procedures COLONOSCOPY, DIAGNOSTIC (RECTUM) COLONOSCOPY FLEXIBLE PROXIMAL DIAGNOSTIC Referral ID Status Reason Start Date Expiration Date Visits Re quested Visits Authorized [id number] Encounter Details Date Type Department Care Team (Latest Contact Info) Description 08/18/2023 9:29 AM EST - 08/18/2023 12:26 PM EST Hospital Encounter ENDO [facility], Endoscopy Room [facility] [address] [place] [phone] Criss Austin MD [address] [place] [id number] Colonoscopy Discharge Disposition: Home - Self Care Allergies No known active allergiesdocumented as of this encounter (statuses as of 08/19/2023) Medications Medication Sig Dispensed Refills Start Date [...] Release 24 Hour (toPROL XL)Indications:Athero sclerosis of [place] coronary artery of [place] heart without angina pectoris Take 2 Tablets by mouth in the morning. 180 Tablet 3 04/07/2023 Active Ferrous Sulfate 325 (65 Fe) MG Oral Tablet (Feosol) TAKE ONE TABLET BY MOUTH TWICE A DAY IN THE MORNING AND BEFORE BEDTIME 200 Tablet 3 04/18/2023 4 Active Vitamin D3 1.25 MG (04288 UT) Oral CapsuleIndications:Hy povitaminosis D TAKE 1 [...] MORNING 90 Tablet 3 07/24/2023 5 Active documented as of this encounter (statuses as of 08/19/2023) Active Problems Problem Noted Date Diagnosed Date [...] 12/27/2017 Iron deficiency anemia 06/21/2017 Atherosclerosis of [place] co ronary artery without angina pectoris 06/22/2015 [...] as of this encounter (statuses as of 08/19/2023) Resolved Problems Problem Noted Date Diagnosed Date [...] Markers for Patients with Cardiovascular Disease Project #[id number] PI: Alma Smiley MD Please call [phone] with study related questions GENOMICS CARDIO RESEARCH OTHER*[id number] 10/22/2008 08/09/2016 Overview: Renamed Per Clinical Trials Billing Project. Study Titile: Genomic Markers for Patients with Cardiovascular Disease Project #[id number] PI: Alma Smiley MD Please call [phone] with study related questions Benign neoplasm of [...] as of this encounter (statuses as of 08/19/2023) Immunizations Name Administration Dates Next Due COVID-19 mRNA, LNP-s, No Pre serve, 2-Dose Series (FixMeStick) 09/04/2020 H1N1 2009 Influenza, IM 07/13/2009 Pneumococcal [...] Sign Reading Time Taken Comments Blood Pressure 109/66 08/18/2023 12:07 PM EST Pulse 77 08/18/2023 12:07 PM EST Temperature 36.1 C (97 F) 08/18/2023 11:52 AM EST Respiratory Rate 18 08/18/2023 12:07 PM EST Oxygen Saturation 100% 08/18/2023 12:07 PM EST Inhaled Oxygen Concentration - - Weight 115.2 kg (254 lb) 08/18/2023 10:32 AM EST Height 165.1 cm (5' 5") 08/18/2023 10:32 AM EST Body Mass Index 42.27 08/18/2023 10:32 AM EST documented in this encounter H&P Notes * Criss Austin MD - 08/18/2023 10:58 AM EST Endoscopy Pre-Procedure Assessment Name: Shani Newton Date: 08/18/2023 Time: 10:58 AM Procedure(s): Colonoscopy; with Indication(s) of colon polyp surveillance Endoscopy Pre-Procedure Assessment: Prior to the procedure, the patient is identified. The patient's history, medications and allergieshave been reviewed. The patient is competent. The risks and benefits of the proposed procedure and the planned sedation have been discussed with the patient. All questions have been answered and informed consent for the procedure has been obtained. Prior to Admission medications Medication Sig Last Dose Discont. Clopidogrel Bisulfate 75 MG Oral Tablet (pLAVix) TAKE ONE TABLET BY MOUTH EVERY MORNING 08/18/2023 Isosorbide Mononitrate ER 60 MG Oral Tablet Extended Release 24 Hour (Imdur) TAKE ONE TABLET BY MOUTH EVERY MORNING 08/18/2023 Levothyroxine Sodium 75 MCG Oral Tablet (Levoxyl) TAKE 1 TABLET BY MOUTH DAILY AT LEAST 30 MINUTES PRIOR TO FIRST MEAL OF THE DAY OR OTHER MEDICATIONS 08/18/2023 Pantoprazole Sodium 40 MG Oral Tablet Delayed Release (Protonix) TAKE ONE TABLET BY MOUTH TWICE A DAY 08/18/2023 Rosuvastatin Calcium 40 MG Oral Tablet (Crestor) TAKE ONE TABLET BY MOUTH EVERY MORNING 08/18/2023 Vitamin D3 1.25 MG (94401 UT) Oral Capsule TAKE 1 CAPSULE BY MOUTH WEEKLY 08/18/2023 Ferrous Sulfate 325 (65 Fe) MG Oral Tablet (Feosol) TAKE ONE TABLET BY MOUTH TWICE A DAY IN THE MORNING AND BEFORE BEDTIME Past Week Metoprolol Succinate ER 50 MG Oral Tablet Extended Release 24 Hour (toPROL XL) Take 2 Tablets by mouth in the morning. 08/17/2023 Citalopram Hydrobromide 40 MG Oral Tablet (CeleXA) TAKE ONE TABLET BY MOUTH EVERY MORNING. 08/17/2023 buPROPion HCl ER (XL) 300 MG Oral Tablet Extended Release 24 Hour (Wellbutrin XL) TAKE ONE TABLET BY MOUTH EVERY MORNING 08/18/2023 Ezetimibe 10 MG Oral Tablet (Zetia) TAKE ONE TABLET BY MOUTH EVERY DAY 08/18/2023 Vitamin C 500 MG Oral Tablet (Ascorbic Acid) Take by mouth 1 Tablet in the morning AND 1 Tablet before bedtime. Take along with Iron pill (Ferrous Sulfate). 08/18/2023 traMADol HCl 50 MG Oral Tablet (Ultram) Take 1 Tablet by mouth every 6 hours as needed for Pain, Moderate. Patient not taking: Reported on 08/04/2023 Not Taking Furosemide 20 MG Oral Tablet (Lasix) TAKE ONE TABLET BY MOUTH EVERY DAY NEEDED FOR FLUID RETENTION Over 30 Days Potassium Chloride Gertrudis ER 10 MEQ Oral Tablet Extended Release TAKE ONE TABLET BY MOUTH EVERY TIME YOU TAKE FUROSEMIDE Over 30 Days Cetirizine HCl 10 MG Oral Tablet (ZyrTEC) Take 1 Tablet by mouth in the morning. Patient not taking: Reported on 08/04/2023 Not Taking valACYclovir HCl 1 GM Oral Tablet (Valtrex) Take 2 Tablets by mouth in the morning and 2 Tablets before bedtime. for cold sores. Patient not taking: Reported on 05/05/2023 Not Taking Nitroglycerin 0.4 MG Sublingual Tablet Sublingual (Nitrostat) PLACE 1 TABLET UNDER THE TONGUE EVERY5 MINUTES UP TO 3 DOSES NEEDED FOR CHEST PAIN. IF NO RELIEF CALL 911 OR GO TO ER Patient not taking: Reported on 08/04/2023 Not Taking Review of patient's allergies indicates: No Known Allergies BP 133/75 | Pulse 73 | Temp 37.2 C (99 F) (Tympanic) | Resp 16 | Ht 1.651 m (5' 5") | Wt 115.2 kg (254 lb) | LMP 09/23/2001 | SpO2 98% | BMI 42.27 kg/m | BSA 2.3 m Physical Exam: Mental Status Examination: alert and oriented. Airway Examination: normal oropharyngeal airway and neck mobility. Respiratory Examination: clear to auscultation. CV Examination: normal. ASA Grade: III - A patient with severe systemic disease. Abdomen: negative This patient has undergone a preprocedural evaluation. A determination has been made to proceed with the planned procedure under [facility] procedural guidelines and the [facility] Non-Emergent, Elective Medical Services and Treatment Recommendations (published on 10-08-19). The community and hospital prevalence of COVID-19 has been discussed as well as this patient's specific risks associated with SARS-CoV-19 infection. Based upon the clinical acuity and patient-specific care considerations, this procedure is deemed a Tier II - Intermediate acuity treatment or service with either progression or the threat of progressive disease related to the delay in treatment. Not providing the service has the potential for increasing morbidity or mortality. After reviewing the risks and benefits, the patient is deemed in satisfactory condition to undergo the procedure. The anesthesia plan is to use general anesthesia. Criss Austin MD 08/18/2023 documented in this encounter Procedure Notes * Santiago Pelayo MD - 08/18/2023 11:32 AM ESTAssociated Order(s): COLONOSCOPY [facility] Patient Name: Shani Newton Procedure Date: 08/18/2023 11:32 AM Date of : 1950 Admit Type: Outpatient Note Status: Finalized Date of : 1950 Admit Type: Outpatient Age: 73 Room: [facility] 2 Gender: Female Note Status: Finalized Procedure: Colonoscopy Indications: High risk colon cancer surveillance: Personal history of colonic polyps Providers: Criss Austin MD (Doctor) Referring MD: Santiago Pelayo MD (Referring MD) Medicines: See the Anesthesia note for documentation of the administered medications Complications: No immediate complications. Procedure: Pre-Anesthesia Assessment: - ASA Grade Assessment: III - A patient with severe systemic disease. - Prior to the procedure, a History and Physical was performed, and patient medication allergies have been reviewed. The patient's tolerance of previous anesthesia has been reviewed. - Respiratory Examination: clear to auscultation. - CV Examination: normal. - The risks and benefits of the procedure and the sedation options and risks were discussed with the patient. All questions were answered and informed consent was obtained. - Patient identification and proposed procedure were verified prior to the procedure by the physician, the nurse and the pediatric dermatologist. The procedure was verified in the pre-procedure area in the procedure room. - The medication list for this patient has been reviewed prior to the procedure and has been determined that the patient may proceed with the planned study. Any medication changes made as a result of the findings of this procedure have been discussed with the patient and/or sales donor recruitment representative at the time of discharge from the facility. After I obtained informed consent, the scope was passed under direct vision. All instruments were visually inspected immediately before and after removal from the patient to ensure they are fully intact. Throughout the procedure, the patient's blood pressure, pulse, and oxygen saturations were monitored continuously. The colonoscopy was performed without difficulty. The patient tolerated the procedure well. The quality of the bowel preparation was good. The [id number] Colonoscope ([id number]) was introduced through the anus and advanced to the terminal ileum. Findings & Specimens: The perianal and digital rectal examinations were normal. Multiple small and large-mouthed diverticula were found in the entire colon. Two sessile polyps were found in the transverse colon and ascending colon. The polyps were 2 to 3 mm in size. These polyps were removed with a cold biopsy forceps. Resection and retrieval were complete. Multiple tattoos seen in the ascending and transverse colon without polyp recurrence. Multiple lipomas in the ascending colon. Few small non bleeding AVMs in the ascending and transverse colon. Hemorrhoids on retroflexion. Recommendation: - Discharge patient to home. Criss Austin MD 08/18/2023 11:56:34 AM This report has been signed electronically. documented in this encounter Nursing Notes * Bonnie Julian RN - 08/18/2023 12:22 PM EST Patient is alert, pain free, passing flatus and tolerating po fluids prior to discharge. Patient has been visited by Dr. Austin. Patient has received and demonstrates understanding of discharge instructions. Patient is transported via w/c to private auto accompanied by endo staff. * Bonnie Julian RN - 08/18/2023 12:11 PM EST D/C instructions given to pt verbalized understanding. IV D/C'd covered with sterile drsg. * Bonnie Julian RN - 08/18/2023 12:[address] Austin in with pt, discussing results of procedure. * Bonnie Julian RN - 08/18/2023 11:58 AM EST Pt sitting up, toleraing PO fluids * Bonnie Julian RN - 08/18/2023 11:52 AM EST Received pt, resting comfortably, VSS, CM shows NSR. Report given by Anahy CANSECO. * Ted Saravia RN - 08/18/2023 11:50 AM EST See anesthesia record for medication administered during procedure. Ted Saravia RN Specimen(s) and location(s) verified with physician post procedure 11:50 AM Ted Saravia RN Pre cleaning of scope at the bedside started by structured cabling technician. Mid abdominal pressure given per Dr. Austin to assist with scope advancement. Pt tolerated well * Haydee King RN - 08/18/2023 10:29 AM EST The following pt discharge instructions reviewed with pt prior to prodedure: No driving today. No alcohol today. No signing of legal documents. Rest as much as possible today and can return to normal activities tomorrow. No operating any heavy equipment today. Diet as tolerated. Pt verbalized understanding. documented in this encounter Plan of Treatment Upcoming Encounters Date Type Department Care Team (Late st Contact Info) Description 08/23/2023 8:00 AM EST Office Visit Nutrition & Weight Management, [facility] [address] [place] [address] Yaneth Liu PA-C [address] [place] [address] 10/06/2023 9:30 AM EDT Office Visit Orthopaedics [facility] [address] [facility] [place] [address] Rodriguez Islas MD [address] [facility] [place] [address] 10/12/2023 7:40 AM EDT Office Visit [place] [address] [place] [phone] Santiago Pelayo MD [facility] [address] Pending Results Name Type Priority Associated Diagnoses Date /Time SURGICAL PATHOLOGY Pathology Routine History of colon polyps Angiodysplasia of the colon Adenomatous polyp of colon, unspecified part of colon 08/18/2023 11:51 AM EST Scheduled Orders Name Type Priority Associated Diagnoses Orde r Schedule SURGICAL PATHOLOGY Pathology Routine History of colon polyps Angiodysplasia of the colon Adenomatous polyp of colon, unspecified part of colon Release Upon Ordering for 1 Occurrences starting 08/18/2023, 1 completed Health Maintenance Due Date Last Done Comments COVID-19 Vaccine ( season) 2023 09/25/2020, 09/04/2020 Depression Screening 04/06/2023 04/06/2022 DXA Scan 06/06/2023 06/06/2016, 10/01, 10/13/2007 CKD HGB USE SMARTSET 87353 08/03/202308/03, 02/17/2022, 09/24/2021, Additional history exists HbA1c 08/03/2023 08/03/2022, 09/01, 08/11/2020, Additional history exists TSH 08/03/2023 08/03/2022, 09/01, 08/04/2020, Additional history exists Mammogram 10/11/2023 10/10/2022, 10/01, 07/05/2019, Additional history exists Albumin/Creatinine Ratio 12/02/2023 023, 11/09/2020, 10/29/2018, Additional history exists CKD PHOS USE SMARTSET 69002 12/02/2023 06/0 07/2022, 07/09/2018, 06/16/2017, Additional history exists GFR 12/05/2023 06/05/2023, 060 07/2022, 08/03/2022, Additional history exists COLONOSCOPY-ANNUAL AGES [...] this encounter Medical Devices Implanted Type Area Wrapper Opener Device Identifier Shelf Expiration Date Model / Serial / Lot Lens Intraoc 21.0 - [id number] - [id number] Implanted:Qty: 1 on 02/04/2020 by Cedric Drew MD at [facility] Left: Eye [employer] 08/02/2024 [id number] / [id number] / [id number] Lens Intraoc 21.0 - [id number] - [id number] Implanted:Qty: 1 on 02/13/2020 by Cedric Drew MD at [facility] Right: Eye [employer] 08/30/2024 [id number] / [id number] / [id number] Clip Quick 2.8mm 230cm - [id number] Implanted:Qty: 1 on 02/22/2022 by Criss Austin MD at ENDOSCOPY [facility] [employer] 05/02/2024 HX-202UR.A / / YK Clip Quick 2.8mm 230cm - [id number] Implanted:Qty: 1 on 02/22/2022 by Criss Austin MD at ENDOSCOPY [facility] [employer] 05/02/2024 HX-202UR.A / / YK Clip Quick 2.8mm 230cm - [id number] Implanted:Qty: 1 on 02/22/2022 by Criss Austin MD at ENDOSCOPY [facility] [employer] 05/02/2024 HX-202UR.A / / YK Clip Quick 2.8mm 230cm - [id number] Implanted:Qty: 1 on 02/22/2022 by Criss Austin MD at ENDOSCOPY [facility] [employer] 05/02/2024 HX-202UR.A / / YK Clip Quick 2.8mm 230cm - [id number] Implanted:Qty: 1 on 02/22/2022 by Criss Austin MD at ENDOSCOPY [facility] [employer] 05/02/2024 HX-202UR.A / / YK Clip Quick 2.8mm 230cm - [id number] Implanted:Qty: 1 on 02/22/2022 by Criss Austin MD at ENDOSCOPY [facility] [employer] 05/02/2024 HX-202UR.A / / [id number] documented as of this encounter Procedures Procedure Name Priority Date/Time Associated Diagnosis Comments COLONOSCOPY 08/18/2023 11:32 AM EST documented in this encounter Results * COLONOSCOPY (08/18/2023 11:32 AM EST) 08/18/2023 11:3 2 AM EST Narrative Procedure Note Santiago Pelayo MD - 08/18/2023 11:32 AM EST [facility] Patient Name: Shani Newton Procedure Date: 08/18/2023 11:32 AM Date of : 1950 Admit Type: Outpatient Note Status:Finalized Date of : 1950 Admit Type: Outpatient Age: 73 Room: Endo 2 Gender: Female Note Status: Finalized Procedure: Colonoscopy Indications: High risk colon cancer surveillance: Personalhistory of colonic polyps Providers: Criss Austin MD (Doctor) Referring MD: Santiago Pelayo MD (Referring MD) Medicines: See the Anesthesia note for documentation of theadministered medications Complications: No immediate complications. Procedure: Pre-Anesthesia Assessment: - ASA Grade Assessment: III - A patient with severesystemic disease. - Prior to the procedure, a History and Physicalwas performed, and patient medication allergies have been reviewed. Thepatient's tolerance of previous anesthesia has been reviewed. - Respiratory Examination: clear to auscultation. - CV Examination: normal. - The risks and benefits of the procedure and thesedation options and risks were discussed with the patient. All questions wereanswered and informed consent was obtained. - Patient identification and proposed procedurewere verified prior to the procedure by the physician, the nurse and the pediatric dermatologist.The procedure was verified in the pre-procedure area in the procedure room. - The medication list for this patient has beenreviewed prior to the procedure and has been determined that the patient may proceedwith the planned study. Any medication changes made as a result of the findingsof this procedure have been discussed with the patient and/or sales donor recruitment representative atthe time of discharge from the facility. After I obtained informed consent, the scope waspassed under direct vision. All instruments were visually inspected immediatelybefore and after removal from the patient to ensure they are fully intact. Throughout the procedure, the patient's bloodpressure, pulse, and oxygen saturations were monitored continuously. The colonoscopy wasperformed without difficulty. The patient tolerated the procedure well. The qualityof the bowel preparation was good. The [id number] Colonoscope ([id number]) was introducedthrough the anus and advanced to the terminal ileum. Findings & Specimens: The perianal and digital rectal examinations were normal. Multiple small and large-mouthed diverticula were found in the entirecolon. Two sessile polyps were found in the transverse colon and ascendingcolon. The polyps were 2 to 3 mm in size. These polyps were removed with a cold biopsy forceps. Resectionand retrieval were complete. Multiple tattoos seen in the ascending and transverse colon withoutpolyp recurrence. Multiple lipomas in the ascending colon. Few small non bleeding AVMs in the ascending and transverse colon. Hemorrhoids on retroflexion. Recommendation: - Discharge patient to home. Criss Austin MD 08/18/2023 11:56:34 AM This report has been signed electronically. Santiago Pelayo MD [facility] documented in this encounter Visit Diagnoses Diagnosis History of colon polyps Personal history of colonic polyps Angiodysplasia of the colon Angiodysplasia of intestine (without mention of hemorrhage) Adenomatous polyp of colon, unspecified part of colon documented in this encounter Administered Medications Inactive Administered Medications - up to 3 most recent administrations Medication Order MAR Action Action Date Dose Rate Site Acetaminophen (Tylenol) tab 650 mg 650 mg, Oral, PRN Pain, Mild, Starting on Mon08/18/23 at 1158, Until Mon08/18/23 at 1627, For 1 dose, Maximum of 4 grams (4000 mg) per day., Post-op isolyte-S pH 7.4 infusion Intravenous, at 100 mL/hr, Plasma-LYTE 148, isolyte-S, and isolyte-S pH 7.4 are considered equivalent - including for MAR barcode scanning., CONTINUOUS, Starting on Mon08/18/23 at 1100, Until Mon08/18/23 at 1627, Pre-Op documented in this encounter Active and Recently Administered Medications Times are shown in EST. Continuous Medication Order 08/16/2023 08/17/2023 08/18/2023 isolyte-S pH 7.4 infusion Intravenous, at 100 mL/hr, Plasma-LYTE 148, isolyte-S, and isolyte-S pH 7.4 are considered equivalent - including for MAR barcode scanning., CONTINUOUS, Starting on Mon08/18/23 at 1100, Until Mon08/18/23 at 1627, Pre-Op 1100 (Due)1153 (Anes Intra-Op Fluid - Provider: Carolyn Christian CRNA) PRN Medication Order 08/16/2023 08/17/2023 08/18/2023 Acetaminophen (Tylenol) tab 650 mg 650 mg, Oral, PRN Pain, Mild, Starting on Mon08/18/23 at 1158, Until Mon08/18/23 at 1627, For 1 dose, Maximum of 4 grams (4000 mg) per day., Post-op documented in this encounter Advance Directives Latest Code Status on File Code Status Date Activated Date Inactivated Comments Full Code 10/31/2008 10:26 AM 11/01/2008 3:23 PM Care Teams Skin Installer Relationship Specialty Start Date End Date Santiago Pelayo MD [address] [place] [address] PCP - General Family Medicine 08/27/18 documented as of this encounter
--- OUTSIDE RECORDS SUMMARY | 2024-01-07 16:44 | External Medical Summary | Summary of Care ---
Author Name Unknown Organization [facility] Address [address] [place] [address] Phone [phone] Care Team Providers Care Malt Loader Name Role Phone Santiago Pelayo MD Primary Care Provider [phone] Reason for Visit * Reason Comments NEW PATIENT Right hand * Evaluate & Treat - Unlimited Visits (Within 10 days (routine)) - Authorized Specialty Diagnoses / Procedures Referred By Connie prakash Referred To Contact Orthopaedic Surgery / Orthopedics Diagnoses Hand pain, right Sharon, Adama Bella MD [address] [place] [id number] Referral ID Status Reason Start Date Expiration Date Visits Requested Visits Authorized [id number] Authorized Specialty Services Required 07/10/[phone] Encounter Details Date Type Department Care Team (Late st Contact Info) Description 08/07/2023 3:00 PM EST Office Visit Orthopaedics [facility] [address] [place] [id number] Rodriguez Islas MD [address] [place] [id number] Trigger index finger of right hand* Allergies [...] Release 24 Hour (toPROL XL)Indications:Athero sclerosis of [place] coronary artery of [place] heart without angina pectoris Take 2 Tablets [...] taking.Reported on 08/04/2023 Vitamin D3 1.25 MG (01950 UT) Oral CapsuleIndications:Hy povitaminosis D TAKE 1 [...] right hand 40 mg IX ONCE 08/07/2023 08/08/2023 Acti ve documented as of this encounter (statuses as [...] 12/27/2017 Iron deficiency anemia 06/21/2017 Atherosclerosis of [place] co ronary artery without angina pectoris 06/22/2015 [...] Markers for Patients with Cardiovascular Disease Project #[id number] PI: Alma Smiley MD Please call [phone] with study related questions GENOMICS CARDIO RESEARCH OTHER*[id number] 10/22/2008 08/09/2016 Overview: Renamed Per Clinical Trials Billing Project. Study Titile: Genomic Markers for Patients with Cardiovascular Disease Project #[id number] PI: Alma Smiley MD Please call [phone] with study related questions Benign neoplasm of [...] mRNA, LNP-s, No Pre serve, 2-Dose Series ([email or web address]) 09/04/2020 H1N1 2009 Influenza, IM 07/13/2009 Pneumococcal [...] fingers HPI: The patient is a 73-year-old [id number] female who is seen today at the [...] 09/29/2009 Per Obesity Taxonomy Coronary atherosclerosis of [place] coronary artery 05/09 50% LAD Depressive disorder, not elsewhere classified Esophageal reflux 05/30/2006 Generalized OA 11/22/2011 HTN, goal below 140/90 Iron deficiency anemia Kidney disease, chronic, stage III (GFR 30-59 ml/min) 08/26/2013 Per CKD protocol #1 Menopause Migraine with aura Morbid obesity with body mass index (BMI) of 45.0 to 49.9 in adult ([facility]) 10/29/2018 Body Mass Index: 40.10 [...] Hypothyroidism E03.9 Sleep apnea G47.30 Atherosclerosis of [place] coronary artery without angina pectoris I25.10 Iron deficiency anemia D50.9 Hiatal hernia K44.9 Major depressive disorder, single episode, in remission ([facility]) F32.5 Gastroesophageal reflux disease with esophagitis K21.00 Old PR (myocardial infarction) I25.2 Celiac disease K90.0 Stage 3a chronic kidney disease N18.31 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 ([facility]) I13.10, N18.31 Prediabetes R73.03 Angiodysplasia of the colon K55.20 Other specified hypothyroidism E03.8 Peripheral vascular disease ([facility]) I73.9 Morbid obesity with BMI of 40.0-44.9, adult ([facility]) E66.01, Z68.41 PAST SURGICAL HISTORY: Past Surgical History: Procedure Laterality Date BIOPSY OF BREAST, OPEN Left benign CARDIAC CATH SCANNED RESULT 05/2007 CARDIAC CATH-CARDIOLOGY ONLY 10/2008 70% PROXIMAL & MID LAD, 30% CIRC, NO OTHER SIGNIFICANT DISEASE, EF 60% CARPAL TUNNEL SURGERY right hand COLONOSCOPY THRU STOMA, W/BIOPSY 07/2000 hyperplastic polyps. Next colo [id number] COLONOSCOPY THRU STOMA, W/BIOPSY 08/10/2006 villous adenomas -- repeat 6 months COLONOSCOPY THRU STOMA, W/BIOPSY 07/21/2009 adenomatous polyp--repeat 2 years COLONOSCOPY THRU STOMA, W/BIOPSY 08/15/2011 hyperplastic/repeat colonoscopy in 3 years COLONOSCOPY, DIAGNOSTIC (RECTUM) 09/01/2014 benign polyps, repeat 1 yr/[facility] COLONOSCOPY, DIAGNOSTIC (RECTUM) 08/03/2015 adenomatous polyp, diverticulosis, repeat 3 yrs/ COLONOSCOPY, DIAGNOSTIC (RECTUM) 12/18/2018 diverticulosis/[facility] COLONOSCOPY, DIAGNOSTIC (RECTUM) 11/04/2020 serrated polyps, repeat 3 yrs / [facility] COLONOSCOPY, DIAGNOSTIC (RECTUM) 02/22/2022 benign adenomatous polyp, repeat 1 yr / COLONOSCOPY FLEXIBLE PROXIMAL DIAGNOSTIC performed by Criss Austin MD at ENDOSCOPY [facility] CORONARY ARTERY DILATION, BALLOON 10/31/2008 PTCA, SINGLE VESSEL performed [place] ZACHERY NEELY [place] [facility], FLEXIBLE, DIAGNOSTIC 06/10/2015 mild ring, HH/[facility] EGD, FLEXIBLE, DIAGNOSTIC 10/31/2017 Jhon ulcers, hiatal hernia, repeat 3 mo/ESOPHAGOGASTRODUODENOSCOPY (EGD), FLEXIBLE, TRANSORAL, DIAGNOSTIC performed by Susanna Esteban MD at ENDOSCOPY [facility] EGD, FLEXIBLE, DIAGNOSTIC 01/23/2018 gastritis, duodenitis, hiatal hernia/ESOPHAGOGASTRODUODENOSCOPY (EGD), FLEXIBLE, TRANSORAL, DIAGNOSTIC performed by Susanna Esteban MD at ENDOSCOPY [facility] EGD, FLEXIBLE, DIAGNOSTIC 12/18/2018 ? celiac disease, hiatal hernia/[facility] EGD, FLEXIBLE, DIAGNOSTIC 10/15/2020 lg hiatal hernia / ESOPHAGOGASTRODUODENOSCOPY (EGD), FLEXIBLE, TRANSORAL, DIAGNOSTIC performed by Criss Austin MD at ENDOSCOPY [facility] EGD, FLEXIBLE, DIAGNOSTIC 11/03/2020 Jhon's erosions / INPT [facility] EGD, FLEXIBLE, DIAGNOSTIC 02/22/2022 hiatal hernia / ESOPHAGOGASTRODUODENOSCOPY (EGD), FLEXIBLE, TRANSORAL, DIAGNOSTIC performed by Criss Austin MD at ENDOSCOPY [facility] KNEE ARTHROSCOPY/MENISCUS REPAIR left knee LAPAROSCOPY; CHOLECYSTECTOMY 2002 LIGATE/CUT OVIDUCT(S) METACAR FX (1) W/MAN EA BONE Right 05/09/2018 CLOSED TREATMENT METACARPAL FRACTURE MANIPULATION performed by Ciro Mcmillan DO at [facility] REMOVE CATARACT, INSERT LENS PROSTH Left 02/04/2020 LEFT EXTRACAPSULAR CATARACT REMOVAL WITH INTRAOCULAR LENS performed by Cedric Drew MD at [facility] REMOVE CATARACT, INSERT LENS PROSTH Right 02/13/2020 RIGHT EXTRACAPSULAR CATARACT REMOVAL WITH INTRAOCULAR LENS performed by Cedric Drew MD at [facility] TOTAL ABD HYSTERECTOMY W/WO REMOVAL [...] 30 Tablet 0 Vitamin D3 1.25 MG (13685 UT) Oral Capsule TAKE 1 CAPSULE BY [...] Hypothyroidism E03.9 Sleep apnea G47.30 Atherosclerosis of [place] coronary artery without angina pectoris I25.10 Iron deficiency anemia D50.9 Hiatal hernia K44.9 Major depressive disorder, single episode, in remission (HCC) F32.5 Gastroesophageal reflux disease with esophagitis K21.00 Old PR (myocardial infarction) I25.2 Celiac disease K90.0 Stage 3a chronic kidney disease N18.31 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) I13.10, N18.31 Prediabetes R73.03 Angiodysplasia of the colon K55.20 Other specified hypothyroidism E03.8 Peripheral vascular disease (HCC) I73.9 Morbid obesity with BMI of 40.0-44.9, adult ([facility]) E66.01, Z68.41 Rodriguez Islas MD documented [...] EST Office Visit Nutrition & Weight Management, [facility] [address] [address] Vanessa Lincoln PA-C [address] [address] 08/18/2023 10:45 AM EST Hospital Encounter [facility], Endoscopy [facility] [address] [phone] Criss Austin MD [address] [place] [address] 08/18/2023 10:45 AM EST - 08/18/2023 11:15 AM EST Surgery [facility], End[facility] [address] [place] [phone] Criss Austin MD [address] [place] [address] COLONOSCOPY FLEXIBLE PROXIMAL DIAGNOSTIC 10/06/2023 9:30 AM EDT Office Visit Orthopaedics [facility] [address] [place] [address] Rodriguez Islas MD [address] [place] [address] 10/12/2023 7:40 AM EDT Office Visit [facility] [address] [place] [address] Santiago Pelayo MD [address] [place], [place] [id number] Scheduled Procedures Name Priority Associated Diagnoses Date/Ti me COLONOSCOPY FLEXIBLE PROXIMAL DIAGNOSTIC Recall History of colon polyps Angiodysplasia of the colon Adenomatous polyp of colon, unspecified part of colon 08/18/2023 10:45 AM EST Health Maintenance Due Date Last Done Comments COLONOSCOPY-ANNUAL AGES 18-100 02/22/2023 02/22/2022, 02/22/2022, 11/04/2020, Additional history exists COVID-19 Vaccine (2022- season) 2023 09/25/2020, 09/04/2020 Depression Screening 04/06/2023 04/06/2022 DXA Scan 06/06/2023 06/06/2016, 10/01, 10/13/2007 CKD HGB USE SMARTSET 83212 08/03/202308/03, 02/17/2022, 09/24/2021, Additional history exists HbA1c 08/03/2023 08/03/2022, 09/01, 08/11/2020, Additional history exists TSH 08/03/2023 08/03/2022, 09/01, 08/04/2020, Additional history exists Mammogram 10/11/2023 10/10/2022, 10/01, 07/05/2019, Additional history exists Albumin/Creatinine Ratio 12/02/2023 023, 11/09/2020, 10/29/2018, Additional history exists CKD PHOS USE SMARTSET 03832 12/02/2023 060 07/2022, 07/09/2018, 06/16/2017, Additional history exists GFR 12/05/2023 06/05/2023, 060 07/2022, 08/03/2022, Additional history exists DTaP,Tdap,and Td Vaccines (3 - Td or Tdap) 10/29/2028 10/29/2018, 01/05/2009 Pneumococcal Vaccine: 65+ Years Completed 06/16/2017, 12/13/2016, 01/05/2009 Zoster Vaccines Completed 09/24/2021, 10/2020, 03/07/2013 COLONOSCOPY-EVERY 3 YRS AGES 18-100 [...] this encounter Medical Devices Implanted Type Area Jail Manager Device Identifier Shelf Expiration Date Model / Serial / Lot Lens Intraoc 21.0 - [id number] - [id number] Implanted:Qty: 1 on 02/04/2020 by Cedric Drew MD at OR [facility] Left: Eye [employer] 08/02/2024 [id number] / [id number] / [id number] Lens Intraoc 21.0 - [id number] - [id number] Implanted:Qty: 1 on 02/13/2020 by Cedric Drew MD at OR [facility] Right: Eye [employer] 08/30/2024 [id number] / [id number] / [id number] Clip Quick 2.8mm 230cm - [id number] Implanted:Qty: 1 on 02/22/2022 by Criss Austin MD at ENDOSCOPY [facility] Colon [employer] 05/02/2024 [id number] documented as of this encounter Visit Diagnoses Diagnosis Trigger index finger of right hand- Primary Trigger finger (acquired) History of colon polyps Personal history of colonic polyps Angiodysplasia of the colon Angiodysplasia of intestine (without mention of hemorrhage) Adenomatous polyp of colon, unspecified part of colon documented in this encounter Advance Directives Latest Code Status on File Code Status Date Activated Date Inactivated Comments Full Code 10/31/2008 10:26 AM 11/01/2008 3:23 PM Care Teams Malt Loader Relationship Specialty Start Date End Date Santiago Pelayo MD [address] [place] [address] PCP - General Family Medicine 08/27/18 documented as of this encounter
--- OUTSIDE RECORDS SUMMARY | 2024-01-07 16:44 | External Medical Summary | Summary of Care ---
Author Name Unknown Organization [facility] Address [address] [place] [address] Phone [phone] Care Team Providers Care Music Grapher Name Role Phone Ranjith Pelayo MD Primary Care Provider [phone] Reason for Visit * Reason Comments Medication Refill Encounter Details Date Type Department Care Team (Late st Contact Info) Description 07/24/2023 Refill Cardiology, [facility] [address] [facility] [place] [address] Ranjith Loera PA-C [address] [place] [address] Hypothyroidism, unspecified type; Gastroesophageal reflux disease with esophagitis and hemorrhage; Atherosclerosis of coronary artery of [place] heart without angina pectoris, unspecified vessel or lesion type; S/P angioplasty with stent; Atypical chest pain; Dyslipidemia, goal LDL below 70 Allergies No known active allergiesdocumented as of this encounter (statuses as of 07/24/2023) Medications Medication Sig Dispensed Refills Start Date End Date Status Nitroglycerin 0.4 MG Sublingual Tablet Sublingual (Nitrostat)Indicatio ns:Coronary atherosclerosis due to calcified coronary lesion PLACE 1 TABLET UNDER THE TONGUE EVERY 5 MINUTES UP TO 3 DOSES NEEDED FOR CHEST PAIN. IF NO RELIEF CALL 911 OR GO TO ER 75 Tablet 1 12/02/2021 Active Vitamin C 500 MG Oral Tablet (Ascorbic [...] 100 Tablet 3 10/26/2022 10/26/19 24 Active Ezetimibe 10 MG Oral Tablet (Zetia)Indications:D yslipidemia, goal LDL below 70 TAKE ONE TABLET BY MOUTH EVERY DAY 100 Tablet 3 08/03/2022 09/02/19 24 Active Metoprolol Succinate ER 50 MG Oral Tablet Extended Release 24 Hour (toPROL XL)Indications:Ather osclerosis of gambell coronary artery of [place] heart without angina pectoris Take 2 Tablets [...] Pain, Moderate. 30 Tablet 0 05/05/2023 Active Vitamin D3 1.25 MG (61746 UT) Oral CapsuleIndications:H ypovitaminosis D TAKE 1 [...] DAY 180 Tablet 07/24/2023 07/23/19 25 Active Metoprolol Tartrate 50 MG Oral Tablet (Lopressor)Indicatio ns:Atherosclerosis of coronary artery of [place] heart without angina pectoris, unspecified vessel or lesion type TAKE TWO TABLETS BY MOUTH EVERY DAY BEFORE BEDTIME 180 Tablet 07/24/2023 07/23/19 25 Active Isosorbide [...] MORNING 90 Tablet 07/24/2023 07/23/19 25 Active Metoprolol Tartrate 50 MG Oral Tablet (Lopressor)Indicatio ns:Atherosclerosis of coronary artery of [place] heart without angina pectoris, unspecified vessel or lesion type TAKE TWO TABLETS BY MOUTH EVERY DAY BEFORE BEDTIME 180 Tablet 3 07/12/2022 07/24/19 24 Discontinu ed(Refill) Isosorbide Mononitrate ER 60 MG Oral Tablet Extended Release 24 Hour (Imdur)Indications:S /P angioplasty with stent TAKE ONE TABLET BY MOUTH EVERY MORNING 90 Tablet 3 07/12/2022 07/24/19 24 Discontinu ed(Refill) Levothyroxine Sodium 75 MCG Oral Tablet (Levoxyl)Indications :Hypothyroidism, unspecified type TAKE 1 TABLET BY MOUTH DAILY AT LEAST 30 MINUTES PRIOR TO FIRST MEAL OF THE DAY OR OTHER MEDICATIONS 90 Tablet 3 07/12/2022 07/24/19 24 Discontinu ed(Refill) Clopidogrel Bisulfate 75 MG Oral Tablet (pLAVix)Indications: Atypical chest pain,S/P angioplasty with stent TAKE ONE TABLET BY MOUTH EVERY MORNING 90 Tablet 3 07/12/2022 07/24/19 24 Discontinu ed(Refill) Pantoprazole Sodium 40 MG Oral Tablet Delayed Release (Protonix)Indication s:Gastroesophageal reflux disease with esophagitis and hemorrhage TAKE ONE TABLET BY MOUTH TWICE A DAY 180 Tablet 3 07/12/2022 07/24/19 24 Discontinu ed(Refill) Rosuvastatin Calcium 40 MG Oral Tablet (Crestor)Indications :Dyslipidemia, goal LDL below 70 TAKE ONE TABLET BY MOUTH EVERY MORNING 90 Tablet 3 07/12/2022 07/24/19 24 Discontinu ed(Refill) documented as of this encounter (statuses as of 07/24/2023) Active Problems Problem Noted Date Diagnosed Date [...] 12/27/2017 Iron deficiency anemia 06/21/2017 Atherosclerosis of [place] co ronary artery without angina pectoris 06/22/2015 [...] as of this encounter (statuses as of 07/24/2023) Resolved Problems Problem Noted Date Diagnosed Date [...] Markers for Patients with Cardiovascular Disease Project #[id number] PI: Alma Smiley MD Please call [phone] with study related questions GENOMICS CARDIO RESEARCH OTHER*[id number] 10/22/2008 08/09/2016 Overview: Renamed Per Clinical Trials Billing Project. Study Titile: Genomic Markers for Patients with Cardiovascular Disease Project #[id number] PI: Alma Smiley MD Please call [phone] with study related questions Benign neoplasm of [...] as of this encounter (statuses as of 07/24/2023) Immunizations Name Administration Dates Next Due COVID-19 mRNA, LNP-s, No Pre serve, 2-Dose Series ([employer]) 09/04/2020 H1N1 2008 Influenza, IM 07/13/2009 Pneumococcal Conjugate Vacc, 13 [...] money to buy more. Never true 04/06/20 Within the past 12 months, t he [...] Telephone Encounter - Ranjith Loera PA-C - 07/24/2023 2:28 PM ESTSigned Prescriptions: Disp Refills Levothyroxine Sodium 75 MCG Oral Tablet (L*90 Tab*3 Sig: TAKE 1TABLET BY MOUTH DAILY AT LEAST 30 MINUTES PRIOR TO FIRST MEAL OF THE DAY OR OTHER MEDICATIONSAuthorizing Provider: RANJITH LOERA Pantoprazole Sodium 40 MG Oral Tablet Anila*180 Ta*3 Sig: TAKE ONE TABLET BY MOUTH TWICE A DAYAuthorizing Provider: RANJITH LOERA Metoprolol Tartrate 50 MG Oral Tablet (Lop*180 Ta*3 Sig: TAKE TWO TABLETS BY MOUTH EVERY DAY BEFORE BEDTIMEAuthorizing Provider: RANJITH LOERA Isosorbide Mononitrate ER 60 MG Oral Table*90 Tab*3 Sig: TAKE ONE TABLET BY MOUTH EVERY MORNINGAuthorizing Provider: RANJITH LOERA Clopidogrel Bisulfate 75 MG Oral Tablet (p*90 Tab*3 Sig: TAKE ONE TABLET BY MOUTH EVERY MORNINGAuthorizing Provider: RANJITH LOERA Rosuvastatin Calcium 40 MG OralTablet (Cr*90 Tab*3 Sig: TAKE ONE TABLET BY MOUTH EVERY MORNINGAuthorizing Provider: RANJITH LOERA * Telephone Encounter - Lilliam Castillo COT - 07/24/2023 1:58 PM ESTPending Prescriptions: Disp Refills Levothyroxine Sodium 75 MCG Oral Tablet (L*90 Tab*3 Sig: TAKE 1 TABLET BY MOUTH DAILY AT LEAST 30 MINUTES PRIOR TO FIRST MEAL OF THE DAY OR OTHER MEDICATIONS Pantoprazole Sodium 40 MG Oral Tablet Anila*180 Ta*3 Sig: TAKE ONE TABLET BY MOUTH TWICE A DAY Metoprolol Tartrate 50 MG Oral Tablet (Lop*180 Ta*3 Sig: TAKE TWO TABLETS BY MOUTH EVERY DAY BEFORE BEDTIME Isosorbide Mononitrate ER 60 MG Oral Table*90 Tab*3 Sig: TAKE ONE TABLET BY MOUTH EVERY MORNING Clopidogrel Bisulfate 75 MG Oral Tablet (p*90 Tab*3 Sig: TAKE ONE TABLET BY MOUTH EVERY MORNING Rosuvastatin Calcium 40 MG Oral Tablet (Cr*90 Tab*3 Sig: TAKE ONE TABLET BY MOUTH EVERY MORNING * Telephone Encounter - Lilliam Castillo COT - 07/24/2023 1:57 PM EST Did you pend patient's preferred pharmacy and medication before forwarding?yes Pharmacy: [facility] Pending Prescriptions: Disp Refills Levothyroxine Sodium 75 MCG Oral Tablet (*90 Tab*3 Sig: TAKE 1 TABLET BY MOUTH DAILY AT LEAST 30 MINUTES PRIOR TO FIRST MEAL OF THE DAY OR OTHER MEDICATIONS Pantoprazole Sodium 40 MG Oral Tablet Del*180 Ta*3 Sig: TAKE ONE TABLET BY MOUTH TWICE A DAY Metoprolol Tartrate 50 MG Oral Tablet (Lo*180 Ta*3 Sig: TAKE TWO TABLETS BY MOUTH EVERY DAY BEFORE BEDTIME Isosorbide Mononitrate ER 60 MG Oral Tabl*90 Tab*3 Sig: TAKE ONE TABLET BY MOUTH EVERY MORNING Clopidogrel Bisulfate 75 MG Oral Tablet (*90 Tab*3 Sig: TAKE ONE TABLET BY MOUTH EVERY MORNING Rosuvastatin Calcium 40 MG Oral Tablet (C*90 Tab*3 Sig: TAKE ONE TABLET BY MOUTH EVERY MORNING Last Visit: 08/03/2022 (in office), 08/04/2020 (telemedicine) Next Visit: 08/04/2023 If no future appointments scheduled, and last appointment is greater than a year ago, please schedule patient for a follow-up appointment Last date the medication was ordered: 07-12-2022 Is this request for a controlled substance?No [...] 08:33 AM HGBA1C 5.6 02/28/2020 08:34 AM * Telephone Encounter - 07/24/2023 12:09 AM ESTPending Prescriptions: Disp Refills Levothyroxine Sodium 75 MCG Oral Tablet (L*90 Tab*3 Sig: TAKE 1 TABLET BY MOUTH DAILY AT LEAST 30 MINUTES PRIOR TO FIRST MEAL OF THE DAY OR OTHER MEDICATIONS Pantoprazole Sodium 40 MG Oral Tablet Anila*180 Ta*3 Sig: TAKE ONE TABLET BY MOUTH TWICE A DAY Metoprolol Tartrate 50 MG Oral Tablet (Lop*180 Ta*3 Sig: TAKE TWO TABLETS BY MOUTH EVERY DAY BEFORE BEDTIME Isosorbide Mononitrate ER 60 MG Oral Table*90 Tab*3 Sig: TAKE ONE TABLET BY MOUTH EVERY MORNING Clopidogrel Bisulfate 75 MG Oral Tablet (p*90 Tab*3 Sig: TAKE ONE TABLET BY MOUTH EVERY MORNING Rosuvastatin Calcium 40 MG Oral Tablet (Cr*90 Tab*3 Sig: TAKE ONE TABLET BY MOUTH EVERY MORNING * Telephone Encounter - 07/24/2023 12:09 AM ESTPending Prescriptions: Disp Refills Levothyroxine Sodium 75 MCG Oral Tablet (L*90 Tab*3 Sig: TAKE 1 TABLET BY MOUTH DAILY AT LEAST 30 MINUTES PRIOR TO FIRST MEAL OF THE DAY OR OTHER MEDICATIONS Pantoprazole Sodium 40 MG Oral Tablet Anila*180 Ta*3 Sig: TAKE ONE TABLET BY MOUTH TWICE A DAY * Telephone Encounter - 07/24/2023 12:09 AM ESTPending Prescriptions: Disp Refills Levothyroxine Sodium 75 MCG Oral Tablet (L*90 Tab*3 Sig: TAKE 1 TABLET BY MOUTH DAILY AT LEAST 30 MINUTES PRIOR TO FIRST MEAL OF THE DAY OR OTHER MEDICATIONS Pantoprazole Sodium 40 MG Oral Tablet Anila*180 Ta*3 Sig: TAKE ONE TABLET BY MOUTH TWICE A DAY Metoprolol Tartrate 50 MG Oral Tablet (Lop*180 Ta*3 Sig: TAKE TWO TABLETS BY MOUTH EVERY DAY BEFORE BEDTIME * Telephone Encounter - 07/24/2023 12:09 AM ESTPending Prescriptions: Disp Refills Levothyroxine Sodium 75 MCG Oral Tablet (L*90 Tab*3 Sig: TAKE 1 TABLET BY MOUTH DAILY AT LEAST 30 MINUTES PRIOR TO FIRST MEAL OF THE DAY OR OTHER MEDICATIONS Pantoprazole Sodium 40 MG Oral Tablet Anila*180 Ta*3 Sig: TAKE ONE TABLET BY MOUTH TWICE A DAY Metoprolol Tartrate 50 MG Oral Tablet (Lop*180 Ta*3 Sig: TAKE TWO TABLETS BY MOUTH EVERY DAY BEFORE BEDTIME Isosorbide Mononitrate ER 60 MG Oral Table*90 Tab*3 Sig: TAKE ONE TABLET BY MOUTH EVERY MORNING * Telephone Encounter - 07/24/2023 12:09 AM ESTPending Prescriptions: Disp Refills Levothyroxine Sodium 75 MCG Oral Tablet (L*90 Tab*3 Sig: TAKE 1 TABLET BY MOUTH DAILY AT LEAST 30 MINUTES PRIOR TO FIRST MEAL OF THE DAY OR OTHER MEDICATIONS Pantoprazole Sodium 40 MG Oral Tablet Anila*180 Ta*3 Sig: TAKE ONE TABLET BY MOUTH TWICE A DAY Metoprolol Tartrate 50 MG Oral Tablet (Lop*180 Ta*3 Sig: TAKE TWO TABLETS BY MOUTH EVERY DAY BEFORE BEDTIME Isosorbide Mononitrate ER 60 MG Oral Table*90 Tab*3 Sig: TAKE ONE TABLET BY MOUTH EVERY MORNING Clopidogrel Bisulfate 75 MG Oral Tablet (p*90 Tab*3 Sig: TAKE ONE TABLET BY MOUTH EVERY MORNING documented in this encounter Plan of Treatment Upcoming Encounters Date Type Department Care Team (Late st Contact Info) Description 08/04/2023 8:00 AM EST Office Visit Cardiology, [facility] [address] [place] [address] Ranjith Loera PA-C [address] [place] [address] 08/07/2023 3:00 PM EST Office Visit Orthopaedics [facility] [address] [place] [address] Rodriguez Islas MD [address] [place] [address] 08/17/2023 11:00 AM EST Office Visit Nutrition & Weight Management, [facility] [address] [place] [address] Vanessa Lincoln PA-C [address] [place] [address] 08/18/2023 10:45 AM EST Hospital Encounter ENDO [facility], Endoscopy Room [facility] [address] [place] [id number] Criss Austin MD [address] [place] [address] 08/18/2023 10:45 AM EST - 08/18/2023 11:15 AM EST Surgery ENDO [facility], Endoscopy Room [facility] [address] [place] [id number] Criss Austin MD [address] [place] [address] COLONOSCOPY FLEXIBLE PROXIMAL DIAGNOSTIC 10/12/2023 7:40 AM EDT Office Visit [facility] [address] [facility], [place] [address] Ranjith Pelayo MD [address] [place] [address] Scheduled Procedures Name Priority Associated Diagnoses Date/Ti [...] 06/06/2016, 10/01, 10/13/2007 CKD HGB USE SMARTSET 23914 08/03/202308/03, 02/17/2022, 09/24/2021, Additional history exists HbA1c 08/03/2023 08/03/2022, 09/01, 08/11/2020, Additional history exists TSH 08/03/2023 08/03/2022, 09/01, 08/04/2020, Additional history exists Mammogram 10/11/2023 10/10/2022, 09/2019, 07/04/2018, Additional history exists Albumin/Creatinine Ratio 12/02/2023 023, 11/09/2020, 10/29/2018, Additional history exists CKD PHOS USE SMARTSET 32774 12/02/2023 060 07/2022, 07/09/2018, 06/16/2017, Additional history exists GFR 12/05/2023 06/05/2023, 0 07/2022, 08/03/2022, Additional history exists DTaP,Tdap,and Td Vaccines (3 - Td or Tdap) 10/29/2028 10/29/2018, 01/05/2009 Pneumococcal Vaccine: 65+ Years Completed 06/16/2017, 12/13/2016, 01/05/2009 Zoster Vaccines Completed 09/24/2021, 0 10/2020, 03/07/2013 COLONOSCOPY-EVERY 3 YRS AGES 18-100 [...] this encounter Medical Devices Implanted Type Area Veneer Stacker Device Identifier Shelf Expiration Date Model / Serial / Lot Lens Intraoc 21.0 - [id number] - [id number] Implanted:Qty: 1 on 02/04/2020 by Cedric Drew MD at OR [facility] Left: Eye [employer] 08/02/2024 [id number] / [id number] / [id number] Lens Intraoc 21.0 - [id number] - [id number] Implanted:Qty: 1 on 02/13/2020 by Cedric Drew MD at OR [facility] Right: Eye [employer] 08/30/2024 [id number] / [id number] / [id number] Clip Quick 2.8mm 230cm - [id number] Implanted:Qty: 1 on 02/22/2022 by Criss Austin MD at ENDOSCOPY [facility] Colon [employer] 05/02/2024 [id number] / [id number] documented as of this encounter Visit Diagnoses Diagnosis Hypothyroidism, unspecified type Gastroesophageal reflux disease with esophagitis and hemorrhage Atherosclerosis of coronary artery of [place] heart without angina pectoris, unspecified vessel or lesion type S/P angioplasty with stent Postsurgical percutaneous transluminal coronary angioplasty status Atypical chest pain Other chest pain Dyslipidemia, goal LDL below 70 Other and unspecified hyperlipidemia History of colon polyps Personal history of colonic polyps Angiodysplasia of the colon Angiodysplasia of intestine (without mention of hemorrhage) Adenomatous polyp of colon, unspecified part of colon documented in this encounter Advance Directives Latest Code Status on File Code Status Date Activated Date Inactivated Comments Full Code 10/31/2008 10:26 AM 11/01/2008 3:23 PM Care Teams Music Grapher Relationship Specialty Start Date End Date Ranjith Pelayo MD [address] [place] [address] PCP - General Family Medicine 08/27/18 documented as of this encounter
--- OUTSIDE RECORDS SUMMARY | 2024-01-07 16:44 | External Medical Summary | Summary of Care ---
Author Name Unknown Organization [facility] Address [address] [place] [address] Phone [phone] Care Team Providers Care Deburring And Tooling Machine Operator Name Role Phone Santiago Pelayo MD Primary Care Provider [phone] Reason for Visit * Reason Comments NEW PATIENT Right hand * Evaluate & Treat - Unlimited Visits (Within 10 days (routine)) - Authorized Specialty Diagnoses / Procedures Referred By Connie prakash Referred To Contact Orthopaedic Surgery / Orthopedics Diagnoses Hand pain, right Sharon, Adama Bella MD [address] [place] [address] Referral ID Status Reason Start Date Expiration Date Visits Requested Visits Authorized [id number] Authorized Specialty Services Required 07/10/[phone] Encounter Details Date Type Department Care Team (Late st Contact Info) Description 08/07/2023 3:00 PM EST Office Visit Orthopaedics [facility] [address] [place] [id number] Rodriguez Islas MD [address] [place] [address] Trigger index finger of right hand* Allergies [...] Release 24 Hour (toPROL XL)Indications:Athero sclerosis of n[place]qu[place] coronary artery of [place] heart without angina pectoris Take 2 Tablets [...] taking.Reported on 08/04/2023 Vitamin D3 1.25 MG (83490 UT) Oral CapsuleIndications:Hy povitaminosis D TAKE 1 [...] Gastroesophageal reflux disease with esophagitis 04/25/2019 Old NH (myocardial infarction) 04/25/2019 Overview: NSTEMI 06/2009 Celiac disease 04/25/2019 Hiatal hernia 12/27/2017 Iron deficiency anemia 06/21/2017 Atherosclerosis of [place] co ronary artery without angina pectoris 06/22/2015 [...] Markers for Patients with Cardiovascular Disease Project #[id number] PI: Alma Smiley MD Please call [phone] with study related questions GENOMICS CARDIO RESEARCH OTHER*[id number] 10/22/2008 08/09/2016 Overview: Renamed Per Clinical Trials Billing Project. Study Titile: Genomic Markers for Patients with Cardiovascular Disease Project #[id number] PI: Alma Smiley MD Please call [phone] with study related questions Benign neoplasm of [...] mRNA, LNP-s, No Pre serve, 2-Dose Series ([employer]) 09/04/2020 H1N1 2009 Influenza, IM 07/13/2009 Influenza, [...] fingers HPI: The patient is a 73-year-old [id number] female who is seen today at the [...] 09/29/2009 Per Obesity Taxonomy Coronary atherosclerosis of [place] coronary artery 05/09 50% LAD Depressive disorder, not elsewhere classified Esophageal reflux 05/30/2006 Generalized OA 11/22/2011 HTN, goal below 140/90 Iron deficiency anemia Kidney disease, chronic, stage III (GFR 30-59 ml/min) 08/26/2013 Per CKD protocol #1 Menopause Migraine with aura Morbid obesity with body mass index (BMI) of 45.0 to 49.9 in adult ([facility]) 10/29/2018 Body Mass Index: 40.10 kg/m Abnormal [...] Hypothyroidism E03.9 Sleep apnea G47.30 Atherosclerosis of [place] coronary artery without angina pectoris I25.10 Iron deficiency anemia D50.9 Hiatal hernia K44.9 Major depressive disorder, single episode, in remission (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) I73.9 Morbid obesity with BMI of 40.0-44.9, adult ([facility]) E66.01, Z68.41 PAST SURGICAL HISTORY: Past Surgical History: Procedure Laterality Date BIOPSY OF BREAST, OPEN Left benign CARDIAC CATH SCANNED RESULT 05/2007 CARDIAC CATH-CARDIOLOGY ONLY 10/2008 70% PROXIMAL & MID LAD, 30% CIRC, NO OTHER SIGNIFICANT DISEASE, EF 60% CARPAL TUNNEL SURGERY right hand COLONOSCOPY THRU STOMA, W/BIOPSY 07/2000 hyperplastic polyps. Next colo [id number] COLONOSCOPY THRU STOMA, W/BIOPSY 08/10/2006 villous adenomas -- repeat 6 months COLONOSCOPY THRU STOMA, W/BIOPSY 07/21/2009 adenomatous polyp--repeat 2 years COLONOSCOPY THRU STOMA, W/BIOPSY 08/15/2011 hyperplastic/repeat colonoscopy in 3 years COLONOSCOPY, DIAGNOSTIC (RECTUM) 09/01/2014 benign polyps, repeat 1 yr/[facility] COLONOSCOPY, DIAGNOSTIC (RECTUM) 08/03/2015 adenomatous polyp, diverticulosis, repeat 3 yrs/ COLONOSCOPY, DIAGNOSTIC (RECTUM) 12/18/2018 diverticulosis/[facility] COLONOSCOPY, DIAGNOSTIC (RECTUM) 11/04/2020 serrated polyps, repeat 3 yrs / [facility] COLONOSCOPY, DIAGNOSTIC (RECTUM) 02/22/2022 benign adenomatous polyp, repeat 1 yr / COLONOSCOPY FLEXIBLE PROXIMAL DIAGNOSTIC performed by Criss Austin MD at ENDOSCOPY [facility] CORONARY ARTERY DILATION, BALLOON 10/31/2008 PTCA, SINGLE VESSEL performed by ZACHERY NEELY at [facility] [place], FLEXIBLE, DIAGNOSTIC 06/10/2015 mild ring, HH/[facility] EGD, FLEXIBLE, DIAGNOSTIC 10/31/2017 Jhon ulcers, hiatal hernia, repeat 3 mo/ESOPHAGOGASTRODUODENOSCOPY (EGD), FLEXIBLE, TRANSORAL, DIAGNOSTIC performed by Susanna Esteban MD at ENDOSCOPY [facility] EGD, FLEXIBLE, DIAGNOSTIC 01/23/2018 gastritis, duodenitis, hiatal hernia/ESOPHAGOGASTRODUODENOSCOPY (EGD), FLEXIBLE, TRANSORAL, DIAGNOSTIC performed by Susanna Esteban MD at ENDOSCOPY [facility] EGD, FLEXIBLE, DIAGNOSTIC 12/18/2018 ? celiac disease, hiatal hernia/[facility] EGD, FLEXIBLE, DIAGNOSTIC 10/15/2020 lg hiatal hernia / ESOPHAGOGASTRODUODENOSCOPY (EGD), FLEXIBLE, TRANSORAL, DIAGNOSTIC performed by Criss Austin MD at ENDOSCOPY [facility] EGD, FLEXIBLE, DIAGNOSTIC 11/03/2020 Jhon's erosions / INPT [facility] EGD, FLEXIBLE, DIAGNOSTIC 02/22/2022 hiatal hernia / ESOPHAGOGASTRODUODENOSCOPY (EGD), FLEXIBLE, TRANSORAL, DIAGNOSTIC performed by Criss Austin MD at ENDOSCOPY [facility] KNEE ARTHROSCOPY/MENISCUS REPAIR left knee LAPAROSCOPY; CHOLECYSTECTOMY 2002 LIGATE/CUT OVIDUCT(S) METACAR FX (1) W/MAN EA BONE Right 05/09/2018 CLOSED TREATMENT METACARPAL FRACTURE MANIPULATION performed by Ciro Mcmillan DO at OR [facility] REMOVE CATARACT, INSERT LENS PROSTH Left 02/04/2020 LEFT EXTRACAPSULAR CATARACT REMOVAL WITH INTRAOCULAR LENS performed by Cedric Drwe MD at [facility] REMOVE CATARACT, INSERT LENS PROSTH Right 02/13/2020 RIGHT EXTRACAPSULAR CATARACT REMOVAL WITH INTRAOCULAR LENS performed by Cedric Drew MD at [facility] TOTAL ABD HYSTERECTOMY W/WO REMOVAL OF TUBE(S) 04/2008 AVELINA/BSO Hemmer FAMILY HISTORY: Family History Problem Relation Age of Onset Ovarian cancer Mother 55 Blood Disorder Mother bleeding, vaginal that lead to diagnosis of uterine cancer Uterine cancer Mother Arthritis Father 53 bad arthritis, crippled hands (?RA) Heart Disorder Father several NH's, no stents Lung cancer Father 59 smoker [...] 30 Tablet 0 Vitamin D3 1.25 MG (51746 UT) Oral Capsule TAKE 1 CAPSULE BY [...] Hypothyroidism E03.9 Sleep apnea G47.30 Atherosclerosis of [place] coronary artery without angina pectoris I25.10 Iron deficiency anemia D50.9 Hiatal hernia K44.9 Major depressive disorder, single episode, in remission (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) E66.01, Z68.41 Rodriguez Islas MD documented in [...] EST Office Visit Nutrition & Weight Management, [facility] [address] [place] [address] Vanessa Lincoln PA-C [address] [place] [address] 08/18/2023 10:45 AM EST Hospital Encounter ENDO [facility], Endoscopy Room [facility] [address] [place] [phone] Criss Austin MD [address] [place] [address] 08/18/2023 10:45 AM EST - 08/18/2023 11:15 AM EST Surgery ENDO [facility], Endoscopy Room [facility] [address] [place] [phone] Criss Austin MD [address] [place] [address] COLONOSCOPY FLEXIBLE PROXIMAL DIAGNOSTIC 10/06/2023 9:30 AM EDT Office Visit Orthopaedics [facility] [address] [place] [address] Rodriguez Islas MD [address] [place] [address] 10/12/2023 7:40 AM EDT Office Visit [facility] [address] [place] [address] Santiago Pelayo MD [address] [place] [address] Scheduled Procedures Name Priority Associated Diagnoses Date/Ti [...] 06/06/2016, 10/01, 10/13/2007 CKD HGB USE SMARTSET 23927 08/03/202308/03, 02/17/2022, 09/24/2021, Additional history exists HbA1c 08/03/2023 08/03/2022, 09/01, 08/11/2020, Additional history exists TSH 08/03/2023 08/03/2022, 09/01, 08/04/2020, Additional history exists Mammogram 10/11/2023 10/10/2022, 10/01, 07/05/2019, Additional history exists Albumin/Creatinine Ratio 12/02/2023 023, 11/09/2020, 10/29/2018, Additional history exists CKD PHOS USE SMARTSET 80252 12/02/2023 06/0 07/2022, 07/09/2018, 06/16/2017, Additional history [...] this encounter Medical Devices Implanted Type Area Transfer Coordinator Device Identifier Shelf Expiration Date Model / Serial / Lot Lens Intraoc 21.0 - [id number] - [id number] Implanted:Qty: 1 on 02/04/2020 by Cedric Drew MD at OR [facility] Left: Eye [employer] 08/02/2024 [id number] / [id number] / [id number] Lens Intraoc 21.0 - [id number] - [id number] Implanted:Qty: 1 on 02/13/2020 by Cedric Drew MD at OR [facility] Right: Eye [employer] 08/30/2024 [id number] / [id number] / [id number] Clip Quick 2.8mm 230cm - [id number] Implanted:Qty: 1 on 02/22/2022 by Criss Austin MD at ENDOSCOPY [facility] Colon [employer] 05/02/2024 [id number] / [id number] documented as [...] 10:26 AM 11/01/2008 3:23 PM Care Teams Deburring And Tooling Machine Operator Relationship Specialty Start Date End Date Santiago Pelayo MD [address] [place] [address] PCP - General Family Medicine 08/27/18 documented as of this encounter
--- OUTSIDE RECORDS SUMMARY | 2024-01-07 16:44 | External Medical Summary | Summary of Care ---
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 Name Role Phone Santiago Pelayo MD Primary Care Provider [phone] Reason for Visit * Reason Comments Follow Up Encounter Details Date Type Department Care Team (Latest Contact Info) Description 08/04/2023 8:00 AM EST Office Visit Cardiology, [facility] [address] [place] [address] Santiago Mckeon, BORA [address] [place] [id number] Atherosclerosis of coronary artery of [place] heart without angina pectoris, unspecified vessel or lesion type*; S/P angioplasty with stent; Dyslipidemia, goal LDL below 70; Old NH (myocardial infarction); HTN, goal below 130/80; Coronary atherosclerosis due to calcified coronary lesion Allergies No known active allergiesdocumented as of this encounter (statuses as of 08/04/2023) Medications Medication Sig Dispensed Refills Start Date End Date Status Nitroglycerin 0.4 MG Sublingual Tablet Sublingual (Nitrostat)Indicati ons:Coronary atherosclerosis due to calcified coronary lesion PLACE 1 TABLET UNDER THE TONGUE EVERY 5 MINUTES UP TO 3 DOSES NEEDED FOR CHEST PAIN. IF NO RELIEF CALL 911 OR GO TO ER 75 Tablet 1 Active Additional Information Patient not taking.Reported on [...] the morning. 90 Tablet 1 3 Active Additional Information Patient not taking.Reported on 08/04/2023 valACYclovir HCl 1 GM Oral Tablet (Valtrex) Take 2 Tablets by mouth in the morning and 2 Tablets before bedtime. for cold sores. 4 Tablet 11 3 Active Additional Information Patient not taking.Reported on 05/05/2023 Citalopram Hydrobromide 40 MG Oral Tablet (CeleXA)Indications :Major depressive disorder, single episode, in remission (HCC) TAKE ONE TABLET BY MOUTH EVERY MORNING. 90 Tablet 3 3 12/29/19 24 Active buPROPion HCl ER (XL) 300 MG Oral Tablet Extended Release 24 Hour (Wellbutrin XL)Indications:Adriana r depressive disorder, single episode, in remission (HCC) TAKE ONE TABLET BY MOUTH EVERY MORNING 90 Tablet 3 3 12/01/19 24 Active Potassium Chloride Gertrudis ER 10 MEQ Oral Tablet Extended ReleaseIndications: Hypokalemia TAKE ONE TABLET BY MOUTH EVERY TIME YOU TAKE FUROSEMIDE 100 Tablet 3 3 10/26/19 24 Active Furosemide 20 MG Oral Tablet (Lasix)Indications: Atypical chest pain,Edema of both lower legs due to peripheral venous insufficiency TAKE ONE TABLET BY MOUTH EVERY DAY NEEDED FOR FLUID RETENTION 100 Tablet 3 3 10/26/19 24 Active Ezetimibe 10 MG Oral Tablet (Zetia)Indications: Dyslipidemia, goal LDL below 70 TAKE ONE TABLET BY MOUTH EVERY DAY 100 Tablet 3 3 09/02/19 24 Active Metoprolol Succinate ER 50 MG Oral Tablet Extended Release 24 Hour (toPROL XL)Indications:Athe rosclerosis of [place] coronary artery of [place] heart without angina pectoris Take 2 Tablets by mouth in the morning. 180 Tablet 3 3 Active Ferrous Sulfate 325 (65 Fe) MG Oral Tablet (Feosol) TAKE ONE TABLET BY MOUTH TWICE A DAY IN THE MORNING AND BEFORE BEDTIME 200 Tablet 3 3 04/17/20 24 Active traMADol HCl 50 MG Oral Tablet (Ultram)Indications :Osteoarthritis of left knee, unspecified osteoarthritis type Take 1 Tablet by mouth every 6 hours as needed for Pain, Moderate. 30 Tablet 0 3 Active Additional Information Patient not taking.Reported on 08/04/2023 Vitamin D3 1.25 MG (58644 UT) Oral CapsuleIndications: Hypovitaminosis D TAKE 1 CAPSULE BY MOUTH WEEKLY 12 Capsule 1 3 05/15/20 24 Active Levothyroxine Sodium 75 MCG [...] 90 Tablet 3 4 07/23/19 25 Active Metoprolol Tartrate 50 MG Oral Tablet (Lopressor)Indicati ons:Atherosclerosis of coronary artery of [place] heart without angina pectoris, unspecified vessel or lesion type TAKE TWO TABLETS BY MOUTH EVERY DAY BEFORE BEDTIME 180 Tablet 3 4 08/04/19 24 Discontinued documented as of this encounter (statuses as of 08/04/2023) Active Problems Problem Noted Date Diagnosed Date [...] 12/27/2017 Iron deficiency anemia 06/21/2017 Atherosclerosis of [place] co ronary artery without angina pectoris 06/22/2015 [...] as of this encounter (statuses as of 08/04/2023) Resolved Problems Problem Noted Date Diagnosed Date [...] Markers for Patients with Cardiovascular Disease Project #[id number] PI: Alma Smiley MD Please call [phone] with study related questions GENOMICS CARDIO RESEARCH OTHER*[id number] 10/22/2008 08/09/2016 Overview: Renamed Per Clinical Trials Billing Project. Study Titile: Genomic Markers for Patients with Cardiovascular Disease Project #[id number] PI: Alma Smiley MD Please call [phone] with study related questions Benign neoplasm of [...] as of this encounter (statuses as of 08/04/2023) Immunizations Name Administration Dates Next Due COVID-19 mRNA, LNP-s, No Pre serve, 2-Dose Series (NuORDER) 09/04/2020 H1N1 2009 Influenza, IM 07/13/2009 Pneumococcal [...] Sign Reading Time Taken Comments Blood Pressure 124/74 08/04/2023 7:55 AM EST Pulse 84 08/04/2023 7:55 AM EST Temperature - - Respiratory Rate 16 08/04/2023 7:55 AM EST Oxygen Saturation - - Inhaled Oxygen Concentration - - Weight 117 kg (258 lb) 08/04/2023 7:55 AM EST Height - - Body Mass Index 42.93 12/01/2022 8:34 AM EDT documented in this encounter Progress Notes * Santiago Mckeon PA-C - 08/04/2023 8:00 AM EST History of Present Illness: Shani Newton is a 73 year old female here today for routine cardiology follow-up. Feeling wonderful. "I probably haven't felt this good in 20 years." Working less. No chest pain or discomfort. Notes not needing sublingual nitroglycerin in about two years. No tachypalpitations. No unusual shortness of breath. She is able to ambulate one flight of stairs without difficulty; hasn't tried two, no need. Fluid retention aided by PRN Furosemide, without recent use. No lightheadedness, dizziness, near syncope, or syncope. No epistaxis. No hemoptysis. No hematuria. No vaginal bleeding. Notes going off supplemental iron again, back on it in June with follow-up laborat ory work planned through PCP in September 2023. Notes plans for upcoming colonoscopy. Problem List: ASCVD Chest pain leading to diagnostic catheterization by Dr. Rashid at [facility] in 05/2007 revealing a 50% LAD lesion. Abnormal coronary CT lead to October 2008 catheterization which revealed a 70% proximal and 70% mid-LAD stenosis with nonobstructive disease elsewhere. Status post 10/31/2008 PCI of the LAD with two bare metal stents. Discontinuation of Plavix in December 2008 for colonoscopy with resultant acute NH. Catheterization at that time revealed a critical LAD lesion between the two prior LAD stents which underwent PCI using a BMS without complication. Admission to [facility] in June 2009 with a NSTEMI after Plavix was held once again for colonoscopy. Catheterization in June 2009 with patent stents and a jailed diagonal branch as the likely probable culprit. No intervention was necessary/performed. Presentation to [facility] in October 2009 with chest discomfort. Catheterization at that time revealed stable, mild non-occlusive disease that was unchanged from the prior catheterization. Catheterization was performed in October 2010, after presentation with "unstable angina," revealed a left main with mild luminal irregularities, an LAD with extensive stenting in the proximal to mid segment with associated jailing of the first diagonal branch, moderate ostial stenosis of a septal coating inspector, and an indeterminate stenosis distal to the stents (FFR by Dr. Good was 0.79 which is of indeterminant hemodynamic significance with the vessel noted to be 1.2 mm and not easily amenable to PCI), a nondominant LCX with up to 30% disease, and a large dominalt RCA with up to 30% proximal stenosis and mild luminal irregularities of the PDA and PLB's. LV gram revealed an EF of 65%. Last catheterization occurred in May 2014 and demonstrated unchanged coronary disease when compared to the prior catheterization. Hospitalized at [facility] in October 2017, presenting at that time with intermittent chest pain. EKGs were without acute change. Troponin negative x4. Echo revealed normal systolic function without wall motion abnormality. Hemoglobin on presentation was 7.6 g/dL for which she received 1 unit of PRBC's. Cardiology was not involved in her inpatient care at that time. EGD performed on October 31, 2017 revealed a large hiatal hernia with 2 nonbleeding Jhon ulcers with follow-up EGD on January 23, 2018 revealing that the prior Jhon ulcers had healed; endoscopy also notable for gastritis and duodenitis. Moderately severe NAN and nocturnal hypoxemia Hypertension Dyslipidemia Prediabetes Family history of premature CAD GERD Large hiatal hernia Esophageal dysmotility Iron deficiency anemia Depression Migraine headaches. Covid-19 in May 2021. Last hospitalization was to [facility] in October 2020 with recurrent symptomatic anemia. Hemoglobin on presentation was 6.6 g/dL. Patient received 2 units of packed red blood cells without difficulty. IV ironinfusion also administered. EGD revealed a large hiatal hernia with a few faint Jhon erosions. Colonoscopy showed hemorrhoids, multiple small and large mouth diverticula throughout the entire colon, and a medium size nonbleeding AVM in the cecum that was cauterized with APC + 2 clips. A 5 mm polyp was also removed from the cecum. Hemoglobin on discharge was 8.1 g/dL. Video capsule endoscopy post discharge showed no evidence of blood loss from the small bowel though did show an incidental small polyp in the terminal ileum for which repeat colonoscopy was recommended. Patient Active Problem List Diagnosis Code HTN, goal below 140/90 I10 Menopause Z78.0 ADVANCE DIRECTIVE INFORMATION S/P angioplasty with stent Z95.820 DYSLIPIDEMIA, GOAL LDL BELOW 100 E78.5 Other specified forms of chronic ischemic heart disease I25.89 Generalized OA M15.9 Vitamin D deficiency E55.9 Hypothyroidism E03.9 Sleep apnea G47.30 Atherosclerosis of [place] coronary artery without angina pectoris I25.10 Iron deficiency anemia D50.9 Hiatal hernia K44.9 Major depressive disorder, single episode, in remission ([facility]) F32.5 Gastroesophageal reflux disease with esophagitis K21.00 Old NH (myocardial infarction) I25.2 Celiac disease K90.0 Stage 3a chronic kidney disease N18.31 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 ([facility]) I13.10, N18.31 Prediabetes R73.03 Angiodysplasia of the colon K55.20 Other specified hypothyroidism E03.8 Peripheral vascular disease ([facility]) I73.9 Morbid obesity with BMI of 40.0-44.9, adult ([facility]) E66.01, Z68.41 Past Medical History: Diagnosis Date Benign neoplasm of colon 07/21/09 adenomatous polyp--repeat 2 years Benign neoplasm of colon 08/15/11 hyperplastic/repeat colonoscopy in 3 years Body mass index 40 and over, adult 09/29/2009 Per Obesity Taxonomy Coronary atherosclerosis of [place] coronary artery 05/09 50% LAD Depressive disorder, not elsewhere classified Esophageal reflux 05/30/2006 Generalized OA 11/22/2011 HTN, goal below 140/90 Iron deficiency anemia Kidney disease, chronic, stage III (GFR 30-59 ml/min) 08/26/2013 Per CKD protocol #1 Menopause Migraine with aura Morbid obesity with body mass index (BMI) of 45.0 to 49.9 in adult ([facility]) 10/29/2018 Body Mass Index: 40.10 kg/m Abnormal 1.651 m (5' 5") as of 02/09/2022 109.3 kg (241 lb) as of 02/09/2022 Other specified forms of chronic ischemic heart disease 07/02/2009 Paraesophageal hernia S/P angioplasty with stent 10/31/2008 Sleep apnea Past Surgical History: Procedure Laterality Date BIOPSY OF BREAST, OPEN Left benign CARDIAC CATH SCANNED RESULT 05/2007 CARDIAC CATH-CARDIOLOGY ONLY 10/2008 70% PROXIMAL & MID LAD, 30% CIRC, NO OTHER SIGNIFICANT DISEASE, EF 60% CARPAL TUNNEL SURGERY right hand COLONOSCOPY THRU STOMA, W/BIOPSY 07/2000 hyperplastic polyps. Next colo [id number] COLONOSCOPY THRU STOMA, W/BIOPSY 08/10/2006 villous adenomas -- repeat 6 months COLONOSCOPY THRU STOMA, W/BIOPSY 07/21/2009 adenomatous polyp--repeat 2 years COLONOSCOPY THRU STOMA, W/BIOPSY 08/15/2011 hyperplastic/repeat colonoscopy in 3 years COLONOSCOPY, DIAGNOSTIC (RECTUM) 09/01/2014 benign polyps, repeat 1 yr/[facility] COLONOSCOPY, DIAGNOSTIC (RECTUM) 08/03/2015 adenomatous polyp, diverticulosis, repeat 3 yrs/ COLONOSCOPY, DIAGNOSTIC (RECTUM) 12/18/2018 diverticulosis/[facility] COLONOSCOPY, DIAGNOSTIC (RECTUM) 11/04/2020 serrated polyps, repeat 3 yrs / [facility] COLONOSCOPY, DIAGNOSTIC (RECTUM) 02/22/2022 benign adenomatous polyp, repeat 1 yr / COLONOSCOPY FLEXIBLE PROXIMAL DIAGNOSTIC performed by Criss Austin MD at ENDOSCOPY [facility] CORONARY ARTERY DILATION, BALLOON 10/31/2008 PTCA, SINGLE VESSEL performed by ZACHERY NEELY at [facility]ARDIAC [facility] EGD, FLEXIBLE, DIAGNOSTIC 06/10/2015 mild ring, HH/[facility] EGD, FLEXIBLE, DIAGNOSTIC 10/31/2017 Jhon ulcers, hiatal hernia, repeat 3 mo/ESOPHAGOGASTRODUODENOSCOPY (EGD), FLEXIBLE, TRANSORAL, DIAGNOSTIC performed by Susanna Esteban MD at ENDOSCOPY [facility] EGD, FLEXIBLE, DIAGNOSTIC 01/23/2018 gastritis, duodenitis, hiatal hernia/ESOPHAGOGASTRODUODENOSCOPY (EGD), FLEXIBLE, TRANSORAL, DIAGNOSTIC performed by Susanna Esteban MD at ENDOSCOPY [facility] EGD, FLEXIBLE, DIAGNOSTIC 12/18/2018 ? celiac disease, hiatal hernia/[facility] EGD, FLEXIBLE, DIAGNOSTIC 10/15/2020 lg hiatal hernia / ESOPHAGOGASTRODUODENOSCOPY (EGD), FLEXIBLE, TRANSORAL, DIAGNOSTIC performed by Criss Austin MD at ENDOSCOPY [facility] EGD, FLEXIBLE, DIAGNOSTIC 11/03/2020 Jhon's erosions / INPT [facility] EGD, FLEXIBLE, DIAGNOSTIC 02/22/2022 hiatal hernia / ESOPHAGOGASTRODUODENOSCOPY (EGD), FLEXIBLE, TRANSORAL, DIAGNOSTIC performed by Criss Austin MD at ENDOSCOPY [facility] KNEE ARTHROSCOPY/MENISCUS REPAIR left knee LAPAROSCOPY; CHOLECYSTECTOMY 2002 LIGATE/CUT OVIDUCT(S) METACAR FX (1) W/MAN EA BONE Right 05/09/2018 CLOSED TREATMENT METACARPAL FRACTURE MANIPULATION performed by Ciro Mcmillan DO at OR [facility] REMOVE CATARACT, INSERT LENS PROSTH Left 02/04/2020 LEFT EXTRACAPSULAR CATARACT REMOVAL WITH INTRAOCULAR LENS performed by Cedric Drew MD at OR [facility] REMOVE CATARACT, INSERT LENS PROSTH Right 02/13/2020 RIGHT EXTRACAPSULAR CATARACT REMOVAL WITH INTRAOCULAR LENS performed by Cedric Drew MD at OR [facility] TOTAL ABD HYSTERECTOMY W/WO REMOVAL OF TUBE(S) 04/2008 AVELINA/BSO Hemmer Family History Problem Relation Age of Onset [...] Thyroid Disorder No significant family history Social History: Prior smoker, quit in the remote past. No alcohol since May 2012. No illegal drug use. . One child. Employment: [employer]. Complete review of systems is as stated above, negative, or noncontributory. Review of patient's allergies indicates: No Known Allergies Current Outpatient Medications Medication Sig Dispense Refill Vitamin C 500 MG Oral Tablet (Ascorbic Acid) Take by mouth 1 Tablet in the morning AND 1 Tablet before bedtime. Take along with Iron pill (Ferrous Sulfate). 60 Tablet 5 Citalopram Hydrobromide 40 MG Oral Tablet (CeleXA) [...] 200 Tablet 3 Vitamin D3 1.25 MG (78333 UT) Oral Capsule TAKE 1 CAPSULE BY [...] BY MOUTH EVERY MORNING 90 Tablet 3 Nitroglycerin 0.4 MG Sublingual Tablet Sublingual (Nitrostat) PLACE 1 TABLET UNDER THE TONGUE EVERY5 MINUTES UP TO 3 DOSES NEEDED FOR CHEST PAIN. IF NO RELIEF CALL 911 OR GO TO ER (Patient not taking: Reported on 08/04/2023) 75 Tablet 1 Cetirizine HCl 10 MG Oral Tablet (ZyrTEC) Take 1 Tablet by mouth in the morning. (Patient not taking: Reported on 08/04/2023) 90 Tablet 1 valACYclovir HCl 1 GM Oral Tablet (Valtrex) Take 2 Tablets by mouth in the morning and 2 Tablets before bedtime. for cold sores. (Patient not taking: Reported on 05/05/2023) 4 Tablet 11 Potassium Chloride Gertrudis ER 10 MEQ Oral Tablet Extended Release TAKE ONE TABLET BY MOUTH EVERY TIME YOU TAKE FUROSEMIDE 100 Tablet 3 Furosemide 20 MG Oral Tablet (Lasix) TAKE ONE TABLET BY MOUTH EVERY DAY NEEDED FOR FLUID RETENTION 100 Tablet 3 traMADol HCl 50 MG Oral Tablet (Ultram) Take 1 Tablet by mouth every 6 hours as needed for Pain, Moderate. (Patient not taking: Reported on 08/04/2023) 30 Tablet 0 No current facility-administered medications for this visit. OBJECTIVE/PHYSICAL EXAMINATION: BP 124/74 | Pulse 84 | Resp 16 | Wt 117 kg (258 lb) | LMP 09/23/2001 | BMI 42.93 kg/m | BSA 2.32 m General: A&Ox3. NAD. Obese. HENT: Normocephalic. Atraumatic. Eyes: PER. Conjunctiva pink, sclera pale. No carotid bruits. No JVD. Heart: RRR, 60 bpm. No murmur, rub or gallop. Lungs: Clear to auscultation. Abdomen: +BS. Soft. Nontender. No masses or organomegaly. Extremities: No edema. No clubbing. No cyanosis. Pulses: radial=2/4, posterior tibial=2/4. Data: November 23, 2018 TTE Interpretation Summary (as per Dr. Reinoso): The LV wall thickness is mildly increased (concentric). The left ventricular wall motion is normal. The qualitative LV ejection fractionis >70% (hyperdynamic). The left ventricular diastolic function is mildly abnormal (grade I). There is no significant valvular heart disease. September 14, 2020 DSE Interpretation Summary (as per Dr. Reinoso): The stress echo is negative for inducible ischemia. The left ventricular wall motion with stress is normal. The left ventricular ejection fraction increases normally with stress. The stress EKG response showed no evidence of ischemia.An equivocal flat blood pressure response to pharmacologic stress was observed. No symptoms suggestive of angina were reported. No significant valvular heart disease was present on the resting study. EKG on 08/04/2023: Normal sinus rhythm at [address]-T wave abnormality. QTc 445 ms. When compared to prior available tracings, heart rate has increased, subtle lateral T-wave abnormality noted now. ASSESSMENT AND RECOMMENDATIONS/PLAN: ASCVD. Stable. Continue appropriate medical management, Plavix monotherapy, no aspirin. Continue metoprolol and isosorbide as prescribed. Hypertension. Controlled. If/when additional blood pressure control is needed would retry low-dose Lonny/Arb with close follow-up given CKD. Dyslipidemia. LDL goal less than 70 mg/dL. LDL 128 on 12/01/2022. Compliance has always been an intermittent issue. Recommend rosuvastatin 40 mg/day and ezetimibe 10 mg/day. Moderately severe NAN and nocturnal hypoxemia, untreated. Dysphagia, GERD, large hiatal hernia, esophageal dysmotility, Celiac disease, diverticulosis, AVM's, internal hemorrhoids. On Pantoprazole twice a day. Upcoming endoscopy. No overt cardiac contraindications. Recommend continuation of antiplatelet therapy (Clopidogrel), metoprolol, and isosorbide without interruption Stage III chronic kidney disease Symptomatic iron deficiency anemia. As above. Patient encouraged to take oral iron supplementation. Routine cardiology follow-up. ER with emergencies. Santiago Mckeon PA-C Department of Cardiology I spent a total of 20-29 minutes (exact time 28 mins) on the date of service in preparation, delivery, and documentation of the care provided to Shani Newton excluding any time spent in the performance of separately billed services. This chart was completed in part utilizing [employer] Speech Voice Recognition Software. Grammatical errors, random word insertions, prounoun errors, and incomplete sen tences are an occasional consequence of this system due to software limitations, ambient noise, andhardware issues. Any formal questions or concerns about the content, text, or information containedwithin the body of this dictation should be directly addressed to the provider for clarification. documented in this encounter Nursing Notes * Rodrigo Nolan RN - 08/04/2023 7:53 AM EST Examination Room: room 3 Name: Shani Newton Date of : (1950). Reason for Visit: for follow up Interim Hospitalization(s): denies Problems/Concerns: denies Chest Pain/SOB: denies [facility] Discussed: Yes [facility] is a way you can talk to your provider online through e-mail. Would you like to sign up? I can activate it for you? ALREADY ACTIVE Patient was instructed to not get up on the exam table until directed and assisted by their provider; patient is to remain seated in the chair/ wheelchair/ exam table for fall prevention and safety reasons. Patient is aware to have assistance to step down off exam table with personnel. Patient voiced full comprehension of instructions. documented in this encounter Plan of Treatment Upcoming Encounters Date Type Department Care Team (Late st Contact Info) Description 08/07/2023 3:00 PM EST Office Visit Orthopaedics [address] [place] [address] Rodriguez Islas MD [address] [place] [address] 08/17/2023 11:00 AM EST Office Visit Nutrition & Weight Management, [facility] [address] [place] [address] Vanessa Lincoln PA-C [address] [place] [address] 08/18/2023 10:45 AM EST Hospital Encounter ENDO [facility], Endoscopy Room [facility] [address] [place] [phone] Criss Austin MD [address] [place] [address] 08/18/2023 10:45 AM EST - 08/18/2023 11:15 AM EST Surgery ENDO [facility], Endoscopy Room [facility] [address] [place] [phone] Criss Austin MD [address] [place] [address] COLONOSCOPY FLEXIBLE PROXIMAL DIAGNOSTIC 10/12/2023 7:40 AM EDT Office Visit [facility] [address] [place] [phone] Santiago Pelayo MD [address] [place] [address] Scheduled Orders Name Type Priority Associated Diagnoses Orde r Schedule EKG EKG Routine Atherosclerosis of coronary artery of [place] heart without angina pectoris, unspecified vessel or lesion type S/P angioplasty with stent Dyslipidemia, goal LDL below 70 Old NH (myocardial infarction) HTN, goal below 130/80 Coronary atherosclerosis due to calcified coronary lesion Ordered: 08/04/2023 Scheduled Procedures Name Priority Associated Diagnoses Date/Ti [...] 06/06/2016, 10/01, 10/13/2007 CKD HGB USE SMARTSET 78200 08/03/202308/03, 02/17/2022, 09/24/2021, Additional history exists HbA1c 08/03/2023 08/03/2022, 09/01, 08/11/2020, Additional history exists TSH 08/03/2023 08/03/2022, 09/01, 08/04/2020, Additional history exists Mammogram 10/11/2023 10/10/2022, 10/01, 07/05/2019, Additional history exists Albumin/Creatinine Ratio 12/02/2023 023, 11/09/2020, 10/29/2018, Additional history exists CKD PHOS USE SMARTSET 70683 12/02/2023 06/0 07/2022, 07/09/2018, 06/16/2017, Additional history [...] this encounter Medical Devices Implanted Type Area Scalp Treatment Operator Device Identifier Shelf Expiration Date Model / Serial / Lot Lens Intraoc 21.0 - [id number] - [id number] Implanted:Qty: 1 on 02/04/2020 by Cedric Drew MD at OR [facility] Left: Eye [employer] 08/02/2024 [id number] / [id number] / [id number] Lens Intraoc 21.0 - [id number] - [id number] Implanted:Qty: 1 on 02/13/2020 by Cedric Drew MD at OR [facility] Right: Eye [employer] 08/30/2024 [id number] / [id number] / [id number] Clip Quick 2.8mm 230cm - [id number] Implanted:Qty: 1 on 02/22/2022 by Criss Austin MD at ENDOSCOPY [facility] [employer] 05/02/2024 [id number] documented as of this encounter Visit Diagnoses Diagnosis Atherosclerosis of coronary artery of [place] heart without angina pectoris, unspecified vessel or lesion type- Primary S/P angioplasty with stent Postsurgical percutaneous transluminal coronary angioplasty status Dyslipidemia, goal LDL below 70 Other and unspecified hyperlipidemia Old NH (myocardial infarction) Old myocardial infarction HTN, goal below 130/80 Unspecified essential hypertension Coronary atherosclerosis due to calcified coronary lesion Coronary atherosclerosis of unspecified type of vessel, [place] or graft History of colon polyps Personal history of colonic polyps Angiodysplasia of the colon Angiodysplasia of intestine (without mention of hemorrhage) Adenomatous polyp of colon, unspecified part of colon documented in this encounter Advance Directives Latest Code Status on File Code Status Date Activated Date Inactivated Comments Full Code 10/31/2008 10:26 AM 11/01/2008 3:23 PM Care Teams 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
--- NOTE | 2024-01-07 16:48 | Emergency Department Note ---
Impression & Plan DESOUZA (dyspnea on exertion), Acute GI bleeding, Anemia ED Provider Note NAME: JOHAN DONNELLY AGE: 73 SEX: F : 1950 ARRIVES VIA: Ambulance INFORMANT: Patient, ED PROVIDER(S): Nii Riggins DO CHIEF COMPLAINT: Shortness of breath HPI: The patient is a 73-year-old female who presented to the emergency department for an evaluation of shortness of breath. The patient has been noticing exertional shortness of breath as well as chest pain over the course of the last few days. She does describe a nonproductive cough. The patient denies having any fever or hemoptysis. She denies having any lower extremity swelling or pain. She has a history of anemia. According to the prehospital personnel she was placed on oxygen with significant improvement of her symptoms but she was never hypoxic. The patient has not been seen by her family doctor for the symptoms because of the recent holiday. ROS: See above HPI for pertinent positives & negatives. A total of 10 systems reviewed and were otherwise negative. PAST MEDICAL HISTORY: See Below PAST SURGICAL HISTORY: See Below FAMILY HISTORY: See Below SOCIAL HISTORY: See Below HOME MEDICATIONS: See Below ALLERGIES: See Below VITALS: See Below PHYSICAL EXAMINATION: GENERAL: Patient is awake alert in no acute distress patient is resting comfortably and showing no signs of anxiety EYES: The conjunctivae are clear. The pupils are round and reactive. EARS, NOSE, MOUTH AND THROAT: The nose is without any evidence of any deformity. NECK: The neck is nontender and supple. RESPIRATORY: Normal respiratory effort is noted there is no evidence of wheezing rhonchi or rales CARDIOVASCULAR: Regular rate and rhythm noted there no murmurs rubs or gallops normal S1 normal S2. GASTROINTESTINAL: The abdomen is soft. Abdomen is nontender. Rectal exam revealed black stool which was heme positive. MUSCULOSKELETAL/EXTREMITIES: There is no evidence of gross deformity full range of motion is noted in the hips and shoulders. SKIN: There is no obvious evidence of any rash. There are no petechiae, pallor or cyanosis noted. NEUROLOGIC: Patient is awake alert and oriented x3. MEDICAL DECISION MAKING: The patient is a 73-year-old female who presented to the emergency department by ambulance for an evaluation of difficulty breathing. The patient was having exertional dyspnea. The patient's lung sounds were normal. Her oxygen saturation was normal. She was not tachycardic or hypoxic. I discussed the patient's laboratory and radiographic studies with her. Given her findings I discussed her condition with the on-call [facility] hospitalist. They have agreed to evaluate the patient in the emergency department for further management and disposition. The patient was treated with Protonix. Vital signs were stable. Triage Nursing notes reviewed. Prior medical records reviewed Vital Signs: reviewed and remarkable for no significant abnormalities Differential diagnosis: Reactive airway disease, pneumonia, pneumothorax, COPD, CHF, infections, cardiac ischemia, pulmonary embolism, musculoskeletal, gastrointestinal, as well as other pathologies. ER treatment provided: See below Diagnostics interpreted by me: ECG: EKG was obtained in the emergency department. My interpretation is normal sinus rhythm at 80 bpm. There is no ectopy. There is no acute ST segment abnormalities noted. This was compared to a tracing from November 02, 2020. No changes were noted. Cardiac Monitoring: An order was placed for continuous cardiac monitoring. The monitor shows a rate of 85 bpm with sinus rhythm. Laboratory studies: As stated above and show below. Imaging studies: See below. Radiographic imaging was reviewed by myself Consultation(s): I discussed this case with Dr. Giron who is on-call for the [facility] hospitalist group. Past Med/Surg History Problem List Symptomatic anemia Prediabetes Anemia (Acute) Acute GI bleeding (Acute) DESOUZA (dyspnea on exertion) (Acute) Migraine (Chronic) History of carpal tunnel surgery of right wrist (Chronic) H/O arthroscopic knee surgery (Chronic) Hx of tubal ligation (Chronic) S/P AVELINA-BSO (Chronic) Hx of cholecystectomy (Chronic) Medical History Acute hypokalemia Acute GI bleeding Severe anemia UTI (urinary tract infection) Symptomatic anemia Chronic kidney disease STAGE 3 Hiatal hernia Anemia History of bleeding ulcers History of colon polyps GERD (gastroesophageal reflux disease) Hypothyroidism On anticoagulant therapy plavix daily Anxiety Depression Hypertension Hyperlipidemia Sleep apnea does not use cpap as ordered Myocardial infarction x3--last 2011? follows with Dr. Mckeon NAN (obstructive sleep apnea) Hypothyroidism CKD (chronic kidney disease), stage III Dyslipidemia CAD (coronary artery disease) "per outpatient cardiology note: cath 05/2007 - 50% LAD lesion 10/2008 - abnormal coronary CT that lead to cath that showed 70% proximal mid and LAD stenosis, s/p 2 BMS to LAD Plavix held for colonoscopy 12/2008 which resulted in acute ME, cath at that times showed critical lesion in between the two stents and underwent PCI with BMS Plavix held again for colonscopy 06/2009 which resulted in acute ME again, cath at that time showed patent stents with jailed diagonal branch as likely culprit 10/2009 - presented with chest pain, cath at that times showed stable non occlusive CAD 10/2010 - unstable angina, cath at that time showed left main with mild luminal irregularities, LAD with extensive stenting, jailing of diagonal branch, moderate ostial stenosis of a septal overnight stocker, and an indeterminate stenosis distal to the stents not amendable to PCI, nondominant LCX with up to 30% disease, large dominant RCA with up to 30% proximal stenosis and mild luminal irregularities of the PDA and PLB's 05/2014 - unchanged CAD from prior cath " On 04/09/15 16:39 Louisa Can wrote "cath 05/2007 - 50% LAD lesion 10/2008 - abnormal coronary CT that lead to cath that showed 70% proximal mid and LAD stenosis, s/p 2 BMS to LAD Plavix held for colonoscopy 12/2008 which resulted in acute ME, cath at that times showed critical lesion in between the two stents and underwent PCI with BMS Plavix held again for colonscopy 06/2009 which resulted in acute ME again, cath at that time showed patent stents with jailed diagonal branch as likely culprit 10/2009 - presented with chest pain, cath at that times showed stable non occlusive CAD 10/2010 - unstable angina, cath at that time showed left main with mild luminal irregularities, LAD with extensive stenting, jailing of diagonal branch, moderate ostial stenosis of a septal overnight stocker, and an indeterminate stenosis distal to the stents not amendable to PCI, nondominant LCX with up to 30% disease, large dominant RCA with up to 30% proximal stenosis and mild luminal irregularities of the PDA and PLB's 05/2014 - unchanged CAD from prior cath " On 04/09/15 16:07 Louisa Can wrote "cath 05/2007 - 50% LAD lesion" GERD (gastroesophageal reflux disease) HTN (hypertension) Depression Surgical History History of total hysterectomy with bilateral salpingo-oophorectomy (BSO) History of left breast biopsy benign History of bilateral tubal ligation History of carpal tunnel surgery of right wrist History of arthroscopy of left knee History of cholecystectomy History of colonoscopy History of esophagogastroduodenoscopy (EGD) History of heart artery stent x3, last placed in 2012 History of cardiac cath (multiple) last 2012? Family History Grandmother (Maternal) Family history of diabetes mellitus Grandfather (Maternal) Family history of diabetes mellitus Other Cancer Heart disease No family history of adverse response to anesthesia Social History (Updated 01/07/24 @ 20:52 by Jeison Jones MD) Smoking Status: Former smoker Second Hand Exposure: Yes (ROOMMATE SMOKES); Do You Dip or Chew Tobacco: No; Hx Alcohol Use: Yes (raRely beer or vodka) Alcohol type: beer Hx Substance Use: No Preferred Language: Setswana Communication Ability: Effective Physician Practice Market Manager Required: No Beliefs That Will Affect Care: None Current Living Situation: Spouse Current Living Situation Comment: Lives with a friend Feels Safe at Home: Yes Assistive Devices: None Allergies Allergies Allergy/AdvReac Type Severity Reaction Status Date / Time No Known Allergies Allergy Verified 01/07/24 19:41 Home Meds Home Medications Medication Instructions Recorded Confirmed citalopram 40 mg tablet 40 mg PO QAM 09/19/18 01/07/24 clopidogrel 75 mg tablet 75 mg PO QAM 09/19/18 01/07/24 ferrous sulfate 325 mg (65 mg 325 mg PO BID 09/19/18 01/07/24 iron) tablet,delayed release isosorbide mononitrate 60 mg 60 mg PO QAM 09/19/18 01/07/24 tablet,extended release 24 hr levothyroxine 75 mcg tablet 75 mcg PO QAM 09/19/18 01/07/24 nitroglycerin 0.4 mg sublingual 0.4 mg sublingual UD PRN Chest Pain 09/19/18 01/07/24 tablet rosuvastatin 40 mg tablet 40 mg PO QAM 09/19/18 01/07/24 ezetimibe 10 mg tablet (Zetia) 10 mg PO QAM 11/15/18 01/07/24 pantoprazole 40 mg tablet,delayed 40 mg PO BID 11/15/18 01/07/24 release furosemide 20 mg tablet 20 mg PO DAILY PRN Edema 12/14/18 01/07/24 potassium chloride 10 mEq 10 meq PO DAILY PRN Edema 12/14/18 01/07/24 capsule,extended release ascorbic acid (vitamin C) 500 mg 500 mg PO Q12H 11/02/20 01/07/24 capsule,extended release (Vitamin C) bupropion HCl 300 mg 24 hr tablet, 300 mg PO QAM 01/07/24 01/07/24 extended release metoprolol succinate 50 mg 100 mg PO DAILY 01/07/24 01/07/24 tablet,extended release 24 hr tramadol 50 mg tablet 50 mg PO Q6 PRN Moderate Pain 01/07/24 01/07/24 (Scale Score 5-6) Results & Data (ED) Vital Signs Vital Signs - 24 hr 01/07/24 16:51 01/07/24 16:53 01/07/24 16:53 Temperature 36.8 C Temperature Source Oral Pulse Rate 78 80 Respiratory Rate 20 Respiratory Effort / Characteristics Non-Labored Spontaneous Non-Labored Spontaneous Respiratory Depth Normal Normal Respiratory Pattern Regular Regular Blood Pressure 137/79 Blood Pressure Mean 98 Pulse Oximetry 96 Oxygen Delivery Method Room Air Room Air Sepsis Recent Fever Within 48 Hours No Sepsis New/Unexplained Change in Mental Status No Sepsis Action Taken by Nursing No Action Required Home Medications Current Medication List: was personally reviewed by me Laboratory Data Attestation: I reviewed the patient's lab results. 01/07/24 17:23 01/07/24 17:23 Lab Results 01/07/24 01/07/24 Range/Units 16:53 17:23 WBC 5.91 (4.8-10.8) K/ul RBC 3.59 L (4.20-5.40) M/uL Hgb 7.6 L (12.0-16.0) g/dl Hct 26.1 L (37.0-47.0) % MCV 72.7 L (80.0-100.0) fL MCH 21.2 L (25.0-34.0) pg MCHC 29.1 L (32.0-36.0) g/dL RDW Std Deviation 44.5 (36.4-46.3) fL RDW Coeff of Ree 17.1 H (11.5-14.5) % Plt Count 301 (130-400) K/uL MPV 11.2 (9.4-12.4) fL Immature Gran % (Auto) 0.2 % Neut % (Auto) 61.5 % Lymph % (Auto) 25.4 % [place] % (Auto) 9.5 % Eos % (Auto) 2.0 % Baso % (Auto) 1.4 % Neut # (Auto) 3.64 (1.40-6.50) K/uL Lymph # (Auto) 1.50 (1.20-3.40) K/uL [place] # (Auto) 0.56 (0.11-0.59) K/uL Eos # (Auto) 0.12 (0.00-0.50) K/uL Baso # (Auto) 0.08 (0.00-0.20) K/uL Immature Gran # (Auto) 0.01 (0.01-0.20) K/uL Polychromasia 1+ Hypochromasia Present Ovalocytes 1+ PT 10.8 (9.0-12.0) Seconds INR 1.0 (0.9-1.1) APTT 21 (21-31) Seconds PTT Ratio 0.8 D-Dimer 510 H* (0-500) ug/L FEU VBG pH 7.44 H (7.36-7.41) VBG pCO2 32 L (38-50) mmHg VBG pO2 45 mmHg VBG HCO3 22 mmol/L VBG O2 Saturation 79.1 % VBG Base Excess -1.6 mEq/L Sodium 138 (136-145) mmol/L Potassium 3.9 (3.5-5.1) mmol/L Chloride 109 H (98-107) mmol/L Carbon Dioxide 22 (21-32) mmol/L Anion Gap 7 (3-11) BUN 16 (6-23) mg/dl Creatinine 0.93 (0.6-1.2) mg/dl Est Cr Clr Drug Dosing 69.8 ml/min Est GFR ( Amer) 71.2 ml/min Est GFR (Non-Af Amer) 61.4 ml/min BUN/Creatinine Ratio 17.2 (10-20) Glucose 89 (70-99(Fasting)) mg/dl Calcium 8.6 (8.6-10.3) mg/dl Magnesium 1.7 (1.7-2.4) mg/dl Total Bilirubin 0.5 (0.2-1.0) mg/dl AST 19 (13-39) U/L ALT 17 (7-52) U/L Alkaline Phosphatase 38 (34-104) U/L Troponin I High Sens 3.7 (0-14) pg/ml Total Protein 6.7 (6.0-8.3) gm/dl Albumin 3.6 (3.4-5.0) gm/dl Globulin 3.1 (2.5-4.0) gm/dl Albumin/Globulin Ratio 1.2 (0.9-2) Adenovirus (PCR) Not Detected (NotDetected) B. pertussis DNA (PCR) Not Detected (NotDetected) B.parapertussis DNA PCR Not Detected (NotDetected) C. pneumoniae DNA (PCR) Not Detected (NotDetected) Coronavirus OC43 (PCR) Not Detected (NotDetected) Coronavirus HKU1 (PCR) Not Detected (NotDetected) Coronavirus 229E (PCR) Not Detected (NotDetected) SARS-CoV-2 (PCR) Not Detected (NotDetected) Coronavirus NL63 (PCR) Not Detected (NotDetected) Human Metapneumovir PCR Not Detected (NotDetected) Influenza Type A (PCR) Not Detected (NotDetected) Influenza Type B (PCR) Not Detected (NotDetected) M. pneumoniae (PCR) Not Detected (NotDetected) Parainfluenza 1 (PCR) Not Detected (NotDetected) Parainfluenza 2 (PCR) Not Detected (NotDetected) Parainfluenza 3 (PCR) Not Detected (NotDetected) Parainfluenza 4 (PCR) Not Detected (NotDetected) RSV (PCR) Not Detected (NotDetected) Entero/Rhino (PCR) Not Detected (NotDetected) Administered Medications Discontinued Medications Pantoprazole Sodium 40 mg/ (Syringe) 10 mls @ 5 mls/min IV NOW ONE Stop: 01/07/24 18:45 Last Admin: 01/07/24 19:32 Dose: 5 mls/min Documented By: SAMMY Imaging Data Attestation: I personally reviewed and interpreted this imaging study as follows: My Impression: 1 view chest x-ray was obtained in the emergency department. My interpretation is no free air or definite infiltrate, hiatal hernia was noted, this was compared to a chest x-ray from November 02, 2020. No specific changes noted, final report below. Radiologist's Impression: Chest X-Ray 01/07/24 16:44 XR chest 1V portable CLINICAL HISTORY: Dyspnea TECHNIQUE: Single frontal radiograph of the chest was obtained. Comparison: Comparison is made to chest radiograph 11/02/2020 FINDINGS: Exam is limited by underpenetration. Calcified aortic knob is seen. The lungs are clear. No evidence of pleural effusion or pneumothorax. Hiatal hernia is seen. IMPRESSION: No acute abnormalities and in particular no radiographic evidence of pneumonia. ACT 112: Negative or not required by law. Electronically signed by: Prem Del Valle M.D. 01/07/2024 5:25 PM Discharge Plan Visit Data Chief Complaint: Shortness of Breath/Dyspnea Stated Complaint: SOB, CHEST HEAVINESS ED Provider: Nii Riggins Discharge Problem: DESOUZA (dyspnea on exertion), Acute GI bleeding, Anemia Patient Disposition: Being Evaluated by Hospitalist Discharge Instructions Interventions: ED Discharge Assessment Last Done: 01/07/24 21:19 Discharge Problem: Anemia Qualifiers: Anemia type: unspecified type Qualified Code(s): D64.9 - Anemia, unspecified
--- NOTE | 2024-01-07 17:27 | XRay Report ---
XR chest 1V portable CLINICAL HISTORY: Dyspnea TECHNIQUE: Single frontal radiograph of the chest was obtained. Comparison: Comparison is made to chest radiograph 11/02/2020 FINDINGS: Exam is limited by underpenetration. Calcified aortic knob is seen. The lungs are clear. No evidence of pleural effusion or pneumothorax. Hiatal hernia is seen. IMPRESSION: No acute abnormalities and in particular no radiographic evidence of pneumonia. ACT 112: Negative or not required by law. Electronically signed by: Prem Del Valle M.D. 01/07/2024 5:25 PM
[2024-01-07 17:40] LABS: Base Excess VBG -1.6 mEq/L; HCO3 VBG 22 mmol/L; Oxygen Saturation VBG 79.1 %; PCO2 VBG 32 mmHg (38-50); PO2 VBG 45 mmHg; pH VBG 7.44 (7.36-7.41)
[2024-01-07 18:00] LABS: Basophils # (auto) 0.08 K/uL (0.00-0.20); Basophils % (auto) 1.4 %; Eosinophils # (auto) 0.12 K/uL (0.00-0.50); Hematocrit (blood only) 26.1 % (37.0-47.0); Hemoglobin 7.6 g/dl (12.0-16.0); Immature Granulocytes # (auto) 0.01 K/uL (0.01-0.20); Immature Granulocytes % (auto) 0.2 %; Lymphocytes % (auto) 25.4 %; Mean Corpuscular Hemoglobin 21.2 pg (25.0-34.0); Mean Corpuscular Hgb Conc 29.1 g/dL (32.0-36.0); Mean Corpuscular Volume 72.7 fL (80.0-100.0); Mean Platelet Volume 11.2 fL (9.4-12.4); Monocytes # (auto) 0.56 K/uL (0.11-0.59); Monocytes % (auto) 9.5 %; Neutrophils # (auto) 3.64 K/uL (1.40-6.50); Neutrophils % (auto) 61.5 %; Platelet Count 301 K/uL (130-400); RDW Coefficient of Variation 17.1 % (11.5-14.5); RDW Standard Deviation 44.5 fL (36.4-46.3); Red Blood Count 3.59 M/uL (4.20-5.40); White Blood Count 5.91 K/ul (4.8-10.8)
[2024-01-07 18:02] LABS: Albumin Globulin Ratio 1.2 (0.9-2); Albumin Level 3.6 gm/dl (3.4-5.0); BUN Creatinine Ratio 17.2 (10-20); Bilirubin,Total 0.5 mg/dl (0.2-1.0); Calcium 8.6 mg/dl (8.6-10.3); Creatinine Clr Calc Pharmacy 69.8 ml/min; Est GFR (African American) 71.2 ml/min; Est GFR (Non-African American) 61.4 ml/min; Globulin 3.1 gm/dl (2.5-4.0); Magnesium 1.7 mg/dl (1.7-2.4); Potassium 3.9 mmol/L (3.5-5.1); Total Protein 6.7 gm/dl (6.0-8.3)
[2024-01-07 18:21] LABS: Partial Thromboplastin Ratio 0.8; Partial Thromboplastin Time 21 Seconds (21-31); Prothrombin Time 10.8 Seconds (9.0-12.0)
[2024-01-07 18:24] LABS: Hypochromasia Present; Ovalocytes 1+; Polychromasia 1+
--- NOTE | 2024-01-07 18:57 | History & Physical Report ---
Date of Service January 07, 2024 Assessment & Plan (1) Symptomatic anemia: Plan: 73-year-old female with past med history significant for dyslipidemia, hypothyroidism, prediabetes, sleep apnea, hypertension, history of CAD status post stent, angiodysplasia of colon, peripheral vascular disease, GERD, celiac disease, morbid obesity, stage III chronic kidney disease, generalized osteoarthritis, iron deficiency anemia, depression, comes with dyspnea on exertion since last week. Patient states minimal activity making her short of breath. Denies any chest pain. States has some headache now. No dizziness. No blurred visions. No runny nose or sore throat. Has dry cough. Appetite is okay. No fevers. No nausea. No abdominal pain. Normal bowel and bladder movements. Says stools are always black because she takes iron pills. No hematuria. Ambulates without support. Currently resting comfortably and hemodynamically stable. dyspnea on exertion most likely symptomatic anemia history of iron deficiency anemia and on iron supplements hemoglobin 7.6. Hemoccult positive in the ER. patient was admitted in October 2020 with recurrent symptomatic anemia and a hemoglobin of 6.6 and received 2 units of PRBCs and IV iron infusion. EGD at that time revealed large hiatal hernia with few Jhon erosions, colonoscopy showed hemorrhoids, multiple small and large mouth diverticula throughout the entire colon and medium sized nonbleeding AVM in the cecum that was cauterized with APC placed 2 clips. And a 5 mm polyp was also more from cecum. Video capsule endocopy post discharge did not showed evidence of blood loss from small bowel but did show incidental small polyp in the terminal ileum. Started on Protonix drip. N.p.o. IV fluids. Will transfuse 1 unit of PRBC. Blood consent obtained. H&H every 6 hours. close monitor GI consult in a.m. history of CAD s/p bare-metal stents to LAD in October of 2008. discontinuation of Plavix in December 2008 for colonoscopy resulting acute NV. And cardiac cath revealed critical LAD lesion between two prior LAD stents and underwent PCI using bare-metal stents without complication. Again had non-ST elevated NV after Plavix was held once again for colonoscopy in June 2009S/p cardiac cath and at that time thought jailed diagonal branch likely culprit and no intervention was performed. Cath in October 2010 performed for unstable angina revealed left main with mild luminal irregularities, jailing of the first diagonal branch, moderate ostial stenosis, and indeterminate stenosis distal to the stents, and nondominant left circumflex 30% disease and large dominant RCA with upto 30% proximal stenosis and mild luminal irregularities of the PDA and PLB's . Last catheterization in May 2014 demonstrated unchanged coronary disease compared to prior catheterization as per cardi[facility] will continue Plavix, Zetia, Imdur, metoprolol and rosuvastatin. cough chest x-ray okay respiratory bio fire negative will monitor Moderately severe obstructive sleep apnea Seems not using CPAP morbid obesity seems recently started on Zepbound follow-up with PCP hyperlipidemia on Zetia and rosuvastatin hypertension on Imdur, metoprolol succinate we will monitor GERD currently on IV Protonix drip hypothyroidism on Synthyroid elevated D-dimer patient with shortness of breath CTA chest NO PE. follow Doppler CKD stage III presented with creatinine 0.9 will follow labs prediabetes will follow HbA1c levels DVT prophylaxis SCDs disposition med/telemetry full code. History of Present Illness Chief Complaint: short of breath with exertion Primary Care Provider: Santiago Pelayo MD 73-year-old female with past med history significant for dyslipidemia, hypothyroidism, prediabetes, sleep apnea, hypertension, history of CAD status post stent, angiodysplasia of colon, peripheral vascular disease, GERD, celiac disease, morbid obesity, stage III chronic kidney disease, generalized osteoarthritis, iron deficiency anemia, depression, comes with dyspnea on exertion since last week. Patient states minimal activity making her short of breath. Denies any chest pain. States has some headache now. No dizziness. No blurred visions. No runny nose or sore throat. Has dry cough. Appetite is okay. No fevers. No nausea. No abdominal pain. Normal bowel and bladder movements. Says stools are always black because she takes iron pills. No hematuria. Ambulates without support. Currently resting comfortably and hemodynamically stable. Allergies Allergy/AdvReac Type Severity Reaction Status Date / Time No Known Allergies Allergy Verified 01/07/24 19:41 Home Medications Medication Instructions Recorded Confirmed Type citalopram 40 mg tablet 40 mg PO QAM 09/19/18 01/07/24 History clopidogrel 75 mg tablet 75 mg PO QAM 09/19/18 01/07/24 History ferrous sulfate 325 mg (65 mg 325 mg PO BID 09/19/18 01/07/24 History iron) tablet,delayed release isosorbide mononitrate 60 mg 60 mg PO QAM 09/19/18 01/07/24 History tablet,extended release 24 hr levothyroxine 75 mcg tablet 75 mcg PO QAM 09/19/18 01/07/24 History nitroglycerin 0.4 mg sublingual 0.4 mg sublingual UD PRN Chest Pain 09/19/18 01/07/24 History tablet rosuvastatin 40 mg tablet 40 mg PO QAM 09/19/18 01/07/24 History ezetimibe 10 mg tablet (Zetia) 10 mg PO QAM 11/15/18 01/07/24 History pantoprazole 40 mg tablet,delayed 40 mg PO BID 11/15/18 01/07/24 History release furosemide 20 mg tablet 20 mg PO DAILY PRN Edema 12/14/18 01/07/24 History potassium chloride 10 mEq 10 meq PO DAILY PRN Edema 12/14/18 01/07/24 History capsule,extended release ascorbic acid (vitamin C) 500 mg 500 mg PO Q12H 11/02/20 01/07/24 History capsule,extended release (Vitamin C) bupropion HCl 300 mg 24 hr tablet, 300 mg PO QAM 01/07/24 01/07/24 History extended release metoprolol succinate 50 mg 100 mg PO DAILY 01/07/24 01/07/24 History tablet,extended release 24 hr tramadol 50 mg tablet 50 mg PO Q6 PRN Moderate Pain 01/07/24 01/07/24 History (Scale Score 5-6) Past Med/Surg History Problem List Elevated d-dimer Symptomatic anemia Prediabetes Anemia (Acute) Acute GI bleeding (Acute) DESOUZA (dyspnea on exertion) (Acute) Migraine (Chronic) History of carpal tunnel surgery of right wrist (Chronic) H/O arthroscopic knee surgery (Chronic) Hx of tubal ligation (Chronic) S/P AVELINA-BSO (Chronic) Hx of cholecystectomy (Chronic) Medical History Acute hypokalemia Acute GI bleeding Severe anemia UTI (urinary tract infection) Symptomatic anemia Chronic kidney disease STAGE 3 Hiatal hernia Anemia History of bleeding ulcers History of colon polyps GERD (gastroesophageal reflux disease) Hypothyroidism On anticoagulant therapy plavix daily Anxiety Depression Hypertension Hyperlipidemia Sleep apnea does not use cpap as ordered Myocardial infarction x3--last 2011? follows with Dr. Mckeon NAN (obstructive sleep apnea) Hypothyroidism CKD (chronic kidney disease), stage III Dyslipidemia CAD (coronary artery disease) "per outpatient cardiology note: cath 05/2007 - 50% LAD lesion 10/2008 - abnormal coronary CT that lead to cath that showed 70% proximal mid and LAD stenosis, s/p 2 BMS to LAD Plavix held for colonoscopy 12/2008 which resulted in acute NV, cath at that times showed critical lesion in between the two stents and underwent PCI with BMS Plavix held again for colonscopy 06/2009 which resulted in acute NV again, cath at that time showed patent stents with jailed diagonal branch as likely culprit 10/2009 - presented with chest pain, cath at that times showed stable non occlusive CAD 10/2010 - unstable angina, cath at that time showed left main with mild luminal irregularities, LAD with extensive stenting, jailing of diagonal branch, moderate ostial stenosis of a septal commissioner of conciliation, and an indeterminate stenosis distal to the stents not amendable to PCI, nondominant LCX with up to 30% disease, large dominant RCA with up to 30% proximal stenosis and mild luminal irregularities of the PDA and PLB's 05/2014 - unchanged CAD from prior cath " On 04/09/15 16:39 Louisa Can wrote "cath 05/2007 - 50% LAD lesion 10/2008 - abnormal coronary CT that lead to cath that showed 70% proximal mid and LAD stenosis, s/p 2 BMS to LAD Plavix held for colonoscopy 12/2008 which resulted in acute NV, cath at that times showed critical lesion in between the two stents and underwent PCI with BMS Plavix held again for colonscopy 06/2009 which resulted in acute NV again, cath at that time showed patent stents with jailed diagonal branch as likely culprit 10/2009 - presented with chest pain, cath at that times showed stable non occlusive CAD 10/2010 - unstable angina, cath at that time showed left main with mild luminal irregularities, LAD with extensive stenting, jailing of diagonal branch, moderate ostial stenosis of a septal commissioner of conciliation, and an indeterminate stenosis distal to the stents not amendable to PCI, nondominant LCX with up to 30% disease, large dominant RCA with up to 30% proximal stenosis and mild luminal irregularities of the PDA and PLB's 05/2014 - unchanged CAD from prior cath " On 04/09/15 16:07 Louisa Can wrote "cath 05/2007 - 50% LAD lesion" GERD (gastroesophageal reflux disease) HTN (hypertension) Depression Surgical History History of total hysterectomy with bilateral salpingo-oophorectomy (BSO) History of left breast biopsy benign History of bilateral tubal ligation History of carpal tunnel surgery of right wrist History of arthroscopy of left knee History of cholecystectomy History of colonoscopy History of esophagogastroduodenoscopy (EGD) History of heart artery stent x3, last placed in 2012 History of cardiac cath (multiple) last 2012? Family History Grandmother (Maternal) Family history of diabetes mellitus Grandfather (Maternal) Family history of diabetes mellitus Other Cancer Heart disease No family history of adverse response to anesthesia Social History (Updated 01/07/24 @ 20:52 by Jeison Jones MD) Smoking Status: Never smoker Second Hand Exposure: Yes (ROOMMATE SMOKES); Do You Dip or Chew Tobacco: No; Hx Alcohol Use: Yes Alcohol type: beer Hx Substance Use: No Preferred Language: Ethiopian Communication Ability: Effective Dairy Nutrition Consultant Required: No Beliefs That Will Affect Care: None Current Living Situation: Other Current Living Situation Comment: lives with a roommate Feels Safe at Home: Yes Safety Concerns: Feels Safe At This Time Assistive Devices: None Review of Systems Review of Systems: All systems reviewed & are unremarkable except as noted in HPI & below Physical Exam Physical Exam: General- Not in distress Head- atraumatic Eyes- PERRL. ENT- oropharynx clear Neck- supple, no JVD. Lungs- clear to auscultation no wheezing or crackles Heart- regular rate and rhythm; no murmur, no gallop. Abdomen- normal bowel sounds, soft, nontender, no distension. Extremities- no pretibial edema, no erythema seen Neuro- alert, oriented PERRL, EOMI; no facial palsy; no dysarthria; moves extremities. Results & Data Results & Data Vital Signs (Past 12 Hours) Vital Signs Temp Pulse Resp BP Pulse Ox O2 Del Method 01/07/24 16:53 Room Air 01/07/24 16:53 36.8 C 80 20 137/79 96 Room Air 01/07/24 16:51 78 Laboratory Results Lab Results 01/07/24 Range/Units 17:23 WBC 5.91 (4.8-10.8) K/ul RBC 3.59 L (4.20-5.40) M/uL Hgb 7.6 L (12.0-16.0) g/dl Hct 26.1 L (37.0-47.0) % MCV 72.7 L (80.0-100.0) fL MCH 21.2 L (25.0-34.0) pg MCHC 29.1 L (32.0-36.0) g/dL RDW Std Deviation 44.5 (36.4-46.3) fL RDW Coeff of Ree 17.1 H (11.5-14.5) % Plt Count 301 (130-400) K/uL MPV 11.2 (9.4-12.4) fL Immature Gran % (Auto) 0.2 % Neut % (Auto) 61.5 % Lymph % (Auto) 25.4 % Webster % (Auto) 9.5 % Eos % (Auto) 2.0 % Baso % (Auto) 1.4 % Neut # (Auto) 3.64 (1.40-6.50) K/uL Lymph # (Auto) 1.50 (1.20-3.40) K/uL Webster # (Auto) 0.56 (0.11-0.59) K/uL Eos # (Auto) 0.12 (0.00-0.50) K/uL Baso # (Auto) 0.08 (0.00-0.20) K/uL Immature Gran # (Auto) 0.01 (0.01-0.20) K/uL Polychromasia 1+ Hypochromasia Present Ovalocytes 1+ PT 10.8 (9.0-12.0) Seconds INR 1.0 (0.9-1.1) APTT 21 (21-31) Seconds PTT Ratio 0.8 VBG pH 7.44 H (7.36-7.41) VBG pCO2 32 L (38-50) mmHg VBG pO2 45 mmHg VBG HCO3 22 mmol/L VBG O2 Saturation 79.1 % VBG Base Excess -1.6 mEq/L Sodium 138 (136-145) mmol/L Potassium 3.9 (3.5-5.1) mmol/L Chloride 109 H (98-107) mmol/L Carbon Dioxide 22 (21-32) mmol/L Anion Gap 7 (3-11) BUN 16 (6-23) mg/dl Creatinine 0.93 (0.6-1.2) mg/dl Est Cr Clr Drug Dosing 69.8 ml/min Est GFR ( Amer) 71.2 ml/min Est GFR (Non-Af Amer) 61.4 ml/min BUN/Creatinine Ratio 17.2 (10-20) Glucose 89 (70-99(Fasting)) mg/dl Calcium 8.6 (8.6-10.3) mg/dl Magnesium 1.7 (1.7-2.4) mg/dl Total Bilirubin 0.5 (0.2-1.0) mg/dl AST 19 (13-39) U/L ALT 17 (7-52) U/L Alkaline Phosphatase 38 (34-104) U/L Total Protein 6.7 (6.0-8.3) gm/dl Albumin 3.6 (3.4-5.0) gm/dl Globulin 3.1 (2.5-4.0) gm/dl Albumin/Globulin Ratio 1.2 (0.9-2) Diagnostic Findings Chest X-Ray 01/07/24 16:44 XR chest 1V portable CLINICAL HISTORY: Dyspnea TECHNIQUE: Single frontal radiograph of the chest was obtained. Comparison: Comparison is made to chest radiograph 11/02/2020 FINDINGS: Exam is limited by underpenetration. Calcified aortic knob is seen. The lungs are clear. No evidence of pleural effusion or pneumothorax. Hiatal hernia is seen. IMPRESSION: No acute abnormalities and in particular no radiographic evidence of pneumonia. ACT 112: Negative or not required by law. Electronically signed by: Prem Del Valle M.D. 01/07/2024 5:25 PM ECG Additional Comments: ECG: NSR with rate of 80. No significant changes found. QTC 447.
[2024-01-07 19:27] LABS: D Dimer 510 ug/L FEU (0-500)
[2024-01-07] MEDS: PANTOprazole 40 MG in SYRINGE 0 ML IV ONE (19:32)
[2024-01-07 20:37] LABS: Adenovirus PCR Not Detected (NotDetected); Bordetella parapertussis PCR Not Detected (NotDetected); Bordetella pertussis PCR Not Detected (NotDetected); Chlamydia pneumoniae PCR Not Detected (NotDetected); Coronavirus 229E PCR Not Detected (NotDetected); Coronavirus CoV-2 (COVID19)PCR Not Detected (NotDetected); Coronavirus HKU1 PCR Not Detected (NotDetected); Coronavirus NL63 PCR Not Detected (NotDetected); Coronavirus OC43PCR Not Detected (NotDetected); Human Metapneumovirus PCR Not Detected (NotDetected); Influenza A PCR Not Detected (NotDetected); Influenza B PCR Not Detected (NotDetected); Mycoplasma pneumoniae PCR Not Detected (NotDetected); Parainfluenza Virus 1 PCR Not Detected (NotDetected); Parainfluenza Virus 2 PCR Not Detected (NotDetected); Parainfluenza Virus 3 PCR Not Detected (NotDetected); Parainfluenza Virus 4 PCR Not Detected (NotDetected); Respiratory Syncytial VirusPCR Not Detected (NotDetected); Rhinovirus/Enterovirus PCR Not Detected (NotDetected)
[2024-01-07 20:52] LABS: Troponin I High Sensitivity 3.7 pg/ml (0-14)
[2024-01-07] MEDS ORDERED: SODIUM CHLORIDE 0.9% 250 ML IV PRN (21:19)
[2024-01-07] MEDS ORDERED: NITROGLYCERIN SL 0.4 MG/TAB TAB SL PRN (21:19)
[2024-01-07] MEDS: ACETAMINOPHEN 325 MG TAB PO STA (22:16)
[2024-01-07] MEDS: FERROUS SULFATE 325 MG TAB PO SCH (22:17)
[2024-01-07] MEDS: ASCORBIC ACID 500 MG TAB PO SCH (22:17)
[2024-01-07] MEDS: PANTOprazole 40 MG in DEXTROSE 5% MINI-B 100 ML IV SCH (22:21)
[2024-01-07] MEDS: SODIUM CHLORIDE 0.9% 1,000 ML IV SCH (22:26)
[2024-01-08] MEDS: FUROSEMIDE INJ 20 MG/2 ML VIAL IV ONE (00:51)
[2024-01-08 01:35] LABS: Appearance Urine Clear (Clear); Bacteria Urine Automated 4+ (None Seen); Bilirubin Urine Negative (Negative); Blood Urine Negative (Negative); Cast Urine Automated 0-2 /lpf (0-2); Color Urine Yellow; Epithelial Cell Urine Auto 0-2 /hpf (0-2); Glucose Urine UA Negative (Negative); Ketones Urine Negative (Negative); Leukocyte Esterase Urine 3+ (Negative); Nitrite Urine Negative (Negative); Protein Urine Negative (Negative); RBC Urine Automated 0-2 /hpf (0-2); Specific Gravity Urine 1.009 (1.000-1.030); Urobilinogen Urine Negative (Negative); WBC Urine Automated >50 /hpf (0-5)
[2024-01-08] MEDS: ASPIRIN CHEW 324 MG ONE (01:47)
[2024-01-08] MEDS: OPTIRAY 320 125ml IV ONE (03:04)
--- NOTE | 2024-01-08 03:43 | CT Scan Report ---
Exam(s): CTA CHEST IV Amt: 118 ML OPTIRAY 320 EXAM: CT Angiography Chest With Intravenous Contrast CLINICAL HISTORY: Reason for exam: PE. TECHNIQUE: Axial computed tomographic angiography images of the chest with intravenous contrast. Automated exposure control was utilized for the study. A dose lowering technique was utilized adhering to the principles of ALARA. MIP reconstructed images were created and reviewed. COMPARISON: No relevant prior studies available. FINDINGS: LUNGS: No focal consolidation, pleural effusion, or pneumothorax. Atelectasis at the lung bases. HEART: Cardiomegaly. VASCULATURE: No acute pulmonary embolism. Atherosclerotic changes of the aorta. THYROID: Within normal limits. MEDIASTINUM + LYMPH NODES: There are no pathologically enlarged mediastinal, hilar, or axillary lymph nodes. SUPERIOR ABDOMEN: Hepatic steatosis. Cyst in the RIGHT hepatic lobe measures 3.8 cm. Cholecystectomy. Large hiatal hernia which contains a proximal stomach. MUSCULOSKELETAL: Degenerative changes. IMPRESSION: No acute pulmonary embolism. Electronically signed by: Steve Ann MD 01/08/24 03:42 AM
[2024-01-08 06:31] LABS: Basophils # (auto) 0.06 K/uL (0.00-0.20); Basophils % (auto) 1.3 %; Eosinophils # (auto) 0.14 K/uL (0.00-0.50); Hematocrit (blood only) 28.7 % (37.0-47.0); Hemoglobin 8.5 g/dl (12.0-16.0); Immature Granulocytes # (auto) 0.01 K/uL (0.01-0.20); Immature Granulocytes % (auto) 0.2 %; Lymphocytes # (auto) 1.22 K/uL (1.20-3.40); Lymphocytes % (auto) 26.4 %; Mean Corpuscular Hemoglobin 21.9 pg (25.0-34.0); Mean Corpuscular Hgb Conc 29.6 g/dL (32.0-36.0); Monocytes # (auto) 0.44 K/uL (0.11-0.59); Monocytes % (auto) 9.5 %; Neutrophils # (auto) 2.75 K/uL (1.40-6.50); Neutrophils % (auto) 59.6 %; Platelet Count 289 K/uL (130-400); RDW Coefficient of Variation 17.4 % (11.5-14.5); RDW Standard Deviation 46.1 fL (36.4-46.3); Red Blood Count 3.88 M/uL (4.20-5.40); White Blood Count 4.62 K/ul (4.8-10.8)
[2024-01-08 06:40] LABS: BUN Creatinine Ratio 11.7 (10-20); Calcium 8.2 mg/dl (8.6-10.3); Est GFR (African American) 70.2 ml/min; Est GFR (Non-African American) 60.6 ml/min; Magnesium 1.7 mg/dl (1.7-2.4); Potassium 3.6 mmol/L (3.5-5.1)
[2024-01-08 06:45] LABS: Troponin I High Sensitivity 3.5 pg/ml (0-14)
[2024-01-08] MEDS: LEVOTHYROXINE SODIUM 75 MCG TABLET PO SCH (07:09)
[2024-01-08 07:44] LABS: Estimated Average Glucose 123 mg/dl; Hemoglobin A1C 5.9 % (4.5-5.6)
[2024-01-08] MEDS: METOPROLOL SUCC 50MG EXT REL TAB PO SCH (08:07)
[2024-01-08] MEDS: ROSUVASTATIN CALCIUM 20 MG TAB PO SCH (08:07)
[2024-01-08] MEDS: ISOSORBIDE MONO EXTENDED REL 60 MG TABCR PO SCH (08:08)
[2024-01-08] MEDS: CITALOPRAM 40 MG TAB PO SCH (08:08)
[2024-01-08] MEDS: CLOPIDOGREL BISULFATE 75 MG TAB PO SCH (08:08)
[2024-01-08] MEDS: EZETIMIBE 10 MG TAB PO SCH (08:09)
[2024-01-08] MEDS: buPROPion XL 300 MG TABCR PO SCH (08:09)
--- NOTE | 2024-01-08 09:04 | Hospitalist Progress Note ---
Date of Service January 08, 2024 Assessment & Plan (1) Symptomatic anemia: Plan Shani Newton is a 73y/o F with PMHx significant for dyslipidemia, hypothyroidism, prediabetes, sleep apnea, hypertension, history of CAD s/p stent placement, angiodysplasia of colon, peripheral vascular disease, GERD, celiac disease, morbid obesity, stage III chronic kidney disease, generalized osteoarthritis, iron deficiency anemia and depression who presented secondary to dyspnea on exertion. Dyspnea on Exertion ? Symptomatic Anemia H/O Iron Deficiency Anemia Of note, patient was admitted in October 2020 with recurrent symptomatic anemia with a hemoglobin of 6.6 and received 2 units of PRBCs and IV iron infusion. EGD at that time revealed a large hiatal hernia with few Jhon erosions, colonoscopy showed hemorrhoids, multiple small and large mouth diverticula throughout the entire colon and medium sized nonbleeding AVM in the cecum that was cauterized and clipped. Also, a 5mm cecal polyp was removed. Video capsule endoscopy post discharge did not show evidence of blood loss from small bowel, but did show an incidental small polyp in the terminal ileum. Hgb 7.6 on admission, Hemoccult positive in the ED. Patient currently on oral iron supplementation therapy. Pt received 1 unit of PRBCs, Hgb improved to 8.5 today (7). GI PA-C saw and evaluated pt today - recommend continuing IV Protonix drip. Will continue to monitor Hgb/Hct and transfuse PRN per GI's recommendation. Plan for pt to undergo scope tomorrow per discussion with Dr. Guerra over [employer]. Will place pt on clear diet now, keep NPO at midnight. Can continue Plavix per GI's recommendation. Elevated D-Dimer Pt presented w/ SOB; D-Dimer 510 on admission. Chest CTA on admission with no acute PE. Venous Doppler of BLE reveals no evidence of DVT in either extremity. Cough CXR on admission w/ no acute abnormalities, no evidence of pneumonia. Pt notes improvement in her cough; RVP negative, will continue to monitor. H/O Coronary Artery Disease (CAD) S/P Bare-Metal Stents to LAD in 10/2008 Per admitting provider: "Discontinuation of Plavix in December 2008 for colonoscopy resulting acute KY. And cardiac cath revealed critical LAD lesion between two prior LAD stents and underwent PCI using bare-metal stents without complication. Again had non-ST elevated KY after Plavix was held once again for colonoscopy in June/p cardiac cath and at that time thought jailed diagonal branch likely culprit and no intervention was performed. Cath in October 2010 performed for unstable angina revealed left main with mild luminal irregularities, jailing of the first diagonal branch, moderate ostial stenosis, and indeterminate stenosis distal to the stents, and nondominant left circumflex 30% disease and large dominant RCA with up to 30% proximal stenosis and mild luminal irregularities of the PDA and PLB's. Last catheterization in May 2014 demonstrated unchanged coronary disease compared to prior catheterization as per cardiology notes in [facility]." Will continue [employer] Plavix, Zetia, Imdur, metoprolol succinate and rosuvastatin. Moderately Severe NAN: Not currently using CPAP. Morbid Obesity: Recently started on Zepbound per chart review, will need to follow-up w/ PCP. Hyperlipidemia: Continue [employer] Zetia and rosuvastatin. HTN Continue [employer] Imdur, metoprolol succinate. SBP stable in the 120s-130s; will continue to monitor. GERD: Currently on IV Protonix drip, will continue per GI's recommendation. Pt taking po pantoprazole [employer]. Hypothyroidism: Continue [employer] levothyroxine. CKD Stage III Pt presented with creatinine 0.93 on admission. Creatinine 0.94 today (01/07); will continue to monitor renal function. Hold nephrotoxic medications when able. Prediabetes: Hgb A1c 5.9 on 01/08/24; can follow-up w/ PCP, pt recently started on Zepbound. DVT Prophylaxis: SCDs - For now Code Status: FULL CODE PCP: Santiago Pelayo MD Disposition: Plan for patient to undergo scope procedure with GI tomorrow. Will reassess outlook for discharge planning tomorrow pending patient's overall progress. Patient seen in collaboration with Dr. Mcdonough. Please see addendum. I spent a total of 40 minutes coordinating, documenting, and providing care for this patient excluding time spent in the performance of separately billed services. This included personally reviewing all current laboratories and imaging studies, medical reconciliation, outpatient chart review and discussion with specialists. This chart was completed in part utilizing Speech Voice Recognition Software. Grammatical errors, random word insertions, pronoun errors, and incomplete sentences are an occasional consequence of this system due to software limitations, ambient noise, and hardware issues. Any formal questions or concerns about the content, text, or information contained within the body of this dictation should be directly addressed to the provider for clarification. Admission and Anticipated Discharge Date Admission Date: January 07, 2024 Supervising Physician Co-Signing Physician Notes Patient seen and examined Got 1 PRBC Reports some improvement in her SOB Reports dark stools but she also takes iron at home Monitor Hb GI planning EGD tomorrow. Continue IV PPI Clears for now and NPO PMN May consider getting TTE Agree with findings and plans by Advanced Provider and take full responsibility Subjective Patient seen and examined in room C2 (ED). Patient notes improvement in her SOB. Denies any chest pain, fevers, chills or urinary issues. Has been NPO since last evening pending GI evaluation today. Review of Systems Review of Systems: At least ten systems reviewed and negative, except as noted in the HPI. Physical Exam Physical Exam: General: WD/WN, vitals as above, NAD, sitting up in bed, pleasant, conversing appropriately. A+Ox3, euthymic affect. HEENT: Normocephalic, atraumatic. Conjunctivae normal, anicteric sclerae. External ear and nose normal, oropharynx normal. Respiratory: Normal respiratory effort, lungs clear to auscultation, no wheeze, rales, rhonchi. No accessory muscle use. Cardiovascular: Regular rate, rhythm, no murmur, normal peripheral pulses, no BLE edema. Vessels: No JVD. Abdomen/GI: Normal bowel sounds, soft, nontender, no hepatosplenomegaly. Extremities/Musculoskeletal: No cyanosis or clubbing, extremities motor strength intact, moves all extremities. Neurologic: PERRL, EOMI, accommodation nl, no face palsy, no dysarthria, CN's II-XI not formally tested but appear grossly intact bilaterally. Skin: No rashes, normal color, warm/dry. Results & Data Results & Data Vital Signs (Past 12 Hours) Vital Signs Temp Pulse Pulse Resp BP BP Pulse Ox 01/08/24 07:43 65 01/08/24 06:00 70 15 129/82 99 01/08/24 05:58 16 01/08/24 05:00 72 16 131/80 96 01/08/24 04:00 65 16 145/70 H 94 01/08/24 03:00 36.7 C 77 15 116/67 99 01/08/24 02:20 36.7 C 74 17 126/87 99 01/08/24 02:15 36.7 C 71 15 126/87 100 01/08/24 01:45 36.6 C 68 15 134/80 97 01/08/24 00:48 95 01/08/24 00:45 01/08/24 00:45 36.8 C 71 15 125/79 97 01/08/24 00:38 72 01/08/24 00:35 01/08/24 00:35 36.9 C 73 15 117/76 96 01/08/24 00:30 36.9 C 73 17 117/76 96 01/08/24 00:15 36.7 C 69 15 130/84 96 01/08/24 00:15 36.7 C 72 16 118/74 97 01/08/24 00:09 36.7 C 73 15 126/69 97 Pulse Ox O2 Del Method O2 Del Method 01/08/24 07:43 01/08/24 06:00 Room Air 01/08/24 05:58 01/08/24 05:00 Room Air 01/08/24 04:00 Room Air 01/08/24 03:00 Room Air 01/08/24 02:20 01/08/24 02:15 01/08/24 01:45 01/08/24 00:48 Room Air 01/08/24 00:45 97 Room Air 01/08/24 00:45 Room Air 01/08/24 00:38 01/08/24 00:35 Room Air 01/08/24 00:35 Room Air 01/08/24 00:30 01/08/24 00:15 01/08/24 00:15 01/08/24 00:09 Laboratory Results Short CBC 01/07/24 01/08/24 01/08/24 Range/Units 17:23 05:55 10:30 WBC 5.91 4.62 L (4.8-10.8) K/ul Hgb 7.6 L 8.5 L 8.5 L (12.0-16.0) g/dl Hct 26.1 L 28.7 L 27.5 L (37.0-47.0) % Plt Count 301 289 (130-400) K/uL BMP 01/07/24 01/08/24 17:23 05:55 Sodium 138 137 Potassium 3.9 3.6 Chloride 109 H 107 Carbon Dioxide 22 23 BUN 16 11 Creatinine 0.93 0.94 Glucose 89 94 Calcium 8.6 8.2 L Liver Function 01/07/24 Range/Units 17:23 Total Bilirubin 0.5 (0.2-1.0) mg/dl AST 19 (13-39) U/L ALT 17 (7-52) U/L Alkaline Phosphatase 38 (34-104) U/L Albumin 3.6 (3.4-5.0) gm/dl Urine 01/08/24 Range/Units 01:11 Urine Color Yellow Urine Appearance Clear (Clear) Urine pH 6.0 (4.5-7.5) Ur Specific [place] 1.009 (1.000-1.030) Urine Protein Negative (Negative) Urine Glucose (UA) Negative (Negative) Diagnostic Findings Chest X-Ray 01/07/24 16:44 XR chest 1V portable CLINICAL HISTORY: Dyspnea TECHNIQUE: Single frontal radiograph of the chest was obtained. Comparison: Comparison is made to chest radiograph 11/02/2020 FINDINGS: Exam is limited by underpenetration. Calcified aortic knob is seen. The lungs are clear. No evidence of pleural effusion or pneumothorax. Hiatal hernia is seen. IMPRESSION: No acute abnormalities and in particular no radiographic evidence of pneumonia. ACT 112: Negative or not required by law. Electronically signed by: Prem Del Valle M.D. 01/07/2024 5:25 PM Chest CTA 01/07/24 21:19 Exam(s): CTA CHEST IV Amt: 118 ML OPTIRAY 320 EXAM: CT Angiography Chest With Intravenous Contrast CLINICAL HISTORY: Reason for exam: PE. TECHNIQUE: Axial computed tomographic angiography images of the chest with intravenous contrast. Automated exposure control was utilized for the study. A dose lowering technique was utilized adhering to the principles of ALARA. MIP reconstructed images were created and reviewed. COMPARISON: No relevant prior studies available. FINDINGS: LUNGS: No focal consolidation, pleural effusion, or pneumothorax. Atelectasis at the lung bases. HEART: Cardiomegaly. VASCULATURE: No acute pulmonary embolism. Atherosclerotic changes of the aorta. THYROID: Within normal limits. MEDIASTINUM + LYMPH NODES: There are no pathologically enlarged mediastinal, hilar, or axillary lymph nodes. SUPERIOR ABDOMEN: Hepatic steatosis. Cyst in the RIGHT hepatic lobe measures 3.8 cm. Cholecystectomy. Large hiatal hernia which contains a proximal stomach. MUSCULOSKELETAL: Degenerative changes. IMPRESSION: No acute pulmonary embolism. Electronically signed by: Steve Ann MD 01/08/24 03:42 AM Venous Doppler Study 01/08/24 00:00 ULTRASOUND BILATERAL LOWER EXTREMITY VENOUS CLINICAL HISTORY: Elevated d-dimer. COMPARISON STUDY: Bilateral lower extremity venous ultrasound dated 04/14/2016. TECHNIQUE: Real-time, grayscale, and color Doppler sonography of the deep veins of the right and left lower extremity was performed from the inguinal crease to the calf. Compression and augmentation were utilized. FINDINGS: There is no sonographic evidence of deep venous thrombosis identified in the right or left lower extremity. The common femoral, superficial femoral, and popliteal veins are patent and normally compressible bilaterally. The greater saphenous vein and the profunda femoris vein at the junction with the common femoral vein are clear in both legs. The visualized calf veins are patent bilaterally. IMPRESSION: There is no sonographic evidence of deep venous thrombosis identified in the right or left lower extremity. ACT 112: Negative or not required by law. Electronically signed by: Benton Muse M.D. 01/08/2024 9:01 AM Medications Administered Ascorbic Acid (Ascorbic Acid 500 Mg Tab) 500 mg PO Q12 [facility] Stop: 02/06/24 21:18 Last Admin: 01/08/24 08:07 Dose: 500 mg Documented By: Admin: 01/07/24 22:17 Dose: 500 mg Documented By: MARINA Bupropion HCl (Bupropion Xl 300 Mg Tabcr) 300 mg PO [facility] Stop: 02/07/24 08:59 Last Admin: 01/08/24 08:09 Dose: 300 mg Documented By: PEACE Citalopram Hydrobromide (Citalopram 40 Mg Tab) 40 mg PO [facility] Stop: 02/07/24 08:59 Last Admin: 01/08/24 08:08 Dose: 40 mg Documented By: PEACE Clopidogrel Bisulfate (Clopidogrel Bisulfate 75 Mg Tab) 75 mg PO QAM [facility] Stop: 02/07/24 08:59 Last Admin: 01/08/24 08:08 Dose: 75 mg Documented By: PEACE [facility]im[facility] ([facility] 10 Mg Tab) [facility] Stop: 02/07/24 08:59 Last Admin: 01/08/24 08:09 Dose: 10 mg Documented By: PEACE Ferrous Sulfate (Ferrous Sulfate 325 Mg Tab) 325 mg PO BID [facility] Stop: 02/06/24 21:18 Last Admin: 01/08/24 08:08 Dose: 325 mg Documented By: Admin: 01/07/24 22:17 Dose: 325 mg Documented By: MARINA Pantoprazole Sodium 40 mg/ (Dextrose) 100 mls @ 20 mls/hr IV Q5H [facility] Stop: 02/06/24 21:59 Last Admin: 01/08/24 09:39 Dose: 8 mg/hr, 20 mls/hr Documented By: Infusion: 01/08/24 09:39 Dose: Infused Documented By: Admin: 01/08/24 04:49 Dose: 8 mg/hr, 20 mls/hr Documented By: Infusion: 01/08/24 04:25 Dose: Infused Documented By: Admin: 01/07/24 22:21 Dose: 8 mg/hr, 20 mls/hr Documented By: MARINA Sodium Chloride (Nss) 1,000 mls @ 80 mls/hr IV .[id number] [facility] Stop: 02/06/24 21:18 Last Admin: 01/08/24 11:00 Dose: 80 mls/hr Documented By: Infusion: 01/08/24 10:56 Dose: Infused Documented By: Admin: 01/07/24 22:26 Dose: 80 mls/hr Documented By: MARINA Isosorbide Mononitrate (Isosorbide Yell Extended Rel 60 Mg Tabcr) 60 mg PO QA [facility] Stop: 02/07/24 08:59 Last Admin: 01/08/24 08:08 Dose: 60 mg Documented By: PEACE Levothyroxine Sodium (Levothyroxine Sodium 75 Mcg Tablet) 75 mcg PO DAILYBB [facility] Stop: 02/07/24 06:29 Last Admin: 01/08/24 07:09 Dose: 75 mcg Documented By: MARINA Metoprolol Succinate (Metoprolol Succ 50mg Ext Rel Tab) 100 mg PO DAILY [facility] Stop: 02/07/24 08:59 Last Admin: 01/08/24 08:07 Dose: 100 mg Documented By: PEACE Rosuvastatin Calcium (Rosuvastatin Calcium 20 Mg Tab) 40 mg PO QAM [facility] Stop: 02/07/24 08:59 Last Admin: 01/08/24 08:07 Dose: 40 mg Documented By: PEACE Discontinued Medications Acetaminophen (Acetaminophen 325 Mg Tab) 650 mg PO NOW STA Stop: 01/07/24 21:20 Last Admin: 01/07/24 22:16 Dose: 650 mg Documented By: MARINA Aspirin (Aspirin Chew 324 Mg) Confirm Administered Dose 324 mg .ROUTE .STK-MED ONE Stop: 01/07/24 23:05 Last Admin: 01/08/24 01:47 Dose: Not Given Documented By: MARINA Furosemide (Furosemide Inj 20 Mg/2 Ml Vial) 20 mg IV ONE ONE Stop: 01/07/24 23:01 Last Admin: 01/08/24 00:51 Dose: 20 mg Documented By: MARINA Pantoprazole Sodium 40 mg/ (Syringe) 10 mls @ 5 mls/min IV NOW ONE Stop: 01/07/24 18:45 Last Admin: 01/07/24 19:32 Dose: 5 mls/min Documented By: SAMMY Ioversol (Optiray 320 125ml) 125 ml IV ONCE ONE Stop: 01/08/24 03:04 Last Admin: 01/08/24 03:04 Dose: 118 ml Documented By: BRIAN
[2024-01-08 11:03] LABS: Hematocrit (blood only) 27.5 % (37.0-47.0); Hemoglobin 8.5 g/dl (12.0-16.0)
--- NOTE | 2024-01-08 11:23 | Gastrointestinal Consultation ---
<Statement entered by Kelly Guerra MD - 01/08/24 17:23> I have examined the patient, reviewed the History & Physical and in the interval since the performance of the History & Physical I have noted the following changes of clinical significance: no changes noted. I agree with the documentation provided by DAMIAN Rao. Patient reports that she has had 2 MIs when taken off plavix for procedures. As such, will plan to proceed w EGD on plavix 01/08. Date of Consultation January 08, 2024 Assessment & Plan (1) Symptomatic anemia: Patient presented to the ED with Chest pain, sob, and had rectal exam with heme positive, dark stools. she does use oral iron. she has a history of hiatal hernia with sheba ulceration as well as colonoscopy with cecal AVM. - continue with protonix drip. - monitor hgb/hct and transfuse as needed. - I will discuss this case further with Dr. Guerra and will decide on endoscopic evaluation. further recommendations to follow. History of Present Illness Reason for Consultation: heme positive stool / anemia Requesting Physician: Shahla Vinson PAC Attending Physician: Hafsa Mcdonough MD History of Present Illness Patent is a 73 year old female with past med history significant for dyslipidemia, hypothyroidism, prediabetes, sleep apnea, hypertension, history of CAD status post stent, angiodysplasia of colon, peripheral vascular disease, GERD, celiac disease, morbid obesity, stage III chronic kidney disease, generalized osteoarthritis, iron deficiency anemia, depression, who presented to ED with chest discomfort and dyspnea on exertion since last week. Patient states minimal activity has been making her short of breath. While in the ED she had a rectal exam showing heme positive stools that were dark. She admits to oral iron use and tells me stools are always dark. 01/07/24 hgb 7.6. she was transfused with 1 unit PRBC and today 01/07 hgb was 8.5. She tells me bowels seem to be at baseline. she will have 3-4 bowel movements daily that tend to be dark due to the iron. no brbpr. she admits to heartburn as an outpatient but uses protonix 40mg bid which controls symptoms. she tells me that her chest pain and sob has resolved since admission. she tells me she has seen a surgeon about her hiatal hernia but was told she was too high of a risk to have done. rest of GI ros unremarkable. Colonoscopy 2020 with [facility] showing hemorrhoids, diverticulosis, AVM in cecum treated with APC, colon polyp. EGD 2020 large hiatal hernia with sheba lesions. Allergies Allergy/AdvReac Type Severity Reaction Status Date / Time No Known Allergies Allergy Verified 01/07/24 19:41 Home Medications Medication Instructions Recorded Confirmed Type citalopram 40 mg tablet 40 mg PO QAM 09/19/18 01/07/24 History clopidogrel 75 mg tablet 75 mg PO QAM 09/19/18 01/07/24 History ferrous sulfate 325 mg (65 mg 325 mg PO BID 09/19/18 01/07/24 History iron) tablet,delayed release isosorbide mononitrate 60 mg 60 mg PO QAM 09/19/18 01/07/24 History tablet,extended release 24 hr levothyroxine 75 mcg tablet 75 mcg PO QAM 09/19/18 01/07/24 History nitroglycerin 0.4 mg sublingual 0.4 mg sublingual UD PRN Chest Pain 09/19/18 01/07/24 History tablet rosuvastatin 40 mg tablet 40 mg PO QAM 09/19/18 01/07/24 History ezetimibe 10 mg tablet (Zetia) 10 mg PO QAM 11/15/18 01/07/24 History pantoprazole 40 mg tablet,delayed 40 mg PO BID 11/15/18 01/07/24 History release furosemide 20 mg tablet 20 mg PO DAILY PRN Edema 12/14/18 01/07/24 History potassium chloride 10 mEq 10 meq PO DAILY PRN Edema 12/14/18 01/07/24 History capsule,extended release ascorbic acid (vitamin C) 500 mg 500 mg PO Q12H 11/02/20 01/07/24 History capsule,extended release (Vitamin C) bupropion HCl 300 mg 24 hr tablet, 300 mg PO QAM 01/07/24 01/07/24 History extended release metoprolol succinate 50 mg 100 mg PO DAILY 01/07/24 01/07/24 History tablet,extended release 24 hr tramadol 50 mg tablet 50 mg PO Q6 PRN Moderate Pain 01/07/24 01/07/24 History (Scale Score 5-6) Patient History Medical History Acute hypokalemia Acute GI bleeding Severe anemia UTI (urinary tract infection) Symptomatic anemia Chronic kidney disease STAGE 3 Hiatal hernia Anemia History of bleeding ulcers History of colon polyps GERD (gastroesophageal reflux disease) Hypothyroidism On anticoagulant therapy plavix daily Anxiety Depression Hypertension Hyperlipidemia Sleep apnea does not use cpap as ordered Myocardial infarction x3--last 2011? follows with Dr. Mckeon NAN (obstructive sleep apnea) Hypothyroidism CKD (chronic kidney disease), stage III Dyslipidemia CAD (coronary artery disease) "per outpatient cardiology note: cath 05/2007 - 50% LAD lesion 10/2008 - abnormal coronary CT that lead to cath that showed 70% proximal mid and LAD stenosis, s/p 2 BMS to LAD Plavix held for colonoscopy 12/2008 which resulted in acute NC, cath at that times showed critical lesion in between the two stents and underwent PCI with BMS Plavix held again for colonscopy 06/2009 which resulted in acute NC again, cath at that time showed patent stents with jailed diagonal branch as likely culprit 10/2009 - presented with chest pain, cath at that times showed stable non occlusive CAD 10/2010 - unstable angina, cath at that time showed left main with mild luminal irregularities, LAD with extensive stenting, jailing of diagonal branch, moderate ostial stenosis of a septal band saw filer, and an indeterminate stenosis distal to the stents not amendable to PCI, nondominant LCX with up to 30% disease, large dominant RCA with up to 30% proximal stenosis and mild luminal irregularities of the PDA and PLB's 05/2014 - unchanged CAD from prior cath " On 04/09/15 16:39 Louisa Can wrote "cath 05/2007 - 50% LAD lesion 10/2008 - abnormal coronary CT that lead to cath that showed 70% proximal mid and LAD stenosis, s/p 2 BMS to LAD Plavix held for colonoscopy 12/2008 which resulted in acute NC, cath at that times showed critical lesion in between the two stents and underwent PCI with BMS Plavix held again for colonscopy 06/2009 which resulted in acute NC again, cath at that time showed patent stents with jailed diagonal branch as likely culprit 10/2009 - presented with chest pain, cath at that times showed stable non occlusive CAD 10/2010 - unstable angina, cath at that time showed left main with mild luminal irregularities, LAD with extensive stenting, jailing of diagonal branch, moderate ostial stenosis of a septal band saw filer, and an indeterminate stenosis distal to the stents not amendable to PCI, nondominant LCX with up to 30% disease, large dominant RCA with up to 30% proximal stenosis and mild luminal irregularities of the PDA and PLB's 05/2014 - unchanged CAD from prior cath " On 04/09/15 16:07 Louisa Can wrote "cath 05/2007 - 50% LAD lesion" GERD (gastroesophageal reflux disease) HTN (hypertension) Depression Surgical History History of total hysterectomy with bilateral salpingo-oophorectomy (BSO) History of left breast biopsy benign History of bilateral tubal ligation History of carpal tunnel surgery of right wrist History of arthroscopy of left knee History of cholecystectomy History of colonoscopy History of esophagogastroduodenoscopy (EGD) History of heart artery stent x3, last placed in 2012 History of cardiac cath (multiple) last 2012? Family History Grandmother (Maternal) Family history of diabetes mellitus Grandfather (Maternal) Family history of diabetes mellitus Other Cancer Heart disease No family history of adverse response to anesthesia Social History (Updated 01/07/24 @ 20:52 by Jeison Jones MD) Smoking Status: Never smoker Second Hand Exposure: Yes (ROOMMATE SMOKES); Do You Dip or Chew Tobacco: No; Hx Alcohol Use: Yes Alcohol type: beer Hx Substance Use: No Preferred Language: Bengali Communication Ability: Effective Freelance Recruiter Required: No Beliefs That Will Affect Care: None Current Living Situation: Other Current Living Situation Comment: lives with a roommate Feels Safe at Home: Yes Safety Concerns: Feels Safe At This Time Assistive Devices: None Review of Systems Review of Systems: All systems reviewed & are unremarkable except as noted in HPI & below Physical Exam Constitutional: WD/WN, vitals as above Respiratory: normal respiratory effort, lungs clear to auscultation Cardiovascular: RRR, no murmur, no edema Gastrointestinal (Abdomen): normal bowel sounds, soft, nontender, no hepatosplenomegaly Psychiatric: Orientation: alert and oriented x 3 Affect: euthymic affect Results & Data Vital Signs (Past 12 Hours) Vital Signs Temp Pulse Pulse Resp BP BP Pulse Ox 01/08/24 10:19 63 18 120/75 98 01/08/24 07:43 65 01/08/24 06:00 70 15 129/82 99 01/08/24 05:58 16 01/08/24 05:00 72 16 131/80 96 01/08/24 04:00 65 16 145/70 H 94 01/08/24 03:00 98.1 F 77 15 116/67 99 01/08/24 02:20 98.1 F 74 17 126/87 99 01/08/24 02:15 98.1 F 71 15 126/87 100 01/08/24 01:45 98 F 68 15 134/80 97 01/08/24 00:48 95 01/08/24 00:45 01/08/24 00:45 98.3 F 71 15 125/79 97 01/08/24 00:38 72 01/08/24 00:35 01/08/24 00:35 98.4 F 73 15 117/76 96 01/08/24 00:30 98.4 F 73 17 117/76 96 01/08/24 00:15 98.1 F 69 15 130/84 96 01/08/24 00:15 98.1 F 72 16 118/74 97 01/08/24 00:09 98.1 F 73 15 126/69 97 Pulse Ox O2 Del Method O2 Del Method 01/08/24 10:19 Room Air 01/08/24 07:43 01/08/24 06:00 Room Air 01/08/24 05:58 01/08/24 05:00 Room Air 01/08/24 04:00 Room Air 01/08/24 03:00 Room Air 01/08/24 02:20 01/08/24 02:15 01/08/24 01:45 01/08/24 00:48 Room Air 01/08/24 00:45 97 Room Air 01/08/24 00:45 Room Air 01/08/24 00:38 01/08/24 00:35 Room Air 01/08/24 00:35 Room Air 01/08/24 00:30 01/08/24 00:15 01/08/24 00:15 01/08/24 00:09 Coding Level of Care Code 63487 INT INP/OBS CARE MIN Diagnoses Symptomatic anemia D64.9
--- NOTE | 2024-01-08 15:56 | Electrocardiogram Report ---
Test Reason : Blood Pressure : / mmHG Vent. Rate : 080 BPM Atrial Rate : 080 BPM P-R Int : 194 ms QRS Dur : 086 ms QT Int : 388 ms P-R-T Axes : 056 -01 003 degrees QTc Int : 447 ms Poor data quality, interpretation may be adversely affected Normal sinus rhythm Normal ECG When compared with ECG of 02-NOV-2020 10:15, No significant change was found Confirmed by Alex Lorenzo ([id number]) on 01/08/2024 3:56:34 PM Referred By: REFERRED SELF Confirmed By:Sandip Lorenzo
[2024-01-08 18:28] LABS: Hematocrit (blood only) 29.5 % (37.0-47.0); Hemoglobin 8.8 g/dl (12.0-16.0)
[2024-01-08] MEDS: traMADol HCL 50 MG TABLET PO PRN (20:39)
[2024-01-09] MEDS ORDERED: Nursing to Pharmacy Communication SCH (04:15)
[2024-01-09 07:57] LABS: Hematocrit (blood only) 27.1 % (37.0-47.0); Mean Corpuscular Hemoglobin 21.7 pg (25.0-34.0); Mean Corpuscular Hgb Conc 29.5 g/dL (32.0-36.0); Mean Corpuscular Volume 73.6 fL (80.0-100.0); Mean Platelet Volume 10.8 fL (9.4-12.4); Platelet Count 279 K/uL (130-400); RDW Coefficient of Variation 17.5 % (11.5-14.5); RDW Standard Deviation 46.5 fL (36.4-46.3); Red Blood Count 3.68 M/uL (4.20-5.40); White Blood Count 4.65 K/ul (4.8-10.8)
--- NOTE | 2024-01-09 08:03 | Hospitalist Progress Note ---
Date of Service January 09, 2024 Assessment & Plan (1) Symptomatic anemia: (2) UTI (urinary tract infection): Plan: Shani Newton is a 73y/o F with PMHx significant for dyslipidemia, hypothyroidism, prediabetes, sleep apnea, hypertension, history of CAD s/p stent placement, angiodysplasia of colon, peripheral vascular disease, GERD, celiac disease, morbid obesity, stage III chronic kidney disease, generalized osteoarthritis, iron deficiency anemia and depression who presented secondary to dyspnea on exertion. Dyspnea on Exertion Symptomatic Anemia H/O Iron Deficiency Anemia Of note, patient was admitted in October 2020 with recurrent symptomatic anemia with a hemoglobin of 6.6 and received 2 units of PRBCs and IV iron infusion. EGD at that time revealed a large hiatal hernia with few Jhon erosions, colonoscopy showed hemorrhoids, multiple small and large mouth diverticula throughout the entire colon and medium sized nonbleeding AVM in the cecum that was cauterized and clipped. Also, a 5mm cecal polyp was removed. Video capsule endoscopy post discharge did not show evidence of blood loss from small bowel, but did show an incidental small polyp in the terminal ileum. Hgb 7.6 on admission, Hemoccult positive in the ED. Patient currently on oral iron supplementation therapy. Pt received 1 unit of PRBCs already; Hgb 8.8 --> 8.0 today (01/08). Will continue to monitor Hgb/Hct and transfuse PRN; breathing improved. GI saw and evaluated pt yesterday (01/07) - will continue IV Protonix drip for now. Plan is for pt to undergo EGD today (01/08) with GI [Dr. Guerra]; pt has been NPO since midnight. Urinary Tract Infection (UTI) Pt not c/o of any urinary symptoms. Admitting UA positive for leukocyte esterase, WBC and bacteria. Preliminary urine culture growing gram-negative bacilli. Will start pt on IV 1g Rocephin daily until final urine culture result comes back. Elevated D-Dimer Pt presented w/ SOB; D-Dimer 510 on admission. Chest CTA on admission with no acute PE. Venous Doppler of BLE reveals no evidence of DVT in either extremity. Cough CXR on admission w/ no acute abnormalities, no evidence of pneumonia. Pt notes improvement in her cough; RVP negative, will continue to monitor. H/O Coronary Artery Disease (CAD) S/P Bare-Metal Stents to LAD in 10/2008 Per admitting provider: "Discontinuation of Plavix in December 2008 for colonoscopy resulting acute OK. And cardiac cath revealed critical LAD lesion between two prior LAD stents and underwent PCI using bare-metal stents without complication. Again had non-ST elevated OK after Plavix was held once again for colonoscopy in June 2009S/p cardiac cath and at that time thought jailed diagonal branch likely culprit and no intervention was performed. Cath in October 2010 performed for unstable angina revealed left main with mild luminal irregularities, jailing of the first diagonal branch, moderate ostial stenosis, and indeterminate stenosis distal to the stents, and nondominant left circumflex 30% disease and large dominant RCA with up to 30% proximal stenosis and mild luminal irregularities of the PDA and PLB's. Last catheterization in May 2014 demonstrated unchanged coronary disease compared to prior catheterization as per cardiology notes in Ep ic." Will continue [employer]ACHINE [employer]PERATOR Plavix, Zetia, Imdur, metoprolol succinate and rosuvastatin. Moderately Severe NAN: Not currently using CPAP. Morbid Obesity: Recently started on Zepbound per chart review, will need to follow-up w/ PCP. Hyperlipidemia: Continue [employer]INE OPERATOR Zetia and rosuvastatin. 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 SBP stable in the 100s; will continue to monitor. GERD: Currently on IV Protonix drip, will continue per GI's recommendation. Pt was taking po pantoprazole [employer]INE OPERATOR. Hypothyroidism: Continue [employer]MER MACHINE OPERATOR levothyroxine. CKD Stage III Pt presented with creatinine 0.93 on admission. Creatinine 1.00 today (01/08); will continue to monitor renal function. Hold nephrotoxic medications when able. Prediabetes: Hgb A1c 5.9 on 01/08/24; can follow-up w/ PCP, pt recently started on Zepbound. DVT Prophylaxis: SCDs - For now Code Status: FULL CODE PCP: Santiago Pelayo MD Disposition: Plan for patient to undergo EGD today with GI. Will reassess outlook for discharge planning pending results from EGD today. Patient seen in collaboration with Dr. Mcdonough. Please see addendum. I spent a total of 40 minutes coordinating, documenting, and providing care for this patient excluding time spent in the performance of separately billed services. This included personally reviewing all current laboratories and imagi ng studies, medical reconciliation, outpatient chart review and discussion with specialists. This chart was completed in part utilizing Speech Voice Recognition Software. Grammatical errors, random word insertions, pronoun errors, and incomplete sentences are an occasional consequence of this system due to software limitations, ambient noise, and hardware issues. Any formal questions or concerns about the content, text, or information contained within the body of this dictation should be directly addressed to the provider for clarification. Admission and Anticipated Discharge Date Admission Date: January 07, 2024 Supervising Physician Co-Signing Physician Notes Patient seen and examined Got 1 PRBC yesterday No new complaints Hb in 8s since Currently NPO for EGD today Follow up UCx growing GNR. Start ceftriaxone and follow up UCx Agree with findings and plans by Advanced Provider and take full responsibility Subjective Patient seen and examined in room N280-1. Patient has been NPO for anticipation of EGD today. Patient is agreeable with the plan moving forward. Notes she had one darker bowel movement last night, denies any jorge blood in stool. Denies any fevers, chills, N/V or chest pain. Her breathing continues to improve. Review of Systems Review of Systems: At least ten systems reviewed and negative, except as noted in the HPI. Physical Exam Physical Exam: General: WD/WN, vitals as above, NAD, sitting up in bed, pleasant, conversing appropriately. A+Ox3, euthymic affect. HEENT: Normocephalic, atraumatic. Conjunctivae normal, anicteric sclerae. External ear and nose normal, oropharynx normal. Respiratory: Normal respiratory effort, lungs clear to auscultation, no wheeze, rales, rhonchi. No accessory muscle use. Cardiovascular: Regular rate, rhythm, no murmur, normal peripheral pulses, no BLE edema. Vessels: No JVD. Abdomen/GI: Normal bowel sounds, soft, nontender, no hepatosplenomegaly. Extremities/Musculoskeletal: No cyanosis or clubbing, extremities motor strength intact, moves all extremities. Neurologic: PERRL, EOMI, accommodation nl, no face palsy, no dysarthria, CN's II-XI not formally tested but appear grossly intact bilaterally. Skin: No rashes, normal color, warm/dry. Results & Data Results & Data Vital Signs (Past 12 Hours) Vital Signs Temp Pulse Pulse Resp BP Pulse Ox O2 Del Method 01/09/24 07:32 36.5 C 62 20 108/62 98 Room Air 01/09/24 07:00 60 01/09/24 02:52 36.6 C 65 18 109/69 97 Room Air 01/08/24 22:53 36.5 C 69 18 105/67 98 Room Air 01/08/24 21:53 66 Laboratory Results Short CBC 01/08/24 01/08/24 01/09/24 Range/Units 10:30 17:57 06:50 WBC 4.65 L (4.8-10.8) K/ul Hgb 8.5 L 8.8 L 8.0 L (12.0-16.0) g/dl Hct 27.5 L 29.5 L 27.1 L (37.0-47.0) % Plt Count 279 (130-400) K/uL Diagnostic Findings Chest X-Ray 01/07/24 16:44 XR chest 1V portable CLINICAL HISTORY: Dyspnea TECHNIQUE: Single frontal radiograph of the chest was obtained. Comparison: Comparison is made to chest radiograph 11/02/2020 FINDINGS: Exam is limited by underpenetration. Calcified aortic knob is seen. The lungs are clear. No evidence of pleural effusion or pneumothorax. Hiatal hernia is seen. IMPRESSION: No acute abnormalities and in particular no radiographic evidence of pneumonia. ACT 112: Negative or not required by law. Electronically signed by: Prem Del Valle M.D. 01/07/2024 5:25 PM Chest CTA 01/07/24 21:19 Exam(s): CTA CHEST IV Amt: 118 ML OPTIRAY 320 EXAM: CT Angiography Chest With Intravenous Contrast CLINICAL HISTORY: Reason for exam: PE. TECHNIQUE: Axial computed tomographic angiography images of the chest with intravenous contrast. Automated exposure control was utilized for the study. A dose lowering technique was utilized adhering to the principles of ALARA. MIP reconstructed images were created and reviewed. COMPARISON: No relevant prior studies available. FINDINGS: LUNGS: No focal consolidation, pleural effusion, or pneumothorax. Atelectasis at the lung bases. HEART: Cardiomegaly. VASCULATURE: No acute pulmonary embolism. Atherosclerotic changes of the aorta. THYROID: Within normal limits. MEDIASTINUM + LYMPH NODES: There are no pathologically enlarged mediastinal, hilar, or axillary lymph nodes. SUPERIOR ABDOMEN: Hepatic steatosis. Cyst in the RIGHT hepatic lobe measures 3.8 cm. Cholecystectomy. Large hiatal hernia which contains a proximal stomach. MUSCULOSKELETAL: Degenerative changes. IMPRESSION: No acute pulmonary embolism. Electronically signed by: Steve Ann MD 01/08/24 03:42 AM Venous Doppler Study 01/08/24 00:00 ULTRASOUND BILATERAL LOWER EXTREMITY VENOUS CLINICAL HISTORY: Elevated d-dimer. COMPARISON STUDY: Bilateral lower extremity venous ultrasound dated 04/14/2016. TECHNIQUE: Real-time, grayscale, and color Doppler sonography of the deep veins of the right and left lower extremity was performed from the inguinal crease to the calf. Compression and augmentation were utilized. FINDINGS: There is no sonographic evidence of deep venous thrombosis identified in the right or left lower extremity. The common femoral, superficial femoral, and popliteal veins are patent and normally compressible bilaterally. The greater saphenous vein and the profunda femoris vein at the junction with the common femoral vein are clear in both legs. The visualized calf veins are patent bilaterally. IMPRESSION: There is no sonographic evidence of deep venous thrombosis identified in the right or left lower extremity. ACT 112: Negative or not required by law. Electronically signed by: Benton Muse M.D. 01/08/2024 9:01 AM Medications Administered Ascorbic Acid (Ascorbic Acid 500 Mg Tab) 500 mg PO Q12 [facility] Stop: 02/06/24 21:18 Last Admin: 01/08/24 20:39 Dose: 500 mg Documented By: Admin: 01/08/24 08:07 Dose: 500 mg Documented By: Admin: 01/07/24 22:17 Dose: 500 mg Documented By: MARINA Bupropion HCl (Bupropion Xl 300 Mg Tabcr) 300 mg PO [facility] Stop: 02/07/24 08:59 Last Admin: 01/08/24 08:09 Dose: 300 mg Documented By: PEACE Citalopram Hydrobromide (Citalopram 40 Mg Tab) 40 mg PO [facility] Stop: 02/07/24 08:59 Last Admin: 01/08/24 08:08 Dose: 40 mg Documented By: PEACE Clopidogrel Bisulfate (Clopidogrel Bisulfate 75 Mg Tab) 75 mg PO [facility] Stop: 02/07/24 08:59 Last Admin: 01/08/24 08:08 Dose: 75 mg Documented By: PEACE Ezetimibe (Ezetimibe 10 Mg Tab) 10 mg PO QAM [facility] Stop: 02/07/24 08:59 Last Admin: 01/08/24 08:09 Dose: 10 mg Documented By: PEACE Ferrous Sulfate (Ferrous Sulfate 325 Mg Tab) 325 mg PO BID [facility] Stop: 02/06/24 21:18 Last Admin: 01/08/24 20:39 Dose: 325 mg Documented By: Admin: 01/08/24 08:08 Dose: 325 mg Documented By: Admin: 01/07/24 22:17 Dose: 325 mg Documented By: MARINA Pantoprazole Sodium 40 mg/ (Dextrose) 100 mls @ 20 mls/hr IV Q5H [facility] Stop: 02/06/24 21:59 Last Admin: 01/09/24 04:05 Dose: 8 mg/hr, 20 mls/hr Documented By: Infusion: 01/09/24 04:05 Dose: Infused Documented By: Admin: 01/08/24 22:37 Dose: 8 mg/hr, 20 mls/hr Documented By: Infusion: 01/08/24 22:11 Dose: Infused Documented By: Admin: 01/08/24 17:11 Dose: 8 mg/hr, 20 mls/hr Documented By: Infusion: 01/08/24 14:37 Dose: Infused Documented By: Admin: 01/08/24 09:39 Dose: 8 mg/hr, 20 mls/hr Documented By: Infusion: 01/08/24 09:39 Dose: Infused Documented By: Admin: 01/08/24 04:49 Dose: 8 mg/hr, 20 mls/hr Documented By: Infusion: 01/08/24 04:25 Dose: Infused Documented By: Admin: 01/07/24 22:21 Dose: 8 mg/hr, 20 mls/hr Documented By: MARINA Sodium Chloride (Nss) 1,000 mls @ 80 mls/hr IV .[id number] [facility] Stop: 02/06/24 21:18 Last Admin: 01/09/24 04:12 Dose: 80 mls/hr Documented By: Infusion: 01/09/24 04:12 Dose: Infused Documented By: Admin: 01/08/24 15:40 Dose: 80 mls/hr Documented By: Infusion: 01/08/24 15:40 Dose: Infused Documented By: Admin: 01/08/24 11:00 Dose: 80 mls/hr Documented By: Infusion: 01/08/24 10:56 Dose: Infused Documented By: Admin: 01/07/24 22:26 Dose: 80 mls/hr Documented By: MARINA Isosorbide Mononitrate (Isosorbide Cache Extended Rel 60 Mg Tabcr) 60 mg PO [facility] Stop: 02/07/24 08:59 Last Admin: 01/08/24 08:08 Dose: 60 mg Documented By: PEACE Levothyroxine Sodium (Levothyroxine Sodium 75 Mcg Tablet) [facility] Stop: 02/07/24 06:29 Last Admin: 01/09/24 04:10 Dose: 75 mcg Documented By: Admin: 01/08/24 07:09 Dose: 75 mcg Documented By: MARINA Metoprolol Succinate (Metoprolol Succ 50mg Ext Rel Tab) 100 mg PO DAILY [facility] Stop: 02/07/24 08:59 Last Admin: 01/08/24 08:07 Dose: 100 mg Documented By: PEACE Rosuvastatin Calcium (Rosuvastatin Calcium 20 Mg Tab) 40 mg PO [facility] Stop: 02/07/24 08:59 Last Admin: 01/08/24 08:07 Dose: 40 mg Documented By: PEACE Tramadol HCl (Tramadol Hcl 50 Mg Tablet) 50 mg PO Q6 PRN PRN Reason: Moderate Pain (Scale Score 5-6) Stop: 02/06/24 21:18 Last Admin: 01/08/24 20:39 Dose: 50 mg Documented By: RADHA Discontinued Medications Acetaminophen (Acetaminophen 325 Mg Tab) 650 mg PO NOW [facility] Stop: 01/07/24 21:20 Last Admin: 01/07/24 22:16 Dose: 650 mg Documented By: MARINA Aspirin (Aspirin Chew 324 Mg) Confirm Administered Dose 324 mg .ROUTE .STK-MED ONE Stop: 01/07/24 23:05 Last Admin: 01/08/24 01:47 Dose: Not Given Documented By: MARINA Furosemide (Furosemide Inj 20 Mg/2 Ml Vial) 20 mg IV ONE ONE Stop: 01/07/24 23:01 Last Admin: 01/08/24 00:51 Dose: 20 mg Documented By: MARINA Pantoprazole Sodium 40 mg/ (Syringe) 10 mls @ 5 mls/min IV NOW ONE Stop: 01/07/24 18:45 Last Admin: 01/07/24 19:32 Dose: 5 mls/min Documented By: SAMMY Ioversol (Optiray 320 125ml) 125 ml IV ONCE ONE Stop: 01/08/24 03:04 Last Admin: 01/08/24 03:04 Dose: 118 ml Documented By: BRIAN (2) UTI (urinary tract infection) Hematuria presence: without hematuria Urinary tract infection type: site unspecified Qualified Code(s): N39.0 - Urinary tract infection, site not specified
[2024-01-09 08:12] LABS: Creatinine Clr Calc Pharmacy 63.5 ml/min; Est GFR (African American) 65.2 ml/min; Est GFR (Non-African American) 56.2 ml/min; Potassium 3.9 mmol/L (3.5-5.1)
--- NOTE | 2024-01-09 09:21 | History & Physical Bridge Note ---
<Statement entered by Kelly Guerra MD - 01/09/24 13:23> I have examined the patient, reviewed the History & Physical and in the interval since the performance of the History & Physical I have noted the following changes of clinical significance: no changes noted. I agree with the documentation provided by DAMIAN Rao with no additional comments. Date of Service January 09, 2024 History & Physical Bridge Note I have examined the patient, reviewed the History & Physical and in the interval since the performance of the History & Physical I have noted the following changes of clinical significance: no changes noted. Patient has been NPO in anticipation of EGD today. she tells me she had one dark black bowel movement last evening but none so far today. hgb dropped to 8 this morning from 8.8. no nausea, vomiting, heartburn, abdominal pain. no further issue with chest pain or sob since transfusion yesterday. - plan is to proceed with EGD today to further evaluate.
--- NOTE | 2024-01-09 11:30 | Anesthesiology Consultation ---
Date of Service January 09, 2024 Assessment & Plan Chart Review Chart Review: Acceptable Risk for Surgery and Patient NOT seen in Pre Admission Testing Consults Requested none History Surgery Operation Date: 01/09/24 16:30 Proposed Procedures p Esophagogastroduodenoscopy Charlie - Kelly Guerra MD Height/Weight Height: 5 ft 4 in Weight: 115.8 kg Allergies Allergy/AdvReac Type Severity Reaction Status Date / Time No Known Allergies Allergy Verified 01/07/24 19:41 Medications Home Medications Medication Instructions Recorded Confirmed Last Taken citalopram 40 mg tablet 40 mg PO QAM 09/19/18 01/07/24 01/07/24 clopidogrel 75 mg tablet 75 mg PO QAM 09/19/18 01/07/24 01/07/24 ferrous sulfate 325 mg (65 mg 325 mg PO BID 09/19/18 01/07/24 01/07/24 iron) tablet,delayed release isosorbide mononitrate 60 mg 60 mg PO QAM 09/19/18 01/07/24 01/07/24 tablet,extended release 24 hr levothyroxine 75 mcg tablet 75 mcg PO QAM 09/19/18 01/07/24 01/07/24 nitroglycerin 0.4 mg sublingual 0.4 mg sublingual UD PRN Chest Pain 09/19/18 01/07/24 Unknown tablet rosuvastatin 40 mg tablet 40 mg PO QAM 09/19/18 01/07/24 01/07/24 ezetimibe 10 mg tablet (Zetia) 10 mg PO QAM 11/15/18 01/07/24 01/07/24 pantoprazole 40 mg tablet,delayed 40 mg PO BID 11/15/18 01/07/24 01/07/24 release furosemide 20 mg tablet 20 mg PO DAILY PRN Edema 12/14/18 01/07/24 12/11/18 08:00 potassium chloride 10 mEq 10 meq PO DAILY PRN Edema 12/14/18 01/07/24 12/17/18 08:00 capsule,extended release ascorbic acid (vitamin C) 500 mg 500 mg PO Q12H 11/02/20 01/07/24 01/07/24 capsule,extended release (Vitamin C) bupropion HCl 300 mg 24 hr tablet, 300 mg PO QAM 01/07/24 01/07/24 01/07/24 extended release metoprolol succinate 50 mg 100 mg PO DAILY 01/07/24 01/07/24 Unknown tablet,extended release 24 hr tramadol 50 mg tablet 50 mg PO Q6 PRN Moderate Pain 01/07/24 01/07/24 Unknown (Scale Score 5-6) Active Medications Generic Name Dose Route Start Last Admin Trade Name Samy PRN Reason Stop Dose Admin Ascorbic Acid 500 mg 01/07/24 21:19 01/09/24 08:01 Ascorbic Acid 500 Mg Tab PO 02/06/24 21:18 500 mg Q12 FUNMI Administration Bupropion HCl 300 mg 01/08/24 09:00 01/09/24 08:01 Bupropion Xl 300 Mg Tabcr PO 02/07/24 08:59 300 mg QAM FUNMI Administration Citalopram Hydrobromide 40 mg 01/08/24 09:00 01/09/24 08:00 Citalopram 40 Mg Tab PO 02/07/24 08:59 40 mg QAM FUNMI Administration Clopidogrel Bisulfate 75 mg 01/08/24 09:00 01/09/24 08:03 Clopidogrel Bisulfate 75 Mg Tab PO 02/07/24 08:59 Not Given QAM FUNMI Ezetimibe 10 mg 01/08/24 09:00 01/09/24 08:00 Ezetimibe 10 Mg Tab PO 02/07/24 08:59 10 mg QAM FUNMI Administration Ferrous Sulfate 325 mg 01/07/24 21:19 01/09/24 08:00 Ferrous Sulfate 325 Mg Tab PO 02/06/24 21:18 325 mg BID FUNMI Administration Pantoprazole Sodium 40 mg/ 100 mls @ 20 mls/hr 01/07/24 22:00 01/09/24 09:16 Dextrose IV 02/06/24 21:59 8 mg/hr Q5H FUNMI 20 mls/hr Administration 8 MG/HR Sodium Chloride 1,000 mls @ 80 mls/hr 01/07/24 21:19 01/09/24 04:12 Nss IV 02/06/24 21:18 80 mls/hr .[id number] FUNMI Administration Isosorbide Mononitrate 60 mg 01/08/24 09:00 01/09/24 08:00 Isosorbide Stewart Extended Rel 60 Mg Tabcr PO 02/07/24 08:59 60 mg QAM FUNMI Administration Levothyroxine Sodium 75 mcg 01/08/24 06:30 01/09/24 04:10 Levothyroxine Sodium 75 Mcg Tablet PO 02/07/24 06:29 75 mcg DAILYBB FUNMI Administration Metoprolol Succinate 100 mg 01/08/24 09:00 01/09/24 08:00 Metoprolol Succ 50mg Ext Rel Tab PO 02/07/24 08:59 100 mg DAILY FUNMI Administration Rosuvastatin Calcium 40 mg 01/08/24 09:00 01/09/24 08:01 Rosuvastatin Calcium 20 Mg Tab PO 02/07/24 08:59 40 mg QAM FUNMI Administration Tramadol HCl 50 mg 01/07/24 21:19 01/08/24 20:39 Tramadol Hcl 50 Mg Tablet PO 02/06/24 21:18 50 mg Q6 PRN Administration Moderate Pain (Scale Score 5-6) Past Medical History Medical History Acute hypokalemia Acute GI bleeding Severe anemia UTI (urinary tract infection) Symptomatic anemia Chronic kidney disease STAGE 3 Hiatal hernia Anemia History of bleeding ulcers History of colon polyps GERD (gastroesophageal reflux disease) Hypothyroidism On anticoagulant therapy plavix daily Anxiety Depression Hypertension Hyperlipidemia Sleep apnea does not use cpap as ordered Myocardial infarction x3--last 2011? follows with Dr. Mckeon NAN (obstructive sleep apnea) Hypothyroidism CKD (chronic kidney disease), stage III Dyslipidemia CAD (coronary artery disease) "per outpatient cardiology note: cath 05/2007 - 50% LAD lesion 10/2008 - abnormal coronary CT that lead to cath that showed 70% proximal mid and LAD stenosis, s/p 2 BMS to LAD Plavix held for colonoscopy 12/2008 which resulted in acute IL, cath at that times showed critical lesion in between the two stents and underwent PCI with BMS Plavix held again for colonscopy 06/2009 which resulted in acute IL again, cath at that time showed patent stents with jailed diagonal branch as likely culprit 10/2009 - presented with chest pain, cath at that times showed stable non occlusive CAD 10/2010 - unstable angina, cath at that time showed left main with mild luminal irregularities, LAD with extensive stenting, jailing of diagonal branch, moderate ostial stenosis of a septal director orange, and an indeterminate stenosis distal to the stents not amendable to PCI, nondominant LCX with up to 30% disease, large dominant RCA with up to 30% proximal stenosis and mild luminal irregularities of the PDA and PLB's 05/2014 - unchanged CAD from prior cath " On 04/09/15 16:39 Louisa Can wrote "cath 05/2007 - 50% LAD lesion 10/2008 - abnormal coronary CT that lead to cath that showed 70% proximal mid and LAD stenosis, s/p 2 BMS to LAD Plavix held for colonoscopy 12/2008 which resulted in acute IL, cath at that times showed critical lesion in between the two stents and underwent PCI with BMS Plavix held again for colonscopy 06/2009 which resulted in acute IL again, cath at that time showed patent stents with jailed diagonal branch as likely culprit 10/2009 - presented with chest pain, cath at that times showed stable non occlusive CAD 10/2010 - unstable angina, cath at that time showed left main with mild luminal irregularities, LAD with extensive stenting, jailing of diagonal branch, moderate ostial stenosis of a septal director orange, and an indeterminate stenosis distal to the stents not amendable to PCI, nondominant LCX with up to 30% disease, large dominant RCA with up to 30% proximal stenosis and mild luminal irregularities of the PDA and PLB's 05/2014 - unchanged CAD from prior cath " On 04/09/15 16:07 Louisa Can wrote "cath 05/2007 - 50% LAD lesion" GERD (gastroesophageal reflux disease) HTN (hypertension) Depression Past Family History Family History Grandmother (Maternal) Family history of diabetes mellitus Grandfather (Maternal) Family history of diabetes mellitus Other Cancer Heart disease No family history of adverse response to anesthesia Past Surgical History Surgical History History of total hysterectomy with bilateral salpingo-oophorectomy (BSO) History of left breast biopsy benign History of bilateral tubal ligation History of carpal tunnel surgery of right wrist History of arthroscopy of left knee History of cholecystectomy History of colonoscopy History of esophagogastroduodenoscopy (EGD) History of heart artery stent x3, last placed in 2012 History of cardiac cath (multiple) last 2012? Social History Smoking Status: Never smoker tobacco type: cigarettes Do You Dip or Chew Tobacco: No Hx Alcohol Use: Yes Alcohol type: beer alcohol intake frequency: a few times a month Hx Substance Use: No substance use type: does not use Physical Exam Vital Signs Last Vital Signs Temp 36.5 C 01/09/24 07:32 Pulse 62 01/09/24 07:32 Resp 20 01/09/24 07:32 BP 108/62 01/09/24 07:32 Pulse Ox 98 01/09/24 07:32 O2 Del Method Room Air 01/09/24 08:00 Constitutional WD/WN, vitals as above Respiratory normal respiratory effort, lungs clear to auscultation Cardiovascular RRR, no murmur, no edema Gastrointestinal (Abdomen) normal bowel sounds, soft, nontender, no hepatosplenomegaly Psychiatric Orientation: alert and oriented x 3 Affect: euthymic affect Testing Laboratory Results 01/09/24 06:50 01/09/24 06:50 PT 10.8 Seconds (9.0-12.0) 01/07/24 17:23 INR 1.0 (0.9-1.1) 01/07/24 17:23 APTT 21 Seconds (21-31) 01/07/24 17:23 Hemoglobin A1c 5.9 % (4.5-5.6) H 01/08/24 05:55 Urine Color Yellow 01/08/24 01:11 Urine Appearance Clear (Clear) 01/08/24 01:11 Urine pH 6.0 (4.5-7.5) 01/08/24 01:11 Ur Specific [place] 1.009 (1.000-1.030) 01/08/24 01:11 Urine Protein Negative (Negative) 01/08/24 01:11 Urine Glucose (UA) Negative (Negative) 01/08/24 01:11 Urine Ketones Negative (Negative) 01/08/24 01:11 Urine Nitrite Negative (Negative) 01/08/24 01:11 Ur Leukocyte Esterase 3+ (Negative) H 01/08/24 01:11 Urine WBC (Auto) >50 /hpf (0-5) H 01/08/24 01:11 Urine RBC (Auto) 0-2 /hpf (0-2) 01/08/24 01:11 U Hyaline Cast (Auto) 0-2 /lpf (0-2) 01/08/24 01:11 U Epithel Cells (Auto) 0-2 /hpf (0-2) 01/08/24 01:11 Urine Bacteria (Auto) 4+ (None Seen) H 01/08/24 01:11 Blood Type A Positive 01/07/24 21:38 Antibody Screen NEGATIVE 01/07/24 21:38 01/08/24 01:11 Urine Culture - Preliminary Urine,Clean Catch Gram negative bacilli
--- NOTE | 2024-01-09 13:53 | GI REPORT ---
[facility] Patient: JOHAN DONNELLY : 1950 Sex at : Female Age: 73 Years Procedure: Upper GI endoscopy Date: 01/09/2024 Attending Physician: Kelly Guerra MD Referring MD: Hafsa Mcdonough MD Indications: - Suspected upper gastrointestinal bleeding Medications: - Monitored Anesthesia Care Complications: - No immediate complications. Estimated Blood Loss: - Estimated blood loss: none. Procedure: - Prior to the procedure, a History and Physical was performed, and patient medications and allergies were reviewed. The patient's tolerance of previous anesthesia was also reviewed. The risks and benefits of the procedure and the sedation options and risks were discussed with the patient. All questions were answered, and informed consent was obtained. Prior Anticoagulants: The patient has taken Plavix (clopidogrel), last dose was 1 day prior to procedure. ASA Grade Assessment: III - A patient with severe systemic disease. After reviewing the risks and benefits, the patient was deemed in satisfactory condition to undergo the procedure. - The egd scope was introduced through the mouth and advanced to the third part of the duodenum. - The upper GI endoscopy was accomplished without difficulty. - The patient tolerated the procedure well. Findings: - A large hiatal hernia with a few Jhon ulcers was found. The proximal extent of the gastric folds (end of tubular esophagus) was 35 cm from the incisors. The hiatal narrowing was 44 cm from the incisors. - The stomach was otherwise normal. - The examined duodenum was normal. Impression: - Large hiatal hernia with a few Jhon ulcers. - Normal stomach. - Normal examined duodenum. - No specimens collected. Recommendation: - Resume previous diet and resume regular diet today. - Continue present medications. Procedure Code(s): - 07733, Esophagogastroduodenoscopy, flexible, transoral; diagnostic, including collection of specimen(s) by brushing or washing, when performed (separate procedure) Diagnosis Code(s): - K44.9, Diaphragmatic hernia without obstruction or gangrene - K25.9, Gastric ulcer, unspecified as acute or chronic, without hemorrhage or perforation CPT(R) - 2022 copyright [employer]. All Rights Reserved. The CPT codes, CCI edits and ICD codes generated are intended as suggestions and were generated based on input data. These codes are preliminary and upon machine binder stripper review may be revised to meet current compliance and payer requirements. The provider is responsible for the final determination of appropriate codes, and modifiers. Kelly Guerra This document has been electronically signed. Note Initiated:01/09/2024 Note Completed:01/09/2024 1:52 PM \\[id number]
--- NOTE | 2024-01-09 14:17 | Anesthesiology Progress Note ---
Date of Service January 09, 2024 Anesthesia Post Procedure Vital Signs Vital Signs: Temp Pulse Pulse Pulse Resp BP Pulse Ox 01/09/24 14:00 64 16 102/60 96 01/09/24 13:51 118/54 L 01/09/24 13:45 65 14 101/57 L 96 01/09/24 12:36 36.8 C 54 L 18 99/65 L 97 01/09/24 11:44 36.6 C 58 L 18 102/67 97 01/09/24 08:00 01/09/24 07:32 36.5 C 62 20 108/62 98 01/09/24 07:00 60 01/09/24 02:52 36.6 C 65 18 109/69 97 01/08/24 22:53 36.5 C 69 18 105/67 98 01/08/24 21:53 66 01/08/24 19:52 36.6 C 62 18 94/56 L 97 01/08/24 15:30 63 01/08/24 15:30 01/08/24 15:30 36.7 C 63 16 99/64 L 97 O2 Del Method O2 Flow Rate 01/09/24 14:00 Room Air 01/09/24 13:51 01/09/24 13:45 Oxymask 10 01/09/24 12:36 Room Air 01/09/24 11:44 Room Air 01/09/24 08:00 Room Air 01/09/24 07:32 Room Air 01/09/24 07:00 01/09/24 02:52 Room Air 01/08/24 22:53 Room Air 01/08/24 21:53 01/08/24 19:52 Room Air 01/08/24 15:30 01/08/24 15:30 Room Air 01/08/24 15:30 Room Air Pain Intensity Head: Pain Intensity: 4 Transfer of Care Handoff Completed per policy Notes Mental Status: alert / awake / arousable Patient Amnestic to Procedure: Yes Nausea / Vomiting: adequately controlled Pain: adequately controlled Airway Patency, RR, SpO2: stable & adequate BP & HR: stable & adequate Hydration State: stable & adequate Anesthetic Complications: no major complications apparent and Pt Satisfied with anesthetic care
[2024-01-09] MEDS: SODIUM CHLORIDE 0.9% 500 ML IV SCH (14:36)
[2024-01-09] MEDS: cefTRIAXone SODIUM 1,000 MG/50 ML BAG IV SCH (15:10)
[2024-01-09 15:18] LABS: Hematocrit (blood only) 30.8 % (37.0-47.0); Hemoglobin 8.8 g/dl (12.0-16.0); Mean Corpuscular Hemoglobin 21.6 pg (25.0-34.0); Mean Corpuscular Hgb Conc 28.6 g/dL (32.0-36.0); Mean Corpuscular Volume 75.7 fL (80.0-100.0); Mean Platelet Volume 11.2 fL (9.4-12.4); Platelet Count 292 K/uL (130-400); RDW Coefficient of Variation 17.7 % (11.5-14.5); RDW Standard Deviation 47.6 fL (36.4-46.3); Red Blood Count 4.07 M/uL (4.20-5.40); White Blood Count 5.66 K/ul (4.8-10.8)
[2024-01-09] MEDS: ePHEDrine sulfate 50 MG/5 ML SYR ONE (16:46)
[2024-01-09] MEDS: MIDAZOLAM HCL 1 MG/ML 2ML VIAL ONE (16:46)
[2024-01-09] MEDS: LIDOCAINE 2% 2 ML VIAL/AMP(20MG/ML) INFIL ONE (16:46)
[2024-01-09] MEDS: PROPOFOL IV EMULSION 10 MG/ML 20 ML VIAL IV ONE (16:46)
[2024-01-09] MEDS: ONDANSETRON INJ 2 MG/ML 2 ML VIAL ONE (16:46)
[2024-01-10 07:46] LABS: Hematocrit (blood only) 27.1 % (37.0-47.0); Hemoglobin 7.8 g/dl (12.0-16.0); Mean Corpuscular Hemoglobin 21.8 pg (25.0-34.0); Mean Corpuscular Hgb Conc 28.8 g/dL (32.0-36.0); Mean Corpuscular Volume 75.9 fL (80.0-100.0); Platelet Count 282 K/uL (130-400); RDW Coefficient of Variation 17.9 % (11.5-14.5); Red Blood Count 3.57 M/uL (4.20-5.40); White Blood Count 5.55 K/ul (4.8-10.8)
[2024-01-10 08:07] LABS: Calcium 7.9 mg/dl (8.6-10.3); Creatinine Clr Calc Pharmacy 55.7 ml/min; Est GFR (African American) 55.6 ml/min
--- NOTE | 2024-01-10 10:16 | Gastroenterology Progress Note ---
<Statement entered by Kelly Guerra MD - 01/10/24 16:04> I have examined the patient, reviewed the History & Physical and in the interval since the performance of the History & Physical I have noted the following changes of clinical significance: no changes noted. I agree with the documentation provided by DAMIAN Rao with no additional comments. Given the decline in her hgb this morning, will proceed w CTA as she has not had recent abdominal imaging performed. Date of Service January 10, 2024 Assessment & Plan (1) Anemia: Plan: Patient is feeling well but her hgb had downtrended to 7.8 overnight. I had discussed case with Dr. Guerra who helped advise on plan. - At this time, we will continue to monitor her labs. will plan to repeat a cbc later today to trend. - continue with protonix 40mg po bid. - further recommendations to follow. Admission and Anticipated Discharge Date Admission Date: January 07, 2024 Subjective Patient tells me she feels well today. s/p EGD 01/08 showing large hiatal hernia. with eating yesterday her hgb had alex from 8 to 8.8, however this fell to 7.8 today. she is not noticing any increase in bowel movements. stools are still dark but she attributes this to her iron. no brbpr. she denies any chest pain, sob, nausae, vomiting, abdominal pain, heartburn. Review of Systems Review of Systems: All systems reviewed & are unremarkable except as noted in HPI & below Physical Exam Constitutional: WD/WN, vitals as above Respiratory: normal respiratory effort, lungs clear to auscultation Cardiovascular: RRR, no murmur, no edema Gastrointestinal (Abdomen): normal bowel sounds, soft, nontender, no hepatosplenomegaly Psychiatric: Orientation: alert and oriented x 3 Results & Data Results & Data Vital Signs (Past 12 Hours) Vital Signs Temp Pulse Pulse Resp BP Pulse Ox O2 Del Method 01/10/24 07:33 98.2 F 59 L 18 102/60 94 Room Air 01/10/24 03:15 97.7 F 74 18 98/61 L 95 Room Air 01/09/24 23:32 97.9 F 64 18 103/74 95 Room Air 01/09/24 23:32 Room Air 01/09/24 22:23 63 Coding Level of Care Code 12087 SUB INP/OBS CARE MIN Diagnoses Anemia D64.9 Anemia type: unspecified type (1) Anemia Anemia type: unspecified type Qualified Code(s): D64.9 - Anemia, unspecified
[2024-01-10] MEDS: PANTOprazole 40 MG TAB PO SCH (10:32)
[2024-01-10 10:38] LABS: Ferritin 16.8 ng/ml (8-388)
--- NOTE | 2024-01-10 12:24 | Hospitalist Progress Note ---
Date of Service January 10, 2024 Assessment & Plan (1) Symptomatic anemia: (2) UTI (urinary tract infection): Plan: Shani Newton is a 73y/o F with PMHx significant for dyslipidemia, hypothyroidism, prediabetes, sleep apnea, hypertension, history of CAD s/p stent placement, angiodysplasia of colon, peripheral vascular disease, GERD, celiac disease, morbid obesity, stage III chronic kidney disease, generalized osteoarthritis, iron deficiency anemia and depression who presented secondary to dyspnea on exertion. Possible GI bleed Hx Large Hiatal hernia with Jhon erosions Symptomatic Anemia H/O Iron Deficiency Anemia DESOUZA - Previous admitted October 2020 with recurrent symptomatic anemia, hemoglobin of 6.6, received 2 units of PRBCs and IV iron infusion. EGD at that time revealed a large hiatal hernia with few Jhon erosions, colonoscopy showed hemorrhoids, multiple small and large mouth diverticula throughout the entire colon and medium sized nonbleeding AVM in the cecum that was cauterized and clipped. Also, a 5mm cecal polyp was removed. Video capsule endoscopy post discharge did not show evidence of blood loss from small bowel, but did show an incidental small polyp in the terminal ileum. -Hgb 7.6 on admission, Hemoccult positive in the ED. - on oral iron supplementation - Pt received 1 unit of PRBCs 01/07 --> Hgb 8.8 --> 8.0 -->7.8, - Repeat Hgb/Hct at noon 7.7, bp soft today - add iron workup (although may be skewed with blood transfusion) --iron 44, giving venofer IV today - Consider cscope? Will defer to GI. - IV Protonix drip switched to PO BID dosing 01/09 - S/p EGD 01/08 -- small jhon erosions present, large hiatal hernia --GI rec regular diet, she is tolerating - Cough resolved, SOB resolved, - CXR on admission w/ no acute abnormalities, no evidence of pneumonia. - D-dimer initially elevated, CTPE angio and BLE DVT negative H/O Coronary Artery Disease (CAD) S/P Bare-Metal Stents to LAD in 10/2008 HTN HLD - Discontinuation of Plavix in December 2008 for colonoscopy resulting acute ID. And cardiac cath revealed critical LAD lesion between two prior LAD stents and underwent PCI using bare-metal stents without complication. Again had non-ST elevated ID after Plavix was held once again for colonoscopy in June 2009S/p cardiac cath and at that time thought jailed diagonal branch likely culprit and no intervention was performed. Cath in October 2010 performed for unstable angina revealed left main with mild luminal irregularities, jailing of the first diagonal branch, moderate ostial stenosis, and indeterminate stenosis distal to the stents, and nondominant left circumflex 30% disease and large dominant RCA with up to 30% proximal stenosis and mild luminal irregularities of the PDA and PLB's. Last catheterization in May 2014 demonstrated unchanged coronary disease compared to prior catheterization as per cardiology notes in [facility]." - Will continue DATABASE REPORT WRITER Plavix, Zetia, Imdur, metoprolol succinate and rosuvastatin. - BP is slightly lower today, encourage oral hydration. E. coli UTI - Pt not c/o of any urinary symptoms. - E.coli on micro, pansensitive, will cont IV ceftriaxone for now and plan to switch to PO cefdinir upon discharge Moderately Severe NAN - Not currently using CPAP. - Obesity hypoventilation syndrome is also a likely possibility Morbid Obesity -BMI of 43.7, Recently started on Zepbound per chart review, follow-up w/ PCP. GERD -Currently on IV Protonix drip, will continue per GI's recommendation. Pt was taking po pantoprazole DATABASE REPORT WRITER. Hypothyroidism -Continue DATABASE REPORT WRITER levothyroxine. CKD Stage III -Chronic stable, 1.14 today Prediabetes -Hgb A1c 5.9 on 01/08/24; can follow-up w/ PCP, pt recently started on Zepbound DVT Prophylaxis: SCDs, ambulatory Lines: PIV x 1 GI/FEN: Allowed diet today Code Status: FULL CODE Dispo: From home, remain in hospital overnight, if hgb stable tomorrow and bp improved, will consider dc tomorrow. A total of 55 minutes were spent with greater than 50% of that time face to face with the patient, personally reviewing all current laboratories, imaging studies, past medication reconciliation, outpatient chart review, and discussion with specialists to collaborate care for the patient with attending. Please see attending documentation for corrections and/or additions. Admission and Anticipated Discharge Date Admission Date: January 07, 2024 Supervising Physician Co-Signing Physician Notes Patient seen and examined Got 1 PRBC 01/07 No new complaints, stool still black Iron profile reviewed, iv iron x 2 while in hospital, c/w oral iron, started folate and b12 supplement. f/u levels in 3 months at pcp office. Hb slightly dropped today, GI evaluating, s/p EGD 01/08 IV PPI to PO PPI. For UTI c/w fam Agree with findings and plans by Advanced Provider and take full responsibility Subjective Pt seen and examined this morning. She feels well today. Denies lightheadedness, dizziness, chest pain or shortness of breath when up and walking. Denies any acute complaints. Pt states BM are still dark but is on an iron tablet and stool has been this way for a while. She has not seen any bright red blood in bowels. Pt is tolerating regular diet without issues, no nausea. Pt is urinating without difficulty or pain. 10 point ROS reviewed and negative otherwise. Physical Exam Physical Exam: General: awake, alert, no apparent distress, elderly, white, obese female. BMI 43.7 Head: Normocephalic, atraumatic ENT: PERRL, EOMI, no pharyngeal exudate, mucous membranes moist Chest: Clear to auscultation, on room air, no adventitious breath sounds Cardiac: Regular rate and rhythm, no murmur, no JVD, normal peripheral pulses, good capillary refill Abdominal: NABS x 4 quadrants, soft, nondistended, nontender to palpation, no rebound or guarding Extremities: Normal inspection, no peripheral edema or erythema, calfs nontender to palpation Psych: Normal mood and affect Neuro: AAO x 3, strength intact bilaterally and rated 5/5, no motor deficits, speech is clear, no peripheral sensory deficits Results & Data Results & Data Vital Signs (Past 12 Hours) Vital Signs Temp Pulse Pulse Resp BP Pulse Ox O2 Del Method 01/10/24 12:15 63 01/10/24 11:37 36.7 C 60 18 90/52 L 92 Room Air 01/10/24 07:33 36.8 C 59 L 18 102/60 94 Room Air 01/10/24 03:15 36.5 C 74 18 98/61 L 95 Room Air (2) UTI (urinary tract infection) Hematuria presence: without hematuria Urinary tract infection type: site unspecified Qualified Code(s): N39.0 - Urinary tract infection, site not specified
[2024-01-10 12:59] LABS: Hematocrit (blood only) 26.6 % (37.0-47.0); Hemoglobin 7.7 g/dl (12.0-16.0)
[2024-01-10 13:09] LABS: Iron 44 mcg/dl (35-150); Unsaturated Iron Binding Cap 366 mcg/dl (155-355)
[2024-01-10 13:37] LABS: Folate (Folic Acid),Ser orPlas 9.2 ng/ml (>5.38)
[2024-01-10] MEDS: IRON SUCROSE 200 MG in 0.9 % SODIUM CHLORIDE 100 ML IV ONE (15:25)
[2024-01-10] MEDS: OPTIRAY 320 125ml IV ONE (16:55)
--- NOTE | 2024-01-10 17:41 | CT Scan Report ---
CT angio abd pelvis wo/w con HISTORY: 73 years-old Female assess for bleeding acute generalized abdominal pain COMPARISON: CTA chest 01/08/2024 TECHNIQUE: CTA abdomen and pelvis was obtained with and without IV contrast. 3-D coronal and sagittal maps were obtained and submitted for review. All measurements were obtained according to NASCET crit eria. A dose lowering technique was used consistent with the principals of DERRELL. FINDINGS: CTA: Cardiomegaly. Mild to moderate atherosclerosis. There is patency of the celiac trunk, superior and i nferior mesenteric, renal and iliac arteries. There is approximately 50% stenosis at the origin of th e superior mesenteric artery secondary to calcified plaque. The imaged femoral arteries are patent. N o dissection or aneurysm. CT ABDOMEN/PELVIS: Bibasilar atelectasis. Unremarkable spleen, pancreas and adrenal glands. Cholecystectomy. There are a few cysts noted within the liver measuring up to 4.3 cm. No renal or ureteral calculi or hydronephro sis. Symmetric enhancement of the kidneys. No enhancing renal mass lesions. Decompressed bladder with wall thickening and perivesicular stranding. Hysterectomy. No lymphadenopathy. Moderate to large hia gabino hernia with distal esophageal wall thickening. Duodenal diverticulum. Colonic diverticulosis. No bowel obstruction or bowel wall thickening. Normal appendix. No acute fracture. IMPRESSION: 1. 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 Otherwise unremarkable CTA. 2. No acute intra-abdominal or intrapelvic abnormality. 3. Moderate to large hiatal hernia. 4. Colonic diverticulosis. ACT 112: Negative or not required by law. The above report was generated using voice recognition software. It may contain grammatical, syntax o r spelling errors. Electronically signed by: Lauri Leigh M.D. 01/10/2024 5:38 PM
[2024-01-10] MEDS: CYANOCOBALAMIN (B-12) 500 MCG TABLET PO SCH (17:55)
[2024-01-10] MEDS: FOLIC ACID 1 MG TAB PO SCH (17:55)
[2024-01-10] MEDS: SODIUM CHLORIDE 0.9% 500 ML IV ONE (20:16)
[2024-01-10 20:42] LABS: Hematocrit (blood only) 27.4 % (37.0-47.0); Hemoglobin 7.9 g/dl (12.0-16.0)
[2024-01-11 08:13] LABS: Hematocrit (blood only) 28.5 % (37.0-47.0); Hemoglobin 8.2 g/dl (12.0-16.0)
--- NOTE | 2024-01-11 10:35 | Gastroenterology Progress Note ---
<Statement entered by Kelly Guerra MD - 01/11/24 16:14> I have reviewed documentation from the interval since the performance of the History & Physical I have noted the following changes of clinical significance: no changes noted. I agree with the documentation provided by DAMIAN Rao with no additional comments.Shani was discharged today before I was able to see her. Date of Service January 11, 2024 Assessment & Plan (1) Anemia: Plan: Currently hgb is stable and her EGD was unremarkable. would recommend continuing oral iron. Patient is requesting discharge to home today. I would recommend she have a close follow up with her primary GI team at [facility] on discharge. Would also have her address with them on the SMA findings on CTA and would consider referral to vascular on discharge for an evaluation. Admission and Anticipated Discharge Date Admission Date: January 07, 2024 Subjective Patient tells me that she is feeling well. she tells me she would like to be discharged today. her hgb remained stable overnight. 01/10 hgb 8.2. (previously 7.9). GI ros unremarkable other than darker stool but she attributes this to her iron use. CTA showing diverticulosis, moderate to large hiatal hernia, no acute abnormalities, 50% stenosis of SMA secondary to calcified plaque. EGD 01/08 showing large hiatal hernia. Review of Systems Review of Systems: All systems reviewed & are unremarkable except as noted in HPI & below Physical Exam Constitutional: WD/WN, vitals as above Respiratory: normal respiratory effort, lungs clear to auscultation Cardiovascular: RRR, no murmur, no edema Gastrointestinal (Abdomen): normal bowel sounds, soft, nontender, no hepatosplenomegaly Psychiatric: Orientation: alert and oriented x 3 Affect: euthymic affect Results & Data Results & Data Vital Signs (Past 12 Hours) Vital Signs Temp Pulse Pulse Resp BP BP Pulse Ox 01/11/24 07:44 59 L 01/11/24 07:27 98.1 F 57 L 16 109/75 94 01/11/24 02:34 98.2 F 60 18 106/68 97 01/11/24 00:00 01/10/24 22:38 97.9 F 62 18 107/66 94 Pulse Ox O2 Del Method O2 Del Method 01/11/24 07:44 01/11/24 07:27 Room Air 01/11/24 02:34 Room Air 01/11/24 00:00 94 Room Air 01/10/24 22:38 Room Air Coding Level of Care Code 64759 SUB INP/OBS CARE Diagnoses Anemia D64.9 Anemia type: unspecified type (1) Anemia Anemia type: unspecified type Qualified Code(s): D64.9 - Anemia, unspecified
--- NOTE | 2024-01-11 12:55 | Discharge Summary ---
Date of Service January 11, 2024 Admission HPI Per Admitting Provider 73-year-old female with past med history significant for dyslipidemia, hypothyroidism, prediabetes, sleep apnea, hypertension, history of CAD status post stent, angiodysplasia of colon, peripheral vascular disease, GERD, celiac disease, morbid obesity, stage III chronic kidney disease, generalized osteoarthritis, iron deficiency anemia, depression, comes with dyspnea on exertion since last week. Patient states minimal activity making her short of breath. Denies any chest pain. States has some headache now. No dizziness. No blurred visions. No runny nose or sore throat. Has dry cough. Appetite is okay. No fevers. No nausea. No abdominal pain. Normal bowel and bladder movements. Says stools are always black because she takes iron pills. No hematuria. Ambulates without support. Currently resting comfortably and hemodynamically stable. Admission Exam Per Admitting Provider Physical Exam: General- Not in distress Head- atraumatic Eyes- PERRL. ENT- oropharynx clear Neck- supple, no JVD. Lungs- clear to auscultation no wheezing or crackles Heart- regular rate and rhythm; no murmur, no gallop. Abdomen- normal bowel sounds, soft, nontender, no distension. Extremities- no pretibial edema, no erythema seen Neuro- alert, oriented PERRL, EOMI; no facial palsy; no dysarthria; moves extremities. Principal Diagnosis Symptomatic anemia, Gastrointestinal bleeding Discharge Exam General: awake, alert, no apparent distress, elderly, white, obese female. BMI 43.7 Head: Normocephalic, atraumatic ENT: PERRL, EOMI, no pharyngeal exudate, mucous membranes moist Chest: Clear to auscultation, on room air, no adventitious breath sounds Cardiac: Regular rate and rhythm, no murmur, no JVD, normal peripheral pulses, good capillary refill Abdominal: NABS x 4 quadrants, soft, nondistended, nontender to palpation, no rebound or guarding Extremities: Normal inspection, no peripheral edema or erythema, calfs nontender to palpation Psych: Normal mood and affect Neuro: AAO x 3, strength intact bilaterally and rated 5/5, no motor deficits, speech is clear, no peripheral sensory deficits Discharge Data Allergies Allergy/AdvReac Type Severity Reaction Status Date / Time No Known Allergies Allergy Verified 01/07/24 19:41 Consultations 01/07/24 18:48 ED Decision to Admit Stat 01/08/24 08:00 Consult Gastroenterology Routine Procedures Performed Operation Date: 01/09/24 16:30 Actual Procedures p Esophagogastroduodenoscopy - Kelly Guerra MD Ordered Studies 01/07/24 21:19 CT angio chest PE protocol Urgent 01/08/24 US venous doppler LE BI Routine 01/10/24 14:26 CTA abd pelvis wo/w con [CT angio abd pelvis wo/w con] Routine Hospital Course (1) Symptomatic anemia: (2) UTI (urinary tract infection): Shani Newton is a 73y/o F with PMHx significant for dyslipidemia, hypothyroidism, prediabetes, sleep apnea, hypertension, history of CAD s/p stent placement, angiodysplasia of colon, peripheral vascular disease, GERD, celiac disease, morbid obesity, stage III chronic kidney disease, generalized oste oarthritis, iron deficiency anemia and depression who presented secondary to dyspnea on exertion. Possible GI bleed Hx Large Hiatal hernia with Jhon erosions Symptomatic Anemia H/O Iron Deficiency Anemia DESOUZA - Previous admitted October 2020 with recurrent symptomatic anemia, hemoglobin of 6.6, received 2 units of PRBCs and IV iron infusion. EGD at that time revealed a large hiatal hernia with few Jhon erosions, colonoscopy showed hemorrhoids, multiple small and large mouth diverticula throughout the entire colon and medium sized nonbleeding AVM in the cecum that was cauterized and clipped. Also, a 5mm cecal polyp was removed. Video capsule endoscopy post discharge did not show evidence of blood loss from small bowel, but did show an incidental small polyp in the terminal ileum. -Hgb 7.6 on admission, Hemoccult positive in the ED. - on oral iron supplementation - Pt received 1 unit of PRBCs 01/07 --> Hgb 8.8 --> 8.0 -->7.8, - Repeat Hgb/Hct 8.3 on discharge as it remained stable. Repeat CBC within 3 days at PCP office follow up. - Iron deficiency with iron= 44, got 1 dose venofer IV 01/09 - will ask PCP to follow up and have more IV iron if needed as outpatient. - Consider cscope per GI on outpatient follow up - IV Protonix drip switched to PO BID dosing 01/09 - S/p EGD 01/08 -- small jhon erosions present, large hiatal hernia --GI rec regular diet, she is tolerating - Cough resolved, SOB resolved, - CXR on admission w/ no acute abnormalities, no evidence of pneumonia. - D-dimer initially elevated, CTPE angio and BLE DVT negative H/O Coronary Artery Disease (CAD) S/P Bare-Metal Stents to LAD in 10/2008 HTN HLD - Discontinuation of Plavix in December 2008 for colonoscopy resulting acute MS. And cardiac cath revealed critical LAD lesion between two prior LAD stents and underwent PCI using bare-metal stents without complication. Again had non-ST e levated MS after Plavix was held once again for colonoscopy in June 2009S/p cardiac cath and at that time thought jailed diagonal branch likely culprit and no intervention was performed. Cath in October 2010 performed for unstable angina revealed left main with mild luminal irregularities, jailing of the first diagonal branch, moderate ostial stenosis, and indeterminate stenosis distal to the stents, and nondominant left circumflex 30% disease and large dominant RCA with up to 30% proximal stenosis and mild luminal irregularities of the PDA and PLB's. Last catheterization in May 2014 demonstrated unchanged coronary disease compared to prior catheterization as per cardiology notes in [facility]." - Will continue CRAB PICKER Plavix, Zetia, Imdur, metoprolol succinate and rosuvastatin. - BP is slightly lower today, encourage oral hydration. E. coli UTI - Pt not c/o of any urinary symptoms. - E.coli on micro, pansensitive, will cont IV ceftriaxone for now and plan to sw itch to PO cefdinir upon discharge, complete 5 day course on 01/12 Moderately Severe NAN - Not currently using CPAP. - Obesity hypoventilation syndrome is also a likely possibility Morbid Obesity -BMI of 43.7, Recently started on Zepbound per chart review, follow-up w/ PCP. GERD -Currently on IV Protonix drip, will continue per GI's recommendation. Pt was taking po pantoprazole CRAB PICKER. Hypothyroidism -Continue CRAB PICKER levothyroxine. CKD Stage III -Chronic stable, 1.14 today Prediabetes -Hgb A1c 5.9 on 01/08/24; can follow-up w/ PCP, pt recently started on Zepbound DVT Prophylaxis: SCDs, ambulatory Lines: PIV x 1 GI/FEN: Allowed diet today Code Status: FULL CODE Total Time Total Time Spent Total Time Spent (In Minutes): 37 Discharge Plan Discharge Items Patient Disposition: Home - Self-Care Reason For Visit: SYMPATOMATIC ANEMIA Discharge Diagnosis: Gastrointestinal bleed, symptomatic anemia Condition on Discharge: Good Activity: Resume your previous activity Lifting: Gradually increase as tolerated Bathing: No limitations Exercise/Sports: Gradually increase as tolerated Driving/Machine Use: Resume 3 days after discharge Weightbearing: Full weightbearing Non-emergency contact: Primary Care Provider Call non-emergency contact if: you have any medication questions, your symptoms worsen and your temperature is above 101 Follow-up/Referrals: Santiago Pelayo MD [Primary Care Provider] - (Date & Time 01/15/2024 11:40 AM Provider Bernadine Prater MD [facility] ) Diet: Carb Consistent or DM2 and Heart Healthy Addtl Attending Provider Instructions: You were admitted to [facility] due to possible gastrointestinal bleeding and symptomatic anemia and diagnosed with the same. During your stay here you were treated with supportive care, medications and were seen by gastroenterology. You were treated with IV protonix (anti - acid medication), and they performed an EGD ( upper scope of stomach and first part of the small intestine) and showed small ulcerations which were not bleeding. You were allowed a regular diet and tolerated it. We suspect the bleeding is from these small ulcerations. You got a transfusion of 1 U of blood while here and IV iron x 1 dose, and your symptoms improved. Discuss with PCP about iron infusions again in the future. Imaging studies which were completed include EGD , and were abnormal showing small Jhon ulcers and a large hiatal hernia which was known about. Get a blood pressure machine at a local pharmacy to check your BP once daily for the next week. Show results to family doctor at appointment. You can continue to take blood pressure medications when your blood pressure is at or over the reading of 120/80. You were maintained on your home medications while here and BP was a little low but stable here. If you have any questions please call your family doctor office (primary care physician ie. PCP) or the hospital and ask to speak with the [facility] physician team. You were treated for a urinary tract infection, E. coli UTI, while in the hospital. Complete the course of antibiotics by taking tablets for the next 2 days to finish a 5 day course. Medications: Continue taking you medications as prescribed. 1.) Cefdinir 300 mg twice daily for 2 more days Blood Work: Home health nursing should obtain blood work within 3 days to confirm your hemoglobin is stable and you are not having worsening blood count due to bleeding. You can also have this done at PCP office if you do not qualify for services after discharge. Appointments: Follow up with PCP within 1 week, an appointment has been requested for you. Have blood work drawn with home health OR your PCP so they can follow results. GI within 2 weeks to discuss GI bleeding, and determine if colonoscopy should be done. Follow up with vascular surgery due to abnormal vascular findings [SMA stenosis] noted during inpatient imaging. Coordinate w/ your pcp office for referral. Pending Studies at Discharge: No Stand-Alone Forms: [facility], Work/School Release, Smoking Cessation Medications and DC Order Prescriptions: New cefdinir 300 mg capsule 300 mg PO BID Qty: 4 0RF folic acid 1 mg tablet 1,000 mcg PO DAILY Qty: 30 0RF cyanocobalamin (vitamin B-12) 500 mcg tablet 500 mcg PO DAILY Qty: 30 0RF Continued pantoprazole 40 mg Tablet,Delayed Release (Dr/Ec) 40 mg PO BID ezetimibe [Zetia] 10 mg Tablet 10 mg PO QAM clopidogrel 75 mg Tablet 75 mg PO QAM levothyroxine 75 mcg Tablet 75 mcg PO QAM ferrous sulfate 325 mg (65 mg iron) tablet,delayed release (DR/EC) 325 mg PO BID rosuvastatin 40 mg Tablet 40 mg PO QAM citalopram 40 mg Tablet 40 mg PO QAM isosorbide mononitrate 60 mg Tablet Extended Release 24 Hr 60 mg PO QAM nitroglycerin 0.4 mg Tablet, Sublingual 0.4 mg sublingual UD PRN (Reason: Chest Pain) Rx Instructions: NEEDED FOR CHEST PAIN : ONE TABLET UNDER THE TONGUE EVERY 5 MINUTES UP TO THREE DOSES. potassium chloride 10 mEq Capsule, Extended Release 10 meq PO DAILY PRN (Reason: Edema) Rx Instructions: TAKE WITH FUROSEMEDE PRN furosemide 20 mg Tablet 20 mg PO DAILY PRN (Reason: Edema) ascorbic acid (vitamin C) [Vitamin C] 500 mg Capsule, Extended Release 500 mg PO Q12H bupropion HCl 300 mg tablet extended release 24 hr 300 mg PO QAM tramadol 50 mg tablet 50 mg PO Q6 PRN (Reason: Moderate Pain (Scale Score 5-6)) metoprolol succinate 50 mg tablet extended release 24 hr 100 mg PO DAILY Discharge Orders: Discharge Order (Routine); Ordered 01/11/24 Ordered By: Patrica Gonzalez/Other Patient Handouts: Anemia, Anemia and Kidney Disease, Iron Supplements Admission Data Admit Date/Time: 01/07/24 19:07 Attending Provider: Liliana Logan Admit Provider: Brit Giron Primary Care Provider: Santiago Pelayo Other Providers: Brit Giron; Vishal Marroquin Other Interventions: Discharge Summary Assessment (RN) Last Done: 01/11/24 12:10 Supervising Physician Co-Signing Physician Notes Patient seen and examined Got 1 PRBC 01/07 No new complaints, stool still black but not getting more darker per pt. Iron profile reviewed, s/p iv iron while in hospital, c/w oral iron, c/w folate and b12 supplement. f/u levels in 3 months at pcp office. Hb improving, stable. GI nicolad, s/p EGD 01/08 c/w PO PPI. For UTI c/w rocephin -- cefdinir on dc to complete the course. Agree with findings and plans by Advanced Provider and take full responsibility
== END 2024-01-11 13:34 | disposition home or self-care (01) | DRG 378 ==
LOC: ED 16:36 → EDINP 19:07 → SUATTDRO 19:07 → 2N 21:19

== ENCOUNTER 2025-01-14 12:45 | Inpatient (IN) ==
--- NOTE | 2025-01-14 13:25 | XRay Report ---
XR chest 1V portable CLINICAL HISTORY: Chest pain, nonspecific COMPARISON STUDY: 09/05/2024 FINDINGS: Stable cardiomegaly with mild pulmonary vascular congestion. Stable moderate hiatal hernia. No consolidation or pleural effusion seen. No pneumothorax. IMPRESSION: CHF. ACT 112: Negative or not required by law. Electronically signed by: Isaak Greco M.D. 01/14/2025 1:24 PM
[2025-01-14 13:29] LABS: Hematocrit (blood only) 39.4 % (37.0-47.0); Hemoglobin 12.5 g/dl (12.0-16.0); Immature Granulocytes # (auto) 0.02 K/uL (0.01-0.20); Immature Granulocytes % (auto) 0.4 %; Mean Corpuscular Hemoglobin 26.1 pg (25.0-34.0); Mean Corpuscular Volume 82.3 fL (80.0-100.0); Platelet Count 235 K/uL (130-400); RDW Standard Deviation 52.0 fL (36.4-46.3); Red Blood Count 4.79 M/uL (4.20-5.40); White Blood Count 5.25 K/ul (4.8-10.8)
[2025-01-14 13:48] LABS: Alanine Aminotransferase 22.0 U/L (7-52); Albumin Globulin Ratio 1.1 (0.9-2); Alkaline Phosphatase 46.0 U/L (34-104); Anion Gap 9.0 (3-11); Bilirubin,Total 0.3 mg/dl (0.2-1.0); Blood Urea Nitrogen 17.0 mg/dl (6-23); Calcium 8.9 mg/dl (8.6-10.3); Carbon Dioxide 24.0 mmol/L (21-32); Chloride 106.0 mmol/L (98-107); Creatinine Clr Calc Pharmacy 65.6 ml/min; Globulin 3.6 gm/dl (2.5-4.0); Glucose 96.0 mg/dl (70-99(Fasting)); Potassium 3.7 mmol/L (3.5-5.1); Sodium 139.0 mmol/L (136-145); Total Protein 7.4 gm/dl (6.0-8.3)
[2025-01-14 14:09] LABS: INR 1.0 (0.9-1.1); Partial Thromboplastin Time 23 Seconds (21-31); Prothrombin Time 10.8 Seconds (9.0-12.0)
--- NOTE | 2025-01-14 14:58 | Electrocardiogram Report ---
Test Reason : Blood Pressure : */* mmHG Vent. Rate : 77 BPM Atrial Rate : 77 BPM P-R Int : 202 ms QRS Dur : 88 ms QT Int : 416 ms P-R-T Axes : * -5 -8 degrees QTcB Int : 470 ms Normal sinus rhythm Possible Inferior infarct , age undetermined Abnormal ECG When compared with ECG of 05-Sep-2024 11:43, Borderline criteria for Inferior infarct are now Present Nonspecific T wave abnormality has replaced inverted T waves in Lateral leads Confirmed by Nii Victoria ([id number]) on 01/14/2025 2:58:44 PM Referred By: REFERRED SELF Confirmed By: Nii Victoria
--- NOTE | 2025-01-14 15:08 | History & Physical Report ---
Date of Service January 14, 2025 Assessment & Plan (1) Chest pain: Plan: Complaining of chest pain off and on, with and without exertion for the last 2 to 3 days Pain lasted longer today that he went to the emergency room Initial EKG and troponin are unremarkable- we will get serial enzymes and EKG and also echocardiogram Will admit to telemetry unit with a cardiac consult for possible Persantine Cardiolite test down the line (2) CAD (coronary artery disease): Plan: Significant history of CADbare-metal stent to LAD in October 2008. Has had cardiac cath with critical LAD lesion between 2 prior LAD stent and underwent PCI using bare-metal stent in 2008 and has had 2 cardiac cath following that. Last cardiac cath was in May 2014 and continued with Plavix, Zetia, Imdur, metoprolol and rosuvastatin Will get cardiology evaluation and possible Persantine Cardiolite test down the line (3) HTN (hypertension): Plan: Blood pressure remains stable and will continue current medication (4) NAN (obstructive sleep apnea): Plan: Can use CPAP if she has been using at home (5) CKD (chronic kidney disease), stage III: Plan: Will monitor PRP (6) Hypothyroidism: Plan: Continue replacement Her other significant medical conditions remained stable DVT prophylaxis Subcu heparin CODE STATUS DNR/DNI History of Present Illness Chief Complaint: Chest pain on and off for the last few days Primary Care Provider: Santiago Pelayo MD She is a 74-year-old obese female with significant past medical history of CAD status post stent placement, hypertension, hypothyroidism, sleep apnea prediabetes, GERD, celiac disease and stage III chronic kidney disease apparently has been complaining of chest pain off-and-on for the last few days. Today she has had the pain while she was working on a computer and the pain lasted longer without any other associated symptoms but she decided to come to emergency room for evaluation. She has been free of pain after receiving nitro and aspirin and she denies any other symptoms during my examination in the emergency room. Her initial EKG and troponin were unremarkable but given the complexity of her heart problem and the chest pain she will be admitted to rule out and possible Persantine Cardiolite test down the line Allergies Allergy/AdvReac Type Severity Reaction Status Date / Time No Known Allergies Allergy Verified 09/05/24 15:32 Home Medications Medication Instructions Recorded Confirmed Type citalopram 40 mg tablet 40 mg PO QAM 09/19/18 09/05/24 History clopidogrel 75 mg tablet 75 mg PO QAM 09/19/18 09/05/24 History isosorbide mononitrate 60 mg 60 mg PO QAM 09/19/18 09/05/24 History tablet,extended release 24 hr levothyroxine 75 mcg tablet 75 mcg PO QAM 09/19/18 09/05/24 History nitroglycerin 0.4 mg sublingual 0.4 mg sublingual UD PRN Chest Pain 09/19/18 09/05/24 History tablet rosuvastatin 40 mg tablet 40 mg PO QAM 09/19/18 09/05/24 History ezetimibe 10 mg tablet (Zetia) 10 mg PO QAM 11/15/18 09/05/24 History pantoprazole 40 mg tablet,delayed 40 mg PO BID 11/15/18 09/05/24 History release furosemide 20 mg tablet 20 mg PO DAILY PRN Edema 12/14/18 09/05/24 History potassium chloride 10 mEq 10 meq PO DAILY PRN Edema 12/14/18 09/05/24 History capsule,extended release bupropion HCl 300 mg 24 hr tablet, 300 mg PO QAM 01/07/24 09/05/24 History extended release tramadol 50 mg tablet 50 mg PO Q6 PRN Moderate Pain 01/07/24 09/05/24 History (Scale Score 5-6) cyanocobalamin (vitamin B-12) 500 500 mcg PO DAILY #30 tabs 01/11/24 09/05/24 Rx mcg tablet ascorbic acid (vitamin C) 500 mg 500 mg PO DAILY 09/05/24 09/05/24 History tablet (Vitamin C) cholecalciferol (vitamin D3) 25 25 mcg PO DAILY 09/05/24 09/05/24 History mcg (1,000 unit) tablet (Vitamin D3) Past Med/Surg History Problem List Chest pain UTI (urinary tract infection) Elevated d-dimer Symptomatic anemia Prediabetes Anemia (Acute) Acute GI bleeding (Acute) Migraine (Chronic) History of carpal tunnel surgery of right wrist (Chronic) H/O arthroscopic knee surgery (Chronic) Hx of tubal ligation (Chronic) S/P AVELINA-BSO (Chronic) Hx of cholecystectomy (Chronic) Medical History DESOUZA (dyspnea on exertion) Acute hypokalemia Acute GI bleeding Severe anemia Symptomatic anemia Chronic kidney disease STAGE 3 Hiatal hernia Anemia History of bleeding ulcers History of colon polyps GERD (gastroesophageal reflux disease) Hypothyroidism On anticoagulant therapy plavix daily Anxiety Depression Hypertension Hyperlipidemia Sleep apnea does not use cpap as ordered Myocardial infarction x3--last 2011? follows with Dr. Mckeon NAN (obstructive sleep apnea) Hypothyroidism CKD (chronic kidney disease), stage III Dyslipidemia CAD (coronary artery disease) "per outpatient cardiology note: cath 05/2007 - 50% LAD lesion 10/2008 - abnormal coronary CT that lead to cath that showed 70% proximal mid and LAD stenosis, s/p 2 BMS to LAD Plavix held for colonoscopy 12/2008 which resulted in acute AK, cath at that times showed critical lesion in between the two stents and underwent PCI with BMS Plavix held again for colonscopy 06/2009 which resulted in acute AK again, cath at that time showed patent stents with jailed diagonal branch as likely culprit 10/2009 - presented with chest pain, cath at that times showed stable non occlusive CAD 10/2010 - unstable angina, cath at that time showed left main with mild luminal irregularities, LAD with extensive stenting, jailing of diagonal branch, moderate ostial stenosis of a 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, and an indeterminate stenosis distal to the stents not amendable to PCI, nondominant LCX with up to 30% disease, large dominant RCA with up to 30% proximal stenosis and mild luminal irregularities of the PDA and PLB's 05/2014 - unchanged CAD from prior cath " On 04/09/15 16:39 Louisa Can wrote "cath 05/2007 - 50% LAD lesion 10/2008 - abnormal coronary CT that lead to cath that showed 70% proximal mid and LAD stenosis, s/p 2 BMS to LAD Plavix held for colonoscopy 12/2008 which resulted in acute AK, cath at that times showed critical lesion in between the two stents and underwent PCI with BMS Plavix held again for colonscopy 06/2009 which resulted in acute AK again, cath at that time showed patent stents with jailed diagonal branch as likely culprit 10/2009 - presented with chest pain, cath at that times showed stable non occlusive CAD 10/2010 - unstable angina, cath at that time showed left main with mild luminal irregularities, LAD with extensive stenting, jailing of diagonal branch, moderate ostial stenosis of a septal 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, and an indeterminate stenosis distal to the stents not amendable to PCI, nondominant LCX with up to 30% disease, large dominant RCA with up to 30% proximal stenosis and mild luminal irregularities of the PDA and PLB's 05/2014 - unchanged CAD from prior cath " On 04/09/15 16:07 Louisa Pamella wrote "cath 05/2007 - 50% LAD lesion" GERD (gastroesophageal reflux disease) HTN (hypertension) Depression Surgical History History of total hysterectomy with bilateral salpingo-oophorectomy (BSO) History of left breast biopsy benign History of bilateral tubal ligation History of carpal tunnel surgery of right wrist History of arthroscopy of left knee History of cholecystectomy History of colonoscopy History of esophagogastroduodenoscopy (EGD) History of heart artery stent x3, last placed in 2012 History of cardiac cath (multiple) last 2012? Family History Grandmother (Maternal) Family history of diabetes mellitus Grandfather (Maternal) Family history of diabetes mellitus Other Cancer Heart disease No family history of adverse response to anesthesia Social History Smoking Status: Never smoker Tobacco Type: Cigarettes Second Hand Exposure: Yes (ROOMMATE SMOKES); Do You Dip or Chew Tobacco: No; Hx Alcohol Use: Yes Alcohol type: beer Hx Substance Use: No Preferred Language: Citizen Of [place] Communication Ability: Effective Repair Servicer Required: No Beliefs That Will Affect Care: None Current Living Situation: Other Current Living Situation Comment: lives with a roommate Feels Safe at Home: Yes Assistive Devices: None Review of Systems Review of Systems: All systems reviewed and are unremarkable except as noted below Physical Exam Physical Exam: Lying in bed without any acute distress Constitutional: well developed, well nourished and + morbidly obese; not ill appearing Eyes: PERRL, conjunctivae normal, anicteric sclerae ENMT: external ear and nose normal, oropharynx normal Neck: trachea midline, no thyromegaly Respiratory: no respiratory distress Auscultation: lungs clear to auscultation bilaterally and + diminished lung sounds Cardiovascular: Rate/Rhythm: regular rate and regular rhythm; not tachycardic Heart Sounds: normal S1 and normal S2; no murmur Extremities: + edema ( trace edema bilaterally) Gastrointestinal (Abdomen): Inspection/Auscultation: normal bowel sounds; abdomen not distended Percussion/Palpation: abdomen soft; abdomen nontender Musculoskeletal: No acute arthritis involving any of the joint Neurologic: normal touch/pain/proprioception and moves all extremities; no focal motor deficits Psychiatric: A+Ox3, euthymic affect Lymphatic: no cervical or axillary lymphadenopathy Results & Data Results & Data Vital Signs (Past 12 Hours) Vital Signs Temp Pulse Resp BP Pulse Ox O2 Del Method 01/14/25 14:12 70 12 126/74 01/14/25 13:51 72 19 01/14/25 13:42 71 14 01/14/25 13:30 68 12 01/14/25 13:21 85 17 01/14/25 13:12 71 19 01/14/25 13:11 71 01/14/25 13:06 96 Room Air 01/14/25 13:01 37.2 C 77 15 127/97 96 Room Air Laboratory Results Short CBC 01/14/25 Range/Units 12:57 WBC 5.25 (4.8-10.8) K/ul Hgb 12.5 (12.0-16.0) g/dl Hct 39.4 (37.0-47.0) % Plt Count 235 (130-400) K/uL BMP 01/14/25 12:57 Sodium 139 Potassium 3.7 Chloride 106 Carbon Dioxide 24 BUN 17 Creatinine 0.97 Glucose 96 Calcium 8.9 Liver Function 01/14/25 Range/Units 12:57 Total Bilirubin 0.3 (0.2-1.0) mg/dl AST 23 (13-39) U/L ALT 22 (7-52) U/L Alkaline Phosphatase 46 (34-104) U/L Albumin 3.8 (3.4-5.0) gm/dl
[2025-01-14] MEDS ORDERED: NITROGLYCERIN SL 0.4 MG/TAB TAB SL PRN (16:17)
[2025-01-14] MEDS ORDERED: POTASSIUM CHLORIDE 10 MEQ TABCR PO PRN (16:17)
--- NOTE | 2025-01-14 18:19 | Emergency Department Note ---
History of Present Illness General Chief Complaint: Chest Pain Stated Complaint: CHEST PAIN Time Seen by Provider: 01/14/25 13:18 History of Present Illness Provider Complaint: chest pain Time: 12:00 Duration: now resolved Onset: during rest Pain Location: left chest Pain Radiation: none Maximum Pain Intensity: 3 Current Pain Intensity: 0 Quality: + tightness and + heaviness Relieved By: + nitroglycerin Exacerbated By: + nothing Context: no recent illness, no recent surgery, no recent immobilization, no recent travel, no trauma/injury, no new medications or no history of DVT/PE Associated symptoms: + dyspnea; no nausea, no vomiting, no diaphoresis, no syncope, no palpitations, no fever or no cough Treatments prior to arrival: aspirin and nitroglycerin Home Medications Medication Instructions Recorded Confirmed Type citalopram 40 mg tablet 40 mg PO QAM 09/19/18 01/14/25 History clopidogrel 75 mg tablet 75 mg PO QAM 09/19/18 01/14/25 History isosorbide mononitrate 60 mg 60 mg PO QAM 09/19/18 01/14/25 History tablet,extended release 24 hr levothyroxine 75 mcg tablet 75 mcg PO QAM 09/19/18 01/14/25 History nitroglycerin 0.4 mg sublingual 0.4 mg sublingual UD PRN Chest Pain 09/19/18 01/14/25 History tablet rosuvastatin 40 mg tablet 40 mg PO QAM 09/19/18 01/14/25 History ezetimibe 10 mg tablet (Zetia) 10 mg PO QAM 11/15/18 01/14/25 History pantoprazole 40 mg tablet,delayed 40 mg PO BID 11/15/18 01/14/25 History release furosemide 20 mg tablet 20 mg PO DAILY PRN Edema 12/14/18 01/14/25 History potassium chloride 10 mEq 10 meq PO DAILY PRN Edema 12/14/18 01/14/25 History capsule,extended release bupropion HCl 300 mg 24 hr tablet, 300 mg PO QAM 01/07/24 01/14/25 History extended release Allergies Allergy/AdvReac Type Severity Reaction Status Date / Time No Known Allergies Allergy Verified 01/14/25 15:19 Past Med/Surg History Problem List Chest pain (Acute) UTI (urinary tract infection) Elevated d-dimer Symptomatic anemia Prediabetes Anemia (Acute) Acute GI bleeding (Acute) Migraine (Chronic) History of carpal tunnel surgery of right wrist (Chronic) H/O arthroscopic knee surgery (Chronic) Hx of tubal ligation (Chronic) S/P AVELINA-BSO (Chronic) Hx of cholecystectomy (Chronic) Medical History DESOUZA (dyspnea on exertion) Acute hypokalemia Acute GI bleeding Severe anemia Symptomatic anemia Chronic kidney disease STAGE 3 Hiatal hernia Anemia History of bleeding ulcers History of colon polyps GERD (gastroesophageal reflux disease) Hypothyroidism On anticoagulant therapy plavix daily Anxiety Depression Hypertension Hyperlipidemia Sleep apnea does not use cpap as ordered Myocardial infarction x3--last 2011? follows with Dr. Mckeon NAN (obstructive sleep apnea) Hypothyroidism CKD (chronic kidney disease), stage III Dyslipidemia CAD (coronary artery disease) "per outpatient cardiology note: cath 05/2007 - 50% LAD lesion 10/2008 - abnormal coronary CT that lead to cath that showed 70% proximal mid and LAD stenosis, s/p 2 BMS to LAD Plavix held for colonoscopy 12/2008 which resulted in acute IL, cath at that times showed critical lesion in between the two stents and underwent PCI with BMS Plavix held again for colonscopy 06/2009 which resulted in acute IL again, cath at that time showed patent stents with jailed diagonal branch as likely culprit 10/2009 - presented with chest pain, cath at that times showed stable non occlusive CAD 10/2010 - unstable angina, cath at that time showed left main with mild luminal irregularities, LAD with extensive stenting, jailing of diagonal branch, moderate ostial stenosis of a septal monitoring 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, and an indeterminate stenosis distal to the stents not amendable to PCI, nondominant LCX with up to 30% disease, large dominant RCA with up to 30% proximal stenosis and mild luminal irregularities of the PDA and PLB's 05/2014 - unchanged CAD from prior cath " On 04/09/15 16:39 Louisa Can wrote "cath 05/2007 - 50% LAD lesion 10/2008 - abnormal coronary CT that lead to cath that showed 70% proximal mid and LAD stenosis, s/p 2 BMS to LAD Plavix held for colonoscopy 12/2008 which resulted in acute IL, cath at that times showed critical lesion in between the two stents and underwent PCI with BMS Plavix held again for colonscopy 06/2009 which resulted in acute IL again, cath at that time showed patent stents with jailed diagonal branch as likely culprit 10/2009 - presented with chest pain, cath at that times showed stable non occlusive CAD 10/2010 - unstable angina, cath at that time showed left main with mild luminal irregularities, LAD with extensive stenting, jailing of diagonal branch, moderate ostial stenosis of a septal monitoring engineer, and an indeterminate stenosis distal to the stents not amendable to PCI, nondominant LCX with up to 30% disease, large dominant RCA with up to 30% proximal stenosis and mild luminal irregularities of the PDA and PLB's 05/2014 - unchanged CAD from prior cath " On 04/09/15 16:07 Louisa Pamella wrote "cath 05/2007 - 50% LAD lesion" GERD (gastroesophageal reflux disease) HTN (hypertension) Depression Surgical History History of total hysterectomy with bilateral salpingo-oophorectomy (BSO) History of left breast biopsy benign History of bilateral tubal ligation History of carpal tunnel surgery of right wrist History of arthroscopy of left knee History of cholecystectomy History of colonoscopy History of esophagogastroduodenoscopy (EGD) History of heart artery stent x3, last placed in 2012 History of cardiac cath (multiple) last 2012? Family History Grandmother (Maternal) Family history of diabetes mellitus Grandfather (Maternal) Family history of diabetes mellitus Other Cancer Heart disease No family history of adverse response to anesthesia Social History Smoking Status: Former smoker Tobacco Type: Cigarettes Second Hand Exposure: Yes (ROOMMATE SMOKES); Do You Dip or Chew Tobacco: No; Hx Alcohol Use: Yes Alcohol type: beer and hard liquor Hx Substance Use: No Preferred Language: Greenlandic Communication Ability: Effective Circle Edger Required: No Beliefs That Will Affect Care: None Current Living Situation: Other Current Living Situation Comment: Roomate Other Information That Helps Us Care for You: No Feels Safe at Home: Yes Safety Concerns: Feels Safe At This Time Assistive Devices: Denture - Upper, Denture - Lower and Glasses Physical Exam Vital Signs Vital Signs - 24 hr 01/14/25 13:01 01/14/25 13:06 01/14/25 13:11 Temperature 37.2 C Temperature Source Oral Pulse Rate 77 71 Respiratory Rate 15 Respiratory Effort / Characteristics Non-Labored Spontaneous Respiratory Depth Normal Respiratory Pattern Regular Blood Pressure 127/97 Blood Pressure Mean 107 Pulse Oximetry 96 96 Oxygen Delivery Method Room Air Room Air Sepsis Recent Fever Within 48 Hours No Sepsis New/Unexplained Change in Mental Status No Sepsis Action Taken by Nursing No Action Required 01/14/25 13:12 01/14/25 13:21 01/14/25 13:30 Temperature Temperature Source Pulse Rate 71 85 68 Respiratory Rate 19 17 12 Respiratory Effort / Characteristics Respiratory Depth Respiratory Pattern Blood Pressure Blood Pressure Mean Pulse Oximetry Oxygen Delivery Method Sepsis Recent Fever Within 48 Hours Sepsis New/Unexplained Change in Mental Status Sepsis Action Taken by Nursing 01/14/25 13:42 01/14/25 13:51 01/14/25 14:12 Temperature Temperature Source Pulse Rate 71 72 70 Respiratory Rate 14 19 12 Respiratory Effort / Characteristics Respiratory Depth Respiratory Pattern Blood Pressure 126/74 Blood Pressure Mean 91 Pulse Oximetry Oxygen Delivery Method Sepsis Recent Fever Within 48 Hours Sepsis New/Unexplained Change in Mental Status Sepsis Action Taken by Nursing Physical Exam GENERAL: oriented to person, place, and time. appears well-developed and well- nourished. HENT: Exam performed. - Head: Normocephalic and atraumatic. EYES: Conjunctivae and EOM are normal. Right eye exhibits no discharge. Left eye exhibits no discharge. No scleral icterus. NECK: Normal range of motion. Neck supple. No JVD present. CV: Normal rate, regular rhythm, normal heart sounds and intact distal pulses. There is no peripheral edema. Palpable radial pulses bue. PULM/CHEST: Effort normal and breath sounds normal. No respiratory distress. No stridor. no wheezes. no rales. ABD: The abdomen is soft. There is no tenderness. NEURO: Motor and sensation grossly intact. SKIN: Skin is warm and dry. He is not diaphoretic. PSYCH: normal mood and affect. Behavior is normal. Judgment and thought content normal. Course Course 1318: The patient was evaluated in room B8. A complete history and physical exam was performed Cardiac monitoring: An order was placed for continuous cardiac monitoring. The monitor shows a rate of 80 with sinus rhythm interpreted by me 1415: Vital signs stable. Labs and imaging are unremarkable. Patient will be admitted for chest pain rule out ACS. Medical Decision Making Laboratory Data Attestation: I reviewed the patient's lab results. 01/14/25 12:57 01/14/25 12:57 Labs: Lab Results 01/14/25 Range/Units 12:57 WBC 5.25 (4.8-10.8) K/ul RBC 4.79 (4.20-5.40) M/uL Hgb 12.5 (12.0-16.0) g/dl Hct 39.4 (37.0-47.0) % MCV 82.3 (80.0-100.0) fL MCH 26.1 (25.0-34.0) pg MCHC 31.7 L (32.0-36.0) g/dL RDW Std Deviation 52.0 H (36.4-46.3) fL RDW Coeff of Ree 17.2 H (11.5-14.5) % Plt Count 235 (130-400) K/uL MPV 11.0 (9.4-12.4) fL Immature Gran % (Auto) 0.4 % Neut % (Auto) 50.6 % Lymph % (Auto) 31.6 % [place] % (Auto) 12.8 % Eos % (Auto) 3.6 % Baso % (Auto) 1.0 % Neut # (Auto) 2.66 (1.40-6.50) K/uL Lymph # (Auto) 1.66 (1.20-3.40) K/uL [place] # (Auto) 0.67 H (0.11-0.59) K/uL Eos # (Auto) 0.19 (0.00-0.50) K/uL Baso # (Auto) 0.05 (0.00-0.20) K/uL Immature Gran # (Auto) 0.02 (0.01-0.20) K/uL PT 10.8 (9.0-12.0) Seconds INR 1.0 (0.9-1.1) APTT 23 (21-31) Seconds PTT Ratio 0.9 Sodium 139 (136-145) mmol/L Potassium 3.7 (3.5-5.1) mmol/L Chloride 106 (98-107) mmol/L Carbon Dioxide 24 (21-32) mmol/L Anion Gap 9 (3-11) BUN 17 (6-23) mg/dl Creatinine 0.97 (0.6-1.2) mg/dl Est Cr Clr Drug Dosing 65.6 ml/min eGFR 61.70 BUN/Creatinine Ratio 17.5 (10-20) Glucose 96 (70-99(Fasting)) mg/dl Calcium 8.9 (8.6-10.3) mg/dl Total Bilirubin 0.3 (0.2-1.0) mg/dl AST 23 (13-39) U/L ALT 22 (7-52) U/L Alkaline Phosphatase 46 (34-104) U/L Troponin I High Sens 4.3 (0-14) pg/ml Total Protein 7.4 (6.0-8.3) gm/dl Albumin 3.8 (3.4-5.0) gm/dl Globulin 3.6 (2.5-4.0) gm/dl Albumin/Globulin Ratio 1.1 (0.9-2) Imaging Data Chest x-ray: Attestation: I personally reviewed and interpreted this imaging study as follows: My impression: Chest x-ray negative. Airway clear. No pneumothorax. No consolidation. No cardiomegaly or cephalization.. No free air under the diaphragm. No fractures of the skeletal structures. Radiologist's impression: Chest X-Ray 01/14/25 13:08 XR chest 1V portable CLINICAL HISTORY: Chest pain, nonspecific COMPARISON STUDY: 09/05/2024 FINDINGS: Stable cardiomegaly with mild pulmonary vascular congestion. Stable moderate hiatal hernia. No consolidation or pleural effusion seen. No pneumothorax. IMPRESSION: CHF. ACT 112: Negative or not required by law. Electronically signed by: Isaak Greco M.D. 01/14/2025 1:24 PM ECG Data Attestation: I personally reviewed and interpreted this ECG as follows: Rate (beats per minute): 77 Rhythm: normal sinus Findings: + 1st degree AV block; no ST depression, no ST elevation or no prolonged QT MDM Narrative 1318: The patient was evaluated in room B8. A complete history and physical exam was performed Cardiac monitoring: An order was placed for continuous cardiac monitoring. The monitor shows a rate of 80 with sinus rhythm interpreted by me 1415: Vital signs stable. Labs and imaging are unremarkable. Patient will be admitted for chest pain rule out ACS. Impression & Plan Chest pain Discharge Plan Visit Data Chief Complaint: Chest Pain Stated Complaint: CHEST PAIN ED Provider: Clement Tafoya Discharge Problem: Chest pain Patient Disposition: Admitted As Inpatient Condition: Fair Discharge Instructions Interventions: ED Discharge Assessment Last Done: 01/14/25 16:01 Discharge Problem: Chest pain Qualifiers: Chest pain type: unspecified Qualified Code(s): R07.9 - Chest pain, unspecified
[2025-01-14] MEDS: HEPARIN SOD 5,000 UNIT/0.5 ML VIAL SQ SCH (20:24)
[2025-01-15 05:38] LABS: Hematocrit (blood only) 36.2 % (37.0-47.0); Hemoglobin 11.4 g/dl (12.0-16.0); Immature Granulocytes # (auto) 0.01 K/uL (0.01-0.20); Immature Granulocytes % (auto) 0.3 %; Mean Corpuscular Hemoglobin 25.9 pg (25.0-34.0); Mean Corpuscular Volume 82.3 fL (80.0-100.0); Platelet Count 196 K/uL (130-400); RDW Standard Deviation 51.8 fL (36.4-46.3); Red Blood Count 4.40 M/uL (4.20-5.40); White Blood Count 3.96 K/ul (4.8-10.8)
[2025-01-15 05:56] LABS: Anion Gap 7.0 (3-11); Blood Urea Nitrogen 13.0 mg/dl (6-23); Calcium 8.5 mg/dl (8.6-10.3); Carbon Dioxide 24.0 mmol/L (21-32); Chloride 107.0 mmol/L (98-107); Creatinine Clr Calc Pharmacy 67.4 ml/min; Glucose 100.0 mg/dl (70-99(Fasting)); Magnesium 1.8 mg/dl (1.7-2.4); Potassium 3.8 mmol/L (3.5-5.1); Sodium 138.0 mmol/L (136-145)
[2025-01-15] MEDS: LEVOTHYROXINE SODIUM 75 MCG TABLET PO SCH (06:47)
[2025-01-15 07:43] LABS: Hemoglobin A1C 5.7 % (4.5-5.6)
[2025-01-15] MEDS: CHOLECALCIFEROL 25 MCG (1000 UNITS) TAB PO SCH (08:31)
[2025-01-15] MEDS: ROSUVASTATIN CALCIUM 20 MG TAB PO SCH (08:31)
[2025-01-15] MEDS: CYANOCOBALAMIN (B-12) 500 MCG TABLET PO SCH (08:34)
[2025-01-15] MEDS: CITALOPRAM 40 MG TAB PO SCH (08:34)
[2025-01-15] MEDS: EZETIMIBE 10 MG TAB PO SCH (08:34)
[2025-01-15] MEDS: ISOSORBIDE MONO EXTENDED REL 60 MG TABCR PO SCH (08:34)
[2025-01-15] MEDS: CLOPIDOGREL BISULFATE 75 MG TAB PO SCH (08:35)
[2025-01-15] MEDS: ASCORBIC ACID 500 MG TAB PO SCH (08:35)
--- NOTE | 2025-01-15 11:48 | Cardiology Consultation ---
Date of Consultation January 15, 2025 Assessment & Plan (1) CAD (coronary artery disease): (2) Hypertension: (3) GERD (gastroesophageal reflux disease): (4) Anemia: Plan Patient is a 74 yo female with medical history that includes significant h/o CAD s/p PCI of the LAD with 2 bare metal stents in 2008, HTN, dyslipidemia, iron deficiency anemia, CKD III, NAN, and GERD. Patient presented to the ER on 01/14/25 with chest discomfort. Cardiology services requested for assessment and recommendations. 1. CAD 2. Moderately severe NAN and nocturnal hypoxemia 3. Hypertension 4. Dyslipidemia 5. GERD 6. Iron deficiency anemia 7. NAN with nocturnal hypoxemia, not on CPAP 8. CKD III -Significant history of CAD; status post PCI of the LAD with two bare metal stents in 2008. -Patient with no acute cardiac complaints. -EKG 01/15/25: SR with 1st degree AV block, HR 62 bpm, QTc 456. -CXR 01/14/25: Stable cardiomegaly with mild pulmonary vascular congestion. Stable moderate hiatal hernia. No consolidation or pleural effusion seen. No pneumothorax. Impression: CHF -Most recent stress echo 09/14/20 was negative for inducible ischemia. -Telemetry reviewed: SR with 1st degree AV block, HR 60s. Overnight HR 70s, no acute events. -Labs 01/15/25: Trop HS neg x3 (4.2, 4.6, 4.3) Patient with known iron deficiency anemia. Updated lab work again shows anemia with Hgb 11.4, Hct 36.2, MCV 82. -Continue Plavix 75 mg daily -Continue Isosorbide Mononitrate 60 mg daily -Continue Ezetimibe 10 mg daily -Continue Rosuvastatin 40 mg daily -echo completed, results pending -planning for 2 day, rest / pharmacologic stress nuclear stress test Case discussed with store associate Dr. Reinoso. Further recommendations pending his evaluation and assessment. I spent a total of 60 minutes on the date of service in preparation, delivery, and documentation of the care provided to this patient, excluding any time spent in the performance of separately billed services. Javier Shah, PAArtemC Department of Cardiology, [facility] This chart was completed in part utilizing Speech Voice Recognition Software. Grammatical errors, random word insertions, pronoun errors, and incomplete sentences are an occasional consequence of this system due to software limitations, ambient noise, and hardware issues. Any formal questions or concerns about the content, text, or information contained within the body of this dictation should be directly addressed to the provider for clarification. Supervising Physician Co-Signing Physician Notes Attending attestation: Case reviewed with the advanced practitioner. I have personally performed a history and physical examination on the patient. I have reviewed the advanced practitioner's documentation on the date of service referenced in note, and I agree with, and take responsibility for the plan of care. Patient presented with transient chest discomfort at rest. Became nauseous during the resting portion of her nuclear stress test today And then developed a headache. Perhaps related to prolonged n.p.o. status. Impression Chest discomfort, serial high sensitive troponin levels are reassuring. Will proceed with resting echocardiogram. Images have been obtained, and will be reviewed. Based on the patient's body mass index and inability to exercise sufficiently on the treadmill, we will proceed with a 2-day rest/stress nuclear stress protocol. Patient to be n.p.o. after midnight tonight for the stress portion study tentatively scheduled for 01/16/2025 I spent a total of 25 minutes coordinating, documenting, and providing care for this patient excluding time spent in the performance of separately billed services or time spent by another provider. Neel Reinoso DO History of Present Illness Reason for Consultation: Chest pain Requesting Physician: Marixa store associate Attending Physician: José Miguel Farris MD History of Present Illness Patient is a 74 yo female with medical history that includes significant h/o complex CAD with multiple past coronary interventions to the LAD dating back to 2008, HTN, dyslipidemia, iron deficiency anemia, CKD III, NAN, and GERD. Patient presented to the ER on 01/14/25 with chest discomfort. Cardiology services requested for assessment and recommendations. At time of evaluation this morning, patient is laying in bed in no acute distress. She notes that she has a mild headache, which she attributes to lack of food intake since her arrival at [facility]. Denies chest pain, SOB, palpitations, lightheadedness, dizziness, syncope, fever, or chills. Patient states she had some chest discomfort for 2-3 days, which intensified yesterday while at work. She states she was sitting down when she felt chest discomfort that lasted longer (about an hour) and was more pronounced than on the previous days. She states she felt discomfort on her left chest with no radiation to other areas. She states it "felt like someone was sitting on my chest," noting that there was no pain, only pressure. She did not have her nitroglycerin on hand, so could not take it and did not try anything else to alleviate the pain. She is unaware of anything that exacerbates her chest discomfort. Patient states she has experienced these chest pressure issues many times previously, at rest or with exertion, and can now "feel it coming on." She states her coworker took her blood pressure with a manual cuff, result was 154/100, prompting them to call an ambulance. She states she took her Metoprolol succinate that morning and takes Plavix and all other medications as prescribed without missing any doses; ramirez monica, she is taking Lasix and potassium supplement PRN due to lack of lower extremity edema. Patient states she received nitroglycerin in the ambulance and felt some relief after the second dose. Telemetry reviewed: SR with 1st degree AV block, HR 60s. Overnight HR 70s, no acute events. EKG 01/15/25: SR with 1st degree AV block, HR 62 bpm, QTc 456. CXR 01/14/25: Stable cardiomegaly with mild pulmonary vascular congestion. Stable moderate hiatal hernia. No consolidation or pleural effusion seen. No pneumothorax. Impression: CHF Allergies Allergy/AdvReac Type Severity Reaction Status Date / Time No Known Allergies Allergy Verified 01/14/25 15:19 Home Medications Medication Instructions Recorded Confirmed Type citalopram 40 mg tablet 40 mg PO QAM 09/19/18 01/14/25 History clopidogrel 75 mg tablet 75 mg PO QAM 09/19/18 01/14/25 History isosorbide mononitrate 60 mg 60 mg PO QAM 09/19/18 01/14/25 History tablet,extended release 24 hr levothyroxine 75 mcg tablet 75 mcg PO QAM 09/19/18 01/14/25 History nitroglycerin 0.4 mg sublingual 0.4 mg sublingual UD PRN Chest Pain 09/19/18 01/14/25 History tablet rosuvastatin 40 mg tablet 40 mg PO QAM 09/19/18 01/14/25 History ezetimibe 10 mg tablet (Zetia) 10 mg PO QAM 11/15/18 01/14/25 History pantoprazole 40 mg tablet,delayed 40 mg PO BID 11/15/18 01/14/25 History release furosemide 20 mg tablet 20 mg PO DAILY PRN Edema 12/14/18 01/14/25 History potassium chloride 10 mEq 10 meq PO DAILY PRN Edema 12/14/18 01/14/25 History capsule,extended release bupropion HCl 300 mg 24 hr tablet, 300 mg PO QAM 01/07/24 01/14/25 History extended release Patient History Medical History DESOUZA (dyspnea on exertion) Acute hypokalemia Acute GI bleeding Severe anemia Symptomatic anemia Chronic kidney disease STAGE 3 Hiatal hernia Anemia History of bleeding ulcers History of colon polyps GERD (gastroesophageal reflux disease) Hypothyroidism On anticoagulant therapy plavix daily Anxiety Depression Hypertension Hyperlipidemia Sleep apnea does not use cpap as ordered Myocardial infarction x3--last 2011? follows with Dr. Mckeon NAN (obstructive sleep apnea) Hypothyroidism CKD (chronic kidney disease), stage III Dyslipidemia CAD (coronary artery disease) "per outpatient cardiology note: cath 05/2007 - 50% LAD lesion 10/2008 - abnormal coronary CT that lead to cath that showed 70% proximal mid and LAD stenosis, s/p 2 BMS to LAD Plavix held for colonoscopy 12/2008 which resulted in acute OH, cath at that times showed critical lesion in between the two stents and underwent PCI with BMS Plavix held again for colonscopy 06/2009 which resulted in acute OH again, cath at that time showed patent stents with jailed diagonal branch as likely culprit 10/2009 - presented with chest pain, cath at that times showed stable non occlusive CAD 10/2010 - unstable angina, cath at that time showed left main with mild luminal irregularities, LAD with extensive stenting, jailing of diagonal branch, moderate ostial stenosis of a septal automotive collision estimator, and an indeterminate stenosis distal to the stents not amendable to PCI, nondominant LCX with up to 30% disease, large dominant RCA with up to 30% proximal stenosis and mild luminal irregularities of the PDA and PLB's 05/2014 - unchanged CAD from prior cath " On 04/09/15 16:39 Louisa Can wrote "cath 05/2007 - 50% LAD lesion 10/2008 - abnormal coronary CT that lead to cath that showed 70% proximal mid and LAD stenosis, s/p 2 BMS to LAD Plavix held for colonoscopy 12/2008 which resulted in acute OH, cath at that times showed critical lesion in between the two stents and underwent PCI with BMS Plavix held again for colonscopy 06/2009 which resulted in acute OH again, cath at that time showed patent stents with jailed diagonal branch as likely culprit 10/2009 - presented with chest pain, cath at that times showed stable non occlusive CAD 10/2010 - unstable angina, cath at that time showed left main with mild luminal irregularities, LAD with extensive stenting, jailing of diagonal branch, moderate ostial stenosis of a septal automotive collision estimator, and an indeterminate stenosis distal to the stents not amendable to PCI, nondominant LCX with up to 30% disease, large dominant RCA with up to 30% proximal stenosis and mild luminal irregularities of the PDA and PLB's 05/2014 - unchanged CAD from prior cath " On 04/09/15 16:07 Louisa Can wrote "cath 05/2007 - 50% LAD lesion" GERD (gastroesophageal reflux disease) HTN (hypertension) Depression Surgical History History of total hysterectomy with bilateral salpingo-oophorectomy (BSO) History of left breast biopsy benign History of bilateral tubal ligation History of carpal tunnel surgery of right wrist History of arthroscopy of left knee History of cholecystectomy History of colonoscopy History of esophagogastroduodenoscopy (EGD) History of heart artery stent x3, last placed in 2012 History of cardiac cath (multiple) last 2012? Family History Grandmother (Maternal) Family history of diabetes mellitus Grandfather (Maternal) Family history of diabetes mellitus Other Cancer Heart disease No family history of adverse response to anesthesia Social History Smoking Status: Former smoker Tobacco Type: Cigarettes Second Hand Exposure: Yes (ROOMMATE SMOKES); Do You Dip or Chew Tobacco: No; Hx Alcohol Use: Yes Alcohol type: beer and hard liquor Hx Substance Use: No Preferred Language: Tunisian Communication Ability: Effective Assembling Inspector Required: No Beliefs That Will Affect Care: None Current Living Situation: Other Current Living Situation Comment: Roomate Other Information That Helps Us Care for You: No Feels Safe at Home: Yes Safety Concerns: Feels Safe At This Time Assistive Devices: None Review of Systems Review of Systems: All systems reviewed & are unremarkable except as noted in HPI & below Physical Exam Constitutional: well developed and + obese; no acute distress Eyes: PERRL, conjunctivae normal, anicteric sclerae Neck: normal visual inspection and trachea midline Cardiovascular: Rate/Rhythm: regular rate and regular rhythm Heart Sounds: no murmur Vessels: no JVD and no carotid bruit Gastrointestinal (Abdomen): normal bowel sounds, soft, nontender, no hepatosplenomegaly Skin: no rashes, warm and dry Psychiatric: A+Ox3, euthymic affect Affect: euthymic affect Insight: good insight Results & Data Vital Signs (Past 12 Hours) Vital Signs Temp Pulse Pulse Resp BP Pulse Ox O2 Del Method 01/15/25 09:02 Room Air 01/15/25 08:27 36.5 C 66 16 127/80 97 Room Air 01/15/25 07:10 77 01/15/25 03:55 36.9 C 77 18 118/80 97 Room Air Laboratory Results Cardiac Enzymes 01/14/25 01/14/25 01/15/25 Range/Units 12:57 18:53 01:30 AST 23 (13-39) U/L Troponin I High Sens 4.3 4.6 4.2 (0-14) pg/ml Coagulation 01/14/25 Range/Units 12:57 PT 10.8 (9.0-12.0) Seconds APTT 23 (21-31) Seconds CBC 01/14/25 01/15/25 Range/Units 12:57 05:05 WBC 5.25 3.96 L (4.8-10.8) K/ul RBC 4.79 4.40 (4.20-5.40) M/uL Hgb 12.5 11.4 L (12.0-16.0) g/dl Hct 39.4 36.2 L (37.0-47.0) % Plt Count 235 196 (130-400) K/uL Neut # (Auto) 2.66 2.05 (1.40-6.50) K/uL Lymph # (Auto) 1.66 1.27 (1.20-3.40) K/uL Josephine # (Auto) 0.67 H 0.44 (0.11-0.59) K/uL Eos # (Auto) 0.19 0.15 (0.00-0.50) K/uL Baso # (Auto) 0.05 0.04 (0.00-0.20) K/uL Comprehensive Metabolic Panel 01/14/25 01/15/25 Range/Units 12:57 05:05 Sodium 139 138 (136-145) mmol/L Potassium 3.7 3.8 (3.5-5.1) mmol/L Chloride 106 107 (98-107) mmol/L Carbon Dioxide 24 24 (21-32) mmol/L BUN 17 13 (6-23) mg/dl Creatinine 0.97 0.93 (0.6-1.2) mg/dl Glucose 96 100 H (70-99(Fasting)) mg/dl Calcium 8.9 8.5 L (8.6-10.3) mg/dl AST 23 (13-39) U/L ALT 22 (7-52) U/L Alkaline Phosphatase 46 (34-104) U/L Total Protein 7.4 (6.0-8.3) gm/dl Albumin 3.8 (3.4-5.0) gm/dl Intake and Output 01/14/25 01/15/25 01/15/25 22:59 06:59 14:59 Other: # Unmeasured Voids 1 Weight 119.4 kg Weight Measurement Method Built in [facility] Diagnostic Findings EKG 01/15/25: SR with 1st degree AV block, HR 62 bpm, QTc 456. CXR 01/14/25: Stable cardiomegaly with mild pulmonary vascular congestion. Stable moderate hiatal hernia. No consolidation or pleural effusion seen. No pneumothorax. Impression: CHF Stress echo 09/14/20: The stress echo is negative for inducible ischemia. The left ventricular wall motion with stress is normal. The left ventricular ejection fraction increases normally with stress. The stress EKG response showed no evidence of ischemia. An equivocal flat blood pressure response to pharmacologic stress was observed. No symptoms suggestive of angina were reported. No significant valvular heart disease was present on the resting study. Medications Administered Current Inpatient Medications Ascorbic Acid (Ascorbic Acid 500 Mg Tab) 500 mg PO DAILY FUNMI Stop: 02/14/25 08:59 Last Admin: 01/15/25 08:35 Dose: 500 mg Bupropion HCl ([facility]upropion Xl 300 Mg Tabcr) [facility] [place]: 02/14/25 08:59 Last Admin: 01/15/25 08:35 Dose: 300 mg Citalopram Hydrobromide (Citalopram 40 Mg Tab) 40 mg PO QAM [facility] Stop: 02/14/25 08:59 Last Admin: 01/15/25 08:34 Dose: 40 mg Clopidogrel Bisulfate (Clopidogrel Bisulfate 75 Mg Tab) 75 mg PO QAM [facility] Stop: 02/14/25 08:59 Last Admin: 01/15/25 08:35 Dose: 75 mg Cyanocobalamin (Cyanocobalamin (B-12) 500 Mcg Tablet) 500 mcg PO DAILY [facility] Stop: 02/14/25 08:59 Last Admin: 01/15/25 08:34 Dose: 500 mcg Ezetimibe (Ezetimibe 10 Mg Tab) [facility] [place]: 02/14/25 08:59 Last Admin: 01/15/25 08:34 Dose: 10 mg Heparin Sodium (Porcine) (Heparin Sod 5,000 Unit/0.5 Ml Vial) 5,000 units SQ Q12 [facility] Stop: 02/13/25 20:59 Last Admin: 01/15/25 08:39 Dose: 5,000 units Isosorbide Mononitrate (Isosorbide Josephine Extended Rel 60 Mg Tabcr) 60 mg [facility] [place]: 02/14/25 08:59 Last Admin: 01/15/25 08:34 Dose: 60 mg Levothyroxine Sodium (Levothyroxine Sodium 75 Mcg Tablet) 75 mcg PO DAILYBB [facility] Stop: 02/14/25 06:29 Last Admin: 01/15/25 06:47 Dose: 75 mcg Nitroglycerin (Nitroglycerin Sl 0.4 Mg/Tab Tab) 0.4 mg SL Q5M PRN PRN Reason: Chest Pain Stop: 02/13/25 16:16 Pantoprazole Sodium (Pantoprazole 40 Mg Tab) 40 mg PO BID [facility] Stop: 02/13/25 20:59 Last Admin: 01/15/25 08:35 Dose: 40 mg Rosuvastatin Calcium (Rosuvastatin Calcium 20 Mg Tab) 40 mg PO QAM [facility] Stop: 02/14/25 08:59 Last Admin: 01/15/25 08:31 Dose: 40 mg Tramadol HCl (Tramadol Hcl 50 Mg Tablet) 50 mg PO Q6 PRN PRN Reason: Moderate Pain (Scale Score 5-6) Stop: 02/13/25 16:16 Last Admin: 01/15/25 08:31 Dose: 50 mg Vitamin D (Cholecalciferol 25 Mcg (1000 Units) Tab) 25 mcg PO DAILY FUNMI Stop: 02/14/25 08:59 Last Admin: 01/15/25 08:31 Dose: 25 mcg Coding [place] [address] IN/OBS CONSULT LVL 5,80M Patient Type Established History Comprehensive Exam Comprehensive Diagnoses Coronary artery disease due to calcified coronary lesion I25.10; I25.84 Coronary Disease-Associated Artery/Lesion type: due to calcified coronary lesion Hypertension, unspecified type I10 Hypertension type: unspecified Gastroesophageal reflux disease with esophagitis, unspecified whether hemorrhage K21.00 Esophagitis bleeding: unspecified whether hemorrhage Esophagitis presence: with esophagitis Iron deficiency anemia, unspecified iron deficiency anemia type D50.9 Anemia type: iron deficiency Iron deficiency anemia type: unspecified iron deficiency Time Spent (min) 85 Comment 60 minutes spent by Sumit Cage PA-C, 25 minutes by Ruben Reinoso DO (1) CAD (coronary artery disease) Coronary Disease-Associated Artery/Lesion type: due to calcified coronary lesion Qualified Code(s): I25.10 - Atherosclerotic heart disease of [place] coronary artery without angina pectoris; I25.84 - Coronary atherosclerosis due to calcified coronary lesion (2) Hypertension Hypertension type: unspecified Qualified Code(s): I10 - Essential (primary) hypertension (3) GERD (gastroesophageal reflux disease) Esophagitis bleeding: unspecified whether hemorrhage Esophagitis presence: with esophagitis Qualified Code(s): K21.00 - Gastro-esophageal reflux disease with esophagitis, without bleeding (4) Anemia Anemia type: iron deficiency Iron deficiency anemia type: unspecified iron deficiency Qualified Code(s): D50.9 - Iron deficiency anemia, unspecified
--- NOTE | 2025-01-15 13:10 | Electrocardiogram Report ---
Test Reason : Blood Pressure : */* mmHG Vent. Rate : 62 BPM Atrial Rate : 62 BPM P-R Int : 224 ms QRS Dur : 92 ms QT Int : 450 ms P-R-T Axes : 79 22 -3 degrees QTcB Int : 456 ms Sinus rhythm with 1st degree A-V block Low voltage QRS Nonspecific T wave abnormality Abnormal ECG When compared with ECG of 14-Jan-2025 12:51, Borderline criteria for Inferior infarct are no longer Present Confirmed by Nii Victoria ([id number]) on 01/15/2025 1:10:06 PM Referred By: REFERRED SELF Confirmed By: Nii Victoria
[2025-01-15] MEDS: ACETAMINOPHEN 1,000 MG/100 ML VIAL IV STA ×2 (14:18→18:52)
[2025-01-15 14:23] VITALS: RESP 18
[2025-01-15] MEDS: MAGNESIUM SULFATE / D5W 1 GM/100 ML BAG IV ONE (14:50)
[2025-01-15] MEDS: PROCHLORPERAZINE 5 MG in SYRINGE 4 ML IV ONE (15:52)
--- NOTE | 2025-01-15 17:54 | Hospitalist Progress Note ---
Date of Service January 15, 2025 Assessment & Plan (1) Chest pain: Plan: Complaining of chest pain off and on, with and without exertion for the last 2 to 3 days Pain lasted longer today so she went to the emergency room Initial EKG and troponin unremarkable- serial enzymes and EKG and also echocardiogram ordered Admitted to telemetry unit with a cardiac consult Echo - mild concentric LVH, LV wall motion is normal, LV EF 55-60%. Grade I diastolic dysfunction Per cardiology - Patient presented with transient chest discomfort at rest. Became nauseous during the resting portion of her nuclear stress test today And then developed a headache. Perhaps related to prolonged n.p.o. status. Impression Chest discomfort, serial high sensitive troponin levels are reassuring. Will proceed with resting echocardiogram. Images have been obtained, and will be reviewed. Based on the patient's body mass index and inability to exercise sufficiently on the treadmill, we will proceed with a 2-day rest/stress nuclear stress protocol. Patient to be n.p.o. after midnight tonight for the stress portion study tentatively scheduled for 01/16/2025 (2) CAD (coronary artery disease): Plan: Significant history of CADbare-metal stent to LAD in October 2008. Has had cardiac cath with critical LAD lesion between 2 prior LAD stent and underwent PCI using bare-metal stent in 2008 and has had 2 cardiac cath following that. Last cardiac cath was in May 2014 and continued with Plavix, Zetia, Imdur, metoprolol and rosuvastatin Cardiology consulted, as above (3) HTN (hypertension): Plan: Blood pressure remains stable and will continue current medication (4) NAN (obstructive sleep apnea): Plan: Can use CPAP if she has been using at home (5) CKD (chronic kidney disease), stage III: Plan: Will monitor PRP (6) Hypothyroidism: Plan: Continue replacement DVT prophylaxis Subcu heparin CODE STATUS DNR/DNI Admission and Anticipated Discharge Date Admission Date: January 14, 2025 Subjective Pt seen in follow up of chest pain Currently pt is lying in bed in NAD, resting/ sleeping but easily awakens Had headache and nausea before, now says she feels ok, and just wants to rest Currently denies any chest pain, shortness of breath, abd. pain, n/v, or headache Review of Systems Review of Systems: All systems reviewed & are unremarkable except as noted in Subjective Physical Exam Physical Exam: Physical Exam: Lying in bed with out any acute dist ress Constitutional: + morbidly obese F in NAD Eyes: PERRL, conjunctiva e normal, anicteri c sclerae ENMT: external ear and n ose normal Neck: supple Respiratory: no respiratory dis tress Auscultatio n: lungs clear to auscultation bilat erally and + dimin ished lung sounds Cardiovascular: Rate/Rhythm: regul ar rate and regula r rhythm; not tach ycardic Heart Tan[place] nds: normal S1 and normal S2; no mur mur Extremities: trace edema bilate rally Gastrointestinal ( Abdomen): Inspection/Auscult ation: normal rolanda l sounds; abdomen not distended, sof t; nontender Musculoskeletal: moves extremitie s Neurologic: alert and oriented , answers appropri ately, speech flue nt, no facial asym metry, moves extre mities Results & Data Results & Data Vital Signs (Past 12 Hours) Vital Signs Temp Pulse Pulse Resp BP Pulse Ox O2 Del Method 01/15/25 16:49 36.5 C 74 18 113/65 96 Room Air 01/15/25 15:26 64 01/15/25 14:22 36.7 C 70 18 115/77 95 Room Air 01/15/25 09:02 Room Air 01/15/25 08:27 36.5 C 66 16 127/80 97 Room Air 01/15/25 07:10 77 Laboratory Results 01/15/25 01/15/25 01/14/25 Range/Units 05:05 01:30 18:53 WBC 3.96 L (4.8-10.8) K/ul RBC 4.40 (4.20-5.40) M/uL Hgb 11.4 L (12.0-16.0) g/dl Hct 36.2 L (37.0-47.0) % MCV 82.3 (80.0-100.0) fL MCH 25.9 (25.0-34.0) pg MCHC 31.5 L (32.0-36.0) g/dL RDW Std Deviation 51.8 H (36.4-46.3) fL RDW Coeff of Ree 17.2 H (11.5-14.5) % Plt Count 196 (130-400) K/uL MPV 10.7 (9.4-12.4) fL Immature Gran % (Auto) 0.3 % Neut % (Auto) 51.7 % Lymph % (Auto) 32.1 % [place] % (Auto) 11.1 % Eos % (Auto) 3.8 % Baso % (Auto) 1.0 % Neut # (Auto) 2.05 (1.40-6.50) K/uL Lymph # (Auto) 1.27 (1.20-3.40) K/uL [place] # (Auto) 0.44 (0.11-0.59) K/uL Eos # (Auto) 0.15 (0.00-0.50) K/uL Baso # (Auto) 0.04 (0.00-0.20) K/uL Immature Gran # (Auto) 0.01 (0.01-0.20) K/uL Sodium 138 (136-145) mmol/L Potassium 3.8 (3.5-5.1) mmol/L Chloride 107 (98-107) mmol/L Carbon Dioxide 24 (21-32) mmol/L Anion Gap 7 (3-11) BUN 13 (6-23) mg/dl Creatinine 0.93 (0.6-1.2) mg/dl Est Cr Clr Drug Dosing 67.4 ml/min eGFR 64.90 BUN/Creatinine Ratio 14.0 (10-20) Glucose 100 H (70-99(Fasting)) mg/dl Estimat Average Glucose 117 mg/dl Hemoglobin A1c 5.7 H (4.5-5.6) % Calcium 8.5 L (8.6-10.3) mg/dl Magnesium 1.8 (1.7-2.4) mg/dl Troponin I High Sens 4.2 4.6 (0-14) pg/ml Medications Administered Current Inpatient Medications Acetaminophen (Acetaminophen 325 Mg Tab) 650 mg PO Q4H PRN PRN Reason: Pain or Fever Stop: 02/14/25 11:55 Ascorbic Acid (Ascorbic Acid 500 Mg Tab) 500 mg PO DAILY [facility] Stop: 02/14/25 08:59 Last Admin: 01/15/25 08:35 Dose: 500 mg Bupropion HCl (Bupropion Xl 300 Mg Tabcr) 300 mg PO QAM [facility] Stop: 02/14/25 08:59 Last Admin: 01/15/25 08:35 Dose: 300 mg Citalopram Hydrobromide (Citalopram 40 Mg Tab) [facility] [place]: 02/14/25 08:59 Last Admin: 01/15/25 08:34 Dose: 40 mg Clopidogrel Bisulfate (Clopidogrel Bisulfate 75 Mg Tab) 75 mg PO QAM [facility] Stop: 02/14/25 08:59 Last Admin: 01/15/25 08:35 Dose: 75 mg Cyanocobalamin (Cyanocobalamin (B-12) 500 Mcg Tablet) 500 mcg PO DAILY [facility] Stop: 02/14/25 08:59 Last Admin: 01/15/25 08:34 Dose: 500 mcg Ezetimibe (Ezetimibe 10 Mg Tab) 10 [facility] [place] Stop: 02/14/25 08:59 Last Admin: 01/15/25 08:34 Dose: 10 mg Heparin Sodium (Porcine) (Heparin Sod 5,000 Unit/0.5 Ml Vial) 5,000 units SQ Q12 [facility] Stop: 02/13/25 20:59 Last Admin: 01/15/25 08:39 Dose: 5,000 units Isosorbide Mononitrate (Isosorbide [place] Extended Rel 60 Mg Tabcr) 60 mg PO [facility] Stop: 02/14/25 08:59 Last Admin: 01/15/25 08:34 Dose: 60 mg Levothyroxine Sodium (Levothyroxine Sodium 75 Mcg Tablet) 75 mcg PO DAILYBB [facility] Stop: 02/14/25 06:29 Last Admin: 01/15/25 06:47 Dose: 75 mcg Nitroglycerin (Nitroglycerin Sl 0.4 Mg/Tab Tab) 0.4 mg SL Q5M PRN PRN Reason: Chest Pain Stop: 02/13/25 16:16 Pantoprazole Sodium (Pantoprazole 40 Mg Tab) 40 mg PO BID [facility] Stop: 02/13/25 20:59 Last Admin: 01/15/25 08:35 Dose: 40 mg Rosuvastatin Calcium (Rosuvastatin Calcium 20 Mg Tab) 40 mg PO QAM [facility] Stop: 02/14/25 08:59 Last Admin: 01/15/25 08:31 Dose: 40 mg Tramadol HCl (Tramadol Hcl 50 Mg Tablet) 50 mg PO Q6 PRN PRN Reason: Moderate Pain (Scale Score 5-6) Stop: 02/13/25 16:16 Last Admin: 01/15/25 08:31 Dose: 50 mg Vitamin D (Cholecalciferol 25 Mcg (1000 Units) Tab) 25 mcg PO DAILY [facility] Stop: 02/14/25 08:59 Last Admin: 01/15/25 08:31 Dose: 25 mcg (1) Chest pain Chest pain type: unspecified Qualified Code(s): R07.9 - Chest pain, unspecified (2) CAD (coronary artery disease) Coronary Disease-Associated Artery/Lesion type: due to calcified coronary lesion Qualified Code(s): I25.10 - Atherosclerotic heart disease of [place] oronary artery without angina pectoris; I25.84 - Coronary atherosclerosis due to calcified coronary lesion
[2025-01-15] MEDS: FAMOTIDINE 20MG IV PUSH 20 MG/5 ML SYR IV STA (19:17)
--- NOTE | 2025-01-15 22:11 | XRay Report ---
EXAM: XR KUB/Abdomen 1 view CLINICAL HISTORY: nausea recurrent. TECHNIQUE: X-ray images of the abdomen were obtained in supine positions. COMPARISON: No prior studies available for comparison. FINDINGS: The gas pattern within the abdomen is normal. Fecal loading noted. No evidence of bowel obstruction. No evidence of significant air-fluid levels or pneumoperitoneum. No significant evidence of any abnormal density along the line of the kidneys, ureters, and urinary bladder. Soft tissues of the abdomen appear normal without evidence of masses or calcifications. Possible cholecystectomy clips in the right lumbar region. Degenerative changes in the visualized spine and bones. IMPRESSION: 1. Fecal loading noted. 2. No evidence of intestinal obstruction or pneumoperitoneum. Electronically signed by Ángel Hayden 01-15-2025 10:10 PM
[2025-01-16 06:15] LABS: Hematocrit (blood only) 34.8 % (37.0-47.0); Hemoglobin 11.4 g/dl (12.0-16.0); Mean Corpuscular Hemoglobin 26.8 pg (25.0-34.0); Mean Corpuscular Volume 81.9 fL (80.0-100.0); Platelet Count 216 K/uL (130-400); RDW Standard Deviation 50.5 fL (36.4-46.3); Red Blood Count 4.25 M/uL (4.20-5.40); White Blood Count 4.70 K/ul (4.8-10.8)
[2025-01-16 06:32] LABS: Anion Gap 7.0 (3-11); Blood Urea Nitrogen 11.0 mg/dl (6-23); Calcium 8.4 mg/dl (8.6-10.3); Carbon Dioxide 25.0 mmol/L (21-32); Chloride 105.0 mmol/L (98-107); Creatinine Clr Calc Pharmacy 67.4 ml/min; Glucose 99.0 mg/dl (70-99(Fasting)); Magnesium 1.9 mg/dl (1.7-2.4); Potassium 4.0 mmol/L (3.5-5.1); Sodium 137.0 mmol/L (136-145)
[2025-01-16] MEDS: ACETAMINOPHEN 325 MG TAB PO PRN (10:25)
--- NOTE | 2025-01-16 13:28 | Cardiology Progress Note ---
Date of Service January 16, 2025 Assessment & Plan (1) Chest pain: (2) CAD (coronary artery disease): (3) Hypertension: (4) GERD (gastroesophageal reflux disease): Plan Patient is a 74 yo female with medical history that includes significant h/o CAD s/p PCI of the LAD with 2 bare metal stents in 2008, HTN, dyslipidemia, iron deficiency anemia, CKD III, NAN, and GERD. Patient presented to the ER on 01/14/25 with chest discomfort. Cardiology services requested for assessment and recommendations. * Patient seen prior to, and during nuclear stress test. The results of which are pending. * Continue prior to hospital medications including clopidogrel, rosuvastatin, isosorbide mononitrate, ezetimibe. * Further recommendations will be forthcoming once the nuclear perfusion images are available for interpretation. * Continue subcutaneous heparin for DVT prophylaxis. Admission and Anticipated Discharge Date Admission Date: January 14, 2025 Subjective Patient seen in cardiology follow-up. Notes resolution of chest discomfort and nauseousness. Telemetry reveals sinus rhythm in the 60s. Physical Exam Constitutional: well developed and + obese; no acute distress Eyes: PERRL, conjunctivae normal, anicteric sclerae Neck: normal visual inspection and trachea midline Cardiovascular: Rate/Rhythm: regular rate and regular rhythm Heart Sounds: no murmur Vessels: no JVD and no carotid bruit Extremities: no edema Gastrointestinal (Abdomen): normal bowel sounds, soft, nontender, no hepatosplenomegaly Skin: no rashes, warm and dry Psychiatric: A+Ox3, euthymic affect Affect: euthymic affect Insight: good insight Results & Data Vital Signs (Past 12 Hours) Vital Signs Temp Pulse Pulse Resp BP Pulse Ox O2 Del Method 01/16/25 08:59 Room Air 01/16/25 08:15 36.5 C 68 18 145/88 H 96 Room Air 01/16/25 07:24 66 01/16/25 02:30 36.3 C L 85 18 135/79 95 Room Air Laboratory Results CBC 01/16/25 Range/Units 05:42 WBC 4.70 L (4.8-10.8) K/ul RBC 4.25 (4.20-5.40) M/uL Hgb 11.4 L (12.0-16.0) g/dl Hct 34.8 L (37.0-47.0) % Plt Count 216 (130-400) K/uL Comprehensive Metabolic Panel 01/16/25 Range/Units 05:42 Sodium 137 (136-145) mmol/L Potassium 4.0 (3.5-5.1) mmol/L Chloride 105 (98-107) mmol/L Carbon Dioxide 25 (21-32) mmol/L BUN 11 (6-23) mg/dl Creatinine 0.93 (0.6-1.2) mg/dl Glucose 99 (70-99(Fasting)) mg/dl Calcium 8.4 L (8.6-10.3) mg/dl Intake and Output 01/15/25 01/16/25 01/16/25 22:59 06:59 14:59 Intake Total 750 / 850 Balance 750 / 850 Intake: IV 200 / 300 Acetaminophen 1,000 mg In 100 100 / 100 ml @ 400 mls/hr IV NOW STA Rx#: [id number] Magnesium Sulfate / D5w 1 gm In 100 / 100 100 ml @ 50 mls/hr IV ONE ONE Rx#:[id number] Oral 550 / 550 Other: # Unmeasured Voids 2 Coding [place] [address] SUB INP/OBS CARE 2/35MIN Patient Type Established History Comprehensive Exam Comprehensive Medical Decision Making Moderate Complexity Diagnoses Chest pain R07.9 Chest pain type: unspecified Coronary artery disease due to calcified coronary lesion I25.10; I25.84 Coronary Disease-Associated Artery/Lesion type: due to calcified coronary lesion Hypertension, unspecified type I10 Hypertension type: unspecified Gastroesophageal reflux disease with esophagitis, unspecified whether hemorrhage K21.00 Esophagitis presence: with esophagitis Esophagitis bleeding: unspecified whether hemorrhage (1) Chest pain Chest pain type: unspecified Qualified Code(s): R07.9 - Chest pain, unspecified (2) CAD (coronary artery disease) Coronary Disease-Associated Artery/Lesion type: due to calcified coronary lesion Qualified Code(s): I25.10 - Atherosclerotic heart disease of [place] coronary artery without angina pectoris; I25.84 - Coronary atherosclerosis due to calcified coronary lesion (3) Hypertension Hypertension type: unspecified Qualified Code(s): I10 - Essential (primary) hypertension (4) GERD (gastroesophageal reflux disease) Esophagitis presence: with esophagitis Esophagitis bleeding: unspecified whether hemorrhage Qualified Code(s): K21.00 - Gastro-esophageal reflux disease with esophagitis, without bleeding
[2025-01-16] MEDS: REGADENOSON 0.4 MG/5 ML SYR IV ONE (14:11)
[2025-01-16] MEDS: NYSTATIN POWDER 15GM BTL EXT PRN (14:46)
--- NOTE | 2025-01-16 15:23 | Myocardial Perfusion Study ---
Date of Service January 16, 2025 Myocardial Perfusion Study k Myocardial Perfusion Study Report Procedure: 1. Myocardial perfusion study performed in multiple views/images 2. Lexiscan pharmacologic stress ECG Indication: Chest pain, nausea Ordering physician: Neel Reinoso DO Procedural details: For the stress portion of the study, Lexiscan 0.4 mg was intravenously administered followed by a saline flush. This was followed by 24.1 mCi of technetium 99m Cardiolite, injected at 12:30 PM on 01/16/2025. 30 minutes following the injection, imaging of the heart was performed in multiple projections. For the rest portion of the study, 23.1 mCi technetium 99m Cardiolite was injected intravenously at 11:05 AM on 01/15/2025. 1 hour following the injection, imaging of the heart was performed in the same projections. Review of the raw data cine form revealed good technical quality, no abnormalities. Lexiscan stress ECG: Resting ECG demonstrated: Sinus rhythm with rate in the 70s. ST segments were normal at rest. The stress ECG response was negative for ischemia. No significant arrhythmias were observed. Maximum heart rate: 108 bpm Maximal, age-predicted heart rate: 73% Resting blood pressure: 138/82 mmHg Maximum blood pressure: 149/[address] changes: None Arrhythmia: None Symptoms: Transient nauseousness noted. No chest discomfort was reported. Findings: Rotating raw imaging demonstrated no significant lung uptake. There is no significant motion artifact. Heart size appeared normal. Myocardial perfusion demonstrated normal stress perfusion. The resting perfusion is normal. Ejection fraction: >70% Wall motion: Normal No significant transient ischemic dilation. Impression: 1. The pharmacologic myocardial fusion imaging study is normal without evidence of scar or distal ischemia. 2. The gated wall motion is normal, LVEF > 70%, normal. Ruben Reinoso DO [facility] Myocardial perfusion code Procedure Code Procedure 1: Myocardial Perfusion Codes: 20428 Cardiovascular Stress Test, multiple Procedure 2: Myocardial Perfusion Codes: 19115 Cardiovascular Stress Test, supervision only Procedure 3: Myocardial Perfusion Codes: 85346 Cardiovascular Stress Test, interpretation and report
--- NOTE | 2025-01-16 15:26 | Communication Note ---
Date of Service: January 16, 2025 Nuclear stress test was normal. Continue outpatient cardiac medications. No further cardiac workup felt to be indicated. Ruben Reinoso DO
--- NOTE | 2025-01-16 17:34 | Hospitalist Progress Note ---
Date of Service January 16, 2025 Assessment & Plan (1) Chest pain: Plan: Complaining of chest pain off and on, with and without exertion for the last 2 to 3 days Pain lasted longer today so she went to the emergency room Initial EKG and troponin unremarkable- serial enzymes and EKG and also echocardiogram ordered Admitted to telemetry unit with a cardiac consult Echo - mild concentric LVH, LV wall motion is normal, LV EF 55-60%. Grade I diastolic dysfunction Per cardiology - Nuclear stress test was normal. Continue outpatient cardiac medications. No further cardiac workup felt to be indicated. (2) CAD (coronary artery disease): Plan: Significant history of CADbare-metal stent to LAD in October 2008. Has had cardiac cath with critical LAD lesion between 2 prior LAD stent and underwent PCI using bare-metal stent in 2008 and has had 2 cardiac cath following that. Last cardiac cath was in May 2014 and continued with Plavix, Zetia, Imdur, metoprolol and rosuvastatin Cardiology consulted, as above (3) HTN (hypertension): Plan: Blood pressure remains stable and will continue current medication (4) NAN (obstructive sleep apnea): Plan: Can use CPAP if she has been using at home (5) CKD (chronic kidney disease), stage III: Plan: Will monitor PRP (6) Hypothyroidism: Plan: Continue replacement DVT prophylaxis Subcu heparin CODE STATUS DNR/DNI Admission and Anticipated Discharge Date Admission Date: January 14, 2025 Subjective Pt seen in follow up of chest pain Pt seen after her stress test, currently feeling well, no chest pain or shortness of breath. Says she had nausea after lying flat which seems to be known d/t to her hiatal hernia Currently no abd.pain, no n/v Review of Systems Review of Systems: All systems reviewed & are unremarkable except as noted in Subjective Physical Exam Physical Exam: Physical Exam: Lying in bed with out any acute dist ress Constitutional: + morbidly obese F in NAD Eyes: PERRL, conjunctiva e normal, anicteri c sclerae ENMT: external ear and n ose normal Neck: supple Respiratory: no respiratory dis tress Auscultatio n: lungs clear to auscultation bilat erally and + dimin ished lung sounds Cardiovascular: Rate/Rhythm: regul ar rate and regula r rhythm; not tach ycardic Heart Tan[place] nds: normal S1 and normal S2; no mur mur Extremities: trace edema bilate rally Gastrointestinal ( Abdomen): Inspection/Auscult ation: normal rolanda l sounds; abdomen not distended, sof t; nontender Musculoskeletal: moves extremitie s Neurologic: alert and oriented , answers appropri ately, speech flue nt, no facial asym metry, moves extre mities Results & Data Results & Data Vital Signs (Past 12 Hours) Vital Signs Temp Pulse Pulse Resp BP Pulse Ox O2 Del Method 01/16/25 17:10 36.7 C 73 18 149/83 H 95 Room Air 01/16/25 14:19 75 01/16/25 08:59 Room Air 01/16/25 08:15 36.5 C 68 18 145/88 H 96 Room Air 01/16/25 07:24 66 Laboratory Results 01/16/25 Range/Units 05:42 WBC 4.70 L (4.8-10.8) K/ul RBC 4.25 (4.20-5.40) M/uL Hgb 11.4 L (12.0-16.0) g/dl Hct 34.8 L (37.0-47.0) % MCV 81.9 (80.0-100.0) fL MCH 26.8 (25.0-34.0) pg MCHC 32.8 (32.0-36.0) g/dL RDW Std Deviation 50.5 H (36.4-46.3) fL RDW Coeff of Ree 16.8 H (11.5-14.5) % Plt Count 216 (130-400) K/uL MPV 10.7 (9.4-12.4) fL Sodium 137 (136-145) mmol/L Potassium 4.0 (3.5-5.1) mmol/L Chloride 105 (98-107) mmol/L Carbon Dioxide 25 (21-32) mmol/L Anion Gap 7 (3-11) BUN 11 (6-23) mg/dl Creatinine 0.93 (0.6-1.2) mg/dl Est Cr Clr Drug Dosing 67.4 ml/min eGFR 64.90 BUN/Creatinine Ratio 11.8 (10-20) Glucose 99 (70-99(Fasting)) mg/dl Calcium 8.4 L (8.6-10.3) mg/dl Phosphorus 3.4 (2.5-4.9) mg/dl Magnesium 1.9 (1.7-2.4) mg/dl Medications Administered Current Inpatient Medications Acetaminophen (Acetaminophen 325 Mg Tab) 650 mg PO Q4H PRN PRN Reason: Pain or Fever Stop: 02/14/25 11:55 Last Admin: 01/16/25 10:25 Dose: 650 mg Ascorbic Acid (Ascorbic Acid 500 Mg Tab) 500 mg PO DAILY [facility] Stop: 02/14/25 08:59 Last Admin: 01/16/25 09:04 Dose: 500 mg Bupropion HCl (Bupropion Xl 300 Mg Tabcr) [facility] [place] [facility] [place]: 02/14/25 08:59 Last Admin: 01/16/25 09:04 Dose: 300 mg Citalopram Hydrobromide (Citalopram 40 Mg Tab) 40 [facility] [place]: 02/14/25 08:59 Last Admin: 01/16/25 09:04 Dose: 40 mg Clopidogrel Bisulfate (Clopidogrel Bisulfate 75 Mg Tab) 75 mg PO [facility] Stop: 02/14/25 08:59 Last Admin: 01/16/25 09:04 Dose: 75 mg Cyanocobalamin (Cyanocobalamin (B-12) 500 Mcg Tablet) 500 mcg PO DAILY [facility] Stop: 02/14/25 08:59 Last Admin: 01/16/25 09:04 Dose: 500 mcg Ezetimibe (Ezetimibe 10 Mg Tab) 10 [facility] [place]: 02/14/25 08:59 Last Admin: 01/16/25 09:04 Dose: 10 mg Heparin Sodium (Porcine) (Heparin Sod 5,000 Unit/0.5 Ml Vial) 5,000 units SQ Q12 [facility] Stop: 02/13/25 20:59 Last Admin: 01/16/25 09:13 Dose: 5,000 units Isosorbide Mononitrate (Isosorbide [place] Extended Rel 60 Mg Tabcr) 60 [facility] [place]: 02/14/25 08:59 Last Admin: 01/16/25 09:04 Dose: 60 mg Levothyroxine Sodium (Levothyroxine Sodium 75 Mcg Tablet) 75 mcg PO DAILYBB [facility] Stop: 02/14/25 06:29 Last Admin: 01/16/25 05:45 Dose: 75 mcg Nitroglycerin (Nitroglycerin Sl 0.4 Mg/Tab Tab) 0.4 mg SL Q5M PRN PRN Reason: Chest Pain Stop: 02/13/25 16:16 Nystatin (Nystatin Powder 15gm Btl) 1 appln EXT DAILY PRN PRN Reason: Affected Skin Folds Stop: 02/15/25 14:24 Last Admin: 01/16/25 14:46 Dose: 1 appln Pantoprazole Sodium (Pantoprazole 40 Mg Tab) 40 mg PO BID [facility] Stop: 02/13/25 20:59 Last Admin: 01/16/25 09:04 Dose: 40 mg Rosuvastatin Calcium (Rosuvastatin Calcium 20 Mg Tab) 40 mg PO QAM [facility] Stop: 02/14/25 08:59 Last Admin: 01/16/25 09:03 Dose: 40 mg Tramadol HCl (Tramadol Hcl 50 Mg Tablet) 50 mg PO Q6 PRN PRN Reason: Moderate Pain (Scale Score 5-6) Stop: 02/13/25 16:16 Last Admin: 01/15/25 08:31 Dose: 50 mg Vitamin D (Cholecalciferol 25 Mcg (1000 Units) Tab) 25 mcg PO DAILY [facility] Stop: 02/14/25 08:59 Last Admin: 01/16/25 09:04 Dose: 25 mcg (1) Chest pain Chest pain type: unspecified Qualified Code(s): R07.9 - Chest pain, unspecified (2) CAD (coronary artery disease) Coronary Disease-Associated Artery/Lesion type: due to calcified coronary lesion Qualified Code(s): I25.10 - Atherosclerotic heart disease of [place] coronary artery without angina pectoris; I25.84 - Coronary atherosclerosis due to calcified coronary lesion
[2025-01-17 09:15] VITALS: BP 122/73; PULSE 70; TEMP 98.1; O2SAT 91
--- NOTE | 2025-01-17 09:46 | Discharge Summary ---
Date of Service January 17, 2025 Admission HPI Per Admitting Provider She is a 74-year-old obese female with significant past medical history of CAD status post stent placement, hypertension, hypothyroidism, sleep apnea prediabetes, GERD, celiac disease and stage III chronic kidney disease apparently has been complaining of chest pain off-and-on for the last few days. Today she has had the pain while she was working on a computer and the pain lasted longer without any other associated symptoms but she decided to come to emergency room for evaluation. She has been free of pain after receiving nitro and aspirin and she denies any other symptoms during my examination in the emerg ency room. Her initial EKG and troponin were unremarkable but given the complexity of her heart problem and the chest pain she will be admitted to rule out and possible Persantine Cardiolite test down the line Admission Exam Per Admitting Provider Physical Exam: Lying in bed without any acute distress Constitutional: well developed, well nourished and + morbidly obese; not ill appearing Eyes: PERRL, conjunctivae normal, anicteric sclerae ENMT: external ear and nose normal, oropharynx normal Neck: trachea midline, no thyromegaly Respiratory: no respiratory distress Auscultation: lungs clear to auscultation bilaterally and + diminished lung sounds Cardiovascular: Rate/Rhythm: regular rate and regular rhythm; not tachycardic Heart Sounds: normal S1 and normal S2; no murmur Extremities: + edema ( trace edema bilaterally) Gastrointestinal (Abdomen): Inspection/Auscultation: normal bowel sounds; abdomen not distended Percussion/Palpation: abdomen soft; abdomen nontender Musculoskeletal: No acute arthritis involving any of the joint Neurologic: normal touch/pain/proprioception and moves all extremities; no focal motor deficits Psychiatric: A+Ox3, euthymic affect Lymphatic: no cervical or axillary lymphadenopathy Principal Diagnosis Chest pain, Hx of CAD, GERD Discharge Exam Physical Exam: Lying in bed without any acute distress Constitutional: + morbidly obese F in NAD Eyes: PERRL, conjunctivae normal, anicteric sclerae ENMT: external ear and nose normal Neck: supple Respiratory: no respiratory distress Auscultation: lungs clear to auscultation bilaterally and + diminished lung sounds Cardiovascular: Rate/Rhythm: regular rate and regular rhythm; not tachycardic Heart Sounds: normal S1 and normal S2; no murmur Extremities: trace edema bilaterally Gastrointestinal (Abdomen): Inspection/Auscultation: normal bowel sounds; abdomen not distended, soft; nontender Musculoskeletal: moves extremities Neurologic: alert and oriented, answers appropriately, speech fluent, no facial asymmetry, moves extremities Discharge Data Allergies Allergy/AdvReac Type Severity Reaction Status Date / Time No Known Allergies Allergy Verified 01/14/25 15:19 Consultations 01/14/25 14:15 ED Decision to Admit Stat 01/14/25 15:13 Consult Cardiology Routine Hospital Course (1) Chest pain: Complaining of chest pain off and on, with and without exertion for the last 2 to 3 days Pain lasted longer today so she went to the emergency room Initial EKG and troponin unremarkable- serial enzymes and EKG and also echocardiogram ordered Admitted to telemetry unit with a cardiac consult Echo - mild concentric LVH, LV wall motion is normal, LV EF 55-60%. Grade I diastolic dysfunction Per cardiology - Nuclear stress test was normal. Continue outpatient cardiac medications. No further cardiac workup felt to be indicated. (2) CAD (coronary artery disease): Significant history of CADbare-metal stent to LAD in October 2008. Has had cardiac cath with critical LAD lesion between 2 prior LAD stent and underwent PCI using bare-metal stent in 2008 and has had 2 cardiac cath following that. Last cardiac cath was in May 2014 and continued with Plavix, Zetia, Imdur, metoprolol and rosuvastatin Cardiology consulted, as above (3) HTN (hypertension): Blood pressure remains stable and will continue current medication (4) NAN (obstructive sleep apnea): Can use CPAP if she has been using at home (5) CKD (chronic kidney disease), stage III: Will monitor PRP (6) Hypothyroidism: Continue replacement Total Time Total Time Spent Total Time Spent (In Minutes): 40 Discharge Plan Discharge Items Patient Disposition: Home - Self-Care Reason For Visit: CHEST PAIN,CAD Discharge Diagnosis: Chest pain, Hx of CAD, GERD Condition on Discharge: Fair Activity: Per Instructions section Non-emergency contact: Primary Care Provider and 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 Continue taking your medications as previously prescribed. Pending Studies at Discharge: No Stand-Alone Forms: [facility], Work/School Release, Smoking Cessation Medications and DC Order Prescriptions: Continued pantoprazole 40 mg Tablet,Delayed Release (Dr/Ec) 40 mg PO BID ezetimibe [Zetia] 10 mg Tablet 10 mg PO QAM clopidogrel 75 mg Tablet 75 mg PO QAM levothyroxine 75 mcg Tablet 75 mcg PO QAM rosuvastatin 40 mg Tablet 40 mg PO QAM citalopram 40 mg Tablet 40 mg PO QAM isosorbide mononitrate 60 mg Tablet Extended Release 24 Hr 60 mg PO QAM nitroglycerin 0.4 mg Tablet, Sublingual 0.4 mg sublingual UD PRN (Reason: Chest Pain) Rx Instructions: NEEDED FOR CHEST PAIN : ONE TABLET UNDER THE TONGUE EVERY 5 MINUTES UP TO THREE DOSES. potassium chloride 10 mEq Capsule, Extended Release 10 meq PO DAILY PRN (Reason: Edema) Rx Instructions: TAKE WITH FUROSEMEDE PRN furosemide 20 mg Tablet 20 mg PO DAILY PRN (Reason: Edema) bupropion HCl 300 mg tablet extended release 24 hr 300 mg PO QAM Discharge Orders: Discharge Order (Routine); Ordered 01/17/25 Ordered By: José Miguel Farris Admission Data Admit Date/Time: 01/14/25 15:08 Attending Provider: José Miguel Farris Admit Provider: Brit Giron Primary Care Provider: Santiago Pelayo Other Providers: Brit Giron; Moira Martinez; Neel Reinoso; Trever Rashid; Alek Ramirez Michael G.; Santiago Mckeon; Sally Alonzo; Darline Mishra; Marguerite Guerrier; Alix Ureña Ashley M.; Phoenix Shine; Tree Guerra; Esther Garcia; Kelly Galarza; Veronika Arnold; Mike Holguin; James Azevedo; Toya Mason; Arielle Hahn; Alex Ward
== END 2025-01-17 11:12 | disposition home or self-care (01) | DRG 313 ==
LOC: ED 12:45 → SUATTDRO 15:08 → 4W 15:08